=== PATIENT | male | born 1945 | race African-American/Black ===

== ENCOUNTER 2018-10-22 20:12 | Inpatient (IN) | payer MEDICAID ==
[~2018-10-22] VITALS: Ht 182.9 cm; Wt 65.8 kg
[2018-10-22 20:19] VITALS: BP 162/85
[2018-10-22] MEDS ORDERED: DEPAKOTE250 MG PO (20:22)
[2018-10-22] MEDS ORDERED: METOPROLOL SUCC25 MG ORAL (20:23)
[2018-10-22] MEDS ORDERED: METFORMIN HCL500 M1 ORAL (20:23)
[2018-10-22] MEDS ORDERED: AMIODARONE HCL400 M1 ORAL (20:24)
[2018-10-22] MEDS ORDERED: LORazepam Inj 2mg/ml 1ml IV ONE (20:30)
[2018-10-22] MEDS ORDERED: levETIRAcetam 500 MG in D5W 110 ML IV ONE (20:30)
[2018-10-22] MEDS ORDERED: Vancomycin 1 GM in D5W 275 ML IVPB ONE (22:00)
[2018-10-22] MEDS ORDERED: Cefepime HCl 1 GM in D5W 55 ML IVPB ONE (22:00)
--- NOTE | 2018-10-22 22:01 | Emergency Room Report ---
History of Present Illness General Chief Complaint: Seizure Source: Medical Record, EMS Present Illness HPI Patient presents with an alleged tonic clonic seizure at the detention facility. According to EMS the patient does not have a prior history of seizures. Accu-Chek was normal in the field. No further treatment was provided. EMS was unable to start an IV. They alleged that the patient has no prior history of seizures and is not taking any medication for seizures. No history isn't available at this time however old records will be reviewed Review of medications the patient is on Depakote. Diabetic. On amiodarone. H/O a fib Allergies: Coded Allergies: No Known Allergies (Unverified , 10/22/18) Patient History Limited by: medical condition Past Medical History: see triage record, old chart reviewed Social History Narrative detention facility Reviewed Nursing Documentation: PMH: Agreed; PSxH: Agreed Nursing Documentation-PMH Past Medical History: No History, Except For Hx Cardiac Problems: Yes - A-fib Hx Hypertension: Yes Hx Diabetes: Yes Hx Gastrointestinal Problems: Yes - gerd History Of Psychiatric Problem: Yes - depression,anxiety,mood disorder Hx Cerebrovascular Accident: Yes - right side weakness Review of Systems All Other Systems: limited Physical Exam Vital Signs Date Time Temp Pulse Resp B/P (MAP) Pulse Ox O2 Delivery O2 Flow Rate FiO2 10/22/18 20:10 72 18 173/95 98 Room Air Sp02 EP Interpretation: reviewed, normal General Appearance: mild distress - resp, Chronically Ill Head: normocephalic, atraumatic Eyes: right eye other - Opacity ENT: moist mucus membranes - poor dentition Neck: supple Respiratory: no retraction - Tachypnea, rales Cardiovascular #1: regular rate, rhythm Cardiovascular #2: 2+ radial (L) Gastrointestinal: normal inspection, non tender, no mass, non-distended, decreased bowel sounds Musculoskeletal: back normal, other - contractures Neurologic: alert, motor weakness, other - vegetative state, minimally responsive Psychiatric: other - unresponsve to voice or pain Skin: normal inspection, warm/dry Medical Decision Making Diagnostic Impression: Primary Impression: Seizure Additional Impressions: Bilateral pneumonia Qualified Codes: J18.9 - Pneumonia, unspecified organism s/p strokes Elevated brain natriuretic peptide (BNP) level ER Course Patient presents after a witnessed tonic-clonic seizure. It appears that the patient is on valproic acid for behavioral reasons. Differential includes CVA, bleed, breakthrough seizures, new-onset seizures amongst others. Patient will be evaluated EKG, chest x-ray, CT the head and labs including a valproic acid level. The patient is somewhat tachypnea And will be evaluated for possible aspiration. Treated with dose of Keppra and ativan. EKG with normal sinus rhythm possible left ventricular hypertrophy and nonspecific ST-T wave changes. Chest x-ray with bilateral infiltrates. CT with 2 areas of prior strokes, L frontal and R occipital. Also atrophy. Labs with normal WBC, anemia, negative troponin,. elevated BUN, low valproic acid. Based on the x-ray antibiotics are begun. Labs are still pending. Discussed with Dr. French who accepts the patient. He requests a neurologist. Called Dr. Marks - no response. Attempted to have patient on room air - tachypnea and O2 sat decreased to 92%. Oxygen restarted with nasal cannula with improved tachypnea and oxygen saturation. Admit telemetry. BNP is elevated. Laboratory Tests Test 10/22/18 21:34 White Blood Count 8.1 K/UL (4.8-10.8) Red Blood Count 4.10 M/UL (4.70-6.10) L Hemoglobin 11.8 G/DL (14.2-18.0) L Hematocrit 36.6 % (42.0-52.0) L Mean Corpuscular Volume 89 FL (80-99) Mean Corpuscular Hemoglobin 28.8 PG (27.0-31.0) Mean Corpuscular Hemoglobin Concent 32.3 G/DL (32.0-36.0) Red Cell Distribution Width 12.4 % (11.6-14.8) Platelet Count 363 K/UL (150-450) Mean Platelet Volume 6.1 FL (6.5-10.1) L Neutrophils (%) (Auto) 79.3 % (45.0-75.0) H Lymphocytes (%) (Auto) 13.2 % (20.0-45.0) L Monocytes (%) (Auto) 5.9 % (1.0-10.0) Eosinophils (%) (Auto) 0.5 % (0.0-3.0) Basophils (%) (Auto) 1.1 % (0.0-2.0) Sodium Level 134 MMOL/L (136-145) L Potassium Level 5.0 MMOL/L (3.5-5.1) Chloride Level 95 MMOL/L (98-107) L Carbon Dioxide Level 33 MMOL/L (21-32) H Anion Gap 6 mmol/L (5-15) Blood Urea Nitrogen 21 mg/dL (7-18) H Creatinine 0.8 MG/DL (0.55-1.30) Estimate Glomerular Filtration Rate mL/min (>60) Glucose Level 100 MG/DL (74-106) Calcium Level 9.9 MG/DL (8.5-10.1) Total Bilirubin 0.1 MG/DL (0.2-1.0) L Aspartate Amino Transferase (AST) 35 U/L (15-37) Alanine Aminotransferase (ALT) 40 U/L (12-78) Alkaline Phosphatase 158 U/L (46-116) H Total Creatine Kinase 72 U/L (26-308) Troponin I 0.018 ng/mL (0.000-0.056) Total Protein 8.1 G/DL (6.4-8.2) Albumin 2.3 G/DL (3.4-5.0) L Globulin 5.8 g/dL Albumin/Globulin Ratio 0.4 (1.0-2.7) L Valproic Acid Level 11 MCG/ML (50-100) L EKG Diagnostic Results Rate: normal Rhythm: NSR ST Segments: no acute changes - Nonspecific T-wave abnormalities Rhythm Strip Diag. Results EP Interpretation: yes Rhythm: NSR, no PVC's, no ectopy Chest X-Ray Diagnostic Results Chest X-Ray Diagnostic Results : Chest X-Ray Ordered: Yes # of Views/Limited/Complete: 1 View Indication: Other EP Interpretation: Yes Interpretation: no effusion, no pneumothorax, other - Bilateral infiltrates Impression: Other Electronically Signed by: Electronically signed by Haile Laws MD CT/MRI/US Diagnostic Results CT/MRI/US Diagnostic Results : Imaging Test Ordered: Head Impression Left frontal and right occipital infarcts which appear old Last Vital Signs Date Time Temp Pulse Resp B/P (MAP) Pulse Ox O2 Delivery O2 Flow Rate FiO2 10/22/18 20:19 74 18 Room Air 10/22/18 20:19 97.8 162/85 98 2.0 Status: improved Disposition: ADMITTED INPATIENT Condition: Serious Referrals: Kareem Valladares MD (PCP) Haile Laws MD Oct 22, 2018 22:01
[2018-10-22 22:03] LABS: BASOPHILS % (AUTO) 1.1 % (0.0-2.0); EOSINOPHILS % (AUTO) 0.5 % (0.0-3.0); HEMATOCRIT 36.6 % (42.0-52.0); HEMOGLOBIN 11.8 G/DL (14.2-18.0); LYMPHOCYTES % (AUTO) 13.2 % (20.0-45.0); MEAN CORPUSCULAR VOLUME 89 FL (80-99); MONOCYTES % (AUTO) 5.9 % (1.0-10.0); NEUTROPHILS % (AUTO) 79.3 % (45.0-75.0); PLATELET COUNT 363 K/UL (150-450); RED CELL DISTRIBUTION WIDTH 12.4 % (11.6-14.8); WHITE BLOOD COUNT 8.1 K/UL (4.8-10.8)
[2018-10-22 22:05] LABS: ANION GAP 6 mmol/L (5-15); BLOOD UREA NITROGEN 21 mg/dL (7-18); CALCIUM 9.9 MG/DL (8.5-10.1); CARBON DIOXIDE 33 MMOL/L (21-32); CHLORIDE 95 MMOL/L (98-107); CREATININE 0.8 MG/DL (0.55-1.30); SODIUM 134 MMOL/L (136-145)
[2018-10-22 22:09] LABS: ALANINE AMINOTRANSFERASE 40 U/L (12-78); ALBUMIN 2.3 G/DL (3.4-5.0); ALBUMIN/GLOBULIN RATIO 0.4 (1.0-2.7); ALKALINE PHOSPHATASE 158 U/L (46-116); ASPARTATE AMINO TRANSFERASE 35 U/L (15-37); BILIRUBIN,TOTAL 0.1 MG/DL (0.2-1.0); CREATINE KINASE 72 U/L (26-308)
[2018-10-22 22:15] VITALS: BP 134/76
[2018-10-23] VITALS (9 sets, daily range): BP systolic 92–127; BP diastolic 53–80
[2018-10-23] MEDS ORDERED: D5 1/2NS 1,000 ML IV SCH (07:30)
[2018-10-23] MEDS ORDERED: D5 1/2NS w/KCl 20mEq 1,000 ML IV SCH (07:30)
--- NOTE | 2018-10-23 14:34 | Pulmonology Progress Note ---
Assessment/Plan Assessment/Plan Pulmonary Consultation HPI Patient presents with an alleged tonic clonic seizure at the residential [facility]. According to EMS the patient does not have a prior history of seizures. Accu-Chek was normal in the field. No further treatment was provided. Noted to have evidence of Pneumonia on CXR No history isn't available at this time however old records will be reviewed The patient is on Depakote and on amiodarone PMH: Seizures, Diabetes, Hypertension, Atrial Fibrillation, Previous CVA, Depression, GERD Allergies: No Known Allergies ROS: limited Physical Exam Vital Signs Noted Date Time Temp Pulse Resp B/P (MAP) Pulse Ox O2 Delivery O2 Flow Rate FiO2 10/22/18 20:10 72 18 173/95 98 Room Air General Appearance: Mild resp distress, Chronically Ill Head: normocephalic, atraumatic Eyes: right eye other - Opacity ENT: moist mucus membranes - poor dentition Neck: supple Respiratory: no retraction - Tachypnea, rales Cardiovascular : HS1, HS2, regular rate, rhythm Gastrointestinal: normal inspection, non tender, no mass, non-distended, decreased bowel sounds Musculoskeletal: back normal, other - contractures Neurologic: alert, motor weakness, other - vegetative state, minimally responsive Psychiatric: other - unresponsve to voice or pain Skin: normal inspection, warm/dry Impression: Seizure Bilateral pneumonia Previous CVA Elevated brain natriuretic peptide (BNP) level Diabetes Hypertension Previous Depression GERD Plan: Continue IV antibiotics HHN O2 PRN Aspiration and seizure precautions Monitor labs PPX Laboratory Tests Test 10/22/18 21:34 White Blood Count 8.1 K/UL (4.8-10.8) Red Blood Count 4.10 M/UL (4.70-6.10) L Hemoglobin 11.8 G/DL (14.2-18.0) L Hematocrit 36.6 % (42.0-52.0) L Mean Corpuscular Volume 89 FL (80-99) Mean Corpuscular Hemoglobin 28.8 PG (27.0-31.0) Mean Corpuscular Hemoglobin Concent 32.3 G/DL (32.0-36.0) Red Cell Distribution Width 12.4 % (11.6-14.8) Platelet Count 363 K/UL (150-450) Mean Platelet Volume 6.1 FL (6.5-10.1) L Neutrophils (%) (Auto) 79.3 % (45.0-75.0) H Lymphocytes (%) (Auto) 13.2 % (20.0-45.0) L Monocytes (%) (Auto) 5.9 % (1.0-10.0) Eosinophils (%) (Auto) 0.5 % (0.0-3.0) Basophils (%) (Auto) 1.1 % (0.0-2.0) Sodium Level 134 MMOL/L (136-145) L Potassium Level 5.0 MMOL/L (3.5-5.1) Chloride Level 95 MMOL/L (98-107) L Carbon Dioxide Level 33 MMOL/L (21-32) H Anion Gap 6 mmol/L (5-15) Blood Urea Nitrogen 21 mg/dL (7-18) H Creatinine 0.8 MG/DL (0.55-1.30) Estimate Glomerular Filtration Rate mL/min (>60) Glucose Level 100 MG/DL (74-106) Calcium Level 9.9 MG/DL (8.5-10.1) Total Bilirubin 0.1 MG/DL (0.2-1.0) L Aspartate Amino Transferase (AST) 35 U/L (15-37) Alanine Aminotransferase (ALT) 40 U/L (12-78) Alkaline Phosphatase 158 U/L (46-116) H Total Creatine Kinase 72 U/L (26-308) Troponin I 0.018 ng/mL (0.000-0.056) Total Protein 8.1 G/DL (6.4-8.2) Albumin 2.3 G/DL (3.4-5.0) L Globulin 5.8 g/dL Albumin/Globulin Ratio 0.4 (1.0-2.7) L Valproic Acid Level 11 MCG/ML (50-100) L EKG: Rate: normal Rhythm: NSR ST Segments: no acute changes - Nonspecific T-wave abnormalities CXR: no effusion, no pneumothorax, other - Bilateral infiltrates CT Head: Left frontal and right occipital infarcts which appear old Subjective ROS Limited/Unobtainable: No Allergies: Coded Allergies: No Known Allergies (Unverified , 10/22/18) Objective Last 24 Hour Vital Signs Date Time Temp Pulse Resp B/P (MAP) Pulse Ox O2 Delivery O2 Flow Rate FiO2 10/23/18 13:33 97.6 89 19 121/80 95 Nasal Cannula 2.0 10/23/18 13:23 89 19 121/80 95 Nasal Cannula 2.0 10/23/18 11:15 93 18 108/79 100 Nasal Cannula 2.0 10/23/18 09:15 97.6 93 30 92/60 98 Nasal Cannula 2.0 10/23/18 07:15 97.2 100 16 100/74 100 Nasal Cannula 2.0 10/23/18 07:15 99 16 Nasal Cannula 2.0 10/23/18 06:30 97.8 85 18 112/75 100 Nasal Cannula 2.0 10/23/18 03:25 97.9 87 18 127/72 100 Nasal Cannula 2.0 10/22/18 22:15 97.7 81 18 134/76 99 Nasal Cannula 2.0 10/22/18 20:19 74 18 Room Air 10/22/18 20:19 97.8 74 18 162/85 98 Nasal Cannula 2.0 10/22/18 20:10 72 18 173/95 98 Room Air Intake and Output 10/22/18 10/23/18 19:00 07:00 Intake Total 1100 ml Balance 1100 ml Intake Oral 0 ml IV Total 1100 ml Laboratory Tests 10/22/18 21:34: White Blood Count 8.1, Red Blood Count 4.10L, Hemoglobin 11.8L, Hematocrit 36.6L , Mean Corpuscular Volume 89, Mean Corpuscular Hemoglobin 28.8, Mean Corpuscular Hemoglobin Concent 32.3, Red Cell Distribution Width 12.4, Platelet Count 363, Mean Platelet Volume 6.1L, Neutrophils (%) (Auto) 79.3H, Lymphocytes (%) (Auto) 13.2L, Monocytes (%) (Auto) 5.9, Eosinophils (%) (Auto) 0.5, Basophils (%) (Auto) 1.1, Sodium Level 134L, Potassium Level 5.0, Chloride Level 95L, Carbon Dioxide Level 33H, Anion Gap 6, Blood Urea Nitrogen 21H, Creatinine 0.8, Estimat Glomerular Filtration Rate , Glucose Level 100, Calcium Level 9.9, Total Bilirubin 0.1L, Aspartate Amino Transf (AST/SGOT) 35, Alanine Aminotransferase (ALT/SGPT) 40, Alkaline Phosphatase 158H, Total Creatine Kinase 72, Troponin I 0.018, Pro-B-Type Natriuretic Peptide 1179H, Total Protein 8.1, Albumin 2.3L, Globulin 5.8, Albumin/Globulin Ratio 0.4L, Valproic Acid (Depakene) Level 11L Current Medications Medications (Trade) Dose Ordered Sig/Sofia Route PRN Reason Start Time Stop Time Status Last Admin Dose Admin Dextrose/ Electrolytes 1,000 ml @ 100 mls/hr Q10H IV 10/23/18 07:30 11/22/18 07:29 Dextrose/Sodium Chloride 1,000 ml @ 100 mls/hr Q10H IV 10/23/18 07:30 11/22/18 07:29 10/23/18 07:34 Sodium Chloride 1,000 ml @ 300 mls/hr Q3H20M IV 10/22/18 20:30 11/21/18 20:29 10/23/18 10:20 Haile Malhotra MD Oct 23, 2018 14:34
--- NOTE | 2018-10-23 17:20 | Infectious Diseases Prog Note ---
Assessment/Plan Problems: (1) Bilateral pneumonia Assessment & Plan: suspect aspiration due to altered mental status , will start vancomycin and aztreonam empirically and send sputum culture . aspiration precaution, keep HOB > 30 DEGREE . keep NPO for now (2) Seizure Assessment & Plan: monitor in tele, consult neurology (3) Diabetes mellitus Assessment & Plan: recommend tight glycemic control to keep blood glucose between 10-140 Subjective Allergies: Coded Allergies: No Known Allergies (Unverified , 10/22/18) Objective Vital Signs Last 24 Hour Vital Signs Date Time Temp Pulse Resp B/P (MAP) Pulse Ox O2 Delivery O2 Flow Rate FiO2 10/23/18 16:00 Nasal Cannula 2.0 10/23/18 16:00 79 10/23/18 16:00 97.3 69 28 93/53 (66) 97 10/23/18 14:26 84 10/23/18 14:00 97.7 84 28 108/61 (77) 96 10/23/18 14:00 Nasal Cannula 2.0 10/23/18 13:33 97.6 89 19 121/80 95 Nasal Cannula 2.0 10/23/18 13:23 89 19 121/80 95 Nasal Cannula 2.0 10/23/18 11:15 93 18 108/79 100 Nasal Cannula 2.0 10/23/18 09:15 97.6 93 30 92/60 98 Nasal Cannula 2.0 10/23/18 07:15 97.2 100 16 100/74 100 Nasal Cannula 2.0 10/23/18 07:15 99 16 Nasal Cannula 2.0 10/23/18 06:30 97.8 85 18 112/75 100 Nasal Cannula 2.0 10/23/18 03:25 97.9 87 18 127/72 100 Nasal Cannula 2.0 10/22/18 22:15 97.7 81 18 134/76 99 Nasal Cannula 2.0 10/22/18 20:19 74 18 Room Air 10/22/18 20:19 97.8 74 18 162/85 98 Nasal Cannula 2.0 10/22/18 20:10 72 18 173/95 98 Room Air Height (Feet): 6 Weight (Pounds): 140 Laboratory Tests Test 10/22/18 21:34 White Blood Count 8.1 K/UL (4.8-10.8) Red Blood Count 4.10 M/UL (4.70-6.10) L Hemoglobin 11.8 G/DL (14.2-18.0) L Hematocrit 36.6 % (42.0-52.0) L Mean Corpuscular Volume 89 FL (80-99) Mean Corpuscular Hemoglobin 28.8 PG (27.0-31.0) Mean Corpuscular Hemoglobin Concent 32.3 G/DL (32.0-36.0) Red Cell Distribution Width 12.4 % (11.6-14.8) Platelet Count 363 K/UL (150-450) Mean Platelet Volume 6.1 FL (6.5-10.1) L Neutrophils (%) (Auto) 79.3 % (45.0-75.0) H Lymphocytes (%) (Auto) 13.2 % (20.0-45.0) L Monocytes (%) (Auto) 5.9 % (1.0-10.0) Eosinophils (%) (Auto) 0.5 % (0.0-3.0) Basophils (%) (Auto) 1.1 % (0.0-2.0) Sodium Level 134 MMOL/L (136-145) L Potassium Level 5.0 MMOL/L (3.5-5.1) Chloride Level 95 MMOL/L (98-107) L Carbon Dioxide Level 33 MMOL/L (21-32) H Anion Gap 6 mmol/L (5-15) Blood Urea Nitrogen 21 mg/dL (7-18) H Creatinine 0.8 MG/DL (0.55-1.30) Estimat Glomerular Filtration Rate mL/min (>60) Glucose Level 100 MG/DL (74-106) Calcium Level 9.9 MG/DL (8.5-10.1) Total Bilirubin 0.1 MG/DL (0.2-1.0) L Aspartate Amino Transf (AST/SGOT) 35 U/L (15-37) Alanine Aminotransferase (ALT/SGPT) 40 U/L (12-78) Alkaline Phosphatase 158 U/L (46-116) H Total Creatine Kinase 72 U/L (26-308) Troponin I 0.018 ng/mL (0.000-0.056) Pro-B-Type Natriuretic Peptide 1179 pg/mL (0-125) H Total Protein 8.1 G/DL (6.4-8.2) Albumin 2.3 G/DL (3.4-5.0) L Globulin 5.8 g/dL Albumin/Globulin Ratio 0.4 (1.0-2.7) L Valproic Acid (Depakene) Level 11 MCG/ML (50-100) L Current Medications Medications (Trade) Dose Ordered Sig/Sofia Route PRN Reason Start Time Stop Time Status Last Admin Dose Admin Dextrose/ Electrolytes 1,000 ml @ 100 mls/hr Q10H IV 10/23/18 07:30 11/22/18 07:29 Dextrose/Sodium Chloride 1,000 ml @ 100 mls/hr Q10H IV 10/23/18 07:30 11/22/18 07:29 10/23/18 07:34 Sodium Chloride 1,000 ml @ 300 mls/hr Q3H20M IV 10/22/18 20:30 11/21/18 20:29 10/23/18 10:20 Susanna Morrell M.D. Oct 23, 2018 17:20
[2018-10-23] MEDS: D5NS 1,000 ML IV SCH (18:04)
[2018-10-23] MEDS: Albuterol/Ipratropium 3ml neb HHN SCH ×2 (19:00→23:22)
[2018-10-23] MEDS: Heparin 5000 units/ml inj SUBQ SCH (20:46)
[2018-10-23] MEDS: levETIRAcetam 500mg/5ml Liquid NG SCH (20:46)
[2018-10-23] MEDS: Amiodarone 200mg tab ORAL SCH (20:47)
[2018-10-23] MEDS: Vancomycin 750mg/NS 275ml IVPB SCH ×2 (20:47)
[2018-10-23] MEDS ORDERED: Piperacillin/Tazobactam 3.375 GM in NS 110 ML IVPB SCH (22:00)
[2018-10-23] MEDS: Aztreonam Inj 1 GM in D5W 55 ML IVPB SCH (22:32)
[2018-10-24] VITALS: BP 103/50
[2018-10-24 04:00] VITALS: BP 135/76
[2018-10-24] MEDS: Albuterol/Ipratropium 3ml neb HHN SCH ×6 (04:48→23:44)
[2018-10-24] MEDS: Aztreonam Inj 1 GM in D5W 55 ML IVPB SCH ×3 (05:54→21:40)
[2018-10-24] MEDS: D5NS 1,000 ML IV SCH ×2 (05:54→18:44)
[2018-10-24 06:09] LABS: BASOPHILS % (AUTO) 0.6 % (0.0-2.0); EOSINOPHILS % (AUTO) 0.2 % (0.0-3.0); HEMATOCRIT 31.7 % (42.0-52.0); HEMOGLOBIN 10.3 G/DL (14.2-18.0); LYMPHOCYTES % (AUTO) 9.9 % (20.0-45.0); MEAN CORPUSCULAR VOLUME 90 FL (80-99); MONOCYTES % (AUTO) 6.3 % (1.0-10.0); NEUTROPHILS % (AUTO) 83.1 % (45.0-75.0); PLATELET COUNT 276 K/UL (150-450); RED BLOOD COUNT 3.53 M/UL (4.70-6.10); RED CELL DISTRIBUTION WIDTH 13.2 % (11.6-14.8); WHITE BLOOD COUNT 11.7 K/UL (4.8-10.8)
[2018-10-24 06:23] LABS: ALANINE AMINOTRANSFERASE 36 U/L (12-78); ALBUMIN 1.8 G/DL (3.4-5.0); ALBUMIN/GLOBULIN RATIO 0.4 (1.0-2.7); ALKALINE PHOSPHATASE 124 U/L (46-116); ANION GAP 5 mmol/L (5-15); ASPARTATE AMINO TRANSFERASE 31 U/L (15-37); BILIRUBIN,TOTAL 0.3 MG/DL (0.2-1.0); BLOOD UREA NITROGEN 14 mg/dL (7-18); CALCIUM 9.3 MG/DL (8.5-10.1); CARBON DIOXIDE 29 MMOL/L (21-32); CHLORIDE 101 MMOL/L (98-107); CREATININE 0.8 MG/DL (0.55-1.30); POTASSIUM 4.5 MMOL/L (3.5-5.1); SODIUM 135 MMOL/L (136-145)
[2018-10-24 08:00] VITALS: BP 97/57
[2018-10-24] MEDS: levETIRAcetam 500mg/5ml Liquid NG SCH (09:31)
[2018-10-24] MEDS: Vancomycin 750mg/NS 275ml IVPB SCH ×4 (09:31→19:44)
[2018-10-24] MEDS: Amiodarone 200mg tab ORAL SCH (09:31)
[2018-10-24] MEDS: Heparin 5000 units/ml inj SUBQ SCH ×2 (09:34→20:44)
[2018-10-24 12:00] VITALS: BP 97/60
--- NOTE | 2018-10-24 12:00 | Pulmonology Progress Note ---
Assessment/Plan Problems: (1) Altered mental status (2) Bilateral pneumonia (3) Seizure (4) Diabetes mellitus (5) Elevated brain natriuretic peptide (BNP) level Assessment/Plan Optimize pulmonary hygiene/mobilize as tolerated PRN O2 HHN's ABG CT chest Abx per ID Neuro eval Monitor MS NPO IVF FC Attempt to get old records Subjective Allergies: Coded Allergies: No Known Allergies (Unverified , 10/22/18) Subjective AFVSS on 2L obtunded baseline unknown Per RN no coughing or respiratory distress WCt inc to 11 Objective Last 24 Hour Vital Signs Date Time Temp Pulse Resp B/P (MAP) Pulse Ox O2 Delivery O2 Flow Rate FiO2 10/24/18 11:34 85 20 96 Nasal Cannula 28 10/24/18 11:24 82 18 92 Nasal Cannula 2.0 28 10/24/18 08:00 93 10/24/18 08:00 97.9 87 22 97/57 (70) 100 10/24/18 08:00 Nasal Cannula 2.0 10/24/18 07:38 93 20 96 Nasal Cannula 28 10/24/18 07:24 Nasal Cannula 2.0 28 10/24/18 07:24 93 2.0 28 10/24/18 07:20 91 18 93 Nasal Cannula 2.0 28 10/24/18 04:14 97 10/24/18 04:00 97.7 99 24 135/76 (95) 99 10/24/18 04:00 Nasal Cannula 2.0 10/24/18 03:40 80 20 97 Nasal Cannula 28 10/24/18 03:30 78 18 93 Nasal Cannula 2.0 28 10/24/18 00:00 97.3 50 24 103/50 (67) 90 10/24/18 00:00 Nasal Cannula 2.0 10/23/18 23:25 Nasal Cannula 2.0 28 10/23/18 23:24 93 Nasal Cannula 2.0 28 10/23/18 23:23 78 20 95 Nasal Cannula 28 10/23/18 23:12 75 18 94 Nasal Cannula 2.0 28 10/23/18 21:50 77 18 Nasal Cannula 3.0 32 10/23/18 20:00 98.2 80 20 106/80 (89) 100 10/23/18 20:00 79 10/23/18 20:00 Nasal Cannula 2.0 10/23/18 16:00 Nasal Cannula 2.0 10/23/18 16:00 79 10/23/18 16:00 97.3 69 28 93/53 (66) 97 10/23/18 14:26 84 10/23/18 14:00 97.7 84 28 108/61 (77) 96 10/23/18 14:00 Nasal Cannula 2.0 10/23/18 13:33 97.6 89 19 121/80 95 Nasal Cannula 2.0 10/23/18 13:23 89 19 121/80 95 Nasal Cannula 2.0 Intake and Output 10/23/18 10/24/18 18:59 06:59 Intake Total 2000 ml 1265.000 ml Output Total 1050 ml 400 ml Balance 950 ml 865.000 ml Intake Oral 0 ml IV Total 2000 ml 1265.000 ml Output Urine Total 1050 ml 400 ml General Appearance: cachetic - obtunded HEENT: normocephalic, atraumatic, anicteric, mucous membranes moist Respiratory/Chest: rhonchi Cardiovascular: normal peripheral pulses, normal rate, regular rhythm Abdomen: normal bowel sounds, soft, non tender, no organomegaly, non distended , no mass Extremities: no cyanosis, no clubbing, no edema Microbiology Date/Time Source Procedure Growth Status 10/22/18 21:40 Blood Blood Culture - Preliminary NO GROWTH AFTER 24 HOURS Resulted 10/22/18 21:34 Blood Blood Culture - Preliminary NO GROWTH AFTER 24 HOURS Resulted Laboratory Tests 10/23/18 18:13: Troponin I 0.083H 10/24/18 05:00: Troponin I 0.050, White Blood Count 11.7H, Red Blood Count 3.53L, Hemoglobin 10.3L, Hematocrit 31.7L, Mean Corpuscular Volume 90, Mean Corpuscular Hemoglobin 29.2, Mean Corpuscular Hemoglobin Concent 32.4, Red Cell Distribution Width 13.2, Platelet Count 276, Mean Platelet Volume 6.6, Neutrophils (%) (Auto) 83.1H, Lymphocytes (%) (Auto) 9.9L, Monocytes (%) (Auto) 6.3, Eosinophils (%) (Auto) 0.2, Basophils (%) (Auto) 0.6, Sodium Level 135L, Potassium Level 4.5, Chloride Level 101, Carbon Dioxide Level 29, Anion Gap 5, Blood Urea Nitrogen 14, Creatinine 0.8, Estimat Glomerular Filtration Rate , Glucose Level 101, Calcium Level 9.3, Total Bilirubin 0.3, Aspartate Amino Transf (AST/SGOT) 31, Alanine Aminotransferase (ALT/SGPT) 36, Alkaline Phosphatase 124H, Total Protein 6.5, Albumin 1.8L, Globulin 4.7, Albumin/ Globulin Ratio 0.4L Current Medications Medications (Trade) Dose Ordered Sig/Sofia Route PRN Reason Start Time Stop Time Status Last Admin Dose Admin Albuterol/ Ipratropium (Albuterol/ Ipratropium) 3 ml Q4HRT HHN 10/23/18 19:00 10/28/18 18:59 10/24/18 11:24 Amiodarone HCl (Cordarone) 200 mg EVERY 12 HOURS ORAL 10/23/18 21:00 11/22/18 20:59 10/24/18 09:31 Aztreonam 1 gm/ Dextrose 55 ml @ 110 mls/hr Q8HR IVPB 10/23/18 22:00 10/30/18 21:59 10/24/18 05:54 Dextrose/Sodium Chloride 1,000 ml @ 80 mls/hr [id number] IV 10/23/18 17:45 11/22/18 17:44 10/24/18 05:54 Heparin Sodium (Porcine) (Heparin 5000 units/ml) 5,000 units EVERY 12 HOURS SUBQ 10/23/18 21:00 11/22/18 20:59 10/24/18 09:34 Levetiracetam (Keppra) 500 mg Q12HR NG 10/23/18 21:00 11/22/18 20:59 10/24/18 09:31 Pantoprazole (Protonix) 40 mg DAILY ORAL 10/24/18 09:00 11/23/18 08:59 10/24/18 09:31 Vancomycin HCl (Vanco rx to dose) 1 ea DAILY PRN MISC Per rx protocol 10/23/18 17:30 11/22/18 17:29 Vancomycin HCl 750 mg/Sodium Chloride 275 ml @ 183.333 mls/hr Q12HR@0800,2000 IVPB 10/23/18 20:00 10/28/18 19:59 10/24/18 09:31 Flex Nunn MD Oct 24, 2018 12:00
--- NOTE | 2018-10-24 12:53 | Diagnostic Imaging Report ---
Indication: Shortness of breath Technique: One view of the chest Comparison: 10/22/2018 Findings: Interim marked increased opacification of left hemithorax, now with only a small volume of residual aerated lung. The lateral pleural space appears thickened, indicating accumulating pleural fluid. However, the mediastinum to the left and there appears to be termination of the left mainstem bronchus, suggest tearing a significant component of atelectasis. There is increased patchy opacity in the right midlung. Impression: Markedly increased opacification of the left hemithorax, with only minimal residual aerated lung. Shift of the mediastinum to the left suggests that this is mostly due to atelectasis, but there is probably a significant component of accumulating pleural fluid as well Suggestion of increasing right midlung infiltrate, likely pneumonia Findings discussed by phone with Dr. Duran at the time of interpretation
--- NOTE | 2018-10-24 15:42 | History & Physical ---
History and Physical History & Physicial SEEN AND EXAMINED. FULL DICTATION COMPLETE ON 10/24 ON 3:42 pm Hayde Duran MD Oct 24, 2018 15:42
--- NOTE | 2018-10-24 15:43 | Infectious Diseases Prog Note ---
Assessment/Plan Problems: (1) Bilateral pneumonia Assessment & Plan: suspect aspiration due to altered mental status , continue vancomycin and aztreonam empirically and send sputum culture if he produces any . await CT chest to rule out lung mass or effusion . aspiration precaution, keep HOB > 30 DEGREE . keep NPO for now (2) Seizure Assessment & Plan: monitor in tele,seizure precaution . consult neurology (3) Diabetes mellitus Assessment & Plan: recommend tight glycemic control to keep blood glucose between 10-140 (4) Altered mental status Assessment & Plan: due to the above, continue hydration and antibiotics, neuro check , monitor in tele, avoid sedatives Subjective ROS Limited/Unobtainable: Yes Allergies: Coded Allergies: No Known Allergies (Unverified , 10/22/18) Subjective he was more awake but still unresponsive, uncooperative with exam , no fever, no cough or SOB, no diarrhea as per nurse Objective Vital Signs Last 24 Hour Vital Signs Date Time Temp Pulse Resp B/P (MAP) Pulse Ox O2 Delivery O2 Flow Rate FiO2 10/24/18 15:04 75 20 97 Nasal Cannula 2.0 28 10/24/18 14:56 70 18 96 Nasal Cannula 2.0 28 10/24/18 12:00 97.8 87 12 97/60 (72) 100 10/24/18 12:00 Nasal Cannula 2.0 10/24/18 12:00 90 10/24/18 11:34 85 20 96 Nasal Cannula 28 10/24/18 11:24 82 18 92 Nasal Cannula 2.0 28 10/24/18 08:00 93 10/24/18 08:00 97.9 87 22 97/57 (70) 100 10/24/18 08:00 Nasal Cannula 2.0 10/24/18 07:38 93 20 96 Nasal Cannula 28 10/24/18 07:24 Nasal Cannula 2.0 28 10/24/18 07:24 93 2.0 28 10/24/18 07:20 91 18 93 Nasal Cannula 2.0 28 10/24/18 04:14 97 10/24/18 04:00 97.7 99 24 135/76 (95) 99 10/24/18 04:00 Nasal Cannula 2.0 10/24/18 03:40 80 20 97 Nasal Cannula 28 10/24/18 03:30 78 18 93 Nasal Cannula 2.0 28 10/24/18 00:00 97.3 50 24 103/50 (67) 90 10/24/18 00:00 Nasal Cannula 2.0 10/23/18 23:25 Nasal Cannula 2.0 28 10/23/18 23:24 93 Nasal Cannula 2.0 28 10/23/18 23:23 78 20 95 Nasal Cannula 28 10/23/18 23:12 75 18 94 Nasal Cannula 2.0 28 10/23/18 21:50 77 18 Nasal Cannula 3.0 32 10/23/18 20:00 98.2 80 20 106/80 (89) 100 10/23/18 20:00 79 10/23/18 20:00 Nasal Cannula 2.0 10/23/18 16:00 Nasal Cannula 2.0 10/23/18 16:00 79 10/23/18 16:00 97.3 69 28 93/53 (66) 97 Height (Feet): 6 Weight (Pounds): 140 General Appearance: WD/WN, no acute distress HEENT: normocephalic, atraumatic, anicteric, supple, no JVD Respiratory/Chest: chest wall non-tender, no respiratory distress, no accessory muscle use, decreased breath sounds, crackles/rales Cardiovascular: normal peripheral pulses, normal rate, regular rhythm, no gallop/murmur, no JVD Abdomen: normal bowel sounds, soft, non tender, no organomegaly, non distended , no mass, no scars Extremities: no cyanosis, no clubbing Skin: no rash, no lesions, ulcers Neurologic/Psychiatric: alert, unresponsiveness Lymphatic: no neck adenopathy, no groin adenopathy Musculoskeletal: normal muscle bulk, no effusion Microbiology Date/Time Source Procedure Growth Status 10/22/18 21:40 Blood Blood Culture - Preliminary NO GROWTH AFTER 24 HOURS Resulted 10/22/18 21:34 Blood Blood Culture - Preliminary NO GROWTH AFTER 24 HOURS Resulted Laboratory Tests Test 10/23/18 18:13 10/24/18 05:00 10/24/18 12:20 Troponin I 0.083 ng/mL (0.000-0.056) 0.050 ng/mL (0.000-0.056) White Blood Count 11.7 K/UL (4.8-10.8) H Red Blood Count 3.53 M/UL (4.70-6.10) L Hemoglobin 10.3 G/DL (14.2-18.0) L Hematocrit 31.7 % (42.0-52.0) L Mean Corpuscular Volume 90 FL (80-99) Mean Corpuscular Hemoglobin 29.2 PG (27.0-31.0) Mean Corpuscular Hemoglobin Concent 32.4 G/DL (32.0-36.0) Red Cell Distribution Width 13.2 % (11.6-14.8) Platelet Count 276 K/UL (150-450) Mean Platelet Volume 6.6 FL (6.5-10.1) Neutrophils (%) (Auto) 83.1 % (45.0-75.0) H Lymphocytes (%) (Auto) 9.9 % (20.0-45.0) L Monocytes (%) (Auto) 6.3 % (1.0-10.0) Eosinophils (%) (Auto) 0.2 % (0.0-3.0) Basophils (%) (Auto) 0.6 % (0.0-2.0) Sodium Level 135 MMOL/L (136-145) L Potassium Level 4.5 MMOL/L (3.5-5.1) Chloride Level 101 MMOL/L (98-107) Carbon Dioxide Level 29 MMOL/L (21-32) Anion Gap 5 mmol/L (5-15) Blood Urea Nitrogen 14 mg/dL (7-18) Creatinine 0.8 MG/DL (0.55-1.30) Estimat Glomerular Filtration Rate mL/min (>60) Glucose Level 101 MG/DL (74-106) Calcium Level 9.3 MG/DL (8.5-10.1) Total Bilirubin 0.3 MG/DL (0.2-1.0) Aspartate Amino Transf (AST/SGOT) 31 U/L (15-37) Alanine Aminotransferase (ALT/SGPT) 36 U/L (12-78) Alkaline Phosphatase 124 U/L (46-116) H Total Protein 6.5 G/DL (6.4-8.2) Albumin 1.8 G/DL (3.4-5.0) L Globulin 4.7 g/dL Albumin/Globulin Ratio 0.4 (1.0-2.7) L Arterial Blood pH 7.430 (7.350-7.450) Arterial Blood Partial Pressure CO2 44.4 mmHg (35.0-45.0) Arterial Blood Partial Pressure O2 63.2 mmHg (75.0-100.0) L Arterial Blood HCO3 28.8 mmol/L (22.0-26.0) H Arterial Blood Oxygen Saturation 91.9 % (95-100) L Arterial Blood Base Excess 4.0 (-2-2) H Parveen Test Positive Current Medications Medications (Trade) Dose Ordered Sig/Sofia Route PRN Reason Start Time Stop Time Status Last Admin Dose Admin Albuterol/ Ipratropium (Albuterol/ Ipratropium) 3 ml Q4HRT HHN 10/23/18 19:00 10/28/18 18:59 10/24/18 14:55 Amiodarone HCl (Cordarone) 200 mg EVERY 12 HOURS ORAL 10/23/18 21:00 11/22/18 20:59 10/24/18 09:31 Aztreonam 1 gm/ Dextrose 55 ml @ 110 mls/hr Q8HR IVPB 10/23/18 22:00 10/30/18 21:59 10/24/18 14:33 Dextrose/Sodium Chloride 1,000 ml @ 80 mls/hr [id number] IV 10/23/18 17:45 11/22/18 17:44 10/24/18 05:54 Heparin Sodium (Porcine) (Heparin 5000 units/ml) 5,000 units EVERY 12 HOURS SUBQ 10/23/18 21:00 11/22/18 20:59 10/24/18 09:34 Levetiracetam (Keppra) 500 mg Q12HR NG 10/23/18 21:00 11/22/18 20:59 10/24/18 09:31 Pantoprazole (Protonix) 40 mg DAILY ORAL 10/24/18 09:00 11/23/18 08:59 10/24/18 09:31 Vancomycin HCl (Vanco rx to dose) 1 ea DAILY PRN MISC Per rx protocol 10/23/18 17:30 11/22/18 17:29 Vancomycin HCl 750 mg/Sodium Chloride 275 ml @ 183.333 mls/hr Q12HR@0800,2000 IVPB 10/23/18 20:00 10/28/18 19:59 10/24/18 09:31 Susanna Morrell M.D. Oct 24, 2018 15:43
[2018-10-24 16:00] VITALS: BP 129/68
--- NOTE | 2018-10-24 16:20 | Consultation ---
History of Present Illness General Date patient seen: Oct 24, 2018 Chief Complaint: Seizure Present Illness HPI This is a 73-year-old male with multiple medical comorbidities who was in a [facility] facility what is believed that he had a generalized seizure and was transferred to [facility] emergency department for evaluation. Patient currently admitted for medical care and management. Upon admission patient was identified to have a sacral wound that would require care and management. Surgery called to evaluate and assist with care. Patient seen, patient examined, chart reviewed. Allergies: Coded Allergies: No Known Allergies (Unverified , 10/22/18) Medication History Scheduled Amiodarone Hcl* (Amiodarone Hcl*), 200 MG ORAL EVERY 12 HOURS, (Reported) Divalproex Sodium* (Depakote*), 125 MG PO DAILY, (Reported) Metformin Hcl* (Metformin Hcl*), 500 MG ORAL TID, (Reported) Metoprolol Succinate* (Metoprolol Succinate*), 25 MG ORAL BID, (Reported) Patient History Limited by: medical condition History Provided By: Medical Record, PMD Healthcare decision maker none Resuscitation status Full Code Advanced Directive on File No Past Medical/Surgical History Past Medical/Surgical History: (1) Elevated brain natriuretic peptide (BNP) level (2) Diabetes mellitus (3) Seizure (4) Bilateral pneumonia (5) Altered mental status Review of Systems All Other Systems: negative except mentioned in HPI Physical Exam General Appearance: no apparent distress Lines, tubes and drains: peripheral HEENT: mucous membranes moist Neck: normal inspection Respiratory/Chest: normal breath sounds Cardiovascular/Chest: regular rhythm Abdomen: non tender, soft, no organomegaly, no mass Extremities: normal inspection Skin Exam: warm/dry Neurologic: alert Last 24 Hour Vital Signs Date Time Temp Pulse Resp B/P (MAP) Pulse Ox O2 Delivery O2 Flow Rate FiO2 10/24/18 15:04 75 20 97 Nasal Cannula 2.0 28 10/24/18 14:56 70 18 96 Nasal Cannula 2.0 28 10/24/18 12:00 97.8 87 12 97/60 (72) 100 10/24/18 12:00 Nasal Cannula 2.0 10/24/18 12:00 90 10/24/18 11:34 85 20 96 Nasal Cannula 28 10/24/18 11:24 82 18 92 Nasal Cannula 2.0 28 10/24/18 08:00 93 10/24/18 08:00 97.9 87 22 97/57 (70) 100 10/24/18 08:00 Nasal Cannula 2.0 10/24/18 07:38 93 20 96 Nasal Cannula 28 10/24/18 07:24 Nasal Cannula 2.0 28 10/24/18 07:24 93 2.0 28 10/24/18 07:20 91 18 93 Nasal Cannula 2.0 28 10/24/18 04:14 97 10/24/18 04:00 97.7 99 24 135/76 (95) 99 10/24/18 04:00 Nasal Cannula 2.0 10/24/18 03:40 80 20 97 Nasal Cannula 28 10/24/18 03:30 78 18 93 Nasal Cannula 2.0 28 10/24/18 00:00 97.3 50 24 103/50 (67) 90 10/24/18 00:00 Nasal Cannula 2.0 10/23/18 23:25 Nasal Cannula 2.0 28 10/23/18 23:24 93 Nasal Cannula 2.0 28 10/23/18 23:23 78 20 95 Nasal Cannula 28 10/23/18 23:12 75 18 94 Nasal Cannula 2.0 28 10/23/18 21:50 77 18 Nasal Cannula 3.0 32 10/23/18 20:00 98.2 80 20 106/80 (89) 100 10/23/18 20:00 79 10/23/18 20:00 Nasal Cannula 2.0 Intake and Output 10/23/18 10/24/18 19:00 07:00 Intake Total 2080 ml 1265.000 ml Output Total 1050 ml 400 ml Balance 1030 ml 865.000 ml Intake Oral 0 ml IV Total 2080 ml 1265.000 ml Output Urine Total 1050 ml 400 ml Laboratory Tests Test 10/23/18 18:13 10/24/18 05:00 10/24/18 12:20 Troponin I 0.083 ng/mL (0.000-0.056) 0.050 ng/mL (0.000-0.056) White Blood Count 11.7 K/UL (4.8-10.8) H Red Blood Count 3.53 M/UL (4.70-6.10) L Hemoglobin 10.3 G/DL (14.2-18.0) L Hematocrit 31.7 % (42.0-52.0) L Mean Corpuscular Volume 90 FL (80-99) Mean Corpuscular Hemoglobin 29.2 PG (27.0-31.0) Mean Corpuscular Hemoglobin Concent 32.4 G/DL (32.0-36.0) Red Cell Distribution Width 13.2 % (11.6-14.8) Platelet Count 276 K/UL (150-450) Mean Platelet Volume 6.6 FL (6.5-10.1) Neutrophils (%) (Auto) 83.1 % (45.0-75.0) H Lymphocytes (%) (Auto) 9.9 % (20.0-45.0) L Monocytes (%) (Auto) 6.3 % (1.0-10.0) Eosinophils (%) (Auto) 0.2 % (0.0-3.0) Basophils (%) (Auto) 0.6 % (0.0-2.0) Sodium Level 135 MMOL/L (136-145) L Potassium Level 4.5 MMOL/L (3.5-5.1) Chloride Level 101 MMOL/L (98-107) Carbon Dioxide Level 29 MMOL/L (21-32) Anion Gap 5 mmol/L (5-15) Blood Urea Nitrogen 14 mg/dL (7-18) Creatinine 0.8 MG/DL (0.55-1.30) Estimat Glomerular Filtration Rate mL/min (>60) Glucose Level 101 MG/DL (74-106) Calcium Level 9.3 MG/DL (8.5-10.1) Total Bilirubin 0.3 MG/DL (0.2-1.0) Aspartate Amino Transf (AST/SGOT) 31 U/L (15-37) Alanine Aminotransferase (ALT/SGPT) 36 U/L (12-78) Alkaline Phosphatase 124 U/L (46-116) H Total Protein 6.5 G/DL (6.4-8.2) Albumin 1.8 G/DL (3.4-5.0) L Globulin 4.7 g/dL Albumin/Globulin Ratio 0.4 (1.0-2.7) L Arterial Blood pH 7.430 (7.350-7.450) Arterial Blood Partial Pressure CO2 44.4 mmHg (35.0-45.0) Arterial Blood Partial Pressure O2 63.2 mmHg (75.0-100.0) L Arterial Blood HCO3 28.8 mmol/L (22.0-26.0) H Arterial Blood Oxygen Saturation 91.9 % (95-100) L Arterial Blood Base Excess 4.0 (-2-2) H Parveen Test Positive Height (Feet): 6 Weight (Pounds): 140 Medications Current Medications Medications (Trade) Dose Ordered Sig/Sofia Route PRN Reason Start Time Stop Time Status Last Admin Dose Admin Albuterol/ Ipratropium (Albuterol/ Ipratropium) 3 ml Q4HRT HHN 10/23/18 19:00 10/28/18 18:59 10/24/18 14:55 Amiodarone HCl (Cordarone) 200 mg EVERY 12 HOURS ORAL 10/23/18 21:00 11/22/18 20:59 10/24/18 09:31 Aztreonam 1 gm/ Dextrose 55 ml @ 110 mls/hr Q8HR IVPB 10/23/18 22:00 10/30/18 21:59 10/24/18 14:33 Dextrose/Sodium Chloride 1,000 ml @ 80 mls/hr [id number] IV 10/23/18 17:45 11/22/18 17:44 10/24/18 05:54 Heparin Sodium (Porcine) (Heparin 5000 units/ml) 5,000 units EVERY 12 HOURS SUBQ 10/23/18 21:00 11/22/18 20:59 10/24/18 09:34 Levetiracetam (Keppra) 500 mg Q12HR NG 10/23/18 21:00 11/22/18 20:59 10/24/18 09:31 Pantoprazole (Protonix) 40 mg DAILY ORAL 10/24/18 09:00 11/23/18 08:59 10/24/18 09:31 Vancomycin HCl (Vanco rx to dose) 1 ea DAILY PRN MISC Per rx protocol 10/23/18 17:30 11/22/18 17:29 Vancomycin HCl 750 mg/Sodium Chloride 275 ml @ 183.333 mls/hr Q12HR@0800,2000 IVPB 10/23/18 20:00 10/28/18 19:59 10/24/18 09:31 Assessment/Plan Problem List: (1) Sacral decubitus ulcer Assessment & Plan: Patient presented on admission with full thickness Stage III sacral pressure injury. 100% yellow slough at base of wound, Edges flat and dry(L)1.1cm x (W)1.9cm. Periwound without erythema or induration. No odor noted. Non-viable tissue removed using curette by myself at bedside. Base of wound is more viable with trace slough. R heel /R achilles boggy with non-blanchable erythema. Pt moans when site is minimally palpated. L heel boggy with non-blanchable erythema. Pt did not exhibit any distress when L heel palpated. Dry brown discoloration without induration or fluctuance noted to brandon/dorsal R foot. Dry brown discoloration without fluctuance or induration noted to R lateral malleolus. Tx.Plan: Cleanse Sacral wound with Saline.Apply Therahoney. Apply Cavilon Skin Barrier periwound. Cover with Optifoam drsg Daily and prn. Apply Cavilon Skin Barrier to R lateral malleolus.Cover with Optifoam drsg.Change every 7 days and prn. Apply Cavilon Skin Barrier to both heels and R achilles. Cover with Optifoam drsg.Change Q7days and prn. APM/CHARU mattress. Reposition at least every 2hours or as tolerated. Off-load heels with pillow. ICD Codes: L89.159 - Pressure ulcer of sacral region, unspecified stage SNOMED: 742009704 (2) Seizure Assessment & Plan: Labs noted RX reviewed currently stable will monitor ICD Codes: R56.9 - Unspecified convulsions SNOMED: [id number] Chato Mullen Oct 24, 2018 16:20
--- NOTE | 2018-10-24 16:24 | Cardiac Electrophysiology PN ---
Subjective Subjective [id number] Objective Last 24 Hour Vital Signs Date Time Temp Pulse Resp B/P (MAP) Pulse Ox O2 Delivery O2 Flow Rate FiO2 10/24/18 15:04 75 20 97 Nasal Cannula 2.0 28 10/24/18 14:56 70 18 96 Nasal Cannula 2.0 28 10/24/18 12:00 97.8 87 12 97/60 (72) 100 10/24/18 12:00 Nasal Cannula 2.0 10/24/18 12:00 90 10/24/18 11:34 85 20 96 Nasal Cannula 28 10/24/18 11:24 82 18 92 Nasal Cannula 2.0 28 10/24/18 08:00 93 10/24/18 08:00 97.9 87 22 97/57 (70) 100 10/24/18 08:00 Nasal Cannula 2.0 10/24/18 07:38 93 20 96 Nasal Cannula 28 10/24/18 07:24 Nasal Cannula 2.0 28 10/24/18 07:24 93 2.0 28 10/24/18 07:20 91 18 93 Nasal Cannula 2.0 28 10/24/18 04:14 97 10/24/18 04:00 97.7 99 24 135/76 (95) 99 10/24/18 04:00 Nasal Cannula 2.0 10/24/18 03:40 80 20 97 Nasal Cannula 28 10/24/18 03:30 78 18 93 Nasal Cannula 2.0 28 10/24/18 00:00 97.3 50 24 103/50 (67) 90 10/24/18 00:00 Nasal Cannula 2.0 10/23/18 23:25 Nasal Cannula 2.0 28 10/23/18 23:24 93 Nasal Cannula 2.0 28 10/23/18 23:23 78 20 95 Nasal Cannula 28 10/23/18 23:12 75 18 94 Nasal Cannula 2.0 28 10/23/18 21:50 77 18 Nasal Cannula 3.0 32 10/23/18 20:00 98.2 80 20 106/80 (89) 100 10/23/18 20:00 79 10/23/18 20:00 Nasal Cannula 2.0 Intake and Output 10/23/18 10/24/18 19:00 07:00 Intake Total 2080 ml 1265.000 ml Output Total 1050 ml 400 ml Balance 1030 ml 865.000 ml Intake Oral 0 ml IV Total 2080 ml 1265.000 ml Output Urine Total 1050 ml 400 ml Laboratory Tests Test 10/23/18 18:13 10/24/18 05:00 10/24/18 12:20 Troponin I 0.083 ng/mL (0.000-0.056) 0.050 ng/mL (0.000-0.056) White Blood Count 11.7 K/UL (4.8-10.8) H Red Blood Count 3.53 M/UL (4.70-6.10) L Hemoglobin 10.3 G/DL (14.2-18.0) L Hematocrit 31.7 % (42.0-52.0) L Mean Corpuscular Volume 90 FL (80-99) Mean Corpuscular Hemoglobin 29.2 PG (27.0-31.0) Mean Corpuscular Hemoglobin Concent 32.4 G/DL (32.0-36.0) Red Cell Distribution Width 13.2 % (11.6-14.8) Platelet Count 276 K/UL (150-450) Mean Platelet Volume 6.6 FL (6.5-10.1) Neutrophils (%) (Auto) 83.1 % (45.0-75.0) H Lymphocytes (%) (Auto) 9.9 % (20.0-45.0) L Monocytes (%) (Auto) 6.3 % (1.0-10.0) Eosinophils (%) (Auto) 0.2 % (0.0-3.0) Basophils (%) (Auto) 0.6 % (0.0-2.0) Sodium Level 135 MMOL/L (136-145) L Potassium Level 4.5 MMOL/L (3.5-5.1) Chloride Level 101 MMOL/L (98-107) Carbon Dioxide Level 29 MMOL/L (21-32) Anion Gap 5 mmol/L (5-15) Blood Urea Nitrogen 14 mg/dL (7-18) Creatinine 0.8 MG/DL (0.55-1.30) Estimat Glomerular Filtration Rate mL/min (>60) Glucose Level 101 MG/DL (74-106) Calcium Level 9.3 MG/DL (8.5-10.1) Total Bilirubin 0.3 MG/DL (0.2-1.0) Aspartate Amino Transf (AST/SGOT) 31 U/L (15-37) Alanine Aminotransferase (ALT/SGPT) 36 U/L (12-78) Alkaline Phosphatase 124 U/L (46-116) H Total Protein 6.5 G/DL (6.4-8.2) Albumin 1.8 G/DL (3.4-5.0) L Globulin 4.7 g/dL Albumin/Globulin Ratio 0.4 (1.0-2.7) L Arterial Blood pH 7.430 (7.350-7.450) Arterial Blood Partial Pressure CO2 44.4 mmHg (35.0-45.0) Arterial Blood Partial Pressure O2 63.2 mmHg (75.0-100.0) L Arterial Blood HCO3 28.8 mmol/L (22.0-26.0) H Arterial Blood Oxygen Saturation 91.9 % (95-100) L Arterial Blood Base Excess 4.0 (-2-2) H Parveen Test Positive Microbiology Date/Time Source Procedure Growth Status 10/22/18 21:40 Blood Blood Culture - Preliminary NO GROWTH AFTER 24 HOURS Resulted 10/22/18 21:34 Blood Blood Culture - Preliminary NO GROWTH AFTER 24 HOURS Resulted Saurabh Arredondo MD Oct 24, 2018 16:24
--- NOTE | 2018-10-24 16:39 | Diagnostic Imaging Report ---
Clinical Indication: Shortness of breath Technique: Spiral acquisitions obtained through the chest. No IV contrast utilized, referring physician request. Multiplanar reconstructions generated. Total dose length product 572.69 mGycm. CTDIvol(s) 17.31 mGy. Dose reduction achieved using automated exposure control Comparison: Reference made to chest radiograph of earlier the same day Findings: The left upper and lower lobe bronchi appear occluded at their origins. The left lower lobe is completely atelectatic. Much of the right upper lobe is atelectatic, and the aerated portions demonstrate considerable consolidation. There is a honeycombing appearance to much of the consolidated left upper lobe, which could indicate a significant component of chronic fibrotic change. Masslike opacities are seen near the apex. There is a sizable nondependent pleural fluid collection in the lateral left hemithorax which measures 10 cm AP by 4.3 cm transverse by roughly 17 cm craniocaudad. There is also a small amount of pleural fluid in the usual location in the posterior inferior costophrenic sulcus. There is a small amount of pleural fluid present on the right. There is generalized interstitial edema throughout the right lung. Patchy parenchymal opacities are seen in the upper, lower, and middle lobes. Most of these have the appearance of patchy infiltrates, but an 11 mm lesion in the superior segment left lower lobe appears spiculated, and a lateral right middle lobe opacity has a suggestive masslike appearance. Some of the right lung opacities may demonstrate early central cavitation, although this is not for certain. There is some posterior dependent atelectatic change of the right lower lobe. The heart is not enlarged. There is minimal pericardial thickening and/or fluid. The main pulmonary artery is ectatic, measuring 3.3 cm in diameter, as is the right main pulmonary artery which measures 2.7 cm in diameter. There is mediastinal adenopathy, with enlarged subcarinal node right paratracheal nodes measuring up to 3 cm long axis dimension. There are also enlarged prevascular space and aortopulmonary window nodes. The included portions of the thyroid are unremarkable. No axillary or chest wall mass or adenopathy. There is diffuse edema of the mediastinal and chest wall subcutaneous fat. Osteolytic lesion is seen destroying the medial left ninth rib. An osteolytic lesion is seen involving the lateral left scapula. A subcutaneous cystic lesion is seen in the posterior fat at the level of the cervicothoracic junction, measures 2 cm in diameter. The included upper abdominal anatomy demonstrates a 12 mm left renal cyst. There is diffuse enlargement of the left adrenal. There may be a large mass involving the right adrenal, although poor intrinsic soft tissue differentiation in this area and lack of IV contrast makes this difficult to assess. Impression: Evidence of disseminated neoplasm, with multiple osteolytic lesions as described, mediastinal adenopathy, and possible bilateral adrenal masses Complete atelectasis and consolidation of the left lower lobe. Complete occlusion of the proximal lobar bronchi on the left. Given the above findings, the possibility of pulmonary neoplasm with resultant endobronchial occlusion should be considered Extensive atelectasis and consolidation of the left upper lobe. This may represent acute pneumonia, but honeycomb appearance of much of this suggests a significant chronic component There are areas of confluent scarring versus consolidation versus mass as well Suspected loculated pleural effusion on the left. Note that this has enlarged rapidly over the past few days based on recent chest radiographs. There is also a small amount of what is probably increased pleural fluid on the left as well. Multiple focal parenchymal abnormalities on the right. These probably represent areas of acute infiltrate, but the appearance of some of these suggests that they could be neoplastic Ectatic main and right pulmonary artery, suggestive of but not diagnostic for pulmonary arterial hypertension Mild diffuse edema of the subcutaneous and mediastinal fat Minimal pericardial thickening and/or fluid Incidental finding 12 mm left renal cyst The CT scanner at [facility] is accredited by the [employer] and the scans are performed using protocols designed to limit radiation exposure to as low as reasonably achievable to attain images of sufficient resolution adequate for diagnostic evaluation.
[2018-10-24 20:00] VITALS: BP 120/70
[2018-10-24] MEDS: levETIRAcetam 500mg/5ml Liquid GT SCH (20:43)
--- NOTE | 2018-10-24 20:46 | Consultation ---
DATE OF CONSULTATION: 10/23/2018 INFECTIOUS DISEASE CONSULTATION CONSULTING PHYSICIAN: Susanna Morrell M.D. REQUESTING PHYSICIAN: Hayde Duran M.D. REASON FOR CONSULTATION: Bilateral pneumonia and possible sepsis. Recommendation for antibiotics treatment in the patient with seizure. HISTORY OF PRESENT ILLNESS: The patient is a 73-year-old male with past medical history of atrial fibrillation, hypertension, diabetes, gastroesophageal reflux disease, depression, anxiety with mood disorder, and CVA with right-sided weakness, was sent to [facility] emergency room for tonic colonic seizure at the [facility]. As per AMS, the patient never had history of seizure. His blood sugar level was normal in the scene. The patient was brought in immediately to the emergency room for evaluation. He had a high blood pressure of 173/95, saturating 98% on room air. He looked critically ill. The patient had a chest x-ray, which showed bilateral lung infiltration, concerning for aspiration pneumonia and possible sepsis, so he was started on antibiotics and Infectious Disease consultation was requested for antibiotic treatment and further management. As of note, the patient is obtunded, altered, and cannot provide any history. History was mainly obtained from the medical record and nursing staff. PAST MEDICAL HISTORY: Significant for atrial fibrillation, hypertension, diabetes, gastroesophageal reflux disease, depression, anxiety, mood disorder, CVA, and right-sided weakness. PAST SURGICAL HISTORY: Unknown. Nothing in the record. MEDICATIONS: The patient received vancomycin and cefepime in the emergency room. For the rest of his medications, please refer to MAR. ALLERGIES: He has no known drug allergies. SOCIAL HISTORY: The patient lives at the [facility]. No recent report of any tobacco, drugs, or alcohol abuse. FAMILY HISTORY: Unable to obtain. REVIEW OF SYSTEMS: Unable to obtain. The patient is a poor historian and cannot provide any history. PHYSICAL EXAMINATION: VITAL SIGNS: Temperature 97.7, pulse 84, respirations 28, blood pressure 108/61, and saturation 96% on two liters nasal cannula. GENERAL: An elderly male, lying in bed, altered, unresponsive, and not in acute distress. HEENT: Normocephalic and atraumatic. Pupils not reactive to light. Well pale sclera. Unable to assess oral mucosa. NECK: Seems supple. No lymphadenopathy. CARDIOVASCULAR: Regular rate and rhythm. No murmur. LUNGS: He had diminished breathing sounds at the bases with crackles. Normal breathing efforts. No rales. ABDOMEN: Soft, nontender, and nondistended. Normal bowel sounds. No hepatosplenomegaly or ascites. EXTREMITY: No edema or cyanosis. GENITOURINARY: He has normal genitalia. Torres catheter in place. SKIN: Right upper buttock pressure wound. No rash. No hives. LABORATORY DATA: Laboratory showed white count of 8.1, hemoglobin of 11.8, and platelet count of 363,000. BUN of 21 and creatinine of 0.8. AST of 35, ALT of 40, and alk phosphatase of 158. IMAGING: Chest x-ray showed markedly increased opacification of the left hemithorax with only minimal residual related lung shift off the mediastinum to the left suggests this is mostly due to atelectases. There is probably a significant component of accumulating pleural fluid as well suggestion of increasing right midlung infiltrate likely pneumonia. ASSESSMENT AND RECOMMENDATION: 1. Right middle lobe infiltration suspect aspiration pneumonia with left-sided mediastinal shift, rule out left lung atelectases or collapse. We will start the patient on empiric antibiotics treatment with vancomycin and aztreonam for now and send blood culture and sputum culture. We will need CT scan of the chest to better identify the exact etiology of his mediastinal shift. The patient also may require bronchoscopy based on the CT scan results. Pulmonary will be following also the patient. 2. Possible sepsis due to the above. Continue vancomycin and aztreonam, pending blood culture. 3. Seizure with breakthrough. The patient is on valproic acid. He may need Neurology back to upgrade his antiseizure medicine. Continue to monitor in telemetry. 4. Diabetes. Recommend tight glycemic control to keep blood glucose between 100 to 140. 5. Acute encephalopathy due to the above. Continue hydration, seizure medication, and antibiotics . Monitor closely mental status. Thank you for the consult. ID will continue to follow. Please feel free to call with any question. Susanna Morrell M.D. DR: GRAYSON JOB#: [id number] CC:
--- NOTE | 2018-10-24 23:15 | Consultation ---
DATE OF CONSULTATION: 10/24/2018 CARDIOLOGY CONSULTATION CONSULTING PHYSICIAN: Saurabh Arredondo M.D. REFERRING PHYSICIAN: Hayde Duran M.D. REASON FOR CONSULTATION: Management of hypertension and atrial flutter. HISTORY OF PRESENT ILLNESS: The patient is a 73-year-old gentleman with history of hypertension and paroxysmal atrial fibrillation, who was brought in from care home for "tonic-clonic seizure." The patient has no prior history of seizures and Accu-Chek was normal in the field. The patient was brought to the emergency room with a blood pressure of 172/95 with a heart of 72. The patient was admitted and Cardiology consultation was obtained for further evaluation. REVIEW OF SYSTEMS: Cannot be obtained as the patient has advanced dementia. PAST MEDICAL HISTORY: 1. Hypertension. 2. Paroxysmal atrial fibrillation. 3. Diabetes. 4. History of CVA. 5. History of depression. 6. Status post PEG placement. PHYSICAL EXAMINATION: VITAL SIGNS: Blood pressure is 97/60, pulse is 75, respirations 18, and he is afebrile. HEAD AND NECK: Showed no JVD. LUNGS: Clear. CARDIOVASCULAR: Shows regular S1 and S2 with no gallop. ABDOMEN: Soft and status post PEG. EXTREMITIES: No pitting edema and are contracted. LABORATORY AND DIAGNOSTIC DATA: His labs show white count of 11.7, hemoglobin of 10.7, hematocrit of 31.7, and platelet count 276,000. Sodium 135, potassium 4.5, BUN of 14, and creatinine 0.8. Troponin is 0.018, , 0.050. BNP is 179. The patient's echocardiogram showed ejection fraction of 60 to 65%. ASSESSMENT AND PLAN: 1. Paroxysmal atrial fibrillation. The patient is currently in sinus rhythm. We can decrease amiodarone to 200 mg daily. 2. Seizures and altered mental status. The patient is on Keppra 500 mg b.i.d. Further evaluation by Neurology. 3. Bilateral pneumonia. Suspect aspiration , on vancomycin and aztreonam per Dr. Morrell. 4. Diabetes. 5. Dysphagia, status post PEG placement. Thank you very much for allowing me to participate in the care of this patient. Please do not hesitate to contact me for any questions regarding my evaluation. Saurabh Arredondo M.D. DR: ANETTE JOB#: [id number] CC:
[2018-10-25] VITALS: BP 127/76
--- NOTE | 2018-10-25 | History and Physical Report ---
DATE OF ADMISSION: 10/22/2018 SOURCE OF INFORMATION: Patient and EMR. HISTORY OF PRESENT ILLNESS: The patient is a 73-year-old male with history of Sz d/o, who was transferred from [place] secondary to change in mental status . At the time of evaluation, the patient is not communicating verbally. Initial vital signs showed abnormal blood pressure, otherwise stable. Poor historian. ALLERGIES: NKDA. FAMILY HISTORY: Reviewed and noncontributory. MEDICATIONS: Current hospital medications including, but not limited to, vancomycin, Keppra, aztreonam, and amiodarone. PAST MEDICAL HISTORY: Including, but not limited to, dementia, cardiac arrhythmia, seizure disorder, diabetes, and hypertension. IMAGING: Chest x-ray dated 10/24/2018 reviewed, showed increasing infiltrates, likely pneumonia. LABORATORY DATA: Labs dated 10/24/2018 shows WBC of 11.7, hemoglobin of 10.3, platelet count was 276,000. Sodium 135, potassium 4.5, BUN 14, and creatinine 0.8. Troponin 0.08. ASSESSMENT: 1. Sepsis. 2. Healthcare-associated pneumonia. 3. Abnormal troponin. 4. Anemia. 5. Dementia/encephalopathy. 6. Code Status - Full Code. 7. GI and DVT prophylaxis. PLAN OF CARE: Continue with the current empiric antibiotic treatment. Notes from Infectious Disease and Pulmonary services have been noted and reviewed. Continue with the seizure precautions. Continue seizure medications. Case discussed with Pulmonary. Hayde Duran M.D. DR: PAMELLA JOB#: [id number] CC: EDMAR
[2018-10-25] MEDS: Albuterol/Ipratropium 3ml neb HHN SCH ×6 (03:17→23:08)
[2018-10-25 04:00] VITALS: BP 140/82
[2018-10-25] MEDS: Aztreonam Inj 1 GM in D5W 55 ML IVPB SCH ×3 (05:29→21:52)
[2018-10-25] MEDS: Vancomycin 750mg/NS 275ml IVPB SCH ×2 (07:57)
[2018-10-25] MEDS: D5NS 1,000 ML IV SCH ×2 (07:57→20:01)
[2018-10-25] MEDS: levETIRAcetam 500mg/5ml Liquid GT SCH ×2 (07:59→21:04)
[2018-10-25 08:00] VITALS: BP 142/83
[2018-10-25] MEDS: Heparin 5000 units/ml inj SUBQ SCH (08:02)
[2018-10-25] MEDS: Amiodarone 200mg tab ORAL SCH (08:06)
--- NOTE | 2018-10-25 11:28 | General Progress Note ---
Assessment/Plan Assessment/Plan S: not verbal O: appearas comfortable, Not following commands. PHYSICAL EXAMINATION: GENERAL: An elderly male, lying in bed, altered, unresponsive, and not in acute distress. HEENT: Normocephalic and atraumatic. Pupils not reactive to light. Well pale sclera. Unable to assess oral mucosa. NECK: Seems supple. No lymphadenopathy. CARDIOVASCULAR: Regular rate and rhythm. No murmur. LUNGS: He had diminished breathing sounds at the bases with crackles. Normal breathing efforts. No rales. ABDOMEN: Soft, nontender, and nondistended. PEG tube in place EXTREMITY: No edema or cyanosis. GENITOURINARY: He has normal genitalia. Torres catheter in place. SKIN: Right upper buttock pressure wound. No rash. No hives. Meds: including Vanco and Aztreonam in place ASSESSMENT: 1. Sepsis. 2. Healthcare-associated pneumonia. 3. Diffuse Metastatic cancer: source : unknnown 4. Abnormal troponin.likely troponin leak 4. Anemia. 5. Dementia/encephalopathy. 6. Code Status - Full Code. 7. GI and DVT prophylaxis. 8. Hemoptysis PLAN OF CARE: Risks of any aggressive Diagnostic procedure ( including Trach) surpasses its benefits. Will continue current sepsis treatment Will hold anticoagulation ,secondary to one episode of hematemesis Will Defer oncology workup to out patient Subjective Allergies: Coded Allergies: No Known Allergies (Unverified , 10/22/18) Objective Last 24 Hour Vital Signs Date Time Temp Pulse Resp B/P (MAP) Pulse Ox O2 Delivery O2 Flow Rate FiO2 10/25/18 11:17 92 24 98 Nasal Cannula 2.0 28 10/25/18 11:07 94 26 99 Nasal Cannula 3.0 32 10/25/18 08:00 Nasal Cannula 2.0 10/25/18 08:00 2.0 10/25/18 08:00 98.0 98 25 142/83 (102) 96 10/25/18 08:00 101 10/25/18 07:13 98 Nasal Cannula 2.0 28 10/25/18 07:13 Nasal Cannula 2.0 28 10/25/18 07:13 90 26 98 Nasal Cannula 2.0 28 10/25/18 07:03 82 25 99 Bi-pap 30 10/25/18 07:02 82 25 100 Facial 30 10/25/18 05:00 84 27 98 Facial 30 10/25/18 04:00 30 10/25/18 04:00 97.5 9 24 140/82 (101) 100 10/25/18 04:00 82 10/25/18 04:00 Bi-pap 2.0 10/25/18 03:22 65 28 100 Bi-pap 30 10/25/18 03:15 58 26 100 Bi-pap 30 10/25/18 03:15 58 26 100 Facial 30 10/25/18 01:19 83 28 98 Facial 30 10/25/18 00:00 30 10/25/18 00:00 97.3 80 24 127/76 (93) 98 10/25/18 00:00 74 10/25/18 00:00 Bi-pap 2.0 10/24/18 23:52 80 24 96 Bi-pap 30 10/24/18 23:44 82 27 98 Bi-pap 30 10/24/18 23:18 30 10/24/18 23:10 81 26 95 Facial 30 10/24/18 20:00 Nasal Cannula 2.0 10/24/18 20:00 98.1 92 24 120/70 (87) 97 10/24/18 20:00 88 10/24/18 19:23 81 20 98 Nasal Cannula 2.0 28 10/24/18 19:15 Nasal Cannula 2.0 28 10/24/18 19:15 85 22 94 Nasal Cannula 3.0 32 10/24/18 19:15 93 Nasal Cannula 3.0 32 10/24/18 18:00 90 10/24/18 16:00 98.1 71 29 129/68 (88) 97 10/24/18 16:00 Nasal Cannula 2.0 10/24/18 15:04 75 20 97 Nasal Cannula 2.0 28 10/24/18 14:56 70 18 96 Nasal Cannula 2.0 28 10/24/18 12:00 97.8 87 12 97/60 (72) 100 10/24/18 12:00 Nasal Cannula 2.0 10/24/18 12:00 90 10/24/18 11:34 85 20 96 Nasal Cannula 28 10/24/18 11:24 82 18 92 Nasal Cannula 2.0 28 Intake and Output 10/24/18 10/25/18 18:59 06:59 Intake Total 1150 ml 1231.000 ml Output Total 300 ml 400 ml Balance 850 ml 831.000 ml IV Total 1150 ml 1231.000 ml Output Urine Total 300 ml 400 ml Laboratory Tests 10/24/18 12:20: Arterial Blood pH 7.430, Arterial Blood Partial Pressure CO2 44.4, Arterial Blood Partial Pressure O2 63.2L, Arterial Blood HCO3 28.8H, Arterial Blood Oxygen Saturation 91.9L, Arterial Blood Base Excess 4.0H, Parveen Test Positive 10/25/18 07:30: Vancomycin Level Trough 10.3, Levetiracetam (Keppra) Level [Pending] Height (Feet): 6 Weight (Pounds): 140 Hayde Duran MD Oct 25, 2018 11:28
--- NOTE | 2018-10-25 11:32 | Pulmonology Progress Note ---
Assessment/Plan Problems: (1) Altered mental status (2) Bilateral pneumonia (3) Seizure (4) Diabetes mellitus (5) Elevated brain natriuretic peptide (BNP) level (6) Lung mass (7) Sacral decubitus ulcer Assessment/Plan CT chest reviewed - extensive R consolidations, mass like opacities, possible endobronchial lesions and osteolytic lesions concerning for met dz + loculated effusion ---> Needs to determine overall GOC further before working up lung mass. Patient will likely needs VATS/bronch Optimize pulmonary hygiene/mobilize as tolerated PRN O2 HHN's Abx per ID Neuro eval Monitor MS NPO, TF's IVF FC Attempt to get old records Subjective Allergies: Coded Allergies: No Known Allergies (Unverified , 10/22/18) Subjective AFVSS O2 needs stable obtunded CT chest reviewed - extensive R consolidations, mass like opacities, possible endobronchial lesions and osteolytic lesions concerning for met dz + loculated effusion + cough BiPAP ON no F/C no CP TF's Objective Last 24 Hour Vital Signs Date Time Temp Pulse Resp B/P (MAP) Pulse Ox O2 Delivery O2 Flow Rate FiO2 10/25/18 11:17 92 24 98 Nasal Cannula 2.0 28 10/25/18 11:07 94 26 99 Nasal Cannula 3.0 32 10/25/18 08:00 Nasal Cannula 2.0 10/25/18 08:00 2.0 10/25/18 08:00 98.0 98 25 142/83 (102) 96 10/25/18 08:00 101 10/25/18 07:13 98 Nasal Cannula 2.0 28 10/25/18 07:13 Nasal Cannula 2.0 28 10/25/18 07:13 90 26 98 Nasal Cannula 2.0 28 10/25/18 07:03 82 25 99 Bi-pap 30 10/25/18 07:02 82 25 100 Facial 30 10/25/18 05:00 84 27 98 Facial 30 10/25/18 04:00 30 10/25/18 04:00 97.5 9 24 140/82 (101) 100 10/25/18 04:00 82 10/25/18 04:00 Bi-pap 2.0 10/25/18 03:22 65 28 100 Bi-pap 30 10/25/18 03:15 58 26 100 Bi-pap 30 10/25/18 03:15 58 26 100 Facial 30 10/25/18 01:19 83 28 98 Facial 30 10/25/18 00:00 30 10/25/18 00:00 97.3 80 24 127/76 (93) 98 10/25/18 00:00 74 10/25/18 00:00 Bi-pap 2.0 10/24/18 23:52 80 24 96 Bi-pap 30 10/24/18 23:44 82 27 98 Bi-pap 30 10/24/18 23:18 30 10/24/18 23:10 81 26 95 Facial 30 10/24/18 20:00 Nasal Cannula 2.0 10/24/18 20:00 98.1 92 24 120/70 (87) 97 10/24/18 20:00 88 10/24/18 19:23 81 20 98 Nasal Cannula 2.0 28 10/24/18 19:15 Nasal Cannula 2.0 28 10/24/18 19:15 85 22 94 Nasal Cannula 3.0 32 10/24/18 19:15 93 Nasal Cannula 3.0 32 10/24/18 18:00 90 10/24/18 16:00 98.1 71 29 129/68 (88) 97 10/24/18 16:00 Nasal Cannula 2.0 10/24/18 15:04 75 20 97 Nasal Cannula 2.0 28 10/24/18 14:56 70 18 96 Nasal Cannula 2.0 28 10/24/18 12:00 97.8 87 12 97/60 (72) 100 10/24/18 12:00 Nasal Cannula 2.0 10/24/18 12:00 90 10/24/18 11:34 85 20 96 Nasal Cannula 28 Intake and Output 10/24/18 10/25/18 18:59 06:59 Intake Total 1150 ml 1231.000 ml Output Total 300 ml 400 ml Balance 850 ml 831.000 ml IV Total 1150 ml 1231.000 ml Output Urine Total 300 ml 400 ml General Appearance: no acute distress, cachetic HEENT: normocephalic, atraumatic, anicteric, mucous membranes moist Respiratory/Chest: rhonchi Cardiovascular: normal peripheral pulses, normal rate, regular rhythm Abdomen: normal bowel sounds, soft, non tender, no organomegaly, non distended , no mass Extremities: no cyanosis, no clubbing, no edema, other - multiple wounds Microbiology Date/Time Source Procedure Growth Status 10/22/18 21:40 Blood Blood Culture - Preliminary NO GROWTH AFTER 48 HOURS Resulted 10/22/18 21:34 Blood Blood Culture - Preliminary NO GROWTH AFTER 48 HOURS Resulted 10/23/18 03:49 Nasal Nares MRSA Culture - Final NO METHICILLIN RESISTANT STAPH AUREUS... Complete 10/23/18 03:49 Rectum VRE Culture - Final NO VANCOMYCIN RESISTANT ENTEROCOCCUS ... Complete Laboratory Tests 10/24/18 12:20: Arterial Blood pH 7.430, Arterial Blood Partial Pressure CO2 44.4, Arterial Blood Partial Pressure O2 63.2L, Arterial Blood HCO3 28.8H, Arterial Blood Oxygen Saturation 91.9L, Arterial Blood Base Excess 4.0H, Parveen Test Positive 10/25/18 07:30: Vancomycin Level Trough 10.3, Levetiracetam (Keppra) Level [Pending] Current Medications Medications (Trade) Dose Ordered Sig/Sofia Route PRN Reason Start Time Stop Time Status Last Admin Dose Admin Albuterol/ Ipratropium (Albuterol/ Ipratropium) 3 ml Q4HRT HHN 10/23/18 19:00 10/28/18 18:59 10/25/18 11:07 Amiodarone HCl (Cordarone) 200 mg DAILY ORAL 10/25/18 09:00 11/22/18 20:59 10/25/18 08:06 Aztreonam 1 gm/ Dextrose 55 ml @ 110 mls/hr Q8HR IVPB 10/23/18 22:00 10/30/18 21:59 10/25/18 05:29 Dextrose/Sodium Chloride 1,000 ml @ 80 mls/hr [id number] IV 10/23/18 17:45 11/22/18 17:44 10/25/18 07:57 Levetiracetam (Keppra) 500 mg Q12HR GT 10/24/18 21:00 11/22/18 20:59 10/25/18 07:59 Pantoprazole (Protonix) 40 mg DAILY ORAL 10/24/18 09:00 11/23/18 08:59 10/25/18 07:59 Vancomycin HCl (Vanco rx to dose) 1 ea DAILY PRN MISC Per rx protocol 3/10/19 17:30 11/22/18 17:29 Vancomycin HCl/ Dextrose 275 ml @ 183.333 mls/hr Q12HR@0800,1999 IVPB 10/25/18 20:00 10/30/18 19:59 Flex Nunn MD Oct 25, 2018 11:32
[2018-10-25 12:00] VITALS: BP 138/76
--- NOTE | 2018-10-25 12:48 | Surgery Progress Note ---
Surgery Progress Note Subjective Additional Comments CT chest reviewed. Pulmonology note appreciated. Leukocytosis today. On IV antibiotics. trop trending down Objective Last 24 Hour Vital Signs Date Time Temp Pulse Resp B/P (MAP) Pulse Ox O2 Delivery O2 Flow Rate FiO2 10/25/18 11:17 92 24 98 Nasal Cannula 2.0 28 10/25/18 11:07 94 26 99 Nasal Cannula 3.0 32 10/25/18 08:00 Nasal Cannula 2.0 10/25/18 08:00 2.0 10/25/18 08:00 98.0 98 25 142/83 (102) 96 10/25/18 08:00 101 10/25/18 07:13 98 Nasal Cannula 2.0 28 10/25/18 07:13 Nasal Cannula 2.0 28 10/25/18 07:13 90 26 98 Nasal Cannula 2.0 28 10/25/18 07:03 82 25 99 Bi-pap 30 10/25/18 07:02 82 25 100 Facial 30 10/25/18 05:00 84 27 98 Facial 30 10/25/18 04:00 30 10/25/18 04:00 97.5 9 24 140/82 (101) 100 10/25/18 04:00 82 10/25/18 04:00 Bi-pap 2.0 10/25/18 03:22 65 28 100 Bi-pap 30 10/25/18 03:15 58 26 100 Bi-pap 30 10/25/18 03:15 58 26 100 Facial 30 10/25/18 01:19 83 28 98 Facial 30 10/25/18 00:00 30 10/25/18 00:00 97.3 80 24 127/76 (93) 98 10/25/18 00:00 74 10/25/18 00:00 Bi-pap 2.0 10/24/18 23:52 80 24 96 Bi-pap 30 10/24/18 23:44 82 27 98 Bi-pap 30 10/24/18 23:18 30 10/24/18 23:10 81 26 95 Facial 30 10/24/18 20:00 Nasal Cannula 2.0 10/24/18 20:00 98.1 92 24 120/70 (87) 97 10/24/18 20:00 88 10/24/18 19:23 81 20 98 Nasal Cannula 2.0 28 10/24/18 19:15 Nasal Cannula 2.0 28 10/24/18 19:15 85 22 94 Nasal Cannula 3.0 32 10/24/18 19:15 93 Nasal Cannula 3.0 32 10/24/18 18:00 90 10/24/18 16:00 98.1 71 29 129/68 (88) 97 10/24/18 16:00 Nasal Cannula 2.0 10/24/18 15:04 75 20 97 Nasal Cannula 2.0 28 10/24/18 14:56 70 18 96 Nasal Cannula 2.0 28 I&O Intake and Output 10/24/18 10/25/18 18:59 06:59 Intake Total 1150 ml 1231.000 ml Output Total 300 ml 400 ml Balance 850 ml 831.000 ml IV Total 1150 ml 1231.000 ml Output Urine Total 300 ml 400 ml Dressing: saturated Wound: clean Drains: other Cardiovascular: RSR Respiratory: clear, decreased breath sounds Abdomen: soft, non-tender, present bowel sounds, non-distended Extremities: no tenderness, no cyanosis, other Laboratory Tests Test 10/25/18 07:30 Vancomycin Level Trough 10.3 ug/mL (5.0-12.0) Levetiracetam (Keppra) Level Pending Plan Problems: (1) Sacral decubitus ulcer Assessment & Plan: Patient presented on admission with full thickness Stage III sacral pressure injury. 100% yellow slough at base of wound, Edges flat and dry(L)1.1cm x (W)1.9cm. Periwound without erythema or induration. No odor noted. Non-viable tissue removed using curette by myself at bedside. Base of wound is more viable with trace slough. R heel /R achilles boggy with non-blanchable erythema. Pt moans when site is minimally palpated. L heel boggy with non-blanchable erythema. Pt did not exhibit any distress when L heel palpated. Dry brown discoloration without induration or fluctuance noted to brandon/dorsal R foot. Dry brown discoloration without fluctuance or induration noted to R lateral malleolus. Tx.Plan: Cleanse Sacral wound with Saline.Apply Therahoney. Apply Cavilon Skin Barrier periwound. Cover with Optifoam drsg Daily and prn. Apply Cavilon Skin Barrier to R lateral malleolus.Cover with Optifoam drsg.Change every 7 days and prn. Apply Cavilon Skin Barrier to both heels and R achilles. Cover with Optifoam drsg.Change Q7days and prn. APM/CHARU mattress. Reposition at least every 2hours or as tolerated. Off-load heels with pillow. (2) Seizure Assessment & Plan: CT chest w/ Evidence of disseminated neoplasm, with multiple osteolytic lesions as described, mediastinal adenopathy, and possible bilateral adrenal masses Complete atelectasis and consolidation of the left lower lobe. Complete occlusion of the proximal lobar bronchi on the left. Given the above findings, the possibility of pulmonary neoplasm with resultant endobronchial occlusion should be considered Extensive atelectasis and consolidation of the left upper lobe. This may represent acute pneumonia, but honeycomb appearance of much of this suggests a significant chronic component There are areas of confluent scarring versus consolidation versus mass as well Suspected loculated pleural effusion on the left. Note that this has enlarged rapidly over the past few days based on recent chest radiographs. There is also a small amount of what is probably increased pleural fluid on the left as well. Multiple focal parenchymal abnormalities on the right. These probably represent areas of acute infiltrate, but the appearance of some of these suggests that they could be neoplastic Ectatic main and right pulmonary artery, suggestive of but not diagnostic for pulmonary arterial hypertension Mild diffuse edema of the subcutaneous and mediastinal fat Minimal pericardial thickening and/or fluid Incidental finding 12 mm left renal cyst extensive disease process noted on CT chest. primary unknown at this time. need to see if any prior records leukocytosis on IV Abx Abd US ordered Labs noted RX reviewed currently stable will monitor Chato Mullen Oct 25, 2018 12:48
--- NOTE | 2018-10-25 15:44 | Cardiac Electrophysiology PN ---
Assessment/Plan Assessment/Plan 1. Paroxysmal atrial fibrillation. Currently in sinus rhythm on amiodarone 200 mg daily. 2. Seizures and altered mental status. The patient is on Keppra 500 mg b.i.d. Further evaluation by Neurology. 3. Bilateral pneumonia. On vancomycin and aztreonam per Dr. Morrell. 4. Diabetes. 5. Dysphagia, status post PEG placement. ESTEFANI RN Subjective Subjective No events in SR on tele Objective Last 24 Hour Vital Signs Date Time Temp Pulse Resp B/P (MAP) Pulse Ox O2 Delivery O2 Flow Rate FiO2 10/25/18 15:00 94 20 98 Nasal Cannula 2.0 28 10/25/18 14:49 92 22 97 Nasal Cannula 2.0 28 10/25/18 12:00 2.0 10/25/18 12:00 92 10/25/18 12:00 98.0 98 24 138/76 (96) 97 10/25/18 12:00 Nasal Cannula 2.0 10/25/18 11:17 92 24 98 Nasal Cannula 2.0 28 10/25/18 11:07 94 26 99 Nasal Cannula 3.0 32 10/25/18 08:00 Nasal Cannula 2.0 10/25/18 08:00 2.0 10/25/18 08:00 98.0 98 25 142/83 (102) 96 10/25/18 08:00 101 10/25/18 07:13 98 Nasal Cannula 2.0 28 10/25/18 07:13 Nasal Cannula 2.0 28 10/25/18 07:13 90 26 98 Nasal Cannula 2.0 28 10/25/18 07:03 82 25 99 Bi-pap 30 10/25/18 07:02 82 25 100 Facial 30 10/25/18 05:00 84 27 98 Facial 30 10/25/18 04:00 30 10/25/18 04:00 97.5 9 24 140/82 (101) 100 10/25/18 04:00 82 10/25/18 04:00 Bi-pap 2.0 10/25/18 03:22 65 28 100 Bi-pap 30 10/25/18 03:15 58 26 100 Bi-pap 30 10/25/18 03:15 58 26 100 Facial 30 10/25/18 01:19 83 28 98 Facial 30 10/25/18 00:00 30 10/25/18 00:00 97.3 80 24 127/76 (93) 98 10/25/18 00:00 74 10/25/18 00:00 Bi-pap 2.0 10/24/18 23:52 80 24 96 Bi-pap 30 10/24/18 23:44 82 27 98 Bi-pap 30 10/24/18 23:18 30 10/24/18 23:10 81 26 95 Facial 30 10/24/18 20:00 Nasal Cannula 2.0 10/24/18 20:00 98.1 92 24 120/70 (87) 97 10/24/18 20:00 88 10/24/18 19:23 81 20 98 Nasal Cannula 2.0 28 10/24/18 19:15 Nasal Cannula 2.0 28 10/24/18 19:15 85 22 94 Nasal Cannula 3.0 32 10/24/18 19:15 93 Nasal Cannula 3.0 32 10/24/18 18:00 90 10/24/18 16:00 98.1 71 29 129/68 (88) 97 10/24/18 16:00 Nasal Cannula 2.0 Intake and Output 10/24/18 10/25/18 19:00 07:00 Intake Total 1091 ml 1290.000 ml Output Total 300 ml 400 ml Balance 791 ml 890.000 ml IV Total 1091 ml 1290.000 ml Output Urine Total 300 ml 400 ml Laboratory Tests Test 10/25/18 07:30 Vancomycin Level Trough 10.3 ug/mL (5.0-12.0) Levetiracetam (Keppra) Level Pending Microbiology Date/Time Source Procedure Growth Status 10/22/18 21:40 Blood Blood Culture - Preliminary NO GROWTH AFTER 48 HOURS Resulted 10/22/18 21:34 Blood Blood Culture - Preliminary NO GROWTH AFTER 48 HOURS Resulted 10/24/18 15:20 Sputum Expectorated Gram Stain - Final Resulted 10/24/18 15:20 Sputum Expectorated Sputum Culture Pending Resulted 10/23/18 03:49 Nasal Nares MRSA Culture - Final NO METHICILLIN RESISTANT STAPH AUREUS... Complete 10/23/18 03:49 Rectum VRE Culture - Final NO VANCOMYCIN RESISTANT ENTEROCOCCUS ... Complete Objective HEAD AND NECK: No JVD. LUNGS: Clear. CARDIOVASCULAR: Regular S1 and S2 with no gallop. ABDOMEN: Soft and status post PEG. EXTREMITIES: No pitting edema and are contracted. Saurabh Arredondo MD Oct 25, 2018 15:44
[2018-10-25] MEDS ORDERED: D5NS 1000ml IV ONE (15:59)
[2018-10-25] MEDS ORDERED: Tubing IV Secondary IV ONE (15:59)
[2018-10-25] MEDS ORDERED: NS 275ml ONE (15:59)
[2018-10-25 16:00] VITALS: BP 130/79
--- NOTE | 2018-10-25 17:27 | Infectious Diseases Prog Note ---
Assessment/Plan Problems: (1) Bilateral pneumonia Assessment & Plan: suspect aspiration due to altered mental status , continue vancomycin and aztreonam empirically and send sputum culture if he produces any . await CT chest to rule out lung mass or effusion . aspiration precaution, keep HOB > 30 DEGREE . keep NPO for now (2) Seizure Assessment & Plan: monitor in tele,seizure precaution . consult neurology (3) Diabetes mellitus Assessment & Plan: recommend tight glycemic control to keep blood glucose between 10-140 (4) Altered mental status Assessment & Plan: due to the above, continue hydration and antibiotics, neuro check , monitor in tele, avoid sedatives (5) Lung mass Assessment & Plan: with total collapse of the left lung and mediastinal shift , and bone lytic lesions, suspect lung cancer with mets , poor prognosis, needs bronch for tissue diagnosis and oncology eval Subjective ROS Limited/Unobtainable: Yes Allergies: Coded Allergies: No Known Allergies (Unverified , 10/22/18) Subjective he was awake but still unresponsive, uncooperative with exam , no fever, has hemoptysis , no SOB, no diarrhea as per nurse Objective Vital Signs Last 24 Hour Vital Signs Date Time Temp Pulse Resp B/P (MAP) Pulse Ox O2 Delivery O2 Flow Rate FiO2 10/25/18 16:00 91 10/25/18 16:00 2.0 10/25/18 16:00 Nasal Cannula 2.0 10/25/18 15:00 94 20 98 Nasal Cannula 2.0 28 10/25/18 14:49 92 22 97 Nasal Cannula 2.0 28 10/25/18 12:00 2.0 10/25/18 12:00 92 10/25/18 12:00 98.0 98 24 138/76 (96) 97 10/25/18 12:00 Nasal Cannula 2.0 10/25/18 11:17 92 24 98 Nasal Cannula 2.0 28 10/25/18 11:07 94 26 99 Nasal Cannula 3.0 32 10/25/18 08:00 Nasal Cannula 2.0 10/25/18 08:00 2.0 10/25/18 08:00 98.0 98 25 142/83 (102) 96 10/25/18 08:00 101 10/25/18 07:13 98 Nasal Cannula 2.0 28 10/25/18 07:13 Nasal Cannula 2.0 28 10/25/18 07:13 90 26 98 Nasal Cannula 2.0 28 10/25/18 07:03 82 25 99 Bi-pap 30 10/25/18 07:02 82 25 100 Facial 30 10/25/18 05:00 84 27 98 Facial 30 10/25/18 04:00 30 10/25/18 04:00 97.5 9 24 140/82 (101) 100 10/25/18 04:00 82 10/25/18 04:00 Bi-pap 2.0 10/25/18 03:22 65 28 100 Bi-pap 30 10/25/18 03:15 58 26 100 Bi-pap 30 10/25/18 03:15 58 26 100 Facial 30 10/25/18 01:19 83 28 98 Facial 30 10/25/18 00:00 30 10/25/18 00:00 97.3 80 24 127/76 (93) 98 10/25/18 00:00 74 10/25/18 00:00 Bi-pap 2.0 10/24/18 23:52 80 24 96 Bi-pap 30 10/24/18 23:44 82 27 98 Bi-pap 30 10/24/18 23:18 30 10/24/18 23:10 81 26 95 Facial 30 10/24/18 20:00 Nasal Cannula 2.0 10/24/18 20:00 98.1 92 24 120/70 (87) 97 10/24/18 20:00 88 10/24/18 19:23 81 20 98 Nasal Cannula 2.0 28 10/24/18 19:15 Nasal Cannula 2.0 28 10/24/18 19:15 85 22 94 Nasal Cannula 3.0 32 10/24/18 19:15 93 Nasal Cannula 3.0 32 10/24/18 18:00 90 Height (Feet): 6 Weight (Pounds): 140 General Appearance: no acute distress, cachetic HEENT: normocephalic, atraumatic, anicteric, mucous membranes moist, PERRL Respiratory/Chest: chest wall non-tender, no respiratory distress, no accessory muscle use, decreased breath sounds, crackles/rales Cardiovascular: normal peripheral pulses, normal rate, regular rhythm, no gallop/murmur, no JVD Abdomen: normal bowel sounds, soft, non tender, no organomegaly, non distended , no mass, no scars Genitourinary: normal external genitalia Extremities: no cyanosis, no clubbing Skin: no rash, no lesions, no ulcers Neurologic/Psychiatric: alert, unresponsiveness Lymphatic: no neck adenopathy, no groin adenopathy Musculoskeletal: normal muscle bulk Microbiology Date/Time Source Procedure Growth Status 10/22/18 21:40 Blood Blood Culture - Preliminary NO GROWTH AFTER 48 HOURS Resulted 10/22/18 21:34 Blood Blood Culture - Preliminary NO GROWTH AFTER 48 HOURS Resulted 10/24/18 15:20 Sputum Expectorated Gram Stain - Final Resulted 10/24/18 15:20 Sputum Expectorated Sputum Culture Pending Resulted 10/23/18 03:49 Nasal Nares MRSA Culture - Final NO METHICILLIN RESISTANT STAPH AUREUS... Complete 10/23/18 03:49 Rectum VRE Culture - Final NO VANCOMYCIN RESISTANT ENTEROCOCCUS ... Complete Laboratory Tests Test 10/25/18 07:30 Vancomycin Level Trough 10.3 ug/mL (5.0-12.0) Levetiracetam (Keppra) Level Pending Current Medications Medications (Trade) Dose Ordered Sig/Sofia Route PRN Reason Start Time Stop Time Status Last Admin Dose Admin Albuterol/ Ipratropium (Albuterol/ Ipratropium) 3 ml Q4HRT HHN 10/23/18 19:00 10/28/18 18:59 10/25/18 14:49 Amiodarone HCl (Cordarone) 200 mg DAILY ORAL 10/25/18 09:00 11/22/18 20:59 10/25/18 08:06 Aztreonam 1 gm/ Dextrose 55 ml @ 110 mls/hr Q8HR IVPB 10/23/18 22:00 10/30/18 21:59 10/25/18 13:58 Dextrose/Sodium Chloride 1,000 ml @ 80 mls/hr [id number] IV 10/23/18 17:45 11/22/18 17:44 10/25/18 07:57 Levetiracetam (Keppra) 500 mg Q12HR GT 10/24/18 21:00 11/22/18 20:59 10/25/18 07:59 Pantoprazole (Protonix) 40 mg DAILY ORAL 10/24/18 09:00 11/23/18 08:59 10/25/18 07:59 Vancomycin HCl (Vanco rx to dose) 1 ea DAILY PRN MISC Per rx protocol 10/23/18 17:30 11/22/18 17:29 Vancomycin HCl/ Dextrose 275 ml @ 183.333 mls/hr Q12HR@0800,1999 IVPB 10/25/18 20:00 10/30/18 19:59 Susanna Morrell M.D. Oct 25, 2018 17:27
[2018-10-25 20:00] VITALS: BP 143/83
[2018-10-25] MEDS: Vancomycin 1.25gm Premix 275 ML IVPB SCH (20:01)
[2018-10-25] MEDS ORDERED: Heparin 5000 units/ml inj SUBQ SCH (21:00)
[2018-10-26] VITALS (27 sets, daily range): BP systolic 118–160; BP diastolic 68–96
[2018-10-26] MEDS: Albuterol/Ipratropium 3ml neb HHN SCH ×6 (03:24→22:39)
[2018-10-26 04:32] LABS: BASOPHILS % (AUTO) 1.3 % (0.0-2.0); EOSINOPHILS % (AUTO) 0.5 % (0.0-3.0); HEMATOCRIT 27.1 % (42.0-52.0); HEMOGLOBIN 8.7 G/DL (14.2-18.0); LYMPHOCYTES % (AUTO) 10.3 % (20.0-45.0); MEAN CORPUSCULAR VOLUME 90 FL (80-99); NEUTROPHILS % (AUTO) 80.9 % (45.0-75.0); PLATELET COUNT 330 K/UL (150-450); RED BLOOD COUNT 3.01 M/UL (4.70-6.10); RED CELL DISTRIBUTION WIDTH 13.5 % (11.6-14.8); WHITE BLOOD COUNT 8.8 K/UL (4.8-10.8)
[2018-10-26 04:54] LABS: ALANINE AMINOTRANSFERASE 31 U/L (12-78); ALBUMIN 1.7 G/DL (3.4-5.0); ALBUMIN/GLOBULIN RATIO 0.4 (1.0-2.7); ALKALINE PHOSPHATASE 121 U/L (46-116); ANION GAP 7 mmol/L (5-15); ASPARTATE AMINO TRANSFERASE 23 U/L (15-37); BILIRUBIN,TOTAL 0.2 MG/DL (0.2-1.0); BLOOD UREA NITROGEN 8 mg/dL (7-18); CALCIUM 8.9 MG/DL (8.5-10.1); CARBON DIOXIDE 29 MMOL/L (21-32); CHLORIDE 104 MMOL/L (98-107); CREATININE 0.7 MG/DL (0.55-1.30); POTASSIUM 3.5 MMOL/L (3.5-5.1); SODIUM 140 MMOL/L (136-145)
[2018-10-26] MEDS: Aztreonam Inj 1 GM in D5W 55 ML IVPB SCH (05:52)
[2018-10-26] MEDS: Vancomycin 1.25gm Premix 275 ML IVPB SCH ×2 (08:14→20:34)
[2018-10-26] MEDS: D5NS 1,000 ML IV SCH ×2 (08:24→13:53)
[2018-10-26] MEDS: Amiodarone 200mg tab ORAL SCH (08:50)
[2018-10-26] MEDS: levETIRAcetam 500mg/5ml Liquid GT SCH ×2 (08:51→20:34)
--- NOTE | 2018-10-26 10:16 | General Progress Note ---
Assessment/Plan Assessment/Plan S: not verbal O: appears comfortable, Not following commands. PHYSICAL EXAMINATION: GENERAL: An elderly male, lying in bed, altered, unresponsive, and not in acute distress. HEENT: Normocephalic and atraumatic. Pupils not reactive to light. Well pale sclera. Unable to assess oral mucosa. NECK: Seems supple. No lymphadenopathy. CARDIOVASCULAR: Regular rate and rhythm. No murmur. LUNGS: He had diminished breathing sounds at the bases with crackles. ABDOMEN: Soft, nontender, and nondistended. PEG tube in place EXTREMITY: No edema or cyanosis. GENITOURINARY: He has normal genitalia. Torres catheter in place. SKIN: Right upper buttock pressure wound. No rash. No hives. Meds: including Vanco and Aztreonam in place ASSESSMENT: 1. Sepsis. 2. Healthcare-associated pneumonia. 3. Diffuse Metastatic cancer: source : unknnown 4. Abnormal troponin.likely troponin leak 4. Anemia. 5. Dementia/encephalopathy. 6. Code Status - Full Code. 7. GI and DVT prophylaxis. 8. Hemoptysis PLAN OF CARE: Risks of any aggressive Diagnostic procedure ( including Trach) surpasses its benefits. Will continue current sepsis treatment Will hold anticoagulation ,secondary to one episode of hematemesis Will Defer oncology workup to out patient Subjective Allergies: Coded Allergies: No Known Allergies (Unverified , 10/22/18) Objective Last 24 Hour Vital Signs Date Time Temp Pulse Resp B/P (MAP) Pulse Ox O2 Delivery O2 Flow Rate FiO2 10/26/18 08:00 97.7 104 24 160/95 (116) 96 10/26/18 07:28 102 10/26/18 07:08 Nasal Cannula 2.0 28 10/26/18 07:08 Nasal Cannula 2.0 28 10/26/18 07:08 Nasal Cannula 2.0 28 10/26/18 07:08 95 Nasal Cannula 2.0 28 10/26/18 04:00 Nasal Cannula 2.0 10/26/18 04:00 98.7 103 28 147/84 (105) 98 10/26/18 04:00 101 10/26/18 03:24 86 18 97 Nasal Cannula 2.0 28 10/26/18 03:24 84 18 99 Nasal Cannula 2.0 28 10/26/18 00:00 98.1 92 28 120/75 (90) 100 10/26/18 00:00 92 10/26/18 00:00 Nasal Cannula 2.0 10/25/18 23:18 95 18 99 Nasal Cannula 2.0 28 10/25/18 23:09 97 20 96 Nasal Cannula 2.0 28 10/25/18 20:00 Nasal Cannula 2.0 10/25/18 20:00 93 10/25/18 20:00 2.0 10/25/18 20:00 98.0 96 28 143/83 (103) 99 10/25/18 19:39 94 20 98 Nasal Cannula 2.0 28 10/25/18 19:29 94 Nasal Cannula 2.0 28 10/25/18 19:29 Nasal Cannula 2.0 28 10/25/18 19:29 94 20 94 Nasal Cannula 2.0 28 10/25/18 16:00 98.5 96 28 130/79 (96) 99 10/25/18 16:00 91 10/25/18 16:00 2.0 10/25/18 16:00 Nasal Cannula 2.0 10/25/18 15:00 94 20 98 Nasal Cannula 2.0 28 10/25/18 14:49 92 22 97 Nasal Cannula 2.0 28 10/25/18 12:00 2.0 10/25/18 12:00 92 10/25/18 12:00 98.0 98 24 138/76 (96) 97 10/25/18 12:00 Nasal Cannula 2.0 10/25/18 11:17 92 24 98 Nasal Cannula 2.0 28 10/25/18 11:07 94 26 99 Nasal Cannula 3.0 32 Intake and Output 10/25/18 10/26/18 19:00 07:00 Intake Total 1486.666 ml 1645.000 ml Output Total 400 ml 400 ml Balance 1086.666 ml 1245.000 ml Free Water 30 ml IV Total 1416.666 ml 1345.000 ml Tube Feeding 40 ml 300 ml Output Urine Total 400 ml 400 ml Laboratory Tests 10/26/18 03:30: White Blood Count 8.8, Red Blood Count 3.01L, Hemoglobin 8.7L, Hematocrit 27.1L , Mean Corpuscular Volume 90, Mean Corpuscular Hemoglobin 28.9, Mean Corpuscular Hemoglobin Concent 32.1, Red Cell Distribution Width 13.5, Platelet Count 330, Mean Platelet Volume 6.1L, Neutrophils (%) (Auto) 80.9H, Lymphocytes (%) (Auto) 10.3L, Monocytes (%) (Auto) 7.0, Eosinophils (%) (Auto) 0.5, Basophils (%) (Auto) 1.3, Sodium Level 140, Potassium Level 3.5, Chloride Level 104, Carbon Dioxide Level 29, Anion Gap 7, Blood Urea Nitrogen 8, Creatinine 0.7 , Estimat Glomerular Filtration Rate , Glucose Level 85, Calcium Level 8.9, Total Bilirubin 0.2, Aspartate Amino Transf (AST/SGOT) 23, Alanine Aminotransferase (ALT/SGPT) 31, Alkaline Phosphatase 121H, Total Protein 6.4, Albumin 1.7L, Globulin 4.7, Albumin/Globulin Ratio 0.4L Height (Feet): 6 Weight (Pounds): 139 Hayde Duran MD Oct 26, 2018 10:16
--- NOTE | 2018-10-26 10:34 | Pulmonology Progress Note ---
Assessment/Plan Problems: (1) Altered mental status (2) Bilateral pneumonia (3) Seizure (4) Diabetes mellitus (5) Elevated brain natriuretic peptide (BNP) level (6) Lung mass (7) Sacral decubitus ulcer (8) Lytic bone lesions on xray Assessment/Plan CT chest reviewed - extensive R consolidations, mass like opacities, possible endobronchial lesions and osteolytic lesions concerning for met dz + loculated effusion ---> Needs to determine overall GOC further before working up lung mass. Patient will likely needs VATS/bronch. Consent is an issue at this time. Will obtain ETHICS eval. BONE SCAN, CT A/P (non-con as unable to consent for contrast) and MRI brain ORDERED IR to attempt THORACENTESIS of one of the loculated effusions and sent off for studies including Cx and CYTOLOGY Optimize pulmonary hygiene/mobilize as tolerated PRN O2 HHN's Abx per ID Consider neuro eval Monitor MS NPO, TF's IVF FC Attempt to get old records Subjective Allergies: Coded Allergies: No Known Allergies (Unverified , 10/22/18) Subjective AFVSS O2 needs stable obtunded + hemoptysis + cough no F/C no veena TF's [facility] resident since 2011 unrepresented, unable to sign POLST in the past Objective Last 24 Hour Vital Signs Date Time Temp Pulse Resp B/P (MAP) Pulse Ox O2 Delivery O2 Flow Rate FiO2 10/26/18 08:00 97.7 104 24 160/95 (116) 96 10/26/18 07:28 102 10/26/18 07:08 Nasal Cannula 2.0 28 10/26/18 07:08 Nasal Cannula 2.0 28 10/26/18 07:08 Nasal Cannula 2.0 28 10/26/18 07:08 95 Nasal Cannula 2.0 28 10/26/18 04:00 Nasal Cannula 2.0 10/26/18 04:00 98.7 103 28 147/84 (105) 98 10/26/18 04:00 101 10/26/18 03:24 86 18 97 Nasal Cannula 2.0 28 10/26/18 03:24 84 18 99 Nasal Cannula 2.0 28 10/26/18 00:00 98.1 92 28 120/75 (90) 100 10/26/18 00:00 92 10/26/18 00:00 Nasal Cannula 2.0 10/25/18 23:18 95 18 99 Nasal Cannula 2.0 28 10/25/18 23:09 97 20 96 Nasal Cannula 2.0 28 10/25/18 20:00 Nasal Cannula 2.0 10/25/18 20:00 93 10/25/18 20:00 2.0 10/25/18 20:00 98.0 96 28 143/83 (103) 99 10/25/18 19:39 94 20 98 Nasal Cannula 2.0 28 10/25/18 19:29 94 Nasal Cannula 2.0 28 10/25/18 19:29 Nasal Cannula 2.0 28 10/25/18 19:29 94 20 94 Nasal Cannula 2.0 28 10/25/18 16:00 98.5 96 28 130/79 (96) 99 10/25/18 16:00 91 10/25/18 16:00 2.0 10/25/18 16:00 Nasal Cannula 2.0 10/25/18 15:00 94 20 98 Nasal Cannula 2.0 28 10/25/18 14:49 92 22 97 Nasal Cannula 2.0 28 10/25/18 12:00 2.0 10/25/18 12:00 92 10/25/18 12:00 98.0 98 24 138/76 (96) 97 10/25/18 12:00 Nasal Cannula 2.0 10/25/18 11:17 92 24 98 Nasal Cannula 2.0 28 10/25/18 11:07 94 26 99 Nasal Cannula 3.0 32 Intake and Output 10/25/18 10/26/18 19:00 07:00 Intake Total 1486.666 ml 1645.000 ml Output Total 400 ml 400 ml Balance 1086.666 ml 1245.000 ml Free Water 30 ml IV Total 1416.666 ml 1345.000 ml Tube Feeding 40 ml 300 ml Output Urine Total 400 ml 400 ml General Appearance: cachetic HEENT: normocephalic, atraumatic, other - NGT Respiratory/Chest: rhonchi Cardiovascular: normal peripheral pulses, normal rate, regular rhythm Abdomen: normal bowel sounds, soft, non tender, no organomegaly, non distended , no mass Extremities: no cyanosis, no clubbing, no edema Microbiology Date/Time Source Procedure Growth Status 10/24/18 15:20 Sputum Expectorated Gram Stain - Final Complete 10/24/18 15:20 Sputum Expectorated Sputum Culture - Final NORMAL UPPER RESPIRATORY LUISA PRESENT Complete Laboratory Tests 10/26/18 03:30: White Blood Count 8.8, Red Blood Count 3.01L, Hemoglobin 8.7L, Hematocrit 27.1L , Mean Corpuscular Volume 90, Mean Corpuscular Hemoglobin 28.9, Mean Corpuscular Hemoglobin Concent 32.1, Red Cell Distribution Width 13.5, Platelet Count 330, Mean Platelet Volume 6.1L, Neutrophils (%) (Auto) 80.9H, Lymphocytes (%) (Auto) 10.3L, Monocytes (%) (Auto) 7.0, Eosinophils (%) (Auto) 0.5, Basophils (%) (Auto) 1.3, Sodium Level 140, Potassium Level 3.5, Chloride Level 104, Carbon Dioxide Level 29, Anion Gap 7, Blood Urea Nitrogen 8, Creatinine 0.7 , Estimat Glomerular Filtration Rate , Glucose Level 85, Calcium Level 8.9, Total Bilirubin 0.2, Aspartate Amino Transf (AST/SGOT) 23, Alanine Aminotransferase (ALT/SGPT) 31, Alkaline Phosphatase 121H, Total Protein 6.4, Albumin 1.7L, Globulin 4.7, Albumin/Globulin Ratio 0.4L Current Medications Medications (Trade) Dose Ordered Sig/Sofia Route PRN Reason Start Time Stop Time Status Last Admin Dose Admin Albuterol/ Ipratropium (Albuterol/ Ipratropium) 3 ml Q4HRT HHN 10/23/18 19:00 10/28/18 18:59 10/26/18 03:24 Amiodarone HCl (Cordarone) 200 mg DAILY ORAL 10/25/18 09:00 11/22/18 20:59 10/26/18 08:50 Aztreonam 1 gm/ Dextrose 55 ml @ 110 mls/hr Q8HR IVPB 10/23/18 22:00 10/30/18 21:59 10/26/18 05:52 Dextrose/Sodium Chloride 1,000 ml @ 80 mls/hr [id number] IV 10/23/18 17:45 11/22/18 17:44 10/26/18 08:24 Levetiracetam (Keppra) 500 mg Q12HR GT 10/24/18 21:00 11/22/18 20:59 10/26/18 08:51 Pantoprazole (Protonix) 40 mg DAILY ORAL 10/24/18 09:00 11/23/18 08:59 10/26/18 08:50 Vancomycin HCl (Vanco rx to dose) 1 ea DAILY PRN MISC Per rx protocol 10/23/18 17:30 11/22/18 17:29 Vancomycin HCl/ Dextrose 275 ml @ 183.333 mls/hr Q12HR@0800,2000 IVPB 10/25/18 20:00 10/30/18 19:59 10/26/18 08:14 Flex uNnn MD Oct 26, 2018 10:34
[2018-10-26] MEDS ORDERED: dilTIAZem HCl 25mg/5ml Inj IVP SCH (12:15)
[2018-10-26] MEDS ORDERED: dilTIAZem HCl 25mg/5ml Inj IVP ONE (13:00)
[2018-10-26] MEDS ORDERED: Aztreonam Inj 1 GM in D5W 55 ML IVPB SCH (14:00)
--- NOTE | 2018-10-26 14:24 | Surgery Progress Note ---
Surgery Progress Note Subjective Additional Comments Patient had cardiac arrhythmia and transferred to intensive care unit for management. Labs noted. Pending CT abdomen pelvis and bone scan. Pulmonology note appreciated. Objective Last 24 Hour Vital Signs Date Time Temp Pulse Resp B/P (MAP) Pulse Ox O2 Delivery O2 Flow Rate FiO2 10/26/18 13:53 105 118/73 10/26/18 13:00 99.1 105 28 118/73 (88) 98 10/26/18 12:53 115 10/26/18 12:16 142 144/75 10/26/18 12:00 Nasal Cannula 2.0 10/26/18 12:00 98.4 138 30 144/75 (98) 10/26/18 11:33 115 10/26/18 11:02 Room Air 21 10/26/18 11:00 88 16 94 Room Air 21 10/26/18 08:00 Nasal Cannula 2.0 10/26/18 08:00 97.7 104 24 160/95 (116) 96 10/26/18 07:28 102 10/26/18 07:08 Nasal Cannula 2.0 28 10/26/18 07:08 Nasal Cannula 2.0 28 10/26/18 07:08 Nasal Cannula 2.0 28 10/26/18 07:08 95 Nasal Cannula 2.0 28 10/26/18 04:00 Nasal Cannula 2.0 10/26/18 04:00 98.7 103 28 147/84 (105) 98 10/26/18 04:00 101 10/26/18 03:24 86 18 97 Nasal Cannula 2.0 28 10/26/18 03:24 84 18 99 Nasal Cannula 2.0 28 10/26/18 00:00 98.1 92 28 120/75 (90) 100 10/26/18 00:00 92 10/26/18 00:00 Nasal Cannula 2.0 10/25/18 23:18 95 18 99 Nasal Cannula 2.0 28 10/25/18 23:09 97 20 96 Nasal Cannula 2.0 28 10/25/18 20:00 Nasal Cannula 2.0 10/25/18 20:00 93 10/25/18 20:00 2.0 10/25/18 20:00 98.0 96 28 143/83 (103) 99 10/25/18 19:39 94 20 98 Nasal Cannula 2.0 28 10/25/18 19:29 94 Nasal Cannula 2.0 28 10/25/18 19:29 Nasal Cannula 2.0 28 10/25/18 19:29 94 20 94 Nasal Cannula 2.0 28 10/25/18 16:00 98.5 96 28 130/79 (96) 99 10/25/18 16:00 91 10/25/18 16:00 2.0 10/25/18 16:00 Nasal Cannula 2.0 10/25/18 15:00 94 20 98 Nasal Cannula 2.0 28 10/25/18 14:49 92 22 97 Nasal Cannula 2.0 28 I&O Intake and Output 10/25/18 10/26/18 18:59 06:59 Intake Total 1486.666 ml 1615.000 ml Output Total 400 ml 400 ml Balance 1086.666 ml 1215.000 ml Free Water 30 ml IV Total 1416.666 ml 1345.000 ml Tube Feeding 40 ml 270 ml Output Urine Total 400 ml 400 ml Dressing: saturated Wound: other Cardiovascular: RSR Respiratory: decreased breath sounds Abdomen: soft, present bowel sounds, non-distended Extremities: other Laboratory Tests Test 10/26/18 03:30 White Blood Count 8.8 K/UL (4.8-10.8) Red Blood Count 3.01 M/UL (4.70-6.10) L Hemoglobin 8.7 G/DL (14.2-18.0) L Hematocrit 27.1 % (42.0-52.0) L Mean Corpuscular Volume 90 FL (80-99) Mean Corpuscular Hemoglobin 28.9 PG (27.0-31.0) Mean Corpuscular Hemoglobin Concent 32.1 G/DL (32.0-36.0) Red Cell Distribution Width 13.5 % (11.6-14.8) Platelet Count 330 K/UL (150-450) Mean Platelet Volume 6.1 FL (6.5-10.1) L Neutrophils (%) (Auto) 80.9 % (45.0-75.0) H Lymphocytes (%) (Auto) 10.3 % (20.0-45.0) L Monocytes (%) (Auto) 7.0 % (1.0-10.0) Eosinophils (%) (Auto) 0.5 % (0.0-3.0) Basophils (%) (Auto) 1.3 % (0.0-2.0) Sodium Level 140 MMOL/L (136-145) Potassium Level 3.5 MMOL/L (3.5-5.1) Chloride Level 104 MMOL/L (98-107) Carbon Dioxide Level 29 MMOL/L (21-32) Anion Gap 7 mmol/L (5-15) Blood Urea Nitrogen 8 mg/dL (7-18) Creatinine 0.7 MG/DL (0.55-1.30) Estimat Glomerular Filtration Rate mL/min (>60) Glucose Level 85 MG/DL (74-106) Calcium Level 8.9 MG/DL (8.5-10.1) Total Bilirubin 0.2 MG/DL (0.2-1.0) Aspartate Amino Transf (AST/SGOT) 23 U/L (15-37) Alanine Aminotransferase (ALT/SGPT) 31 U/L (12-78) Alkaline Phosphatase 121 U/L (46-116) H Total Protein 6.4 G/DL (6.4-8.2) Albumin 1.7 G/DL (3.4-5.0) L Globulin 4.7 g/dL Albumin/Globulin Ratio 0.4 (1.0-2.7) L Plan Problems: (1) Sacral decubitus ulcer Assessment & Plan: Patient presented on admission with full thickness Stage III sacral pressure injury. 100% yellow slough at base of wound, Edges flat and dry(L)1.1cm x (W)1.9cm. Periwound without erythema or induration. No odor noted. Non-viable tissue removed using curette by myself at bedside. Base of wound is more viable with trace slough. R heel /R achilles boggy with non-blanchable erythema. Pt moans when site is minimally palpated. L heel boggy with non-blanchable erythema. Pt did not exhibit any distress when L heel palpated. Dry brown discoloration without induration or fluctuance noted to brandon/dorsal R foot. Dry brown discoloration without fluctuance or induration noted to R lateral malleolus. Tx.Plan: Cleanse Sacral wound with Saline.Apply Therahoney. Apply Cavilon Skin Barrier periwound. Cover with Optifoam drsg Daily and prn. Apply Cavilon Skin Barrier to R lateral malleolus.Cover with Optifoam drsg.Change every 7 days and prn. Apply Cavilon Skin Barrier to both heels and R achilles. Cover with Optifoam drsg.Change Q7days and prn. APM/CHARU mattress. Reposition at least every 2hours or as tolerated. Off-load heels with pillow. (2) Seizure (3) Lung mass Assessment & Plan: CT chest w/ Evidence of disseminated neoplasm, with multiple osteolytic lesions as described, mediastinal adenopathy, and possible bilateral adrenal masses Complete atelectasis and consolidation of the left lower lobe. Complete occlusion of the proximal lobar bronchi on the left. Given the above findings, the possibility of pulmonary neoplasm with resultant endobronchial occlusion should be considered Extensive atelectasis and consolidation of the left upper lobe. This may represent acute pneumonia, but honeycomb appearance of much of this suggests a significant chronic component There are areas of confluent scarring versus consolidation versus mass as well Suspected loculated pleural effusion on the left. Note that this has enlarged rapidly over the past few days based on recent chest radiographs. There is also a small amount of what is probably increased pleural fluid on the left as well. Multiple focal parenchymal abnormalities on the right. These probably represent areas of acute infiltrate, but the appearance of some of these suggests that they could be neoplastic Ectatic main and right pulmonary artery, suggestive of but not diagnostic for pulmonary arterial hypertension Mild diffuse edema of the subcutaneous and mediastinal fat Minimal pericardial thickening and/or fluid Incidental finding 12 mm left renal cyst extensive disease process noted on CT chest. primary unknown at this time. need to see if any prior records leukocytosis on IV Abx Abd US ordered Pending CT A/P Pending MRI will need biopsy for cytology via radiology Labs noted RX reviewed currently stable will monitor Chato Mullen Oct 26, 2018 14:24
--- NOTE | 2018-10-26 17:01 | Cardiology Progress Note ---
Assessment/Plan Status: stable Assessment/Plan Assessment/Plan Assessment/Plan 1. Paroxysmal atrial fibrillation. Currently in sinus rhythm on amiodarone 200 mg daily. 2. Seizures and altered mental status. The patient is on Keppra 500 mg b.i.d. Further evaluation by Neurology. 3. Bilateral pneumonia. On vancomycin and aztreonam per Dr. Morrell. 4. Diabetes. 5. Dysphagia, status post PEG placement Critical care time 38 minutes Subjective Cardiovascular: Reports: no symptoms Respiratory: Reports: no symptoms Gastrointestinal/Abdominal: Reports: no symptoms Genitourinary: Reports: no symptoms Subjective Coverage for [place] Objective Last 24 Hour Vital Signs Date Time Temp Pulse Resp B/P (MAP) Pulse Ox O2 Delivery O2 Flow Rate FiO2 10/26/18 16:30 83 28 140/82 (101) 96 10/26/18 16:00 98.5 89 28 136/91 (106) 96 10/26/18 16:00 Nasal Cannula 2.0 10/26/18 15:48 Room Air 21 10/26/18 15:48 Nasal Cannula 2.0 28 10/26/18 15:30 92 28 154/90 (111) 94 10/26/18 15:27 94 10/26/18 15:00 94 31 149/88 (108) 96 10/26/18 14:45 98 30 160/96 (117) 98 10/26/18 14:30 98 31 127/77 (94) 99 10/26/18 14:15 100 31 127/77 (94) 99 10/26/18 14:00 102 32 142/81 (101) 98 10/26/18 13:53 105 118/73 10/26/18 13:00 99.1 105 28 118/73 (88) 98 10/26/18 13:00 Nasal Cannula 2.0 10/26/18 12:53 115 10/26/18 12:16 142 144/75 10/26/18 12:00 Nasal Cannula 2.0 10/26/18 12:00 98.4 138 30 144/75 (98) 10/26/18 11:33 115 10/26/18 11:02 Room Air 21 10/26/18 11:00 88 16 94 Room Air 21 10/26/18 08:00 Nasal Cannula 2.0 10/26/18 08:00 97.7 104 24 160/95 (116) 96 10/26/18 07:28 102 10/26/18 07:08 Nasal Cannula 2.0 28 10/26/18 07:08 Nasal Cannula 2.0 28 10/26/18 07:08 Nasal Cannula 2.0 28 10/26/18 07:08 95 Nasal Cannula 2.0 28 10/26/18 04:00 Nasal Cannula 2.0 10/26/18 04:00 98.7 103 28 147/84 (105) 98 10/26/18 04:00 101 10/26/18 03:24 86 18 97 Nasal Cannula 2.0 28 10/26/18 03:24 84 18 99 Nasal Cannula 2.0 28 10/26/18 00:00 98.1 92 28 120/75 (90) 100 10/26/18 00:00 92 10/26/18 00:00 Nasal Cannula 2.0 10/25/18 23:18 95 18 99 Nasal Cannula 2.0 28 10/25/18 23:09 97 20 96 Nasal Cannula 2.0 28 10/25/18 20:00 Nasal Cannula 2.0 10/25/18 20:00 93 10/25/18 20:00 2.0 10/25/18 20:00 98.0 96 28 143/83 (103) 99 10/25/18 19:39 94 20 98 Nasal Cannula 2.0 28 10/25/18 19:29 94 Nasal Cannula 2.0 28 10/25/18 19:29 Nasal Cannula 2.0 28 10/25/18 19:29 94 20 94 Nasal Cannula 2.0 28 General Appearance: no apparent distress, alert EENT: PERRL/EOMI, normal ENT inspection, TMs normal Neck: non-tender, normal alignment, supple Rhythm: SB Cardiovascular: normal peripheral pulses, normal rate, regular rhythm Respiratory/Chest: chest wall non-tender, lungs clear Abdomen: non tender, soft, no organomegaly Extremities: normal range of motion, non-tender, normal inspection, no swelling Neurologic: supervisor frame sample and pattern II-XII grossly normal, no motor/sensory deficits Intake and Output 10/25/18 10/26/18 18:59 06:59 Intake Total 1486.666 ml 1615.000 ml Output Total 400 ml 400 ml Balance 1086.666 ml 1215.000 ml Free Water 30 ml IV Total 1416.666 ml 1345.000 ml Tube Feeding 40 ml 270 ml Output Urine Total 400 ml 400 ml Laboratory Tests Test 10/26/18 03:30 White Blood Count 8.8 K/UL (4.8-10.8) Red Blood Count 3.01 M/UL (4.70-6.10) L Hemoglobin 8.7 G/DL (14.2-18.0) L Hematocrit 27.1 % (42.0-52.0) L Mean Corpuscular Volume 90 FL (80-99) Mean Corpuscular Hemoglobin 28.9 PG (27.0-31.0) Mean Corpuscular Hemoglobin Concent 32.1 G/DL (32.0-36.0) Red Cell Distribution Width 13.5 % (11.6-14.8) Platelet Count 330 K/UL (150-450) Mean Platelet Volume 6.1 FL (6.5-10.1) L Neutrophils (%) (Auto) 80.9 % (45.0-75.0) H Lymphocytes (%) (Auto) 10.3 % (20.0-45.0) L Monocytes (%) (Auto) 7.0 % (1.0-10.0) Eosinophils (%) (Auto) 0.5 % (0.0-3.0) Basophils (%) (Auto) 1.3 % (0.0-2.0) Sodium Level 140 MMOL/L (136-145) Potassium Level 3.5 MMOL/L (3.5-5.1) Chloride Level 104 MMOL/L (98-107) Carbon Dioxide Level 29 MMOL/L (21-32) Anion Gap 7 mmol/L (5-15) Blood Urea Nitrogen 8 mg/dL (7-18) Creatinine 0.7 MG/DL (0.55-1.30) Estimat Glomerular Filtration Rate mL/min (>60) Glucose Level 85 MG/DL (74-106) Calcium Level 8.9 MG/DL (8.5-10.1) Total Bilirubin 0.2 MG/DL (0.2-1.0) Aspartate Amino Transf (AST/SGOT) 23 U/L (15-37) Alanine Aminotransferase (ALT/SGPT) 31 U/L (12-78) Alkaline Phosphatase 121 U/L (46-116) H Total Protein 6.4 G/DL (6.4-8.2) Albumin 1.7 G/DL (3.4-5.0) L Globulin 4.7 g/dL Albumin/Globulin Ratio 0.4 (1.0-2.7) L Microbiology Date/Time Source Procedure Growth Status 10/24/18 15:20 Sputum Expectorated Gram Stain - Final Complete 10/24/18 15:20 Sputum Expectorated Sputum Culture - Final NORMAL UPPER RESPIRATORY LUISA PRESENT Complete Haile Haji MD Oct 26, 2018 17:01
--- NOTE | 2018-10-26 17:18 | Infectious Diseases Prog Note ---
Assessment/Plan Problems: (1) Bilateral pneumonia Assessment & Plan: suspect aspiration due to altered mental status , continue vancomycin and switch aztreonam to zosyn empirically , since no evidence of more seizure. send sputum culture if he produces any . CT chest confirmed lung mass with mets to the bones, and effusion . aspiration precaution, keep HOB > 30 DEGREE . keep NPO for now (2) Seizure Assessment & Plan: monitor in tele,seizure precaution . consult neurology (3) Diabetes mellitus Assessment & Plan: recommend tight glycemic control to keep blood glucose between 10-140 (4) Altered mental status Assessment & Plan: due to the above, continue hydration and antibiotics, neuro check , monitor in tele, avoid sedatives (5) Lung mass Assessment & Plan: with total collapse of the left lung and mediastinal shift , and bone lytic lesions, suspect lung cancer with mets , poor prognosis, needs bronch for tissue diagnosis and oncology eval Subjective ROS Limited/Unobtainable: Yes Allergies: Coded Allergies: No Known Allergies (Unverified , 10/22/18) Subjective he was transfered to ICU for new A.fib with RVR , awake but still unresponsive, uncooperative with exam , no fever, has hemoptysis , no SOB, no diarrhea as per nurse Objective Vital Signs Last 24 Hour Vital Signs Date Time Temp Pulse Resp B/P (MAP) Pulse Ox O2 Delivery O2 Flow Rate FiO2 10/26/18 16:30 83 28 140/82 (101) 96 10/26/18 16:00 98.5 89 28 136/91 (106) 96 10/26/18 16:00 Nasal Cannula 2.0 10/26/18 15:48 Room Air 21 10/26/18 15:48 Nasal Cannula 2.0 28 10/26/18 15:30 92 28 154/90 (111) 94 10/26/18 15:27 94 10/26/18 15:00 94 31 149/88 (108) 96 10/26/18 14:45 98 30 160/96 (117) 98 10/26/18 14:30 98 31 127/77 (94) 99 10/26/18 14:15 100 31 127/77 (94) 99 10/26/18 14:00 102 32 142/81 (101) 98 10/26/18 13:53 105 118/73 10/26/18 13:00 99.1 105 28 118/73 (88) 98 10/26/18 13:00 Nasal Cannula 2.0 10/26/18 12:53 115 10/26/18 12:16 142 144/75 10/26/18 12:00 Nasal Cannula 2.0 10/26/18 12:00 98.4 138 30 144/75 (98) 10/26/18 11:33 115 10/26/18 11:02 Room Air 21 10/26/18 11:00 88 16 94 Room Air 21 10/26/18 08:00 Nasal Cannula 2.0 10/26/18 08:00 97.7 104 24 160/95 (116) 96 10/26/18 07:28 102 10/26/18 07:08 Nasal Cannula 2.0 28 10/26/18 07:08 Nasal Cannula 2.0 28 10/26/18 07:08 Nasal Cannula 2.0 28 10/26/18 07:08 95 Nasal Cannula 2.0 28 10/26/18 04:00 Nasal Cannula 2.0 10/26/18 04:00 98.7 103 28 147/84 (105) 98 10/26/18 04:00 101 10/26/18 03:24 86 18 97 Nasal Cannula 2.0 28 10/26/18 03:24 84 18 99 Nasal Cannula 2.0 28 10/26/18 00:00 98.1 92 28 120/75 (90) 100 10/26/18 00:00 92 10/26/18 00:00 Nasal Cannula 2.0 10/25/18 23:18 95 18 99 Nasal Cannula 2.0 28 10/25/18 23:09 97 20 96 Nasal Cannula 2.0 28 10/25/18 20:00 Nasal Cannula 2.0 10/25/18 20:00 93 10/25/18 20:00 2.0 10/25/18 20:00 98.0 96 28 143/83 (103) 99 10/25/18 19:39 94 20 98 Nasal Cannula 2.0 28 10/25/18 19:29 94 Nasal Cannula 2.0 28 10/25/18 19:29 Nasal Cannula 2.0 28 10/25/18 19:29 94 20 94 Nasal Cannula 2.0 28 Height (Feet): 6 Weight (Pounds): 139 General Appearance: no acute distress, cachetic HEENT: normocephalic, atraumatic, anicteric, mucous membranes moist, PERRL Respiratory/Chest: chest wall non-tender, no respiratory distress, no accessory muscle use, decreased breath sounds, crackles/rales, expiratory wheezing Cardiovascular: normal peripheral pulses, normal rate, regular rhythm, no gallop/murmur, no JVD Abdomen: normal bowel sounds, soft, non tender, no organomegaly, non distended , no mass, no scars Extremities: no cyanosis, no clubbing Skin: no rash, no lesions, no ulcers Neurologic/Psychiatric: alert, unresponsiveness Lymphatic: no neck adenopathy, no groin adenopathy Musculoskeletal: normal muscle bulk, no effusion Microbiology Date/Time Source Procedure Growth Status 10/24/18 15:20 Sputum Expectorated Gram Stain - Final Complete 10/24/18 15:20 Sputum Expectorated Sputum Culture - Final NORMAL UPPER RESPIRATORY LUISA PRESENT Complete Laboratory Tests Test 10/26/18 03:30 White Blood Count 8.8 K/UL (4.8-10.8) Red Blood Count 3.01 M/UL (4.70-6.10) L Hemoglobin 8.7 G/DL (14.2-18.0) L Hematocrit 27.1 % (42.0-52.0) L Mean Corpuscular Volume 90 FL (80-99) Mean Corpuscular Hemoglobin 28.9 PG (27.0-31.0) Mean Corpuscular Hemoglobin Concent 32.1 G/DL (32.0-36.0) Red Cell Distribution Width 13.5 % (11.6-14.8) Platelet Count 330 K/UL (150-450) Mean Platelet Volume 6.1 FL (6.5-10.1) L Neutrophils (%) (Auto) 80.9 % (45.0-75.0) H Lymphocytes (%) (Auto) 10.3 % (20.0-45.0) L Monocytes (%) (Auto) 7.0 % (1.0-10.0) Eosinophils (%) (Auto) 0.5 % (0.0-3.0) Basophils (%) (Auto) 1.3 % (0.0-2.0) Sodium Level 140 MMOL/L (136-145) Potassium Level 3.5 MMOL/L (3.5-5.1) Chloride Level 104 MMOL/L (98-107) Carbon Dioxide Level 29 MMOL/L (21-32) Anion Gap 7 mmol/L (5-15) Blood Urea Nitrogen 8 mg/dL (7-18) Creatinine 0.7 MG/DL (0.55-1.30) Estimat Glomerular Filtration Rate mL/min (>60) Glucose Level 85 MG/DL (74-106) Calcium Level 8.9 MG/DL (8.5-10.1) Total Bilirubin 0.2 MG/DL (0.2-1.0) Aspartate Amino Transf (AST/SGOT) 23 U/L (15-37) Alanine Aminotransferase (ALT/SGPT) 31 U/L (12-78) Alkaline Phosphatase 121 U/L (46-116) H Total Protein 6.4 G/DL (6.4-8.2) Albumin 1.7 G/DL (3.4-5.0) L Globulin 4.7 g/dL Albumin/Globulin Ratio 0.4 (1.0-2.7) L Current Medications Medications (Trade) Dose Ordered Sig/Sofia Route PRN Reason Start Time Stop Time Status Last Admin Dose Admin Albuterol/ Ipratropium (Albuterol/ Ipratropium) 3 ml Q4HRT HHN 10/26/18 15:00 10/28/18 18:59 Amiodarone HCl (Cordarone) 200 mg DAILY ORAL 10/27/18 09:00 11/22/18 20:59 Aztreonam 1 gm/ Dextrose 55 ml @ 110 mls/hr Q8HR IVPB 10/26/18 14:00 10/30/18 21:59 10/26/18 14:17 Dextrose/Sodium Chloride 1,000 ml @ 80 mls/hr [id number] IV 10/26/18 13:30 11/22/18 13:29 10/26/18 13:53 Diltiazem HCl 125 mg/Dextrose 125 ml @ 10 mls/hr Q24H IV 10/27/18 13:30 10/28/18 13:29 10/26/18 13:53 Levetiracetam (Keppra) 500 mg Q12HR GT 10/26/18 21:00 11/22/18 20:59 Pantoprazole (Protonix) 40 mg DAILY ORAL 10/27/18 09:00 11/23/18 08:59 Vancomycin HCl (Vanco rx to dose) 1 ea DAILY PRN MISC Per rx protocol 10/27/18 09:00 11/22/18 17:29 Vancomycin HCl/ Dextrose 275 ml @ 183.333 mls/hr Q12HR@0800,1999 IVPB 10/26/18 20:00 10/30/18 19:59 Susanna Morrell M.D. Oct 26, 2018 17:18
[2018-10-26] MEDS ORDERED: NS 275ml ONE (17:40)
[2018-10-26] MEDS ORDERED: D5NS 1000ml IV ONE (17:40)
[2018-10-26] MEDS: Piperacillin/Tazobactam 3.375 GM in D5W 110 ML IVPB SCH (22:00)
[2018-10-27] VITALS (42 sets, daily range): BP systolic 108–166; BP diastolic 56–102
[2018-10-27] MEDS: D5NS 1,000 ML IV SCH ×2 (01:23→16:56)
[2018-10-27] MEDS: Albuterol/Ipratropium 3ml neb HHN SCH ×3 (03:00→11:28)
[2018-10-27] MEDS: Piperacillin/Tazobactam 3.375 GM in D5W 110 ML IVPB SCH ×3 (05:34→22:40)
[2018-10-27 07:41] LABS: ALANINE AMINOTRANSFERASE 33 U/L (12-78); ALBUMIN 1.8 G/DL (3.4-5.0); ALBUMIN/GLOBULIN RATIO 0.4 (1.0-2.7); ALKALINE PHOSPHATASE 152 U/L (46-116); ANION GAP 3 mmol/L (5-15); ASPARTATE AMINO TRANSFERASE 32 U/L (15-37); BILIRUBIN,TOTAL 0.3 MG/DL (0.2-1.0); BLOOD UREA NITROGEN 7 mg/dL (7-18); CALCIUM 9.1 MG/DL (8.5-10.1); CARBON DIOXIDE 32 MMOL/L (21-32); CHLORIDE 100 MMOL/L (98-107); CREATININE 0.6 MG/DL (0.55-1.30); POTASSIUM 3.5 MMOL/L (3.5-5.1); SODIUM 135 MMOL/L (136-145)
[2018-10-27 07:44] LABS: BASOPHILS % (AUTO) 1.9 % (0.0-2.0); EOSINOPHILS % (AUTO) 0.6 % (0.0-3.0); HEMATOCRIT 29.3 % (42.0-52.0); HEMOGLOBIN 9.7 G/DL (14.2-18.0); LYMPHOCYTES % (AUTO) 7.5 % (20.0-45.0); MEAN CORPUSCULAR VOLUME 89 FL (80-99); MONOCYTES % (AUTO) 7.4 % (1.0-10.0); NEUTROPHILS % (AUTO) 82.7 % (45.0-75.0); PLATELET COUNT 365 K/UL (150-450); RED CELL DISTRIBUTION WIDTH 13.3 % (11.6-14.8); WHITE BLOOD COUNT 9.9 K/UL (4.8-10.8)
[2018-10-27] MEDS ORDERED: Amiodarone 200mg tab ORAL SCH (09:00)
--- NOTE | 2018-10-27 09:31 | Diagnostic Imaging Report ---
Indication: Abnormal liver function tests. Evidence of metastatic neoplasm on recent chest CT Technique: Rich-scale and duplex images of the upper abdomen were obtained Comparison: none Findings: Gallbladder demonstrates gallstones. No gallbladder wall thickening nor pericholecystic fluid Sonographic Gastelum's sign is negative. Common bile duct measures 2 mm in diameter. No intrahepatic biliary ductal dilatation. Liver demonstrates normal echogenicity, no focal abnormality. Portal vein and hepatic veins are patent. Pancreas is obscured by bowel gas as well as by overlying gastrostomy tube Spleen is unremarkable. Left kidney measures 12.6 cm in length. Right kidney measures 11 cm length. Left kidney demonstrates increased echogenicity There is no hydronephrosis. A 16 mm cyst is seen in the left kidney . There is questionably a small amount of left perinephric fluid. Non-aneurysmal abdominal aorta . A small amount of ascites fluid is seen adjacent to the liver. There is a right pleural effusion also noted Impression: Right pleural effusion, also described on recent chest CT report. Trace ascites Cholelithiasis. Negative for dilated bile ducts No sonographic findings to suggest hepatic metastases Increased echogenicity of the left kidney, may indicate chronic medical renal disease. Negative for hydronephrosis. Equivocal left perinephric fluid, of uncertain significance of real Incidental finding of small left renal cyst Note nonvisualization of the pancreas
--- NOTE | 2018-10-27 09:33 | Cardiology Report ---
APPROVED REPORT EKG Measurement Heart [id number] Normal sinus rhythm Nonspecific T wave abnormality Abnormal ECG
--- NOTE | 2018-10-27 09:34 | Diagnostic Imaging Report ---
APPROVED REPORT CPT Code: 91503 Present Symptoms Comments: BILATERAL LEGS PAIN. BILATERAL: Imaging reveals a patent deep venous system bilaterally. There is no evidence of thrombus within the femoral, popliteal or tibial segments. The greater saphenous veins are also within normal limits. Doppler indicates normal spontaneous flow within these segments.
[2018-10-27] MEDS: levETIRAcetam 500mg/5ml Liquid GT SCH ×2 (09:52→20:50)
[2018-10-27] MEDS: Vancomycin 1.25gm Premix 275 ML IVPB SCH ×2 (09:53→20:50)
[2018-10-27 13:07] LABS: INR 1.1 (0.9-1.1)
--- NOTE | 2018-10-27 13:55 | Pulmonolgy Critical Care Note ---
Critical Care - Asmt/Plan Problems: (1) Atrial fibrillation with rapid ventricular response (2) Diabetes mellitus (3) Seizure (4) Bilateral pneumonia (5) Altered mental status (6) Sacral decubitus ulcer (7) Lytic bone lesions on xray (8) Lung mass Assessment/Plan: CT chest reviewed - extensive R consolidations, mass like opacities, possible endobronchial lesions and osteolytic lesions concerning for met dz + loculated effusion ---> Needs to determine overall GOC further before working up lung mass. Patient will likely needs VATS/bronch. Consent is an issue at this time. Will obtain ETHICS eval. BONE SCAN, CT A/P (non-con as unable to consent for contrast) and MRI brain ORDERED IR to attempt THORACENTESIS of one of the loculated effusions and sent off for studies including Cx and CYTOLOGY Optimize pulmonary hygiene/mobilize as tolerated PRN O2 Atrovent only HHN's Abx per ID Consider neuro eval Monitor MS Dilt gtt per cards NPO, TF's IVF FC Ethics eval No family to consent, patient needs THORA for diagnostics and prognostication + bone scant + MRI + CT Critical Care - Objective Last 24 Hour Vital Signs Date Time Temp Pulse Resp B/P (MAP) Pulse Ox O2 Delivery O2 Flow Rate FiO2 10/27/18 13:30 74 32 141/76 (97) 93 10/27/18 13:00 72 32 142/73 (96) 94 10/27/18 12:30 98.3 76 33 132/87 (102) 94 10/27/18 12:00 76 10/27/18 12:00 Nasal Cannula 2.0 Nasal Cannula 2.0 10/27/18 12:00 74 27 160/81 (107) 92 10/27/18 11:30 75 34 120/74 (89) 97 10/27/18 11:29 Nasal Cannula 10/27/18 11:28 Nasal Cannula 10/27/18 11:00 74 32 132/74 (93) 97 10/27/18 10:30 71 33 136/72 (93) 97 10/27/18 10:00 72 32 115/61 (79) 93 10/27/18 09:30 71 35 108/56 (73) 92 10/27/18 09:00 72 33 119/58 (78) 94 10/27/18 08:30 73 34 117/67 (84) 93 10/27/18 08:08 75 22 99 Nasal Cannula 2.0 28 10/27/18 08:00 Nasal Cannula 2.0 Nasal Cannula 2.0 10/27/18 08:00 97.3 73 28 143/74 (97) 97 10/27/18 08:00 75 10/27/18 07:58 75 25 97 Nasal Cannula 2.0 28 10/27/18 07:56 Nasal Cannula 2.0 28 10/27/18 07:55 97 Nasal Cannula 2.0 28 10/27/18 07:30 74 29 124/72 (89) 96 10/27/18 07:00 74 29 136/70 (92) 96 10/27/18 06:30 74 26 134/76 (95) 94 10/27/18 06:00 75 27 137/67 (90) 97 10/27/18 05:30 98.1 73 27 137/77 (97) 94 10/27/18 05:00 74 26 143/82 (102) 95 10/27/18 04:30 73 27 166/93 (117) 94 10/27/18 04:00 Nasal Cannula 2.0 10/27/18 04:00 79 10/27/18 04:00 74 27 161/76 (104) 95 10/27/18 03:30 74 27 135/87 (103) 95 10/27/18 03:19 Nasal Cannula 2.0 28 10/27/18 03:19 Nasal Cannula 2.0 28 10/27/18 03:00 74 28 141/71 (94) 96 10/27/18 02:43 71 152/69 10/27/18 02:30 72 27 152/69 (96) 95 10/27/18 02:00 71 27 144/74 (97) 96 10/27/18 01:30 72 26 149/102 (118) 96 10/27/18 01:00 97.7 72 26 140/79 (99) 98 10/27/18 00:30 70 27 124/62 (82) 98 10/27/18 00:00 Nasal Cannula 2.0 10/27/18 00:00 68 26 141/73 (95) 97 10/26/18 23:30 73 25 144/83 (103) 96 10/26/18 23:00 74 25 135/79 (97) 96 10/26/18 22:39 Nasal Cannula 2.0 28 10/26/18 22:39 Nasal Cannula 2.0 28 10/26/18 22:30 71 26 148/73 (98) 96 10/26/18 22:00 70 26 133/80 (97) 97 10/26/18 21:30 71 26 143/75 (97) 97 10/26/18 21:00 71 26 145/70 (95) 98 10/26/18 20:30 71 27 136/76 (96) 97 10/26/18 20:00 Nasal Cannula 2.0 28 10/26/18 20:00 Nasal Cannula 2.0 10/26/18 20:00 97 Nasal Cannula 2.0 28 10/26/18 20:00 70 27 125/71 (89) 96 10/26/18 20:00 Nasal Cannula 2.0 28 10/26/18 20:00 Nasal Cannula 2.0 28 10/26/18 20:00 75 10/26/18 19:30 99.0 72 27 140/72 (94) 95 10/26/18 19:00 74 26 135/68 (90) 97 10/26/18 18:30 77 27 135/81 (99) 96 10/26/18 18:00 78 27 144/70 (94) 96 10/26/18 17:30 79 27 160/76 (104) 96 10/26/18 17:00 80 24 135/75 (95) 97 10/26/18 16:30 83 28 140/82 (101) 96 10/26/18 16:00 98.5 89 28 136/91 (106) 96 10/26/18 16:00 Nasal Cannula 2.0 10/26/18 15:48 Room Air 21 10/26/18 15:48 Nasal Cannula 2.0 28 10/26/18 15:30 92 28 154/90 (111) 94 10/26/18 15:27 94 10/26/18 15:00 94 31 149/88 (108) 96 10/26/18 14:45 98 30 160/96 (117) 98 10/26/18 14:30 98 31 127/77 (94) 99 10/26/18 14:15 100 31 127/77 (94) 99 10/26/18 14:00 102 32 142/81 (101) 98 3/13/19 13:53 105 118/73 Status: obtunded Condition: critical, other HEENT: atraumatic, normocephalic Lungs: rhonchi Heart: HR/BP stable Abdomen: soft, non-tender, active bowel sounds, feeding tube Extremities: no C/C/E Micro: Microbiology Date/Time Source Procedure Growth Status 10/24/18 15:20 Sputum Expectorated Gram Stain - Final Complete 10/24/18 15:20 Sputum Expectorated Sputum Culture - Final NORMAL UPPER RESPIRATORY LUISA PRESENT Complete Accucheck: 173 Blood Sugars: BS controlled Critical Care - Subjective ROS Limited/Unobtainable: Yes ICU Day: 2 Interval Events: Transferred to ICU with AFcRVR, converted to NSR, on Dilt No change o/w Condition: grave IV Access: peripheral EKG Rhythm: Sinus Rhythm FI02: 28 Sputum Amount: None Fluids: D5NS@80 Drips: Dilt gtt Tube Feeding Amount: 55 Residuals: 0 I&O: Intake and Output 10/26/18 10/27/18 19:00 07:00 Intake Total 1909.667 ml 1735.000 ml Output Total 1950 ml 1930 ml Balance -40.333 ml -195.000 ml Free Water 340 ml IV Total 1259.667 ml 1375.000 ml Tube Feeding 310 ml 360 ml Output Urine Total 1950 ml 1930 ml Subjective: MEGHANA Labs: Laboratory Tests Test 10/27/18 07:01 10/27/18 12:15 White Blood Count 9.9 K/UL (4.8-10.8) Red Blood Count 3.30 M/UL (4.70-6.10) L Hemoglobin 9.7 G/DL (14.2-18.0) L Hematocrit 29.3 % (42.0-52.0) L Mean Corpuscular Volume 89 FL (80-99) Mean Corpuscular Hemoglobin 29.2 PG (27.0-31.0) Mean Corpuscular Hemoglobin Concent 32.9 G/DL (32.0-36.0) Red Cell Distribution Width 13.3 % (11.6-14.8) Platelet Count 365 K/UL (150-450) Mean Platelet Volume 6.4 FL (6.5-10.1) L Neutrophils (%) (Auto) 82.7 % (45.0-75.0) H Lymphocytes (%) (Auto) 7.5 % (20.0-45.0) L Monocytes (%) (Auto) 7.4 % (1.0-10.0) Eosinophils (%) (Auto) 0.6 % (0.0-3.0) Basophils (%) (Auto) 1.9 % (0.0-2.0) Sodium Level 135 MMOL/L (136-145) L Potassium Level 3.5 MMOL/L (3.5-5.1) Chloride Level 100 MMOL/L (98-107) Carbon Dioxide Level 32 MMOL/L (21-32) Anion Gap 3 mmol/L (5-15) L Blood Urea Nitrogen 7 mg/dL (7-18) Creatinine 0.6 MG/DL (0.55-1.30) Estimat Glomerular Filtration Rate mL/min (>60) Glucose Level 136 MG/DL (74-106) H Calcium Level 9.1 MG/DL (8.5-10.1) Total Bilirubin 0.3 MG/DL (0.2-1.0) Aspartate Amino Transf (AST/SGOT) 32 U/L (15-37) Alanine Aminotransferase (ALT/SGPT) 33 U/L (12-78) Alkaline Phosphatase 152 U/L (46-116) H Total Protein 6.7 G/DL (6.4-8.2) Albumin 1.8 G/DL (3.4-5.0) L Globulin 4.9 g/dL Albumin/Globulin Ratio 0.4 (1.0-2.7) L Vancomycin Level Trough 18.1 ug/mL (5.0-12.0) H Prothrombin Time 11.1 SEC (9.30-11.50) Prothromb Time International Ratio 1.1 (0.9-1.1) Activated Partial Thromboplast Time 28 SEC (23-33) Flex Nunn MD Oct 27, 2018 13:55
[2018-10-27] MEDS ORDERED: Ipratropium 0.02% Inh Soln 2.5ml UD HHN PRN (14:00)
--- NOTE | 2018-10-27 14:24 | Surgery Progress Note ---
Surgery Progress Note Subjective Additional Comments no acute events. stable. comfortable. labs improved. micro noted. US as below Objective Last 24 Hour Vital Signs Date Time Temp Pulse Resp B/P (MAP) Pulse Ox O2 Delivery O2 Flow Rate FiO2 10/27/18 13:30 74 32 141/76 (97) 93 10/27/18 13:00 72 32 142/73 (96) 94 10/27/18 12:30 98.3 76 33 132/87 (102) 94 10/27/18 12:00 76 10/27/18 12:00 Nasal Cannula 2.0 Nasal Cannula 2.0 10/27/18 12:00 74 27 160/81 (107) 92 10/27/18 11:30 75 34 120/74 (89) 97 10/27/18 11:29 Nasal Cannula 10/27/18 11:28 Nasal Cannula 10/27/18 11:00 74 32 132/74 (93) 97 10/27/18 10:30 71 33 136/72 (93) 97 10/27/18 10:00 72 32 115/61 (79) 93 10/27/18 09:30 71 35 108/56 (73) 92 10/27/18 09:00 72 33 119/58 (78) 94 10/27/18 08:30 73 34 117/67 (84) 93 10/27/18 08:08 75 22 99 Nasal Cannula 2.0 28 10/27/18 08:00 Nasal Cannula 2.0 Nasal Cannula 2.0 10/27/18 08:00 97.3 73 28 143/74 (97) 97 10/27/18 08:00 75 10/27/18 07:58 75 25 97 Nasal Cannula 2.0 28 10/27/18 07:56 Nasal Cannula 2.0 28 10/27/18 07:55 97 Nasal Cannula 2.0 28 10/27/18 07:30 74 29 124/72 (89) 96 10/27/18 07:00 74 29 136/70 (92) 96 10/27/18 06:30 74 26 134/76 (95) 94 10/27/18 06:00 75 27 137/67 (90) 97 10/27/18 05:30 98.1 73 27 137/77 (97) 94 10/27/18 05:00 74 26 143/82 (102) 95 10/27/18 04:30 73 27 166/93 (117) 94 10/27/18 04:00 Nasal Cannula 2.0 10/27/18 04:00 79 10/27/18 04:00 74 27 161/76 (104) 95 10/27/18 03:30 74 27 135/87 (103) 95 10/27/18 03:19 Nasal Cannula 2.0 28 10/27/18 03:19 Nasal Cannula 2.0 28 10/27/18 03:00 74 28 141/71 (94) 96 10/27/18 02:43 71 152/69 10/27/18 02:30 72 27 152/69 (96) 95 10/27/18 02:00 71 27 144/74 (97) 96 10/27/18 01:30 72 26 149/102 (118) 96 10/27/18 01:00 97.7 72 26 140/79 (99) 98 10/27/18 00:30 70 27 124/62 (82) 98 10/27/18 00:00 Nasal Cannula 2.0 10/27/18 00:00 68 26 141/73 (95) 97 10/26/18 23:30 73 25 144/83 (103) 96 10/26/18 23:00 74 25 135/79 (97) 96 10/26/18 22:39 Nasal Cannula 2.0 28 10/26/18 22:39 Nasal Cannula 2.0 28 10/26/18 22:30 71 26 148/73 (98) 96 10/26/18 22:00 70 26 133/80 (97) 97 10/26/18 21:30 71 26 143/75 (97) 97 10/26/18 21:00 71 26 145/70 (95) 98 10/26/18 20:30 71 27 136/76 (96) 97 10/26/18 20:00 Nasal Cannula 2.0 28 10/26/18 20:00 Nasal Cannula 2.0 10/26/18 20:00 97 Nasal Cannula 2.0 28 10/26/18 20:00 70 27 125/71 (89) 96 10/26/18 20:00 Nasal Cannula 2.0 28 10/26/18 20:00 Nasal Cannula 2.0 28 10/26/18 20:00 75 10/26/18 19:30 99.0 72 27 140/72 (94) 95 10/26/18 19:00 74 26 135/68 (90) 97 10/26/18 18:30 77 27 135/81 (99) 96 10/26/18 18:00 78 27 144/70 (94) 96 10/26/18 17:30 79 27 160/76 (104) 96 10/26/18 17:00 80 24 135/75 (95) 97 10/26/18 16:30 83 28 140/82 (101) 96 10/26/18 16:00 98.5 89 28 136/91 (106) 96 10/26/18 16:00 Nasal Cannula 2.0 10/26/18 15:48 Room Air 21 10/26/18 15:48 Nasal Cannula 2.0 28 10/26/18 15:30 92 28 154/90 (111) 94 10/26/18 15:27 94 10/26/18 15:00 94 31 149/88 (108) 96 10/26/18 14:45 98 30 160/96 (117) 98 10/26/18 14:30 98 31 127/77 (94) 99 I&O Intake and Output 10/26/18 10/27/18 19:00 07:00 Intake Total 1909.667 ml 1735.000 ml Output Total 1950 ml 1930 ml Balance -40.333 ml -195.000 ml Free Water 340 ml IV Total 1259.667 ml 1375.000 ml Tube Feeding 310 ml 360 ml Output Urine Total 1950 ml 1930 ml Dressing: saturated Wound: clean Cardiovascular: RSR Respiratory: clear Abdomen: soft, non-tender, present bowel sounds, non-distended Extremities: other Laboratory Tests Test 10/27/18 07:01 10/27/18 12:15 White Blood Count 9.9 K/UL (4.8-10.8) Red Blood Count 3.30 M/UL (4.70-6.10) L Hemoglobin 9.7 G/DL (14.2-18.0) L Hematocrit 29.3 % (42.0-52.0) L Mean Corpuscular Volume 89 FL (80-99) Mean Corpuscular Hemoglobin 29.2 PG (27.0-31.0) Mean Corpuscular Hemoglobin Concent 32.9 G/DL (32.0-36.0) Red Cell Distribution Width 13.3 % (11.6-14.8) Platelet Count 365 K/UL (150-450) Mean Platelet Volume 6.4 FL (6.5-10.1) L Neutrophils (%) (Auto) 82.7 % (45.0-75.0) H Lymphocytes (%) (Auto) 7.5 % (20.0-45.0) L Monocytes (%) (Auto) 7.4 % (1.0-10.0) Eosinophils (%) (Auto) 0.6 % (0.0-3.0) Basophils (%) (Auto) 1.9 % (0.0-2.0) Sodium Level 135 MMOL/L (136-145) L Potassium Level 3.5 MMOL/L (3.5-5.1) Chloride Level 100 MMOL/L (98-107) Carbon Dioxide Level 32 MMOL/L (21-32) Anion Gap 3 mmol/L (5-15) L Blood Urea Nitrogen 7 mg/dL (7-18) Creatinine 0.6 MG/DL (0.55-1.30) Estimat Glomerular Filtration Rate mL/min (>60) Glucose Level 136 MG/DL (74-106) H Calcium Level 9.1 MG/DL (8.5-10.1) Total Bilirubin 0.3 MG/DL (0.2-1.0) Aspartate Amino Transf (AST/SGOT) 32 U/L (15-37) Alanine Aminotransferase (ALT/SGPT) 33 U/L (12-78) Alkaline Phosphatase 152 U/L (46-116) H Total Protein 6.7 G/DL (6.4-8.2) Albumin 1.8 G/DL (3.4-5.0) L Globulin 4.9 g/dL Albumin/Globulin Ratio 0.4 (1.0-2.7) L Vancomycin Level Trough 18.1 ug/mL (5.0-12.0) H Prothrombin Time 11.1 SEC (9.30-11.50) Prothromb Time International Ratio 1.1 (0.9-1.1) Activated Partial Thromboplast Time 28 SEC (23-33) Plan Problems: (1) Sacral decubitus ulcer Assessment & Plan: Patient presented on admission with full thickness Stage III sacral pressure injury. 100% yellow slough at base of wound, Edges flat and dry(L)1.1cm x (W)1.9cm. Periwound without erythema or induration. No odor noted. Non-viable tissue removed using curette by myself at bedside. Base of wound is more viable with trace slough. R heel /R achilles boggy with non-blanchable erythema. Pt moans when site is minimally palpated. L heel boggy with non-blanchable erythema. Pt did not exhibit any distress when L heel palpated. Dry brown discoloration without induration or fluctuance noted to brandon/dorsal R foot. Dry brown discoloration without fluctuance or induration noted to R lateral malleolus. Tx.Plan: Cleanse Sacral wound with Saline.Apply Therahoney. Apply Cavilon Skin Barrier periwound. Cover with Optifoam drsg Daily and prn. Apply Cavilon Skin Barrier to R lateral malleolus.Cover with Optifoam drsg.Change every 7 days and prn. Apply Cavilon Skin Barrier to both heels and R achilles. Cover with Optifoam drsg.Change Q7days and prn. APM/CHARU mattress. Reposition at least every 2hours or as tolerated. Off-load heels with pillow. (2) Seizure (3) Lung mass Assessment & Plan: CT chest w/ Evidence of disseminated neoplasm, with multiple osteolytic lesions as described, mediastinal adenopathy, and possible bilateral adrenal masses Complete atelectasis and consolidation of the left lower lobe. Complete occlusion of the proximal lobar bronchi on the left. Given the above findings, the possibility of pulmonary neoplasm with resultant endobronchial occlusion should be considered Extensive atelectasis and consolidation of the left upper lobe. This may represent acute pneumonia, but honeycomb appearance of much of this suggests a significant chronic component There are areas of confluent scarring versus consolidation versus mass as well Suspected loculated pleural effusion on the left. Note that this has enlarged rapidly over the past few days based on recent chest radiographs. There is also a small amount of what is probably increased pleural fluid on the left as well. Multiple focal parenchymal abnormalities on the right. These probably represent areas of acute infiltrate, but the appearance of some of these suggests that they could be neoplastic Ectatic main and right pulmonary artery, suggestive of but not diagnostic for pulmonary arterial hypertension Mild diffuse edema of the subcutaneous and mediastinal fat Minimal pericardial thickening and/or fluid Incidental finding 12 mm left renal cyst Right pleural effusion, also described on recent chest CT report. Trace ascites Cholelithiasis. Negative for dilated bile ducts No sonographic findings to suggest hepatic metastases Increased echogenicity of the left kidney, may indicate chronic medical renadisease. Negative for hydronephrosis. Equivocal left perinephric fluid, of uncertaisignificance of real Incidental finding of small left renal cyst Note nonvisualization of the pancreas extensive disease process noted on CT chest. primary unknown at this time. need to see if any prior records leukocytosis on IV Abx Pending CT A/P Pending MRI will need biopsy for cytology via radiology Labs noted RX reviewed currently stable will monitor Chato Mullen Oct 27, 2018 14:24
--- NOTE | 2018-10-27 14:38 | General Progress Note ---
Assessment/Plan Assessment/Plan S: not verbal O: appears comfortable, Not following commands. lethargic PHYSICAL EXAMINATION: GENERAL: An elderly male, lying in bed, altered, unresponsive, and not in acute distress. HEENT: Normocephalic and atraumatic. Pupils not reactive to light. Well pale sclera. Unable to assess oral mucosa. NECK: Seems supple. No lymphadenopathy. CARDIOVASCULAR: Regular rate and rhythm. No murmur. LUNGS: He had diminished breathing sounds at the bases with crackles. ABDOMEN: Soft, nontender, and nondistended. PEG tube in place EXTREMITY: No edema or cyanosis. GENITOURINARY: He has normal genitalia. Torres catheter in place. SKIN: Right upper buttock pressure wound. No rash. No hives. Meds: reviewed and reconciled including Aztreonam ASSESSMENT: 1. Sepsis. 2. Healthcare-associated pneumonia. 3. Diffuse Metastatic cancer: source : unknnown 4. Abnormal troponin.likely troponin leak 4. Anemia. 5. Dementia/encephalopathy. 6. Code Status - Full Code. 7. GI and DVT prophylaxis. 8. Hemoptysis PLAN OF CARE: Risks of any aggressive Diagnostic procedure ( including Trach) surpasses its benefits. Will continue current sepsis treatment Will Defer oncology workup to out patient start PO ccb, will wean off Cardizem gtt Subjective Allergies: Coded Allergies: No Known Allergies (Unverified , 10/22/18) Objective Last 24 Hour Vital Signs Date Time Temp Pulse Resp B/P (MAP) Pulse Ox O2 Delivery O2 Flow Rate FiO2 10/27/18 13:30 74 32 141/76 (97) 93 10/27/18 13:00 72 32 142/73 (96) 94 10/27/18 12:30 98.3 76 33 132/87 (102) 94 10/27/18 12:00 76 10/27/18 12:00 Nasal Cannula 2.0 Nasal Cannula 2.0 10/27/18 12:00 74 27 160/81 (107) 92 10/27/18 11:30 75 34 120/74 (89) 97 10/27/18 11:29 Nasal Cannula 10/27/18 11:28 Nasal Cannula 10/27/18 11:00 74 32 132/74 (93) 97 10/27/18 10:30 71 33 136/72 (93) 97 10/27/18 10:00 72 32 115/61 (79) 93 10/27/18 09:30 71 35 108/56 (73) 92 10/27/18 09:00 72 33 119/58 (78) 94 10/27/18 08:30 73 34 117/67 (84) 93 10/27/18 08:08 75 22 99 Nasal Cannula 2.0 28 10/27/18 08:00 Nasal Cannula 2.0 Nasal Cannula 2.0 10/27/18 08:00 97.3 73 28 143/74 (97) 97 10/27/18 08:00 75 10/27/18 07:58 75 25 97 Nasal Cannula 2.0 28 10/27/18 07:56 Nasal Cannula 2.0 28 10/27/18 07:55 97 Nasal Cannula 2.0 28 10/27/18 07:30 74 29 124/72 (89) 96 10/27/18 07:00 74 29 136/70 (92) 96 10/27/18 06:30 74 26 134/76 (95) 94 10/27/18 06:00 75 27 137/67 (90) 97 10/27/18 05:30 98.1 73 27 137/77 (97) 94 10/27/18 05:00 74 26 143/82 (102) 95 10/27/18 04:30 73 27 166/93 (117) 94 10/27/18 04:00 Nasal Cannula 2.0 10/27/18 04:00 79 10/27/18 04:00 74 27 161/76 (104) 95 10/27/18 03:30 74 27 135/87 (103) 95 10/27/18 03:19 Nasal Cannula 2.0 28 10/27/18 03:19 Nasal Cannula 2.0 28 10/27/18 03:00 74 28 141/71 (94) 96 10/27/18 02:43 71 152/69 10/27/18 02:30 72 27 152/69 (96) 95 10/27/18 02:00 71 27 144/74 (97) 96 10/27/18 01:30 72 26 149/102 (118) 96 10/27/18 01:00 97.7 72 26 140/79 (99) 98 10/27/18 00:30 70 27 124/62 (82) 98 10/27/18 00:00 Nasal Cannula 2.0 10/27/18 00:00 68 26 141/73 (95) 97 10/26/18 23:30 73 25 144/83 (103) 96 10/26/18 23:00 74 25 135/79 (97) 96 10/26/18 22:39 Nasal Cannula 2.0 28 10/26/18 22:39 Nasal Cannula 2.0 28 10/26/18 22:30 71 26 148/73 (98) 96 10/26/18 22:00 70 26 133/80 (97) 97 10/26/18 21:30 71 26 143/75 (97) 97 10/26/18 21:00 71 26 145/70 (95) 98 10/26/18 20:30 71 27 136/76 (96) 97 10/26/18 20:00 Nasal Cannula 2.0 28 10/26/18 20:00 Nasal Cannula 2.0 10/26/18 20:00 97 Nasal Cannula 2.0 28 10/26/18 20:00 70 27 125/71 (89) 96 10/26/18 20:00 Nasal Cannula 2.0 28 10/26/18 20:00 Nasal Cannula 2.0 28 10/26/18 20:00 75 10/26/18 19:30 99.0 72 27 140/72 (94) 95 10/26/18 19:00 74 26 135/68 (90) 97 10/26/18 18:30 77 27 135/81 (99) 96 10/26/18 18:00 78 27 144/70 (94) 96 10/26/18 17:30 79 27 160/76 (104) 96 10/26/18 17:00 80 24 135/75 (95) 97 10/26/18 16:30 83 28 140/82 (101) 96 10/26/18 16:00 98.5 89 28 136/91 (106) 96 10/26/18 16:00 Nasal Cannula 2.0 10/26/18 15:48 Room Air 21 10/26/18 15:48 Nasal Cannula 2.0 28 10/26/18 15:30 92 28 154/90 (111) 94 10/26/18 15:27 94 10/26/18 15:00 94 31 149/88 (108) 96 10/26/18 14:45 98 30 160/96 (117) 98 Intake and Output 10/26/18 10/27/18 19:00 07:00 Intake Total 1909.667 ml 1735.000 ml Output Total 1950 ml 1930 ml Balance -40.333 ml -195.000 ml Free Water 340 ml IV Total 1259.667 ml 1375.000 ml Tube Feeding 310 ml 360 ml Output Urine Total 1950 ml 1930 ml Laboratory Tests 10/27/18 07:01: White Blood Count 9.9, Red Blood Count 3.30L, Hemoglobin 9.7L, Hematocrit 29.3L , Mean Corpuscular Volume 89, Mean Corpuscular Hemoglobin 29.2, Mean Corpuscular Hemoglobin Concent 32.9, Red Cell Distribution Width 13.3, Platelet Count 365, Mean Platelet Volume 6.4L, Neutrophils (%) (Auto) 82.7H, Lymphocytes (%) (Auto) 7.5L, Monocytes (%) (Auto) 7.4, Eosinophils (%) (Auto) 0.6, Basophils (%) (Auto) 1.9, Sodium Level 135L, Potassium Level 3.5, Chloride Level 100, Carbon Dioxide Level 32, Anion Gap 3L, Blood Urea Nitrogen 7, Creatinine 0.6, Estimat Glomerular Filtration Rate , Glucose Level 136H, Calcium Level 9.1, Total Bilirubin 0.3, Aspartate Amino Transf (AST/SGOT) 32, Alanine Aminotransferase (ALT/SGPT) 33, Alkaline Phosphatase 152H, Total Protein 6.7, Albumin 1.8L, Globulin 4.9, Albumin/Globulin Ratio 0.4L, Vancomycin Level Trough 18.1H 10/27/18 12:15: Prothrombin Time 11.1, Prothromb Time International Ratio 1.1, Activated Partial Thromboplast Time 28 Height (Feet): 6 Weight (Pounds): 139 Hayde Duran MD Oct 27, 2018 14:38
--- NOTE | 2018-10-27 16:08 | Diagnostic Imaging Report ---
Indication: Osteolytic lesions on recent chest CT, suspected metastatic disease of unknown origin Technique: IV administration 24 mCi 99 M technetium MDP. Whole body and spot images were obtained. Comparison: Reference made to chest CT dated 10/24/2018 Findings: increased activity is seen in the left scapula, corresponding to findings reported on recent CT scan. Only very questionable activity is seen to correspond to the destructive medial left ninth rib lesion described on prior CT. There is slightly prominent sinonasal activity to the right of midline, likely reflecting mucoperiosteal thickening that is visible on prior head CT No other definite foci of increased or decreased uptake are demonstrated. There is normal renal and bladder activity. Impression: Increased uptake in the left scapula, corresponding to osteolytic lesion reported on recent chest CT, is noted. Very questionable focal increased activity is seen corresponding to the previously reported left ninth rib costovertebral junction lesion No other evidence of osseous metastatic disease is demonstrated.
--- NOTE | 2018-10-27 16:43 | Infectious Diseases Prog Note ---
Assessment/Plan Problems: (1) Bilateral pneumonia Assessment & Plan: suspect aspiration and post obstruction pneumonia , due to altered mental status , continue vancomycin and to zosyn empirically , since no evidence of more seizure . CT chest confirmed lung mass with mets to the bones , and effusion . aspiration precaution, keep HOB > 30 DEGREE . keep NPO for now (2) Seizure Assessment & Plan: monitor in tele,seizure precaution . consult neurology (3) Diabetes mellitus Assessment & Plan: recommend tight glycemic control to keep blood glucose between 10-140 (4) Altered mental status Assessment & Plan: due to the above, continue hydration and antibiotics, neuro check , monitor in tele, avoid sedatives (5) Lung mass Assessment & Plan: with total collapse of the left lung and mediastinal shift , and bone lytic lesions, suspect lung cancer with mets , poor prognosis, needs bronch for tissue diagnosis and oncology eval. S/P thoracentesis by IR Subjective ROS Limited/Unobtainable: Yes Allergies: Coded Allergies: No Known Allergies (Unverified , 10/22/18) Subjective he was still in ICU for new A.fib with RVR , awake but still unresponsive, uncooperative with exam , no fever, no hemoptysis , no SOB, no diarrhea as per nurse Objective Vital Signs Last 24 Hour Vital Signs Date Time Temp Pulse Resp B/P (MAP) Pulse Ox O2 Delivery O2 Flow Rate FiO2 10/27/18 16:00 76 10/27/18 16:00 97.5 72 30 121/73 (89) 97 10/27/18 14:30 74 32 142/73 (96) 93 10/27/18 14:00 73 31 141/66 (91) 97 10/27/18 13:30 74 32 141/76 (97) 93 10/27/18 13:00 72 32 142/73 (96) 94 10/27/18 12:30 98.3 76 33 132/87 (102) 94 10/27/18 12:00 76 10/27/18 12:00 Nasal Cannula 2.0 Nasal Cannula 2.0 10/27/18 12:00 74 27 160/81 (107) 92 10/27/18 11:30 75 34 120/74 (89) 97 10/27/18 11:29 Nasal Cannula 10/27/18 11:28 Nasal Cannula 10/27/18 11:00 74 32 132/74 (93) 97 10/27/18 10:30 71 33 136/72 (93) 97 10/27/18 10:00 72 32 115/61 (79) 93 10/27/18 09:30 71 35 108/56 (73) 92 10/27/18 09:00 72 33 119/58 (78) 94 10/27/18 08:30 73 34 117/67 (84) 93 10/27/18 08:08 75 22 99 Nasal Cannula 2.0 28 10/27/18 08:00 Nasal Cannula 2.0 Nasal Cannula 2.0 10/27/18 08:00 97.3 73 28 143/74 (97) 97 10/27/18 08:00 75 10/27/18 07:58 75 25 97 Nasal Cannula 2.0 28 10/27/18 07:56 Nasal Cannula 2.0 28 10/27/18 07:55 97 Nasal Cannula 2.0 28 10/27/18 07:30 74 29 124/72 (89) 96 10/27/18 07:00 74 29 136/70 (92) 96 10/27/18 06:30 74 26 134/76 (95) 94 10/27/18 06:00 75 27 137/67 (90) 97 10/27/18 05:30 98.1 73 27 137/77 (97) 94 10/27/18 05:00 74 26 143/82 (102) 95 10/27/18 04:30 73 27 166/93 (117) 94 10/27/18 04:00 Nasal Cannula 2.0 10/27/18 04:00 79 10/27/18 04:00 74 27 161/76 (104) 95 10/27/18 03:30 74 27 135/87 (103) 95 10/27/18 03:19 Nasal Cannula 2.0 28 10/27/18 03:19 Nasal Cannula 2.0 28 10/27/18 03:00 74 28 141/71 (94) 96 10/27/18 02:43 71 152/69 10/27/18 02:30 72 27 152/69 (96) 95 10/27/18 02:00 71 27 144/74 (97) 96 10/27/18 01:30 72 26 149/102 (118) 96 10/27/18 01:00 97.7 72 26 140/79 (99) 98 10/27/18 00:30 70 27 124/62 (82) 98 10/27/18 00:00 Nasal Cannula 2.0 10/27/18 00:00 68 26 141/73 (95) 97 10/26/18 23:30 73 25 144/83 (103) 96 10/26/18 23:00 74 25 135/79 (97) 96 10/26/18 22:39 Nasal Cannula 2.0 28 10/26/18 22:39 Nasal Cannula 2.0 28 10/26/18 22:30 71 26 148/73 (98) 96 10/26/18 22:00 70 26 133/80 (97) 97 10/26/18 21:30 71 26 143/75 (97) 97 10/26/18 21:00 71 26 145/70 (95) 98 10/26/18 20:30 71 27 136/76 (96) 97 10/26/18 20:00 Nasal Cannula 2.0 28 10/26/18 20:00 Nasal Cannula 2.0 10/26/18 20:00 97 Nasal Cannula 2.0 28 10/26/18 20:00 70 27 125/71 (89) 96 10/26/18 20:00 Nasal Cannula 2.0 28 10/26/18 20:00 Nasal Cannula 2.0 28 10/26/18 20:00 75 10/26/18 19:30 99.0 72 27 140/72 (94) 95 10/26/18 19:00 74 26 135/68 (90) 97 10/26/18 18:30 77 27 135/81 (99) 96 10/26/18 18:00 78 27 144/70 (94) 96 10/26/18 17:30 79 27 160/76 (104) 96 10/26/18 17:00 80 24 135/75 (95) 97 Height (Feet): 6 Weight (Pounds): 139 General Appearance: no acute distress, cachetic HEENT: normocephalic, atraumatic, anicteric, mucous membranes moist, PERRL Respiratory/Chest: chest wall non-tender, no respiratory distress, no accessory muscle use, decreased breath sounds, crackles/rales Cardiovascular: normal peripheral pulses, normal rate, regular rhythm, no gallop/murmur, no JVD Abdomen: normal bowel sounds, soft, non tender, no organomegaly, non distended , no mass, no scars Genitourinary: normal external genitalia Extremities: no cyanosis, no clubbing Skin: no rash, no lesions, ulcers - sacral presure wound Neurologic/Psychiatric: alert, unresponsiveness Lymphatic: no neck adenopathy, no groin adenopathy Musculoskeletal: normal muscle bulk, no effusion Laboratory Tests Test 10/27/18 07:01 10/27/18 12:15 White Blood Count 9.9 K/UL (4.8-10.8) Red Blood Count 3.30 M/UL (4.70-6.10) L Hemoglobin 9.7 G/DL (14.2-18.0) L Hematocrit 29.3 % (42.0-52.0) L Mean Corpuscular Volume 89 FL (80-99) Mean Corpuscular Hemoglobin 29.2 PG (27.0-31.0) Mean Corpuscular Hemoglobin Concent 32.9 G/DL (32.0-36.0) Red Cell Distribution Width 13.3 % (11.6-14.8) Platelet Count 365 K/UL (150-450) Mean Platelet Volume 6.4 FL (6.5-10.1) L Neutrophils (%) (Auto) 82.7 % (45.0-75.0) H Lymphocytes (%) (Auto) 7.5 % (20.0-45.0) L Monocytes (%) (Auto) 7.4 % (1.0-10.0) Eosinophils (%) (Auto) 0.6 % (0.0-3.0) Basophils (%) (Auto) 1.9 % (0.0-2.0) Sodium Level 135 MMOL/L (136-145) L Potassium Level 3.5 MMOL/L (3.5-5.1) Chloride Level 100 MMOL/L (98-107) Carbon Dioxide Level 32 MMOL/L (21-32) Anion Gap 3 mmol/L (5-15) L Blood Urea Nitrogen 7 mg/dL (7-18) Creatinine 0.6 MG/DL (0.55-1.30) Estimat Glomerular Filtration Rate mL/min (>60) Glucose Level 136 MG/DL (74-106) H Calcium Level 9.1 MG/DL (8.5-10.1) Total Bilirubin 0.3 MG/DL (0.2-1.0) Aspartate Amino Transf (AST/SGOT) 32 U/L (15-37) Alanine Aminotransferase (ALT/SGPT) 33 U/L (12-78) Alkaline Phosphatase 152 U/L (46-116) H Total Protein 6.7 G/DL (6.4-8.2) Albumin 1.8 G/DL (3.4-5.0) L Globulin 4.9 g/dL Albumin/Globulin Ratio 0.4 (1.0-2.7) L Vancomycin Level Trough 18.1 ug/mL (5.0-12.0) H Prothrombin Time 11.1 SEC (9.30-11.50) Prothromb Time International Ratio 1.1 (0.9-1.1) Activated Partial Thromboplast Time 28 SEC (23-33) Current Medications Medications (Trade) Dose Ordered Sig/Sofia Route PRN Reason Start Time Stop Time Status Last Admin Dose Admin Amiodarone HCl (Cordarone) 200 mg DAILY ORAL 10/27/18 09:00 11/22/18 20:59 10/27/18 12:19 Dextrose/Sodium Chloride 1,000 ml @ 80 mls/hr [id number] IV 10/26/18 13:30 11/22/18 13:29 10/27/18 01:23 Diltiazem HCl (Cardizem) 30 mg EVERY 6 HOURS ORAL 10/27/18 18:00 11/26/18 17:59 UNV Diltiazem HCl 125 mg/Dextrose 125 ml @ 10 mls/hr Q24H IV 10/27/18 13:30 10/28/18 13:29 10/27/18 02:43 Ipratropium [place] (Atrovent) 500 mcg Q4H PRN HHN Shortness of Breath 10/27/18 14:00 11/01/18 13:59 Ipratropium [place] (Atrovent) 500 mcg TIDRT HHN 10/27/18 19:00 11/01/18 18:59 Levetiracetam (Keppra) 500 mg Q12HR GT 10/26/18 21:00 11/22/18 20:59 10/27/18 09:52 Pantoprazole (Protonix) 40 mg DAILY ORAL 10/27/18 09:00 11/23/18 08:59 10/27/18 09:52 Piperacillin Sod/ Tazobactam Sod 3.375 gm/Dextrose 110 ml @ 27.5 mls/hr EVERY 8 HOURS IVPB 10/26/18 22:00 10/31/18 21:59 10/27/18 05:34 Vancomycin HCl (Vanco rx to dose) 1 ea DAILY PRN MISC Per rx protocol 10/27/18 09:00 11/22/18 17:29 Vancomycin HCl/ Dextrose 275 ml @ 183.333 mls/hr Q12HR@0800,1999 IVPB 10/26/18 20:00 10/30/18 19:59 10/27/18 09:53 Susanna Morrell M.D. Oct 27, 2018 16:43
--- NOTE | 2018-10-27 16:50 | Cardiac Electrophysiology PN ---
Assessment/Plan Assessment/Plan 1. Paroxysmal atrial fibrillation with RVR. Currently in sinus rhythm. Change iv Cardizem to 60 PEG q 8 hr and increase amiodarone to 200 mg bid Off anticoagulation for metastatic CA 2. Troponin leak due to atrial fib with RVR 3. Bilateral pneumonia. On vancomycin and aztreonam per Dr. Morrell. 4. Diabetes. 5. Dysphagia, status post PEG placement. 6. Left Lung CA. Thoracentesis and chest, abd,pelvis CT pendinf. Had Bone scan results pending 7. Seizures and altered mental status. The patient is on Keppra 500 mg b.i.d. MRI brain pending by Neurology. ESTEFANI RN Subjective Subjective Back in ICU for atrial fib with RVR. On Cardizem drip 5 mg/hr. Converted to SR yesterday Objective Last 24 Hour Vital Signs Date Time Temp Pulse Resp B/P (MAP) Pulse Ox O2 Delivery O2 Flow Rate FiO2 10/27/18 16:00 76 10/27/18 16:00 97.5 72 30 121/73 (89) 97 10/27/18 14:30 74 32 142/73 (96) 93 10/27/18 14:00 73 31 141/66 (91) 97 10/27/18 13:30 74 32 141/76 (97) 93 10/27/18 13:00 72 32 142/73 (96) 94 10/27/18 12:30 98.3 76 33 132/87 (102) 94 10/27/18 12:00 76 10/27/18 12:00 Nasal Cannula 2.0 Nasal Cannula 2.0 10/27/18 12:00 74 27 160/81 (107) 92 10/27/18 11:30 75 34 120/74 (89) 97 10/27/18 11:29 Nasal Cannula 10/27/18 11:28 Nasal Cannula 10/27/18 11:00 74 32 132/74 (93) 97 10/27/18 10:30 71 33 136/72 (93) 97 10/27/18 10:00 72 32 115/61 (79) 93 10/27/18 09:30 71 35 108/56 (73) 92 10/27/18 09:00 72 33 119/58 (78) 94 10/27/18 08:30 73 34 117/67 (84) 93 10/27/18 08:08 75 22 99 Nasal Cannula 2.0 28 10/27/18 08:00 Nasal Cannula 2.0 Nasal Cannula 2.0 10/27/18 08:00 97.3 73 28 143/74 (97) 97 10/27/18 08:00 75 10/27/18 07:58 75 25 97 Nasal Cannula 2.0 28 10/27/18 07:56 Nasal Cannula 2.0 28 10/27/18 07:55 97 Nasal Cannula 2.0 28 10/27/18 07:30 74 29 124/72 (89) 96 10/27/18 07:00 74 29 136/70 (92) 96 10/27/18 06:30 74 26 134/76 (95) 94 10/27/18 06:00 75 27 137/67 (90) 97 10/27/18 05:30 98.1 73 27 137/77 (97) 94 10/27/18 05:00 74 26 143/82 (102) 95 10/27/18 04:30 73 27 166/93 (117) 94 10/27/18 04:00 Nasal Cannula 2.0 10/27/18 04:00 79 10/27/18 04:00 74 27 161/76 (104) 95 10/27/18 03:30 74 27 135/87 (103) 95 10/27/18 03:19 Nasal Cannula 2.0 28 10/27/18 03:19 Nasal Cannula 2.0 28 10/27/18 03:00 74 28 141/71 (94) 96 10/27/18 02:43 71 152/69 10/27/18 02:30 72 27 152/69 (96) 95 10/27/18 02:00 71 27 144/74 (97) 96 10/27/18 01:30 72 26 149/102 (118) 96 10/27/18 01:00 97.7 72 26 140/79 (99) 98 10/27/18 00:30 70 27 124/62 (82) 98 10/27/18 00:00 Nasal Cannula 2.0 10/27/18 00:00 68 26 141/73 (95) 97 10/26/18 23:30 73 25 144/83 (103) 96 10/26/18 23:00 74 25 135/79 (97) 96 10/26/18 22:39 Nasal Cannula 2.0 28 10/26/18 22:39 Nasal Cannula 2.0 28 10/26/18 22:30 71 26 148/73 (98) 96 10/26/18 22:00 70 26 133/80 (97) 97 10/26/18 21:30 71 26 143/75 (97) 97 10/26/18 21:00 71 26 145/70 (95) 98 10/26/18 20:30 71 27 136/76 (96) 97 10/26/18 20:00 Nasal Cannula 2.0 28 10/26/18 20:00 Nasal Cannula 2.0 10/26/18 20:00 97 Nasal Cannula 2.0 28 10/26/18 20:00 70 27 125/71 (89) 96 10/26/18 20:00 Nasal Cannula 2.0 28 10/26/18 20:00 Nasal Cannula 2.0 28 10/26/18 20:00 75 10/26/18 19:30 99.0 72 27 140/72 (94) 95 10/26/18 19:00 74 26 135/68 (90) 97 10/26/18 18:30 77 27 135/81 (99) 96 10/26/18 18:00 78 27 144/70 (94) 96 10/26/18 17:30 79 27 160/76 (104) 96 10/26/18 17:00 80 24 135/75 (95) 97 Intake and Output 10/26/18 10/27/18 18:59 06:59 Intake Total 1909.667 ml 1805.000 ml Output Total 1650 ml 2185 ml Balance 259.667 ml -380.000 ml Free Water 340 ml IV Total 1249.667 ml 1465.000 ml Tube Feeding 320 ml 340 ml Output Urine Total 1650 ml 2185 ml Laboratory Tests Test 10/27/18 07:01 10/27/18 12:15 White Blood Count 9.9 K/UL (4.8-10.8) Red Blood Count 3.30 M/UL (4.70-6.10) L Hemoglobin 9.7 G/DL (14.2-18.0) L Hematocrit 29.3 % (42.0-52.0) L Mean Corpuscular Volume 89 FL (80-99) Mean Corpuscular Hemoglobin 29.2 PG (27.0-31.0) Mean Corpuscular Hemoglobin Concent 32.9 G/DL (32.0-36.0) Red Cell Distribution Width 13.3 % (11.6-14.8) Platelet Count 365 K/UL (150-450) Mean Platelet Volume 6.4 FL (6.5-10.1) L Neutrophils (%) (Auto) 82.7 % (45.0-75.0) H Lymphocytes (%) (Auto) 7.5 % (20.0-45.0) L Monocytes (%) (Auto) 7.4 % (1.0-10.0) Eosinophils (%) (Auto) 0.6 % (0.0-3.0) Basophils (%) (Auto) 1.9 % (0.0-2.0) Sodium Level 135 MMOL/L (136-145) L Potassium Level 3.5 MMOL/L (3.5-5.1) Chloride Level 100 MMOL/L (98-107) Carbon Dioxide Level 32 MMOL/L (21-32) Anion Gap 3 mmol/L (5-15) L Blood Urea Nitrogen 7 mg/dL (7-18) Creatinine 0.6 MG/DL (0.55-1.30) Estimat Glomerular Filtration Rate mL/min (>60) Glucose Level 136 MG/DL (74-106) H Calcium Level 9.1 MG/DL (8.5-10.1) Total Bilirubin 0.3 MG/DL (0.2-1.0) Aspartate Amino Transf (AST/SGOT) 32 U/L (15-37) Alanine Aminotransferase (ALT/SGPT) 33 U/L (12-78) Alkaline Phosphatase 152 U/L (46-116) H Total Protein 6.7 G/DL (6.4-8.2) Albumin 1.8 G/DL (3.4-5.0) L Globulin 4.9 g/dL Albumin/Globulin Ratio 0.4 (1.0-2.7) L Vancomycin Level Trough 18.1 ug/mL (5.0-12.0) H Prothrombin Time 11.1 SEC (9.30-11.50) Prothromb Time International Ratio 1.1 (0.9-1.1) Activated Partial Thromboplast Time 28 SEC (23-33) Objective HEAD AND NECK: No JVD. LUNGS: Clear.Decreased breath sounds on left CARDIOVASCULAR: Regular S1 and S2 with no gallop. ABDOMEN: Soft and status post PEG. EXTREMITIES: No pitting edema and are contracted. Saurabh Arredondo MD Oct 27, 2018 16:50
[2018-10-27] MEDS ORDERED: dilTIAZem HCl 30mg tab ORAL SCH (18:00)
[2018-10-27] MEDS: Amiodarone 200mg tab ORAL SCH (18:25)
[2018-10-27] MEDS: Ipratropium 0.02% Inh Soln 2.5ml UD HHN SCH (20:02)
--- NOTE | 2018-10-27 20:47 | Cardiology Report ---
APPROVED REPORT EXAM: Two-dimensional and M-mode echocardiogram with Doppler and color Doppler. INDICATION Congestive Heart Failure M-Mode DIMENSIONS IVSd1.3 (0.7-1.1cm)Left Atrium (MM)3.0 (1.6-4.0cm) LVDd3.7 (3.5-5.6cm)Aortic Root2.7 (2.0-3.7cm) PWd1.2 (0.7-1.1cm)Aortic Cusp Exc.1.8 (1.5-2.0cm) LVDs2.5 (2.5-4.0cm) PWs1.1 cm Normal left ventricular chamber size, systolic function and wall motion. Left ventricular ejection fraction estimated to be 60-65 %. Mild left ventricular hypertrophy. No evidence of pericardial effusion. Mild right atrial and ventricular enlargement Focal aortic valve sclerosis with adequate cusp excursion. Mildly thickened mitral valve leaflets with normal excursion. Mild mitral annulus and aortic root calcification. Pulmonic valve not well visualized. Normal tricuspid valve structure. IVC is normal in size with physiological collapse. A color flow and spectral Doppler study was performed and revealed: Trace aortic insufficiency. Trace mitral regurgitation. Mitral diastolic velocities suggest mild left ventricular diastolic dysfunction (Grade I). Moderate tricuspid regurgitation. Tricuspid systolic velocities suggests peak right ventricular systolic pressure of 59 mmHg, consistent with moderate pulmonary hypertension. Trace pulmonic regurgitation present.
[2018-10-27] MEDS: dilTIAZem HCl 60mg tab ORAL SCH (22:41)
[2018-10-28] VITALS (28 sets, daily range): BP systolic 98–149; BP diastolic 52–83
[2018-10-28] MEDS: D5NS 1,000 ML IV SCH ×2 (03:27→15:42)
[2018-10-28 05:44] LABS: BASOPHILS % (AUTO) 0.6 % (0.0-2.0); EOSINOPHILS % (AUTO) 1.1 % (0.0-3.0); HEMATOCRIT 27.9 % (42.0-52.0); HEMOGLOBIN 9.3 G/DL (14.2-18.0); LYMPHOCYTES % (AUTO) 7.7 % (20.0-45.0); MEAN CORPUSCULAR VOLUME 88 FL (80-99); MONOCYTES % (AUTO) 10.9 % (1.0-10.0); NEUTROPHILS % (AUTO) 79.6 % (45.0-75.0); PLATELET COUNT 274 K/UL (150-450); RED BLOOD COUNT 3.17 M/UL (4.70-6.10); WHITE BLOOD COUNT 9.4 K/UL (4.8-10.8)
[2018-10-28 06:05] LABS: ALANINE AMINOTRANSFERASE 31 U/L (12-78); ALBUMIN 1.7 G/DL (3.4-5.0); ALBUMIN/GLOBULIN RATIO 0.4 (1.0-2.7); ALKALINE PHOSPHATASE 130 U/L (46-116); ANION GAP 2 mmol/L (5-15); ASPARTATE AMINO TRANSFERASE 34 U/L (15-37); BILIRUBIN,TOTAL 0.3 MG/DL (0.2-1.0); BLOOD UREA NITROGEN 10 mg/dL (7-18); CALCIUM 9.2 MG/DL (8.5-10.1); CARBON DIOXIDE 32 MMOL/L (21-32); CHLORIDE 102 MMOL/L (98-107); CREATININE 0.8 MG/DL (0.55-1.30); POTASSIUM 3.8 MMOL/L (3.5-5.1); SODIUM 136 MMOL/L (136-145)
[2018-10-28] MEDS: Piperacillin/Tazobactam 3.375 GM in D5W 110 ML IVPB SCH ×3 (06:06→22:07)
[2018-10-28] MEDS: dilTIAZem HCl 60mg tab ORAL SCH (06:07)
[2018-10-28] MEDS: Ipratropium 0.02% Inh Soln 2.5ml UD HHN SCH ×3 (07:17→20:15)
[2018-10-28] MEDS: levETIRAcetam 500mg/5ml Liquid GT SCH ×2 (08:37→20:53)
[2018-10-28] MEDS: Vancomycin 1.25gm Premix 275 ML IVPB SCH ×2 (08:37→20:53)
[2018-10-28] MEDS: Amiodarone 200mg tab ORAL SCH (08:39)
--- NOTE | 2018-10-28 09:16 | Diagnostic Imaging Report ---
Indication: Abdominal pain, sepsis, anemia Technique: Spiral acquisitions obtained through the abdomen and pelvis. No oral contrast utilized, reason not stated. No IV contrast utilized, reason not stated.. Multiplanar reconstructions were generated. Total dose length product 800.17 mGycm. CTDIvol(s) 14.56 mGy. Dose reduction achieved using automated exposure control Comparison: No comparison abdomen pelvis CTs. Reference made to bone scan dated 10/27/2018, ultrasound abdomen 10/25/2018, CT chest 10/24/2018 Findings: Exam is limited by lack of enteric and IV contrast. In addition, soft tissue edema and asthenic body habitus results in lack of inherent soft tissue contrast. Bone window images demonstrate an osteolytic lesion of the anterior medial right iliac bone, immediately adjacent to the right sacroiliac joint. 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 There is unusual heterotopic ossification adjacent to the left ischium. Areas of heterotopic ossification are seen also anterior to the right femoral intertrochanteric region and coming off of the posterior right iliac wing. There are degenerative proliferative changes of the lumbar spine. The medial left ninth rib lesion seen on prior CT is also evident on this exam. Included lung bases demonstrate interim increase in the amount of pleural fluid on the right. Presumably loculated left pleural effusion is again demonstrated laterally. There is slightly improved aeration of the left lung base. The previously demonstrated left lower lobe opacity appears somewhat more masslike currently. Opacities in the left lung appears similar to the previous exam as do those in the in the included portions of the right middle and upper lobes. There is a very mild amount of rectal distention by stool. The appendix is not definitely visualized, but there are no findings to suggest acute appendicitis. No definite evidence of diverticulosis or diverticulitis. No small bowel distention. There is equivocal mild small bowel wall thickening There is generalized edema of the mesenteric fat. No definite free intraperitoneal fluid is evident. Edema in the retroperitoneal fat presumably correlates with the perinephric fluid described on recent sonogram. Is a gastrostomy in good position There is a small left inguinal hernia which contains a knuckle of what is probably the distal descending colon. This does not appear to be obstructive or strangulated. This appears to be an indirect hernia. There is an unusual right inguinal hernia, into which herniates the anterior right corner of the bladder. The bladder contains a Torres catheter, is filled with fluid despite the presence of the Torres catheter. The lack of IV contrast limits assessment of the solid organs. The liver, gallbladder, bile ducts, pancreas, spleen are grossly unremarkable. The left adrenal is diffusely enlarged. The right adrenal and inferior vena cava are immediately adjacent, precluding accurate evaluation of right adrenal morphology. Suspect, however, that it is enlarged as well. The left kidney demonstrates an interpolar region cyst. The right kidney is grossly unremarkable. There is a fluid attenuation mass inferior to the lower pole of the right kidney which appears to be separate from it. Prominent lymph nodes versus venous varicosities are seen in the left upper quadrant omental fat. A 1 cm nodular opacity is seen in the retroperitoneal fat posterior and inferior to the left kidney. The prostate is somewhat prominent. The left psoas muscle demonstrates an area of lucency interspersed with some soft tissue attenuation which measures 2.5 cm AP by 2.5 cm transverse by 7.4 cm craniocaudad. As mentioned above, there is diffuse edema of the subcutaneous fat, in addition to the diffuse edema of the mesenteric and retroperitoneal fat. Impression: Limited exam, as described 2.5 x 2.5 x 7.4 cm lucency within the left psoas muscle. This is nonspecific in appearance, but the possibility of psoas abscess should be considered. This would be better evaluated with a contrast study if and when such could be performed. MRI may also be useful for better characterization. There are no obvious findings of adjacent spondylitis. Anasarca, with diffuse edema of the subcutaneous, mesenteric, and retroperitoneal fat In addition to the above, there is a right pleural effusion which has enlarged significantly since a prior chest CT of 10/24/2018 Mass or consolidation of the left lower lobe, also previously described. The left lung base overall demonstrates slightly improved aeration as compared to prior chest CT, although there is still considerable consolidation present. Presumed loculated left pleural effusion is unchanged since prior chest CT Equivocal mild small bowel wall thickening, could indicate enteritis, edema from the anasarca, or be artifact of under distention Evidence of mild rectal fecal impaction. Indirect small left inguinal hernia containing a knuckle of bowel, probably the distal descending colon. This does not appear to be obstructive or strangulated Unusual right inguinal hernia containing the anterior right corner of the bladder. Torres catheter within the bladder. Retained fluid within the bladder, despite this Nodular soft tissue density in the left retroperitoneal fat, measuring approximately 1 cm diameter. 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 Note that this finding was not mentioned on the [facility] preliminary report Previously reported left ninth rib lesion is again demonstrated Gastrostomy The CT scanner at [facility] is accredited by the [employer] and the scans are performed using protocols designed to limit radiation exposure to as low as reasonably achievable to attain images of sufficient resolution adequate for diagnostic evaluation.
--- NOTE | 2018-10-28 12:56 | General Progress Note ---
Assessment/Plan Assessment/Plan S: not verbal O: appears comfortable, Not following commands. lethargic PHYSICAL EXAMINATION: GENERAL: An elderly male, lying in bed, altered, unresponsive, and not in acute distress. HEENT: Normocephalic and atraumatic. Pupils not reactive to light. Well pale sclera. Unable to assess oral mucosa. NECK: Seems supple. No lymphadenopathy. CARDIOVASCULAR: Regular rate and rhythm. No murmur. LUNGS: He had diminished breathing sounds at the bases with crackles. ABDOMEN: Soft, nontender, and nondistended. PEG tube in place EXTREMITY: No edema or cyanosis. GENITOURINARY: He has normal genitalia. Torres catheter in place. SKIN: Right upper buttock pressure wound. No rash. No hives. Meds: reviewed and reconciled including Aztreonam ASSESSMENT: 1. Sepsis. 2. Healthcare-associated pneumonia. 3. Diffuse Metastatic cancer: source : unknown 4. Abnormal troponin.likely troponin leak 4. Anemia. 5. Dementia/encephalopathy. 6. Code Status - Full Code. 7. GI and DVT prophylaxis. 8. Hemoptysis PLAN OF CARE: Risks of any aggressive Diagnostic procedure ( including Trach) surpasses its benefits. Will continue current sepsis treatment Will Defer oncology workup to out patient start PO ccb, will wean off Cardizem gtt Needs diagnostic Thoracentesis. no capacity to provide consent. I attest this test is medically necessary in guiding his care and justify to proceed for this test. Subjective Allergies: Coded Allergies: No Known Allergies (Unverified , 10/22/18) Objective Last 24 Hour Vital Signs Date Time Temp Pulse Resp B/P (MAP) Pulse Ox O2 Delivery O2 Flow Rate FiO2 10/28/18 12:00 Nasal Cannula 4.0 Nasal Cannula 4.0 10/28/18 12:00 97.8 82 25 149/77 (101) 93 10/28/18 12:00 70 10/28/18 11:00 75 28 103/56 (72) 97 10/28/18 10:00 82 32 143/72 (95) 91 10/28/18 09:00 74 25 111/61 (78) 100 10/28/18 08:57 69 10/28/18 08:00 Nasal Cannula 4.0 Nasal Cannula 4.0 10/28/18 08:00 97.2 69 23 99/66 (77) 99 10/28/18 07:25 82 20 95 Nasal Cannula 4.0 36 10/28/18 07:15 Nasal Cannula 2.0 28 10/28/18 07:15 100 Nasal Cannula 2.0 28 10/28/18 07:15 76 31 98 10/28/18 07:15 65 20 100 Nasal Cannula 2.0 28 10/28/18 07:00 69 26 103/60 (74) 100 10/28/18 06:07 74 127/71 10/28/18 06:00 76 27 121/71 (88) 100 10/28/18 05:30 97.5 82 28 148/83 (104) 98 10/28/18 05:00 72 25 115/68 (84) 100 10/28/18 04:00 Nasal Cannula 3.0 Nasal Cannula 3.0 10/28/18 04:00 78 10/28/18 04:00 98.0 80 31 139/70 (93) 94 10/28/18 03:30 68 23 126/65 (85) 99 10/28/18 03:00 64 23 115/66 (82) 100 10/28/18 02:30 76 30 136/72 (93) 97 10/28/18 02:00 63 23 113/62 (79) 100 10/28/18 01:00 80 26 135/71 (92) 100 10/28/18 00:30 69 26 112/57 (75) 100 10/28/18 00:00 Nasal Cannula 3.0 Nasal Cannula 3.0 10/28/18 00:00 97.8 74 33 129/66 (87) 99 10/28/18 00:00 76 10/27/18 23:57 75 32 137/76 (96) 100 10/27/18 23:00 82 27 138/73 (94) 99 10/27/18 22:41 80 142/94 10/27/18 22:00 79 27 142/94 (110) 99 10/27/18 21:00 78 28 129/66 (87) 100 10/27/18 20:00 98.0 78 28 136/68 (90) 100 10/27/18 20:00 100 Nasal Cannula 2.0 28 10/27/18 20:00 77 10/27/18 20:00 Nasal Cannula 2.0 28 10/27/18 20:00 Nasal Cannula 3.0 Nasal Cannula 3.0 10/27/18 20:00 82 20 100 Nasal Cannula 2.0 28 10/27/18 19:50 80 18 98 Nasal Cannula 2.0 28 10/27/18 19:00 84 28 161/84 (109) 100 10/27/18 18:30 78 28 138/74 (95) 100 10/27/18 18:00 67 25 119/62 (81) 100 10/27/18 17:30 69 26 117/73 (88) 100 10/27/18 17:00 68 27 110/60 (77) 100 10/27/18 16:30 75 29 139/76 (97) 100 10/27/18 16:00 Nasal Cannula 10/27/18 16:00 76 10/27/18 16:00 Nasal Cannula 2.0 Nasal Cannula 2.0 10/27/18 16:00 Nasal Cannula 10/27/18 16:00 97.5 72 30 121/73 (89) 97 10/27/18 14:30 74 32 142/73 (96) 93 10/27/18 14:00 73 31 141/66 (91) 97 10/27/18 13:30 74 32 141/76 (97) 93 10/27/18 13:00 72 32 142/73 (96) 94 Intake and Output 10/27/18 10/28/18 19:00 07:00 Intake Total 2210.0 ml 1910.00 ml Output Total 745 ml 540 ml Balance 1465.0 ml 1370.00 ml Intake Oral 0 ml Free Water 150 ml 150 ml IV Total 1415.0 ml 1080.00 ml Tube Feeding 625 ml 660 ml Other 20 ml 20 ml Output Urine Total 745 ml 540 ml Laboratory Tests 10/28/18 04:25: White Blood Count 9.4, Red Blood Count 3.17L, Hemoglobin 9.3L, Hematocrit 27.9L , Mean Corpuscular Volume 88, Mean Corpuscular Hemoglobin 29.3, Mean Corpuscular Hemoglobin Concent 33.3, Red Cell Distribution Width 13.0, Platelet Count 274, Mean Platelet Volume 6.5, Neutrophils (%) (Auto) 79.6H, Lymphocytes ( %) (Auto) 7.7L, Monocytes (%) (Auto) 10.9H, Eosinophils (%) (Auto) 1.1, Basophils (%) (Auto) 0.6, Prothrombin Time 11.0, Prothromb Time International Ratio 1.0, Sodium Level 136, Potassium Level 3.8, Chloride Level 102, Carbon Dioxide Level 32, Anion Gap 2L, Blood Urea Nitrogen 10, Creatinine 0.8, Estimat Glomerular Filtration Rate , Glucose Level 105, Calcium Level 9.2, Total Bilirubin 0.3, Aspartate Amino Transf (AST/SGOT) 34, Alanine Aminotransferase ( ALT/SGPT) 31, Alkaline Phosphatase 130H, Total Protein 6.3L, Albumin 1.7L, Globulin 4.6, Albumin/Globulin Ratio 0.4L Height (Feet): 6 Weight (Pounds): 139 Hayde Duran MD Oct 28, 2018 12:56
--- NOTE | 2018-10-28 13:47 | Cardiac Electrophysiology PN ---
Assessment/Plan Assessment/Plan 1. Paroxysmal atrial fibrillation with RVR. Currently in sinus rhythm. On Cardizem 60 PEG q 8 hr and amiodarone 200 mg bid Off anticoagulation for metastatic CA 2. Troponin leak due to atrial fib with RVR 3. Bilateral pneumonia. On vancomycin and aztreonam per Dr. Morrell. 4. Diabetes. 5. Dysphagia, status post PEG placement. 6. Left Lung CA. Thoracentesis and chest, abd,pelvis CT pending. Had Bone scan 7. Seizures and altered mental status. The patient is on Keppra 500 mg b.i.d. MRI brain pending by Neurology. ESTEFANI RN Subjective Subjective In ICU for atrial fib with RVR. Converted and remained in SR. Just had MRI of his Brain Objective Last 24 Hour Vital Signs Date Time Temp Pulse Resp B/P (MAP) Pulse Ox O2 Delivery O2 Flow Rate FiO2 10/28/18 13:40 88 27 137/82 (100) 96 10/28/18 13:19 Nasal Cannula 10/28/18 13:18 Nasal Cannula 10/28/18 12:00 Nasal Cannula 4.0 Nasal Cannula 4.0 10/28/18 12:00 97.8 82 25 149/77 (101) 93 10/28/18 12:00 70 10/28/18 11:00 75 28 103/56 (72) 97 10/28/18 10:00 82 32 143/72 (95) 91 10/28/18 09:00 74 25 111/61 (78) 100 10/28/18 08:57 69 10/28/18 08:00 Nasal Cannula 4.0 Nasal Cannula 4.0 10/28/18 08:00 97.2 69 23 99/66 (77) 99 10/28/18 07:25 82 20 95 Nasal Cannula 4.0 36 10/28/18 07:15 Nasal Cannula 2.0 28 10/28/18 07:15 100 Nasal Cannula 2.0 28 10/28/18 07:15 76 31 98 10/28/18 07:15 65 20 100 Nasal Cannula 2.0 28 10/28/18 07:00 69 26 103/60 (74) 100 10/28/18 06:07 74 127/71 10/28/18 06:00 76 27 121/71 (88) 100 10/28/18 05:30 97.5 82 28 148/83 (104) 98 10/28/18 05:00 72 25 115/68 (84) 100 10/28/18 04:00 Nasal Cannula 3.0 Nasal Cannula 3.0 10/28/18 04:00 78 10/28/18 04:00 98.0 80 31 139/70 (93) 94 10/28/18 03:30 68 23 126/65 (85) 99 10/28/18 03:00 64 23 115/66 (82) 100 10/28/18 02:30 76 30 136/72 (93) 97 10/28/18 02:00 63 23 113/62 (79) 100 10/28/18 01:00 80 26 135/71 (92) 100 10/28/18 00:30 69 26 112/57 (75) 100 10/28/18 00:00 Nasal Cannula 3.0 Nasal Cannula 3.0 10/28/18 00:00 97.8 74 33 129/66 (87) 99 10/28/18 00:00 76 10/27/18 23:57 75 32 137/76 (96) 100 10/27/18 23:00 82 27 138/73 (94) 99 10/27/18 22:41 80 142/94 10/27/18 22:00 79 27 142/94 (110) 99 10/27/18 21:00 78 28 129/66 (87) 100 10/27/18 20:00 98.0 78 28 136/68 (90) 100 10/27/18 20:00 100 Nasal Cannula 2.0 28 10/27/18 20:00 77 10/27/18 20:00 Nasal Cannula 2.0 28 10/27/18 20:00 Nasal Cannula 3.0 Nasal Cannula 3.0 10/27/18 20:00 82 20 100 Nasal Cannula 2.0 28 10/27/18 19:50 80 18 98 Nasal Cannula 2.0 28 10/27/18 19:00 84 28 161/84 (109) 100 10/27/18 18:30 78 28 138/74 (95) 100 10/27/18 18:00 67 25 119/62 (81) 100 10/27/18 17:30 69 26 117/73 (88) 100 10/27/18 17:00 68 27 110/60 (77) 100 10/27/18 16:30 75 29 139/76 (97) 100 10/27/18 16:00 Nasal Cannula 10/27/18 16:00 76 10/27/18 16:00 Nasal Cannula 2.0 Nasal Cannula 2.0 10/27/18 16:00 Nasal Cannula 10/27/18 16:00 97.5 72 30 121/73 (89) 97 10/27/18 14:30 74 32 142/73 (96) 93 10/27/18 14:00 73 31 141/66 (91) 97 Intake and Output 10/27/18 10/28/18 19:00 07:00 Intake Total 2210.0 ml 1910.00 ml Output Total 745 ml 540 ml Balance 1465.0 ml 1370.00 ml Intake Oral 0 ml Free Water 150 ml 150 ml IV Total 1415.0 ml 1080.00 ml Tube Feeding 625 ml 660 ml Other 20 ml 20 ml Output Urine Total 745 ml 540 ml Laboratory Tests Test 10/28/18 04:25 White Blood Count 9.4 K/UL (4.8-10.8) Red Blood Count 3.17 M/UL (4.70-6.10) L Hemoglobin 9.3 G/DL (14.2-18.0) L Hematocrit 27.9 % (42.0-52.0) L Mean Corpuscular Volume 88 FL (80-99) Mean Corpuscular Hemoglobin 29.3 PG (27.0-31.0) Mean Corpuscular Hemoglobin Concent 33.3 G/DL (32.0-36.0) Red Cell Distribution Width 13.0 % (11.6-14.8) Platelet Count 274 K/UL (150-450) Mean Platelet Volume 6.5 FL (6.5-10.1) Neutrophils (%) (Auto) 79.6 % (45.0-75.0) H Lymphocytes (%) (Auto) 7.7 % (20.0-45.0) L Monocytes (%) (Auto) 10.9 % (1.0-10.0) H Eosinophils (%) (Auto) 1.1 % (0.0-3.0) Basophils (%) (Auto) 0.6 % (0.0-2.0) Prothrombin Time 11.0 SEC (9.30-11.50) Prothromb Time International Ratio 1.0 (0.9-1.1) Sodium Level 136 MMOL/L (136-145) Potassium Level 3.8 MMOL/L (3.5-5.1) Chloride Level 102 MMOL/L (98-107) Carbon Dioxide Level 32 MMOL/L (21-32) Anion Gap 2 mmol/L (5-15) L Blood Urea Nitrogen 10 mg/dL (7-18) Creatinine 0.8 MG/DL (0.55-1.30) Estimat Glomerular Filtration Rate mL/min (>60) Glucose Level 105 MG/DL (74-106) Calcium Level 9.2 MG/DL (8.5-10.1) Total Bilirubin 0.3 MG/DL (0.2-1.0) Aspartate Amino Transf (AST/SGOT) 34 U/L (15-37) Alanine Aminotransferase (ALT/SGPT) 31 U/L (12-78) Alkaline Phosphatase 130 U/L (46-116) H Total Protein 6.3 G/DL (6.4-8.2) L Albumin 1.7 G/DL (3.4-5.0) L Globulin 4.6 g/dL Albumin/Globulin Ratio 0.4 (1.0-2.7) L Objective HEAD AND NECK: No JVD. LUNGS: Clear.Decreased breath sounds on left CARDIOVASCULAR: Regular S1 and S2 with no gallop. ABDOMEN: Soft and status post PEG. EXTREMITIES: No pitting edema and are contracted. Saurabh Arredondo MD Oct 28, 2018 13:47
--- NOTE | 2018-10-28 14:01 | Surgery Progress Note ---
Surgery Progress Note Subjective Additional Comments patient remains ill appearing in ICU. no acute events. CT and bone scan as below. labs okay Objective Last 24 Hour Vital Signs Date Time Temp Pulse Resp B/P (MAP) Pulse Ox O2 Delivery O2 Flow Rate FiO2 10/28/18 13:40 88 27 137/82 (100) 96 10/28/18 13:19 Nasal Cannula 10/28/18 13:18 Nasal Cannula 10/28/18 12:00 Nasal Cannula 4.0 Nasal Cannula 4.0 10/28/18 12:00 97.8 82 25 149/77 (101) 93 10/28/18 12:00 70 10/28/18 11:00 75 28 103/56 (72) 97 10/28/18 10:00 82 32 143/72 (95) 91 10/28/18 09:00 74 25 111/61 (78) 100 10/28/18 08:57 69 10/28/18 08:00 Nasal Cannula 4.0 Nasal Cannula 4.0 10/28/18 08:00 97.2 69 23 99/66 (77) 99 10/28/18 07:25 82 20 95 Nasal Cannula 4.0 36 10/28/18 07:15 Nasal Cannula 2.0 28 10/28/18 07:15 100 Nasal Cannula 2.0 28 10/28/18 07:15 76 31 98 10/28/18 07:15 65 20 100 Nasal Cannula 2.0 28 10/28/18 07:00 69 26 103/60 (74) 100 10/28/18 06:07 74 127/71 10/28/18 06:00 76 27 121/71 (88) 100 10/28/18 05:30 97.5 82 28 148/83 (104) 98 10/28/18 05:00 72 25 115/68 (84) 100 10/28/18 04:00 Nasal Cannula 3.0 Nasal Cannula 3.0 10/28/18 04:00 78 10/28/18 04:00 98.0 80 31 139/70 (93) 94 10/28/18 03:30 68 23 126/65 (85) 99 10/28/18 03:00 64 23 115/66 (82) 100 10/28/18 02:30 76 30 136/72 (93) 97 10/28/18 02:00 63 23 113/62 (79) 100 10/28/18 01:00 80 26 135/71 (92) 100 10/28/18 00:30 69 26 112/57 (75) 100 10/28/18 00:00 Nasal Cannula 3.0 Nasal Cannula 3.0 10/28/18 00:00 97.8 74 33 129/66 (87) 99 10/28/18 00:00 76 10/27/18 23:57 75 32 137/76 (96) 100 10/27/18 23:00 82 27 138/73 (94) 99 10/27/18 22:41 80 142/94 10/27/18 22:00 79 27 142/94 (110) 99 10/27/18 21:00 78 28 129/66 (87) 100 10/27/18 20:00 98.0 78 28 136/68 (90) 100 10/27/18 20:00 100 Nasal Cannula 2.0 28 10/27/18 20:00 77 10/27/18 20:00 Nasal Cannula 2.0 28 10/27/18 20:00 Nasal Cannula 3.0 Nasal Cannula 3.0 10/27/18 20:00 82 20 100 Nasal Cannula 2.0 28 10/27/18 19:50 80 18 98 Nasal Cannula 2.0 28 10/27/18 19:00 84 28 161/84 (109) 100 10/27/18 18:30 78 28 138/74 (95) 100 10/27/18 18:00 67 25 119/62 (81) 100 10/27/18 17:30 69 26 117/73 (88) 100 10/27/18 17:00 68 27 110/60 (77) 100 10/27/18 16:30 75 29 139/76 (97) 100 10/27/18 16:00 Nasal Cannula 10/27/18 16:00 76 10/27/18 16:00 Nasal Cannula 2.0 Nasal Cannula 2.0 10/27/18 16:00 Nasal Cannula 10/27/18 16:00 97.5 72 30 121/73 (89) 97 10/27/18 14:30 74 32 142/73 (96) 93 10/27/18 14:00 73 31 141/66 (91) 97 I&O Intake and Output 10/27/18 10/28/18 19:00 07:00 Intake Total 2210.0 ml 1910.00 ml Output Total 745 ml 540 ml Balance 1465.0 ml 1370.00 ml Intake Oral 0 ml Free Water 150 ml 150 ml IV Total 1415.0 ml 1080.00 ml Tube Feeding 625 ml 660 ml Other 20 ml 20 ml Output Urine Total 745 ml 540 ml Dressing: saturated Wound: other Drains: other Cardiovascular: RSR Respiratory: decreased breath sounds Abdomen: soft, non-distended, decreased bowel sounds Extremities: no cyanosis Laboratory Tests Test 10/28/18 04:25 White Blood Count 9.4 K/UL (4.8-10.8) Red Blood Count 3.17 M/UL (4.70-6.10) L Hemoglobin 9.3 G/DL (14.2-18.0) L Hematocrit 27.9 % (42.0-52.0) L Mean Corpuscular Volume 88 FL (80-99) Mean Corpuscular Hemoglobin 29.3 PG (27.0-31.0) Mean Corpuscular Hemoglobin Concent 33.3 G/DL (32.0-36.0) Red Cell Distribution Width 13.0 % (11.6-14.8) Platelet Count 274 K/UL (150-450) Mean Platelet Volume 6.5 FL (6.5-10.1) Neutrophils (%) (Auto) 79.6 % (45.0-75.0) H Lymphocytes (%) (Auto) 7.7 % (20.0-45.0) L Monocytes (%) (Auto) 10.9 % (1.0-10.0) H Eosinophils (%) (Auto) 1.1 % (0.0-3.0) Basophils (%) (Auto) 0.6 % (0.0-2.0) Prothrombin Time 11.0 SEC (9.30-11.50) Prothromb Time International Ratio 1.0 (0.9-1.1) Sodium Level 136 MMOL/L (136-145) Potassium Level 3.8 MMOL/L (3.5-5.1) Chloride Level 102 MMOL/L (98-107) Carbon Dioxide Level 32 MMOL/L (21-32) Anion Gap 2 mmol/L (5-15) L Blood Urea Nitrogen 10 mg/dL (7-18) Creatinine 0.8 MG/DL (0.55-1.30) Estimat Glomerular Filtration Rate mL/min (>60) Glucose Level 105 MG/DL (74-106) Calcium Level 9.2 MG/DL (8.5-10.1) Total Bilirubin 0.3 MG/DL (0.2-1.0) Aspartate Amino Transf (AST/SGOT) 34 U/L (15-37) Alanine Aminotransferase (ALT/SGPT) 31 U/L (12-78) Alkaline Phosphatase 130 U/L (46-116) H Total Protein 6.3 G/DL (6.4-8.2) L Albumin 1.7 G/DL (3.4-5.0) L Globulin 4.6 g/dL Albumin/Globulin Ratio 0.4 (1.0-2.7) L Assessment Additional Comments 2.5 x 2.5 x 7.4 cm lucency within the left psoas muscle. This is nonspecific in appearance, but the possibility of psoas abscess should be considered. This would be better evaluated with a contrast study if and when such could be performed. MRI may also be useful for better characterization. There are no obvious findings of adjacent spondylitis. Anasarca, with diffuse edema of the subcutaneous, mesenteric, and retroperitoneal fat In addition to the above, there is a right pleural effusion which has enlarged significantly since a prior chest CT of 10/24/2018 Mass or consolidation of the left lower lobe, also previously described. The left lung base overall demonstrates slightly improved aeration as compared to prior chest CT, although there is still considerable consolidation present. Presumed loculated left pleural effusion is unchanged since prior chest CT Equivocal mild small bowel wall thickening, could indicate enteritis, edema from the anasarca, or be artifact of under distention Evidence of mild rectal fecal impaction. Indirect small left inguinal hernia containing a knuckle of bowel, probably the distal descending colon. This does not appear to be obstructive or strangulated Unusual right inguinal hernia containing the anterior right corner of the bladder. Torres catheter within the bladder. Retained fluid within the bladder, despite this Nodular soft tissue density in the left retroperitoneal fat, measuring approximately 1 cm diameter. 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 Note that this finding was not mentioned on the [facility] preliminary report Previously reported left ninth rib lesion is again demonstrated Gastrostomy Increased uptake in the left scapula, corresponding to osteolytic lesion reported on recent chest CT, is noted. Very questionable focal increased activity is seen corresponding to the previously reported left ninth rib costovertebral junction lesion No other evidence of osseous metastatic disease is demonstrated. Plan Problems: (1) Sacral decubitus ulcer Assessment & Plan: Patient presented on admission with full thickness Stage III sacral pressure injury. 100% yellow slough at base of wound, Edges flat and dry(L)1.1cm x (W)1.9cm. Periwound without erythema or induration. No odor noted. Non-viable tissue removed using curette by myself at bedside. Base of wound is more viable with trace slough. R heel /R achilles boggy with non-blanchable erythema. Pt moans when site is minimally palpated. L heel boggy with non-blanchable erythema. Pt did not exhibit any distress when L heel palpated. Dry brown discoloration without induration or fluctuance noted to brandon/dorsal R foot. Dry brown discoloration without fluctuance or induration noted to R lateral malleolus. Tx.Plan: Cleanse Sacral wound with Saline.Apply Therahoney. Apply Cavilon Skin Barrier periwound. Cover with Optifoam drsg Daily and prn. Apply Cavilon Skin Barrier to R lateral malleolus.Cover with Optifoam drsg.Change every 7 days and prn. Apply Cavilon Skin Barrier to both heels and R achilles. Cover with Optifoam drsg.Change Q7days and prn. APM/CHARU mattress. Reposition at least every 2hours or as tolerated. Off-load heels with pillow. (2) Seizure (3) Lung mass Assessment & Plan: CT chest w/ Evidence of disseminated neoplasm, with multiple osteolytic lesions as described, mediastinal adenopathy, and possible bilateral adrenal masses Complete atelectasis and consolidation of the left lower lobe. Complete occlusion of the proximal lobar bronchi on the left. Given the above findings, the possibility of pulmonary neoplasm with resultant endobronchial occlusion should be considered Extensive atelectasis and consolidation of the left upper lobe. This may represent acute pneumonia, but honeycomb appearance of much of this suggests a significant chronic component There are areas of confluent scarring versus consolidation versus mass as well Suspected loculated pleural effusion on the left. Note that this has enlarged rapidly over the past few days based on recent chest radiographs. There is also a small amount of what is probably increased pleural fluid on the left as well. Multiple focal parenchymal abnormalities on the right. These probably represent areas of acute infiltrate, but the appearance of some of these suggests that they could be neoplastic Ectatic main and right pulmonary artery, suggestive of but not diagnostic for pulmonary arterial hypertension Mild diffuse edema of the subcutaneous and mediastinal fat Minimal pericardial thickening and/or fluid Incidental finding 12 mm left renal cyst Right pleural effusion, also described on recent chest CT report. Trace ascites Cholelithiasis. Negative for dilated bile ducts No sonographic findings to suggest hepatic metastases Increased echogenicity of the left kidney, may indicate chronic medical renadisease. Negative for hydronephrosis. Equivocal left perinephric fluid, of uncertaisignificance of real Incidental finding of small left renal cyst Note nonvisualization of the pancreas extensive disease process noted on CT chest. primary unknown at this time. need to see if any prior records CT/Bone scan noted with lesions Pending MRI will need biopsy for cytology via radiology Labs noted RX reviewed currently stable will monitor Agree with PCP that thora medically necessary and needed for care and management of patient PazChato Oct 28, 2018 14:01
--- NOTE | 2018-10-28 14:37 | Diagnostic Imaging Report ---
Indication: Altered mental status and seizures Technique: sagittal T1 fast spin echo, axial T1 FLAIR, axial T2 FLAIR, axial T2* GRE, axial diffusion weighted images. ADC and exponential ADC maps generated. Axial T2-weighted images were not obtained, as patient unable to tolerate further imaging Comparison: Head CT dated 10/22/2018 Findings: There is an area of diffusion restriction in the left inferolateral frontal lobe, mostly within the cortex. No associated hemorrhage No other foci of restricted diffusion demonstrated. No acute hemorrhage or edema demonstrated elsewhere. No mass effect nor midline shift. There is marked age-related enlargement of the ventricles and extra axial CSF spaces. There is extensive periventricular deep white matter high T2 signal. Encephalomalacia is seen in the right occipital lobe and in the left posterior parietal lobe. Somewhat unusual bilateral symmetrical lacunar infarcts are seen within the donald. Visualized orbits and sinuses are unremarkable. Impression: Very limited exam, as described Diffusion restriction in the left inferolateral frontal lobe, consistent with nonhemorrhagic acute cortical infarct. Extensive chronic and age-related changes, as described Multiple old infarcts as described Critical value findings phoned to Dr. Duran at the time of interpretation
--- NOTE | 2018-10-28 14:44 | Pre-Procedure Note/Attestation ---
Pre-Procedure Note/Attestation Complete Prior to Procedure Planned Procedure: right Procedure Narrative: thoracentesis Indications for Procedure Pre-Operative Diagnosis: pleural effusion Attestation I attest that I discussed the nature of the procedure; its benefits; risks and complications; and alternatives (and the risks and benefits of such alternatives ), prior to the procedure, with the patient (or the patient's legal access representative). I attest that, if there was a reasonable possibility of needing a blood transfusion, the patient (or the patient's legal access representative) was given the [facility] standardized written summary, pursuant to the [place] Blood Safety Act ([place] Health and Safety Code # 1645, as amended). I attest that I re-evaluated the patient just prior to the surgery and that there has been no change in the patient's H&P, except as documented below: two physician consent obtained Ayan Thacker MD Oct 28, 2018 14:44
--- NOTE | 2018-10-28 15:58 | Pulmonolgy Critical Care Note ---
Critical Care - Asmt/Plan Problems: (1) Atrial fibrillation with rapid ventricular response (2) Diabetes mellitus (3) Seizure (4) Bilateral pneumonia (5) Altered mental status (6) Sacral decubitus ulcer (7) Lytic bone lesions on xray (8) Lung mass Assessment/Plan: CT chest reviewed - extensive R consolidations, mass like opacities, possible endobronchial lesions and osteolytic lesions concerning for met dz + loculated effusion Brain MRI with acute and chronic CVA Bone scan inc uptake L scapula and L 9th rib CT AP: L psoas lesion, abscess vs hematoma + L RP nodular lesions + omental LN + L iliac osteolytic lesions ---> Needs to determine overall GOC further before working up lung mass. Patient will likely needs VATS/bronch vs biopsy of one of the distal bone lesions. Consent is an issue at this time. Awaiting ETHICS eval. F/U pleural fluid studies, including cytology Optimize pulmonary hygiene/mobilize as tolerated PRN O2 Atrovent only HHN's Abx (Zosyn/Vanco) per ID Consider neuro eval Monitor MS Dilt and Amio per cards NPO, TF's D/C IVF FC Ethics eval pending CC 60 Critical Care - Objective Last 24 Hour Vital Signs Date Time Temp Pulse Resp B/P (MAP) Pulse Ox O2 Delivery O2 Flow Rate FiO2 10/28/18 15:00 88 24 98/52 (67) 96 10/28/18 14:00 81 26 107/65 (79) 100 10/28/18 13:40 88 27 137/82 (100) 96 10/28/18 13:19 Nasal Cannula 10/28/18 13:18 Nasal Cannula 10/28/18 12:00 Nasal Cannula 4.0 Nasal Cannula 4.0 10/28/18 12:00 97.8 82 25 149/77 (101) 93 10/28/18 12:00 70 10/28/18 11:00 75 28 103/56 (72) 97 10/28/18 10:00 82 32 143/72 (95) 91 10/28/18 09:00 74 25 111/61 (78) 100 10/28/18 08:57 69 10/28/18 08:00 Nasal Cannula 4.0 Nasal Cannula 4.0 10/28/18 08:00 97.2 69 23 99/66 (77) 99 10/28/18 07:25 82 20 95 Nasal Cannula 4.0 36 10/28/18 07:15 Nasal Cannula 2.0 28 10/28/18 07:15 100 Nasal Cannula 2.0 28 10/28/18 07:15 76 31 98 10/28/18 07:15 65 20 100 Nasal Cannula 2.0 28 10/28/18 07:00 69 26 103/60 (74) 100 10/28/18 06:07 74 127/71 10/28/18 06:00 76 27 121/71 (88) 100 10/28/18 05:30 97.5 82 28 148/83 (104) 98 10/28/18 05:00 72 25 115/68 (84) 100 10/28/18 04:00 Nasal Cannula 3.0 Nasal Cannula 3.0 10/28/18 04:00 78 10/28/18 04:00 98.0 80 31 139/70 (93) 94 10/28/18 03:30 68 23 126/65 (85) 99 10/28/18 03:00 64 23 115/66 (82) 100 10/28/18 02:30 76 30 136/72 (93) 97 10/28/18 02:00 63 23 113/62 (79) 100 10/28/18 01:00 80 26 135/71 (92) 100 10/28/18 00:30 69 26 112/57 (75) 100 10/28/18 00:00 Nasal Cannula 3.0 Nasal Cannula 3.0 10/28/18 00:00 97.8 74 33 129/66 (87) 99 10/28/18 00:00 76 10/27/18 23:57 75 32 137/76 (96) 100 10/27/18 23:00 82 27 138/73 (94) 99 10/27/18 22:41 80 142/94 10/27/18 22:00 79 27 142/94 (110) 99 10/27/18 21:00 78 28 129/66 (87) 100 10/27/18 20:00 98.0 78 28 136/68 (90) 100 10/27/18 20:00 100 Nasal Cannula 2.0 28 10/27/18 20:00 77 10/27/18 20:00 Nasal Cannula 2.0 28 10/27/18 20:00 Nasal Cannula 3.0 Nasal Cannula 3.0 10/27/18 20:00 82 20 100 Nasal Cannula 2.0 28 10/27/18 19:50 80 18 98 Nasal Cannula 2.0 28 10/27/18 19:00 84 28 161/84 (109) 100 10/27/18 18:30 78 28 138/74 (95) 100 10/27/18 18:00 67 25 119/62 (81) 100 10/27/18 17:30 69 26 117/73 (88) 100 10/27/18 17:00 68 27 110/60 (77) 100 10/27/18 16:30 75 29 139/76 (97) 100 10/27/18 16:00 Nasal Cannula 10/27/18 16:00 76 10/27/18 16:00 Nasal Cannula 2.0 Nasal Cannula 2.0 10/27/18 16:00 Nasal Cannula 10/27/18 16:00 97.5 72 30 121/73 (89) 97 Status: obtunded Condition: critical HEENT: atraumatic, normocephalic Lungs: clear Heart: HR/BP stable Abdomen: soft, non-tender, active bowel sounds, feeding tube Extremities: no C/C/E Decubiti: location - sacral, stage - 1 Accucheck: 110 Blood Sugars: BS controlled Critical Care - Subjective ROS Limited/Unobtainable: Yes ICU Day: 3 Interval Events: S/P R thora, insufficient fluid on loculated L sided effusions MRI brain, CT A/P and bone scan done Condition: critical IV Access: peripheral EKG Rhythm: Sinus Rhythm FI02: 36 Sputum Amount: None Secretions: None Fluids: D5NS@80 Tube Feeding Amount: 60 I&O: Intake and Output 10/27/18 10/28/18 19:00 07:00 Intake Total 2210.0 ml 1910.00 ml Output Total 745 ml 540 ml Balance 1465.0 ml 1370.00 ml Intake Oral 0 ml Free Water 150 ml 150 ml IV Total 1415.0 ml 1080.00 ml Tube Feeding 625 ml 660 ml Other 20 ml 20 ml Output Urine Total 745 ml 540 ml Subjective: MEGHANA Labs: Laboratory Tests Test 10/28/18 04:25 White Blood Count 9.4 K/UL (4.8-10.8) Red Blood Count 3.17 M/UL (4.70-6.10) L Hemoglobin 9.3 G/DL (14.2-18.0) L Hematocrit 27.9 % (42.0-52.0) L Mean Corpuscular Volume 88 FL (80-99) Mean Corpuscular Hemoglobin 29.3 PG (27.0-31.0) Mean Corpuscular Hemoglobin Concent 33.3 G/DL (32.0-36.0) Red Cell Distribution Width 13.0 % (11.6-14.8) Platelet Count 274 K/UL (150-450) Mean Platelet Volume 6.5 FL (6.5-10.1) Neutrophils (%) (Auto) 79.6 % (45.0-75.0) H Lymphocytes (%) (Auto) 7.7 % (20.0-45.0) L Monocytes (%) (Auto) 10.9 % (1.0-10.0) H Eosinophils (%) (Auto) 1.1 % (0.0-3.0) Basophils (%) (Auto) 0.6 % (0.0-2.0) Prothrombin Time 11.0 SEC (9.30-11.50) Prothromb Time International Ratio 1.0 (0.9-1.1) Sodium Level 136 MMOL/L (136-145) Potassium Level 3.8 MMOL/L (3.5-5.1) Chloride Level 102 MMOL/L (98-107) Carbon Dioxide Level 32 MMOL/L (21-32) Anion Gap 2 mmol/L (5-15) L Blood Urea Nitrogen 10 mg/dL (7-18) Creatinine 0.8 MG/DL (0.55-1.30) Estimat Glomerular Filtration Rate mL/min (>60) Glucose Level 105 MG/DL (74-106) Calcium Level 9.2 MG/DL (8.5-10.1) Total Bilirubin 0.3 MG/DL (0.2-1.0) Aspartate Amino Transf (AST/SGOT) 34 U/L (15-37) Alanine Aminotransferase (ALT/SGPT) 31 U/L (12-78) Alkaline Phosphatase 130 U/L (46-116) H Total Protein 6.3 G/DL (6.4-8.2) L Albumin 1.7 G/DL (3.4-5.0) L Globulin 4.6 g/dL Albumin/Globulin Ratio 0.4 (1.0-2.7) L Flex Nunn MD Oct 28, 2018 15:58
--- NOTE | 2018-10-28 16:29 | Brief Operative Note ---
Immediate Post Operative Note Operative Note Pre-op Diagnosis: pleural effusion Procedure: r thoracentesis Post-op Diagnosis: same as pre-op Surgeon: Carolyn Lopez Anesthesia: local Specimen: yes - yellow fluid sent to lab Complications: none Fluids: none Implant(s) used?: No Ayan Lopez MD Oct 28, 2018 16:29
--- NOTE | 2018-10-28 16:31 | Diagnostic Imaging Report ---
Indication: Postthoracentesis Technique: One view of the chest Comparison: 10/24/2018 Findings: No residual pleural fluid is demonstrated. No pneumothorax is demonstrated. Left superolateral loculated pleural effusion is again demonstrated. The heart remains borderline enlarged. Impression: No pneumothorax, post right thoracentesis Otherwise essentially stable findings as described
--- NOTE | 2018-10-28 16:37 | Diagnostic Imaging Report ---
Indications: Pleural effusion Technique: Originally, left chest thoracentesis requested due to evidence of loculated left pleural effusion. However, scanning by the sterile preparation technician could not demonstrate a definitive palpable fluid collection in this area. After discussion with Dr. Joel, was agreed to proceed with right thoracentesis, given evidence of pleural fluid in the right chest on recent chest CT. Two-physician consent was obtained. Procedural timeout performed. Ultrasound used to localize optimal puncture site. Sterile prepping and draping right chest. Local anesthesia with 1% lidocaine. Under real-time ultrasound guidance, puncture pleural space using thoracentesis needle. Stylet removed. Catheter placed to vacuum bottle suction. Total 300 milliliters of fluid aspirated. Patient tolerated procedure well, without immediate complication. Findings: Followup sonography demonstrates complete resolution of pleural fluid. Impression: Successful ultrasound-guided thoracentesis, yielding 300 milliliters of fluid
--- NOTE | 2018-10-28 17:50 | Infectious Diseases Prog Note ---
Assessment/Plan Problems: (1) Bilateral pneumonia Assessment & Plan: suspect aspiration and post obstruction pneumonia , due to altered mental status , continue vancomycin and zosyn empirically , since no evidence of more seizure . CT chest confirmed lung mass with mets to the bones , and effusion . aspiration precaution, keep HOB > 30 DEGREE . keep NPO for now (2) Seizure Assessment & Plan: monitor in tele,seizure precaution . consult neurology (3) Diabetes mellitus Assessment & Plan: recommend tight glycemic control to keep blood glucose between 10-140 (4) Altered mental status Assessment & Plan: due to the above, continue hydration and antibiotics, neuro check , monitor in tele, avoid sedatives (5) Lung mass Assessment & Plan: with total collapse of the left lung and mediastinal shift , and bone lytic lesions, suspect lung cancer with mets , poor prognosis, needs bronch for tissue diagnosis and oncology eval (6) CVA (cerebral vascular accident) Assessment & Plan: with acute presentation, recommend neurology eval Subjective ROS Limited/Unobtainable: Yes Allergies: Coded Allergies: No Known Allergies (Unverified , 10/22/18) Subjective he was still in ICU for new A.fib with RVR , awake but still unresponsive, uncooperative with exam , no fever, no hemoptysis , no SOB, no diarrhea as per nurse Objective Vital Signs Last 24 Hour Vital Signs Date Time Temp Pulse Resp B/P (MAP) Pulse Ox O2 Delivery O2 Flow Rate FiO2 10/28/18 15:00 88 24 98/52 (67) 96 10/28/18 14:00 81 26 107/65 (79) 100 10/28/18 13:40 88 27 137/82 (100) 96 10/28/18 13:19 Nasal Cannula 10/28/18 13:18 Nasal Cannula 10/28/18 12:00 Nasal Cannula 4.0 Nasal Cannula 4.0 10/28/18 12:00 97.8 82 25 149/77 (101) 93 10/28/18 12:00 70 10/28/18 11:00 75 28 103/56 (72) 97 10/28/18 10:00 82 32 143/72 (95) 91 10/28/18 09:00 74 25 111/61 (78) 100 10/28/18 08:57 69 10/28/18 08:00 Nasal Cannula 4.0 Nasal Cannula 4.0 10/28/18 08:00 97.2 69 23 99/66 (77) 99 10/28/18 07:25 82 20 95 Nasal Cannula 4.0 36 10/28/18 07:15 Nasal Cannula 2.0 28 10/28/18 07:15 100 Nasal Cannula 2.0 28 10/28/18 07:15 76 31 98 10/28/18 07:15 65 20 100 Nasal Cannula 2.0 28 10/28/18 07:00 69 26 103/60 (74) 100 10/28/18 06:07 74 127/71 10/28/18 06:00 76 27 121/71 (88) 100 10/28/18 05:30 97.5 82 28 148/83 (104) 98 10/28/18 05:00 72 25 115/68 (84) 100 10/28/18 04:00 Nasal Cannula 3.0 Nasal Cannula 3.0 10/28/18 04:00 78 10/28/18 04:00 98.0 80 31 139/70 (93) 94 10/28/18 03:30 68 23 126/65 (85) 99 10/28/18 03:00 64 23 115/66 (82) 100 10/28/18 02:30 76 30 136/72 (93) 97 10/28/18 02:00 63 23 113/62 (79) 100 10/28/18 01:00 80 26 135/71 (92) 100 10/28/18 00:30 69 26 112/57 (75) 100 10/28/18 00:00 Nasal Cannula 3.0 Nasal Cannula 3.0 10/28/18 00:00 97.8 74 33 129/66 (87) 99 10/28/18 00:00 76 10/27/18 23:57 75 32 137/76 (96) 100 10/27/18 23:00 82 27 138/73 (94) 99 10/27/18 22:41 80 142/94 10/27/18 22:00 79 27 142/94 (110) 99 10/27/18 21:00 78 28 129/66 (87) 100 10/27/18 20:00 98.0 78 28 136/68 (90) 100 10/27/18 20:00 100 Nasal Cannula 2.0 28 10/27/18 20:00 77 10/27/18 20:00 Nasal Cannula 2.0 28 10/27/18 20:00 Nasal Cannula 3.0 Nasal Cannula 3.0 10/27/18 20:00 82 20 100 Nasal Cannula 2.0 28 10/27/18 19:50 80 18 98 Nasal Cannula 2.0 28 10/27/18 19:00 84 28 161/84 (109) 100 10/27/18 18:30 78 28 138/74 (95) 100 10/27/18 18:00 67 25 119/62 (81) 100 Height (Feet): 6 Weight (Pounds): 139 General Appearance: no acute distress, cachetic HEENT: normocephalic, atraumatic, anicteric, PERRL, supple, no JVD Respiratory/Chest: chest wall non-tender, no respiratory distress, no accessory muscle use, decreased breath sounds, crackles/rales Cardiovascular: normal peripheral pulses, normal rate, regularly irregular, no gallop/murmur, no JVD Abdomen: normal bowel sounds, soft, non tender, no organomegaly, non distended , no mass, no scars Extremities: no cyanosis, no clubbing Skin: no rash, no lesions Neurologic/Psychiatric: alert, unresponsiveness Lymphatic: no neck adenopathy, no groin adenopathy Musculoskeletal: normal muscle bulk, no effusion Laboratory Tests Test 10/28/18 04:25 White Blood Count 9.4 K/UL (4.8-10.8) Red Blood Count 3.17 M/UL (4.70-6.10) L Hemoglobin 9.3 G/DL (14.2-18.0) L Hematocrit 27.9 % (42.0-52.0) L Mean Corpuscular Volume 88 FL (80-99) Mean Corpuscular Hemoglobin 29.3 PG (27.0-31.0) Mean Corpuscular Hemoglobin Concent 33.3 G/DL (32.0-36.0) Red Cell Distribution Width 13.0 % (11.6-14.8) Platelet Count 274 K/UL (150-450) Mean Platelet Volume 6.5 FL (6.5-10.1) Neutrophils (%) (Auto) 79.6 % (45.0-75.0) H Lymphocytes (%) (Auto) 7.7 % (20.0-45.0) L Monocytes (%) (Auto) 10.9 % (1.0-10.0) H Eosinophils (%) (Auto) 1.1 % (0.0-3.0) Basophils (%) (Auto) 0.6 % (0.0-2.0) Prothrombin Time 11.0 SEC (9.30-11.50) Prothromb Time International Ratio 1.0 (0.9-1.1) Sodium Level 136 MMOL/L (136-145) Potassium Level 3.8 MMOL/L (3.5-5.1) Chloride Level 102 MMOL/L (98-107) Carbon Dioxide Level 32 MMOL/L (21-32) Anion Gap 2 mmol/L (5-15) L Blood Urea Nitrogen 10 mg/dL (7-18) Creatinine 0.8 MG/DL (0.55-1.30) Estimat Glomerular Filtration Rate mL/min (>60) Glucose Level 105 MG/DL (74-106) Calcium Level 9.2 MG/DL (8.5-10.1) Total Bilirubin 0.3 MG/DL (0.2-1.0) Aspartate Amino Transf (AST/SGOT) 34 U/L (15-37) Alanine Aminotransferase (ALT/SGPT) 31 U/L (12-78) Alkaline Phosphatase 130 U/L (46-116) H Total Protein 6.3 G/DL (6.4-8.2) L Albumin 1.7 G/DL (3.4-5.0) L Globulin 4.6 g/dL Albumin/Globulin Ratio 0.4 (1.0-2.7) L Current Medications Medications (Trade) Dose Ordered Sig/Sofia Route PRN Reason Start Time Stop Time Status Last Admin Dose Admin Amiodarone HCl (Cordarone) 200 mg BID ORAL 10/28/18 18:00 11/22/18 20:59 Diltiazem HCl (Cardizem) 60 mg EVERY 8 HOURS ORAL 10/28/18 22:00 11/26/18 17:59 Ipratropium [place] (Atrovent) 500 mcg Q4H PRN HHN Shortness of Breath 10/27/18 14:00 11/01/18 13:59 Ipratropium [place] (Atrovent) 500 mcg TIDRT HHN 10/27/18 19:00 11/01/18 18:59 10/28/18 07:17 Levetiracetam (Keppra) 500 mg Q12HR GT 10/26/18 21:00 11/22/18 20:59 10/28/18 08:37 Pantoprazole (Protonix) 40 mg DAILY ORAL 10/27/18 09:00 11/23/18 08:59 10/28/18 08:37 Piperacillin Sod/ Tazobactam Sod 3.375 gm/Dextrose 110 ml @ 27.5 mls/hr EVERY 8 HOURS IVPB 10/26/18 22:00 10/31/18 21:59 10/28/18 15:42 Vancomycin HCl (Vanco rx to dose) 1 ea DAILY PRN MISC Per rx protocol 10/27/18 09:00 11/22/18 17:29 Vancomycin HCl/ Dextrose 275 ml @ 183.333 mls/hr Q12HR@0800,2000 IVPB 10/26/18 20:00 10/30/18 19:59 10/28/18 08:37 Susanna Morrell M.D. Oct 28, 2018 17:50
--- NOTE | 2018-10-28 17:59 | General Progress Note ---
Assessment/Plan Assessment/Plan S: not verbal O: appears comfortable, Not following commands. lethargic PHYSICAL EXAMINATION: GENERAL: An elderly male, lying in bed, altered, unresponsive, and not in acute distress. HEENT: Normocephalic and atraumatic. Pupils not reactive to light. Well pale sclera. Unable to assess oral mucosa. NECK: Seems supple. No lymphadenopathy. CARDIOVASCULAR: Regular rate and rhythm. No murmur. LUNGS: He had diminished breathing sounds at the bases with crackles. ABDOMEN: Soft, nontender, and nondistended. PEG tube in place EXTREMITY: No edema or cyanosis. GENITOURINARY: He has normal genitalia. Torres catheter in place. SKIN: Right upper buttock pressure wound. No rash. No hives. Meds: reviewed and reconciled including Aztreonam ASSESSMENT: 1. Sepsis. 2. Healthcare-associated pneumonia. 3. Diffuse Metastatic cancer: source : unknown 4. Abnormal troponin.likely troponin leak 4. Anemia. 5. Dementia/encephalopathy. 6. Code Status - Full Code. 7. GI and DVT prophylaxis. 8. Hemoptysis PLAN OF CARE: Risks of any aggressive Diagnostic procedure ( including Trach) surpasses its benefits. Will continue current sepsis treatment Will Defer oncology workup to out patient start PO ccb, will wean off Cardizem gtt Needs diagnostic Thoracentesis. no capacity to provide consent. I attest this test is medically necessary in guiding his care and justify to proceed for this test. Subjective Allergies: Coded Allergies: No Known Allergies (Unverified , 10/22/18) Objective Last 24 Hour Vital Signs Date Time Temp Pulse Resp B/P (MAP) Pulse Ox O2 Delivery O2 Flow Rate FiO2 10/28/18 15:00 88 24 98/52 (67) 96 10/28/18 14:00 81 26 107/65 (79) 100 10/28/18 13:40 88 27 137/82 (100) 96 10/28/18 13:19 Nasal Cannula 10/28/18 13:18 Nasal Cannula 10/28/18 12:00 Nasal Cannula 4.0 Nasal Cannula 4.0 10/28/18 12:00 97.8 82 25 149/77 (101) 93 10/28/18 12:00 70 10/28/18 11:00 75 28 103/56 (72) 97 10/28/18 10:00 82 32 143/72 (95) 91 10/28/18 09:00 74 25 111/61 (78) 100 10/28/18 08:57 69 10/28/18 08:00 Nasal Cannula 4.0 Nasal Cannula 4.0 10/28/18 08:00 97.2 69 23 99/66 (77) 99 10/28/18 07:25 82 20 95 Nasal Cannula 4.0 36 10/28/18 07:15 Nasal Cannula 2.0 28 10/28/18 07:15 100 Nasal Cannula 2.0 28 10/28/18 07:15 76 31 98 10/28/18 07:15 65 20 100 Nasal Cannula 2.0 28 10/28/18 07:00 69 26 103/60 (74) 100 10/28/18 06:07 74 127/71 10/28/18 06:00 76 27 121/71 (88) 100 10/28/18 05:30 97.5 82 28 148/83 (104) 98 10/28/18 05:00 72 25 115/68 (84) 100 10/28/18 04:00 Nasal Cannula 3.0 Nasal Cannula 3.0 10/28/18 04:00 78 10/28/18 04:00 98.0 80 31 139/70 (93) 94 10/28/18 03:30 68 23 126/65 (85) 99 10/28/18 03:00 64 23 115/66 (82) 100 10/28/18 02:30 76 30 136/72 (93) 97 10/28/18 02:00 63 23 113/62 (79) 100 10/28/18 01:00 80 26 135/71 (92) 100 10/28/18 00:30 69 26 112/57 (75) 100 10/28/18 00:00 Nasal Cannula 3.0 Nasal Cannula 3.0 10/28/18 00:00 97.8 74 33 129/66 (87) 99 10/28/18 00:00 76 10/27/18 23:57 75 32 137/76 (96) 100 10/27/18 23:00 82 27 138/73 (94) 99 10/27/18 22:41 80 142/94 10/27/18 22:00 79 27 142/94 (110) 99 10/27/18 21:00 78 28 129/66 (87) 100 10/27/18 20:00 98.0 78 28 136/68 (90) 100 10/27/18 20:00 100 Nasal Cannula 2.0 28 10/27/18 20:00 77 10/27/18 20:00 Nasal Cannula 2.0 28 10/27/18 20:00 Nasal Cannula 3.0 Nasal Cannula 3.0 10/27/18 20:00 82 20 100 Nasal Cannula 2.0 28 10/27/18 19:50 80 18 98 Nasal Cannula 2.0 28 10/27/18 19:00 84 28 161/84 (109) 100 10/27/18 18:30 78 28 138/74 (95) 100 10/27/18 18:00 67 25 119/62 (81) 100 Intake and Output 10/27/18 10/28/18 18:59 06:59 Intake Total 2200.0 ml 1910.00 ml Output Total 750 ml 520 ml Balance 1450.0 ml 1390.00 ml Intake Oral 0 ml Free Water 150 ml 150 ml IV Total 1425.0 ml 1080.00 ml Tube Feeding 605 ml 660 ml Other 20 ml 20 ml Output Urine Total 750 ml 520 ml Laboratory Tests 10/28/18 04:25: White Blood Count 9.4, Red Blood Count 3.17L, Hemoglobin 9.3L, Hematocrit 27.9L , Mean Corpuscular Volume 88, Mean Corpuscular Hemoglobin 29.3, Mean Corpuscular Hemoglobin Concent 33.3, Red Cell Distribution Width 13.0, Platelet Count 274, Mean Platelet Volume 6.5, Neutrophils (%) (Auto) 79.6H, Lymphocytes ( %) (Auto) 7.7L, Monocytes (%) (Auto) 10.9H, Eosinophils (%) (Auto) 1.1, Basophils (%) (Auto) 0.6, Prothrombin Time 11.0, Prothromb Time International Ratio 1.0, Sodium Level 136, Potassium Level 3.8, Chloride Level 102, Carbon Dioxide Level 32, Anion Gap 2L, Blood Urea Nitrogen 10, Creatinine 0.8, Estimat Glomerular Filtration Rate , Glucose Level 105, Calcium Level 9.2, Total Bilirubin 0.3, Aspartate Amino Transf (AST/SGOT) 34, Alanine Aminotransferase ( ALT/SGPT) 31, Alkaline Phosphatase 130H, Total Protein 6.3L, Albumin 1.7L, Globulin 4.6, Albumin/Globulin Ratio 0.4L Height (Feet): 6 Weight (Pounds): 139 Hayde Duran MD Oct 28, 2018 17:59
[2018-10-28] MEDS ORDERED: Amiodarone 200mg tab ORAL SCH (18:00)
[2018-10-28] MEDS ORDERED: dilTIAZem HCl 60mg tab ORAL SCH (22:00)
--- NOTE | 2018-10-28 23:23 | Consultation ---
History of Present Illness General Chief Complaint: Onset of AMS following seizure Referring physician: Hayde Duran MD Reason for Consultation: Acute Ischemic Stroke for Cons. Mgmt. Present Illness HPI HISTORY OF PRESENT ILLNESS: The patient is a 73-year-old gentleman with history of hypertension and paroxysmal atrial fibrillation, who was brought in from intermediate for "tonic-clonic seizure." The patient has no prior history of seizures and Accu-Chek was normal in the field. The patient was brought to the emergency room with a blood pressure of 172/95 with a heart of 72. The patient was admitted and Cardiology consultation was obtained for further evaluation. Initial CT Brain was performed at [facility] and was negative for evidence of acute/ subacute infarct on 10/22/17. Patient noted to have atrial fibrillation with RVR, and was started on IV Cardizem. Rhythm converted to normal sinus and transferred out of ICU on . Brain MRI performed on 10/28/18 demonstrating acute new left frontoparietal infarct along with several old infarcts bilaterally and extensive encephalomalacia. Neurology consulted for conservative management. Allergies: Coded Allergies: No Known Allergies (Unverified , 10/22/18) Medication History Scheduled Amiodarone Hcl* (Amiodarone Hcl*), 200 MG ORAL EVERY 12 HOURS, (Reported) Divalproex Sodium* (Depakote*), 125 MG PO DAILY, (Reported) Metformin Hcl* (Metformin Hcl*), 500 MG ORAL TID, (Reported) Metoprolol Succinate* (Metoprolol Succinate*), 25 MG ORAL BID, (Reported) Patient History Limited by: other - Non verbal patient, not following commands. History Provided By: Medical Record Healthcare decision maker none Resuscitation status Full Code Advanced Directive on File No Past Medical/Surgical History Past Medical/Surgical History: (1) Seizure (2) Diabetes mellitus (3) Atrial fibrillation with rapid ventricular response (4) CVA (cerebral vascular accident) Review of Systems ROS Narrative Unable to obtain as patient is non-verbal/ unable to follow commands. Physical Exam General Appearance: lethargic, thin Lines, tubes and drains: peripheral HEENT: normocephalic, atraumatic, mucous membranes moist, supple, no JVD Neck: normal alignment, supple, normal inspection Respiratory/Chest: lungs clear Cardiovascular/Chest: normal peripheral pulses, normal rate, regular rhythm Abdomen: non tender, soft Extremities: trace edema Skin Exam: warm/dry, other - Dry with concern for toe nails on feet - they are growing over top of toe Neurologic: responsive - Only opening eyes to noxious stimuli (pain) , motor weakness - UE contracture bilaterally with sensory deficit. RLE Triple flexion. LLE localizing to pain. , disoriented - Not verbal, not following commands. Musculoskeletal: other - Upper Extremity contracture bilaterally without response or grimace to painful stimuli. Last 24 Hour Vital Signs Date Time Temp Pulse Resp B/P (MAP) Pulse Ox O2 Delivery O2 Flow Rate FiO2 10/28/18 23:00 81 28 114/66 (82) 98 10/28/18 22:08 87 114/61 10/28/18 22:00 91 34 114/61 (78) 96 10/28/18 21:00 81 24 117/70 (86) 100 10/28/18 20:25 80 21 100 Nasal Cannula 2.0 28 10/28/18 20:15 100 Nasal Cannula 2.0 28 10/28/18 20:15 81 21 100 Nasal Cannula 2.0 28 10/28/18 20:15 Nasal Cannula 2.0 28 10/28/18 20:00 97.9 83 29 111/64 (80) 100 10/28/18 20:00 76 10/28/18 20:00 Nasal Cannula 4.0 Nasal Cannula 4.0 10/28/18 19:00 85 31 132/67 (88) 99 10/28/18 18:00 81 28 117/61 (79) 99 10/28/18 17:00 78 25 104/63 (77) 100 10/28/18 16:00 97.2 72 22 119/60 (79) 100 10/28/18 16:00 Nasal Cannula 4.0 Nasal Cannula 4.0 10/28/18 16:00 85 10/28/18 15:00 88 24 98/52 (67) 96 10/28/18 14:00 81 26 107/65 (79) 100 10/28/18 13:40 88 27 137/82 (100) 96 10/28/18 13:19 Nasal Cannula 10/28/18 13:18 Nasal Cannula 10/28/18 12:00 Nasal Cannula 4.0 Nasal Cannula 4.0 10/28/18 12:00 97.8 82 25 149/77 (101) 93 10/28/18 12:00 70 10/28/18 11:00 75 28 103/56 (72) 97 10/28/18 10:00 82 32 143/72 (95) 91 10/28/18 09:00 74 25 111/61 (78) 100 10/28/18 08:57 69 10/28/18 08:00 Nasal Cannula 4.0 Nasal Cannula 4.0 10/28/18 08:00 97.2 69 23 99/66 (77) 99 10/28/18 07:25 82 20 95 Nasal Cannula 4.0 36 10/28/18 07:15 Nasal Cannula 2.0 28 10/28/18 07:15 100 Nasal Cannula 2.0 28 10/28/18 07:15 76 31 98 10/28/18 07:15 65 20 100 Nasal Cannula 2.0 28 10/28/18 07:00 69 26 103/60 (74) 100 10/28/18 06:07 74 127/71 10/28/18 06:00 76 27 121/71 (88) 100 10/28/18 05:30 97.5 82 28 148/83 (104) 98 10/28/18 05:00 72 25 115/68 (84) 100 10/28/18 04:00 Nasal Cannula 3.0 Nasal Cannula 3.0 10/28/18 04:00 78 10/28/18 04:00 98.0 80 31 139/70 (93) 94 10/28/18 03:30 68 23 126/65 (85) 99 10/28/18 03:00 64 23 115/66 (82) 100 10/28/18 02:30 76 30 136/72 (93) 97 10/28/18 02:00 63 23 113/62 (79) 100 10/28/18 01:00 80 26 135/71 (92) 100 10/28/18 00:30 69 26 112/57 (75) 100 10/28/18 00:00 Nasal Cannula 3.0 Nasal Cannula 3.0 10/28/18 00:00 97.8 74 33 129/66 (87) 99 10/28/18 00:00 76 10/27/18 23:57 75 32 137/76 (96) 100 Intake and Output 3/14/19 3/15/19 18:59 06:59 Intake Total 2200.0 ml 1970.00 ml Output Total 750 ml 575 ml Balance 1450.0 ml 1395.00 ml Intake Oral 0 ml Free Water 150 ml 150 ml IV Total 1425.0 ml 1080.00 ml Tube Feeding 605 ml 720 ml Other 20 ml 20 ml Output Urine Total 750 ml 575 ml # Bowel Movements 1 Laboratory Tests Test 10/28/18 04:25 White Blood Count 9.4 K/UL (4.8-10.8) Red Blood Count 3.17 M/UL (4.70-6.10) L Hemoglobin 9.3 G/DL (14.2-18.0) L Hematocrit 27.9 % (42.0-52.0) L Mean Corpuscular Volume 88 FL (80-99) Mean Corpuscular Hemoglobin 29.3 PG (27.0-31.0) Mean Corpuscular Hemoglobin Concent 33.3 G/DL (32.0-36.0) Red Cell Distribution Width 13.0 % (11.6-14.8) Platelet Count 274 K/UL (150-450) Mean Platelet Volume 6.5 FL (6.5-10.1) Neutrophils (%) (Auto) 79.6 % (45.0-75.0) H Lymphocytes (%) (Auto) 7.7 % (20.0-45.0) L Monocytes (%) (Auto) 10.9 % (1.0-10.0) H Eosinophils (%) (Auto) 1.1 % (0.0-3.0) Basophils (%) (Auto) 0.6 % (0.0-2.0) Prothrombin Time 11.0 SEC (9.30-11.50) Prothromb Time International Ratio 1.0 (0.9-1.1) Sodium Level 136 MMOL/L (136-145) Potassium Level 3.8 MMOL/L (3.5-5.1) Chloride Level 102 MMOL/L (98-107) Carbon Dioxide Level 32 MMOL/L (21-32) Anion Gap 2 mmol/L (5-15) L Blood Urea Nitrogen 10 mg/dL (7-18) Creatinine 0.8 MG/DL (0.55-1.30) Estimat Glomerular Filtration Rate mL/min (>60) Glucose Level 105 MG/DL (74-106) Calcium Level 9.2 MG/DL (8.5-10.1) Total Bilirubin 0.3 MG/DL (0.2-1.0) Aspartate Amino Transf (AST/SGOT) 34 U/L (15-37) Alanine Aminotransferase (ALT/SGPT) 31 U/L (12-78) Alkaline Phosphatase 130 U/L (46-116) H Total Protein 6.3 G/DL (6.4-8.2) L Albumin 1.7 G/DL (3.4-5.0) L Globulin 4.6 g/dL Albumin/Globulin Ratio 0.4 (1.0-2.7) L Height (Feet): 6 Weight (Pounds): 139 Medications Current Medications Medications (Trade) Dose Ordered Sig/Sofia Route PRN Reason Start Time Stop Time Status Last Admin Dose Admin Amiodarone HCl (Cordarone) 200 mg BID ORAL 10/28/18 18:00 11/22/18 20:59 10/28/18 18:13 Diltiazem HCl (Cardizem) 60 mg EVERY 8 HOURS ORAL 10/28/18 22:00 11/26/18 17:59 10/28/18 22:08 Ipratropium [place] (Atrovent) 500 mcg Q4H PRN HHN Shortness of Breath 10/27/18 14:00 11/01/18 13:59 Ipratropium [place] (Atrovent) 500 mcg TIDRT HHN 10/27/18 19:00 11/01/18 18:59 10/28/18 20:15 Levetiracetam (Keppra) 500 mg Q12HR GT 10/26/18 21:00 11/22/18 20:59 10/28/18 20:53 Pantoprazole (Protonix) 40 mg DAILY ORAL 10/27/18 09:00 11/23/18 08:59 10/28/18 08:37 Piperacillin Sod/ Tazobactam Sod 3.375 gm/Dextrose 110 ml @ 27.5 mls/hr EVERY 8 HOURS IVPB 10/26/18 22:00 10/31/18 21:59 10/28/18 22:07 Vancomycin HCl (Vanco rx to dose) 1 ea DAILY PRN MISC Per rx protocol 10/27/18 09:00 11/22/18 17:29 Vancomycin HCl/ Dextrose 275 ml @ 183.333 mls/hr Q12HR@0800,2000 IVPB 10/26/18 20:00 10/30/18 19:59 10/28/18 20:53 Assessment/Plan Problem List: (1) Seizure ICD Codes: R56.9 - Unspecified convulsions SNOMED: 73003430 (2) Bilateral pneumonia ICD Codes: J18.9 - Pneumonia, unspecified organism SNOMED: 409011929 Qualifiers: Qualified Codes: J18.9 - Pneumonia, unspecified organism (3) Altered mental status ICD Codes: R41.82 - Altered mental status, unspecified SNOMED: 152311360 Qualifiers: Qualified Codes: R41.82 - Altered mental status, unspecified (4) CVA (cerebral vascular accident) ICD Codes: I63.9 - Cerebral infarction, unspecified SNOMED: 712330047 Qualifiers: Status: not improved Status Narrative Procedure: MRI Brain no Contrast Indication: Altered mental status and seizures Technique: sagittal T1 fast spin echo, axial T1 FLAIR, axial T2 FLAIR, axial T2 * GRE, axial diffusion weighted images. ADC and exponential ADC maps generated. Axial T2-weighted images were not obtained, as patient unable to tolerate further imaging Comparison: Head CT dated 10/22/2018 Findings: There is an area of diffusion restriction in the left inferolateral frontal lobe, mostly within the cortex. No associated hemorrhage No other foci of restricted diffusion demonstrated. No acute hemorrhage or edema demonstrated elsewhere. No mass effect nor midline shift. There is marked age-related enlargement of the ventricles and extra axial CSF spaces. There is extensive periventricular deep white matter high T2 signal. Encephalomalacia is seen in the right occipital lobe and in the left posterior parietal lobe. Somewhat unusual bilateral symmetrical lacunar infarcts are seen within the donald. Visualized orbits and sinuses are unremarkable. Impression: Very limited exam, as described Diffusion restriction in the left inferolateral frontal lobe, consistent with nonhemorrhagic acute cortical infarct. Extensive chronic and age-related changes, as described Multiple old infarcts as described Assessment/Plan Conservative management for Acute CVA: Check Lipid Panel Check HgBA1c Check TSH Bilateral Carotid U/S to rule out stenosis/ plaque. Discuss commencing ASA 81mg for anticoagulation if team agrees. PT/OT Eval Orthotic/ Brace fitting for hand contracture Continue Keppra 500mg BID- consider increasing to 750 mg BID if suspicion of ongoing seizure activty as evidenced by increasing drowsiness or focal neuro signs. Sherine Guy N.P. Oct 28, 2018 23:23
[2018-10-29] VITALS: BP 119/58
[2018-10-29] MEDS ORDERED: Ipratropium 0.02% Inh Soln 2.5ml UD HHN PRN (02:00)
[2018-10-29 04:00] VITALS: BP 130/72
[2018-10-29] MEDS: Piperacillin/Tazobactam 3.375 GM in D5W 110 ML IVPB SCH ×3 (05:10→21:28)
[2018-10-29] MEDS: dilTIAZem HCl 60mg tab ORAL SCH ×3 (05:10→21:29)
[2018-10-29] MEDS: Ipratropium 0.02% Inh Soln 2.5ml UD HHN SCH ×3 (06:57→18:54)
[2018-10-29 07:32] LABS: BASOPHILS % (AUTO) 0.4 % (0.0-2.0); EOSINOPHILS % (AUTO) 0.9 % (0.0-3.0); HEMATOCRIT 29.4 % (42.0-52.0); HEMOGLOBIN 9.4 G/DL (14.2-18.0); LYMPHOCYTES % (AUTO) 9.9 % (20.0-45.0); MEAN CORPUSCULAR VOLUME 90 FL (80-99); MONOCYTES % (AUTO) 5.6 % (1.0-10.0); NEUTROPHILS % (AUTO) 83.3 % (45.0-75.0); PLATELET COUNT 401 K/UL (150-450); RED BLOOD COUNT 3.28 M/UL (4.70-6.10); RED CELL DISTRIBUTION WIDTH 13.2 % (11.6-14.8); WHITE BLOOD COUNT 9.9 K/UL (4.8-10.8)
[2018-10-29 07:49] LABS: ALANINE AMINOTRANSFERASE 33 U/L (12-78); ALBUMIN 1.8 G/DL (3.4-5.0); ALBUMIN/GLOBULIN RATIO 0.4 (1.0-2.7); ALKALINE PHOSPHATASE 139 U/L (46-116); ANION GAP 4 mmol/L (5-15); ASPARTATE AMINO TRANSFERASE 27 U/L (15-37); BILIRUBIN,TOTAL 0.2 MG/DL (0.2-1.0); BLOOD UREA NITROGEN 14 mg/dL (7-18); CALCIUM 9.5 MG/DL (8.5-10.1); CARBON DIOXIDE 35 MMOL/L (21-32); CHLORIDE 101 MMOL/L (98-107); POTASSIUM 3.7 MMOL/L (3.5-5.1); SODIUM 140 MMOL/L (136-145)
[2018-10-29 08:00] VITALS: BP 128/81
[2018-10-29 08:02] LABS: CHOLESTEROL 159 MG/DL (< 200); HDL CHOLESTEROL 55 MG/DL (40-60); TRIGLYCERIDES 76 MG/DL (30-150)
--- NOTE | 2018-10-29 09:00 | General Progress Note ---
Assessment/Plan Assessment/Plan S: not verbal O: appears comfortable, Not following commands. PHYSICAL EXAMINATION: GENERAL: An elderly male, lying in bed, altered, unresponsive, and not in acute distress. HEENT: Normocephalic and atraumatic. Pupils not reactive to light. Well pale sclera. Unable to assess oral mucosa. NECK: Seems supple. No lymphadenopathy. CARDIOVASCULAR: Regular rate and rhythm. No murmur. LUNGS: He had diminished breathing sounds at the bases with crackles. ABDOMEN: Soft, nontender, and nondistended. PEG tube in place EXTREMITY: No edema or cyanosis. GENITOURINARY: He has normal genitalia. Torres catheter in place. SKIN: Right upper buttock pressure wound. No rash. No hives.Neuro: limited exam Meds: reviewed and reconciled including Aztreonam ASSESSMENT: 1. Sepsis. 2. Acute CVA 3. Sz D/o 2. Healthcare-associated pneumonia. 3. Diffuse Metastatic cancer: source : unknown 4. Abnormal troponin.likely troponin leak 4. Anemia. 5. Dementia/encephalopathy. 6. Code Status - Full Code. 7. GI and DVT prophylaxis. 8. Hemoptysis PLAN OF CARE: Risks of any aggressive Diagnostic procedure ( including Trach) surpasses its benefits. Will continue current sepsis treatment Will Defer oncology workup to out patient start PO ccb, will wean off Cardizem gtt Needs diagnostic Thoracentesis. no capacity to provide consent. I attest this test is medically necessary in guiding his care and justify to proceed for this test. Conservative management. Subjective Allergies: Coded Allergies: No Known Allergies (Unverified , 10/22/18) Objective Last 24 Hour Vital Signs Date Time Temp Pulse Resp B/P (MAP) Pulse Ox O2 Delivery O2 Flow Rate FiO2 10/29/18 07:05 Nasal Cannula 2.0 28 10/29/18 07:05 88 21 100 Nasal Cannula 2.0 28 10/29/18 07:05 96 Nasal Cannula 2.0 28 10/29/18 06:57 87 20 96 Nasal Cannula 2.0 28 10/29/18 06:57 87 20 Nasal Cannula 2.0 28 10/29/18 05:10 85 134/79 10/29/18 04:00 79 10/29/18 04:00 Nasal Cannula 4.0 Nasal Cannula 4.0 10/29/18 04:00 97.7 85 30 130/72 (91) 96 10/29/18 00:00 81 10/29/18 00:00 Nasal Cannula 4.0 Nasal Cannula 4.0 10/29/18 00:00 97.9 82 26 119/58 (78) 98 10/28/18 23:00 81 28 114/66 (82) 98 10/28/18 22:08 87 114/61 10/28/18 22:00 91 34 114/61 (78) 96 10/28/18 21:00 81 24 117/70 (86) 100 10/28/18 20:25 80 21 100 Nasal Cannula 2.0 28 10/28/18 20:15 100 Nasal Cannula 2.0 28 10/28/18 20:15 81 21 100 Nasal Cannula 2.0 28 10/28/18 20:15 Nasal Cannula 2.0 28 10/28/18 20:00 97.9 83 29 111/64 (80) 100 10/28/18 20:00 76 10/28/18 20:00 Nasal Cannula 4.0 Nasal Cannula 4.0 10/28/18 19:00 85 31 132/67 (88) 99 10/28/18 18:00 81 28 117/61 (79) 99 10/28/18 17:00 78 25 104/63 (77) 100 10/28/18 16:00 97.2 72 22 119/60 (79) 100 10/28/18 16:00 Nasal Cannula 4.0 Nasal Cannula 4.0 10/28/18 16:00 85 10/28/18 15:00 88 24 98/52 (67) 96 10/28/18 14:00 81 26 107/65 (79) 100 10/28/18 13:40 88 27 137/82 (100) 96 10/28/18 13:19 Nasal Cannula 10/28/18 13:18 Nasal Cannula 10/28/18 12:00 Nasal Cannula 4.0 Nasal Cannula 4.0 10/28/18 12:00 97.8 82 25 149/77 (101) 93 10/28/18 12:00 70 10/28/18 11:00 75 28 103/56 (72) 97 10/28/18 10:00 82 32 143/72 (95) 91 10/28/18 09:00 74 25 111/61 (78) 100 Intake and Output 10/28/18 10/29/18 19:00 07:00 Intake Total 1297.833 ml 1485.000 ml Output Total 1160 ml 725 ml Balance 137.833 ml 760.000 ml Free Water 40 ml 435 ml IV Total 677.833 ml 330.000 ml Tube Feeding 540 ml 660 ml Other 40 ml 60 ml Output Urine Total 1160 ml 725 ml Laboratory Tests 10/29/18 05:18: White Blood Count 9.9, Red Blood Count 3.28L, Hemoglobin 9.4L, Hematocrit 29.4L , Mean Corpuscular Volume 90, Mean Corpuscular Hemoglobin 28.7, Mean Corpuscular Hemoglobin Concent 32.0, Red Cell Distribution Width 13.2, Platelet Count 401, Mean Platelet Volume 6.3L, Neutrophils (%) (Auto) 83.3H, Lymphocytes (%) (Auto) 9.9L, Monocytes (%) (Auto) 5.6, Eosinophils (%) (Auto) 0.9, Basophils (%) (Auto) 0.4, Sodium Level 140, Potassium Level 3.7, Chloride Level 101, Carbon Dioxide Level 35H, Anion Gap 4L, Blood Urea Nitrogen 14, Creatinine 1.0, Estimat Glomerular Filtration Rate , Glucose Level 112H, Hemoglobin A1c 6.4H, Calcium Level 9.5, Total Bilirubin 0.2, Aspartate Amino Transf (AST/SGOT) 27, Alanine Aminotransferase (ALT/SGPT) 33, Alkaline Phosphatase 139H, Total Protein 6.6, Albumin 1.8L, Globulin 4.8, Albumin/Globulin Ratio 0.4L, Triglycerides Level 76, Cholesterol Level 159, LDL Cholesterol 80, HDL Cholesterol 55, Cholesterol/HDL Ratio 2.9L, Thyroid Stimulating Hormone (TSH) 2.932 Height (Feet): 6 Weight (Pounds): 139 Hayde Duran MD Oct 29, 2018 09:00
[2018-10-29] MEDS: Amiodarone 200mg tab ORAL SCH ×2 (09:17→17:21)
[2018-10-29] MEDS: Vancomycin 1.25gm Premix 275 ML IVPB SCH ×2 (09:18→19:43)
[2018-10-29] MEDS: levETIRAcetam 500mg/5ml Liquid GT SCH ×2 (09:18→21:29)
--- NOTE | 2018-10-29 11:30 | Surgery Progress Note ---
Surgery Progress Note Subjective Additional Comments downgraded and comfortable. no acute events. labs noted. stable/improving Objective Last 24 Hour Vital Signs Date Time Temp Pulse Resp B/P (MAP) Pulse Ox O2 Delivery O2 Flow Rate FiO2 10/29/18 08:00 98.4 88 30 128/81 (97) 92 10/29/18 08:00 88 10/29/18 07:05 Nasal Cannula 2.0 28 10/29/18 07:05 88 21 100 Nasal Cannula 2.0 28 10/29/18 07:05 96 Nasal Cannula 2.0 28 10/29/18 06:57 87 20 96 Nasal Cannula 2.0 28 10/29/18 06:57 87 20 Nasal Cannula 2.0 28 10/29/18 05:10 85 134/79 10/29/18 04:00 79 10/29/18 04:00 Nasal Cannula 4.0 Nasal Cannula 4.0 10/29/18 04:00 97.7 85 30 130/72 (91) 96 10/29/18 00:00 81 10/29/18 00:00 Nasal Cannula 4.0 Nasal Cannula 4.0 10/29/18 00:00 97.9 82 26 119/58 (78) 98 10/28/18 23:00 81 28 114/66 (82) 98 10/28/18 22:08 87 114/61 10/28/18 22:00 91 34 114/61 (78) 96 10/28/18 21:00 81 24 117/70 (86) 100 10/28/18 20:25 80 21 100 Nasal Cannula 2.0 28 10/28/18 20:15 100 Nasal Cannula 2.0 28 10/28/18 20:15 81 21 100 Nasal Cannula 2.0 28 10/28/18 20:15 Nasal Cannula 2.0 28 10/28/18 20:00 97.9 83 29 111/64 (80) 100 10/28/18 20:00 76 10/28/18 20:00 Nasal Cannula 4.0 Nasal Cannula 4.0 10/28/18 19:00 85 31 132/67 (88) 99 10/28/18 18:00 81 28 117/61 (79) 99 10/28/18 17:00 78 25 104/63 (77) 100 10/28/18 16:00 97.2 72 22 119/60 (79) 100 10/28/18 16:00 Nasal Cannula 4.0 Nasal Cannula 4.0 10/28/18 16:00 85 10/28/18 15:00 88 24 98/52 (67) 96 10/28/18 14:00 81 26 107/65 (79) 100 10/28/18 13:40 88 27 137/82 (100) 96 10/28/18 13:19 Nasal Cannula 10/28/18 13:18 Nasal Cannula 10/28/18 12:00 Nasal Cannula 4.0 Nasal Cannula 4.0 10/28/18 12:00 97.8 82 25 149/77 (101) 93 10/28/18 12:00 70 I&O Intake and Output 10/28/18 10/29/18 19:00 07:00 Intake Total 1297.833 ml 1485.000 ml Output Total 1160 ml 725 ml Balance 137.833 ml 760.000 ml Free Water 40 ml 435 ml IV Total 677.833 ml 330.000 ml Tube Feeding 540 ml 660 ml Other 40 ml 60 ml Output Urine Total 1160 ml 725 ml Dressing: other Wound: other Drains: other Cardiovascular: RSR Respiratory: clear Abdomen: soft, present bowel sounds, non-distended Extremities: other Laboratory Tests Test 10/29/18 05:18 White Blood Count 9.9 K/UL (4.8-10.8) Red Blood Count 3.28 M/UL (4.70-6.10) L Hemoglobin 9.4 G/DL (14.2-18.0) L Hematocrit 29.4 % (42.0-52.0) L Mean Corpuscular Volume 90 FL (80-99) Mean Corpuscular Hemoglobin 28.7 PG (27.0-31.0) Mean Corpuscular Hemoglobin Concent 32.0 G/DL (32.0-36.0) Red Cell Distribution Width 13.2 % (11.6-14.8) Platelet Count 401 K/UL (150-450) Mean Platelet Volume 6.3 FL (6.5-10.1) L Neutrophils (%) (Auto) 83.3 % (45.0-75.0) H Lymphocytes (%) (Auto) 9.9 % (20.0-45.0) L Monocytes (%) (Auto) 5.6 % (1.0-10.0) Eosinophils (%) (Auto) 0.9 % (0.0-3.0) Basophils (%) (Auto) 0.4 % (0.0-2.0) Sodium Level 140 MMOL/L (136-145) Potassium Level 3.7 MMOL/L (3.5-5.1) Chloride Level 101 MMOL/L (98-107) Carbon Dioxide Level 35 MMOL/L (21-32) H Anion Gap 4 mmol/L (5-15) L Blood Urea Nitrogen 14 mg/dL (7-18) Creatinine 1.0 MG/DL (0.55-1.30) Estimat Glomerular Filtration Rate mL/min (>60) Glucose Level 112 MG/DL (74-106) H Hemoglobin A1c 6.4 % (4.3-6.0) H Calcium Level 9.5 MG/DL (8.5-10.1) Total Bilirubin 0.2 MG/DL (0.2-1.0) Aspartate Amino Transf (AST/SGOT) 27 U/L (15-37) Alanine Aminotransferase (ALT/SGPT) 33 U/L (12-78) Alkaline Phosphatase 139 U/L (46-116) H Total Protein 6.6 G/DL (6.4-8.2) Albumin 1.8 G/DL (3.4-5.0) L Globulin 4.8 g/dL Albumin/Globulin Ratio 0.4 (1.0-2.7) L Triglycerides Level 76 MG/DL (30-150) Cholesterol Level 159 MG/DL (< 200) LDL Cholesterol 80 mg/dL (<100) HDL Cholesterol 55 MG/DL (40-60) Cholesterol/HDL Ratio 2.9 (3.3-4.4) L Thyroid Stimulating Hormone (TSH) 2.932 uiU/mL (0.358-3.740) Plan Problems: (1) Sacral decubitus ulcer Assessment & Plan: Patient presented on admission with full thickness Stage III sacral pressure injury. 100% yellow slough at base of wound, Edges flat and dry(L)1.1cm x (W)1.9cm. Periwound without erythema or induration. No odor noted. Non-viable tissue removed using curette by myself at bedside. Base of wound is more viable with trace slough. R heel /R achilles boggy with non-blanchable erythema. Pt moans when site is minimally palpated. L heel boggy with non-blanchable erythema. Pt did not exhibit any distress when L heel palpated. Dry brown discoloration without induration or fluctuance noted to brandon/dorsal R foot. Dry brown discoloration without fluctuance or induration noted to R lateral malleolus. Tx.Plan: Cleanse Sacral wound with Saline.Apply Therahoney. Apply Cavilon Skin Barrier periwound. Cover with Optifoam drsg Daily and prn. Apply Cavilon Skin Barrier to R lateral malleolus.Cover with Optifoam drsg.Change every 7 days and prn. Apply Cavilon Skin Barrier to both heels and R achilles. Cover with Optifoam drsg.Change Q7days and prn. APM/CHARU mattress. Reposition at least every 2hours or as tolerated. Off-load heels with pillow. (2) Seizure (3) Lung mass Assessment & Plan: CT chest w/ Evidence of disseminated neoplasm, with multiple osteolytic lesions as described, mediastinal adenopathy, and possible bilateral adrenal masses Complete atelectasis and consolidation of the left lower lobe. Complete occlusion of the proximal lobar bronchi on the left. Given the above findings, the possibility of pulmonary neoplasm with resultant endobronchial occlusion should be considered Extensive atelectasis and consolidation of the left upper lobe. This may represent acute pneumonia, but honeycomb appearance of much of this suggests a significant chronic component There are areas of confluent scarring versus consolidation versus mass as well Suspected loculated pleural effusion on the left. Note that this has enlarged rapidly over the past few days based on recent chest radiographs. There is also a small amount of what is probably increased pleural fluid on the left as well. Multiple focal parenchymal abnormalities on the right. These probably represent areas of acute infiltrate, but the appearance of some of these suggests that they could be neoplastic Ectatic main and right pulmonary artery, suggestive of but not diagnostic for pulmonary arterial hypertension Mild diffuse edema of the subcutaneous and mediastinal fat Minimal pericardial thickening and/or fluid Incidental finding 12 mm left renal cyst Right pleural effusion, also described on recent chest CT report. Trace ascites Cholelithiasis. Negative for dilated bile ducts No sonographic findings to suggest hepatic metastases Increased echogenicity of the left kidney, may indicate chronic medical renadisease. Negative for hydronephrosis. Equivocal left perinephric fluid, of uncertaisignificance of real Incidental finding of small left renal cyst Note nonvisualization of the pancreas extensive disease process noted on CT chest. primary unknown at this time. need to see if any prior records CT/Bone scan noted with lesions Pending MRI will need biopsy for cytology via radiology Labs noted RX reviewed currently stable will monitor Agree with PCP that thora medically necessary and needed for care and management of patient Chato Mullen Oct 29, 2018 11:30
[2018-10-29 12:00] VITALS: BP 143/80
--- NOTE | 2018-10-29 15:29 | Cardiac Electrophysiology PN ---
Assessment/Plan Assessment/Plan 1. Paroxysmal atrial fibrillation with RVR. Currently in sinus rhythm. On Cardizem 60 q 8 hr and amiodarone 200 mg bid Off anticoagulation for metastatic CA 2. Troponin leak due to atrial fib with RVR 3. Bilateral pneumonia. On vancomycin and aztreonam per Dr. Morrell. 4. Diabetes. 5. Dysphagia, status post PEG placement. 6. Left Lung CA. Had 300 cc Right Thoracentesis. Had Bone scan 7. Seizures and altered mental status. The patient is on Keppra 500 mg b.i.d. MRI brain new acute cortical infarcts DW RN Subjective Subjective Transferred to [facility]. Converted and remained in [facility] Objective Last 24 Hour Vital Signs Date Time Temp Pulse Resp B/P (MAP) Pulse Ox O2 Delivery O2 Flow Rate FiO2 10/29/18 14:09 89 21 100 Nasal Cannula 2.0 28 10/29/18 13:57 84 20 97 Nasal Cannula 2.0 28 10/29/18 13:33 98 10/29/18 13:33 96 131/78 10/29/18 12:00 98.4 99 31 143/80 (101) 97 10/29/18 09:00 Nasal Cannula 4.0 Nasal Cannula 4.0 10/29/18 08:00 98.4 88 30 128/81 (97) 92 10/29/18 08:00 88 10/29/18 08:00 Nasal Cannula 4.0 Nasal Cannula 4.0 10/29/18 07:05 Nasal Cannula 2.0 28 10/29/18 07:05 88 21 100 Nasal Cannula 2.0 28 10/29/18 07:05 96 Nasal Cannula 2.0 28 10/29/18 06:57 87 20 96 Nasal Cannula 2.0 28 10/29/18 06:57 87 20 Nasal Cannula 2.0 28 10/29/18 05:10 85 134/79 10/29/18 04:00 79 10/29/18 04:00 Nasal Cannula 4.0 Nasal Cannula 4.0 10/29/18 04:00 97.7 85 30 130/72 (91) 96 10/29/18 00:00 81 10/29/18 00:00 Nasal Cannula 4.0 Nasal Cannula 4.0 10/29/18 00:00 97.9 82 26 119/58 (78) 98 10/28/18 23:00 81 28 114/66 (82) 98 10/28/18 22:08 87 114/61 10/28/18 22:00 91 34 114/61 (78) 96 10/28/18 21:00 81 24 117/70 (86) 100 10/28/18 20:25 80 21 100 Nasal Cannula 2.0 28 10/28/18 20:15 100 Nasal Cannula 2.0 28 10/28/18 20:15 81 21 100 Nasal Cannula 2.0 28 10/28/18 20:15 Nasal Cannula 2.0 28 10/28/18 20:00 97.9 83 29 111/64 (80) 100 10/28/18 20:00 76 10/28/18 20:00 Nasal Cannula 4.0 Nasal Cannula 4.0 10/28/18 19:00 85 31 132/67 (88) 99 10/28/18 18:00 81 28 117/61 (79) 99 10/28/18 17:00 78 25 104/63 (77) 100 10/28/18 16:00 97.2 72 22 119/60 (79) 100 10/28/18 16:00 Nasal Cannula 4.0 Nasal Cannula 4.0 10/28/18 16:00 85 Intake and Output 10/28/18 10/29/18 19:00 07:00 Intake Total 1297.833 ml 1485.000 ml Output Total 1160 ml 725 ml Balance 137.833 ml 760.000 ml Free Water 40 ml 435 ml IV Total 677.833 ml 330.000 ml Tube Feeding 540 ml 660 ml Other 40 ml 60 ml Output Urine Total 1160 ml 725 ml Laboratory Tests Test 10/29/18 05:18 White Blood Count 9.9 K/UL (4.8-10.8) Red Blood Count 3.28 M/UL (4.70-6.10) L Hemoglobin 9.4 G/DL (14.2-18.0) L Hematocrit 29.4 % (42.0-52.0) L Mean Corpuscular Volume 90 FL (80-99) Mean Corpuscular Hemoglobin 28.7 PG (27.0-31.0) Mean Corpuscular Hemoglobin Concent 32.0 G/DL (32.0-36.0) Red Cell Distribution Width 13.2 % (11.6-14.8) Platelet Count 401 K/UL (150-450) Mean Platelet Volume 6.3 FL (6.5-10.1) L Neutrophils (%) (Auto) 83.3 % (45.0-75.0) H Lymphocytes (%) (Auto) 9.9 % (20.0-45.0) L Monocytes (%) (Auto) 5.6 % (1.0-10.0) Eosinophils (%) (Auto) 0.9 % (0.0-3.0) Basophils (%) (Auto) 0.4 % (0.0-2.0) Sodium Level 140 MMOL/L (136-145) Potassium Level 3.7 MMOL/L (3.5-5.1) Chloride Level 101 MMOL/L (98-107) Carbon Dioxide Level 35 MMOL/L (21-32) H Anion Gap 4 mmol/L (5-15) L Blood Urea Nitrogen 14 mg/dL (7-18) Creatinine 1.0 MG/DL (0.55-1.30) Estimat Glomerular Filtration Rate mL/min (>60) Glucose Level 112 MG/DL (74-106) H Hemoglobin A1c 6.4 % (4.3-6.0) H Calcium Level 9.5 MG/DL (8.5-10.1) Total Bilirubin 0.2 MG/DL (0.2-1.0) Aspartate Amino Transf (AST/SGOT) 27 U/L (15-37) Alanine Aminotransferase (ALT/SGPT) 33 U/L (12-78) Alkaline Phosphatase 139 U/L (46-116) H Total Protein 6.6 G/DL (6.4-8.2) Albumin 1.8 G/DL (3.4-5.0) L Globulin 4.8 g/dL Albumin/Globulin Ratio 0.4 (1.0-2.7) L Triglycerides Level 76 MG/DL (30-150) Cholesterol Level 159 MG/DL (< 200) LDL Cholesterol 80 mg/dL (<100) HDL Cholesterol 55 MG/DL (40-60) Cholesterol/HDL Ratio 2.9 (3.3-4.4) L Thyroid Stimulating Hormone (TSH) 2.932 uiU/mL (0.358-3.740) Microbiology Date/Time Source Procedure Growth Status 10/28/18 14:51 Body Fluid Gram Stain - Final Resulted 10/28/18 14:51 Body Fluid Body Fluid Culture - Preliminary NO GROWTH Resulted Objective HEAD AND NECK: No JVD. LUNGS: Clear.Decreased breath sounds on left CARDIOVASCULAR: Regular S1 and S2 with no gallop. ABDOMEN: Soft and status post PEG. EXTREMITIES: No pitting edema and are contracted. Saurabh Arredondo MD Oct 29, 2018 15:29
[2018-10-29] MEDS ORDERED: D5NS 1000ml IV ONE (15:51)
[2018-10-29] MEDS ORDERED: Tubing IV Secondary IV ONE (15:51)
[2018-10-29] MEDS ORDERED: NS 275ml ONE (15:51)
[2018-10-29 16:00] VITALS: BP 139/82
--- NOTE | 2018-10-29 16:47 | Infectious Diseases Prog Note ---
Assessment/Plan Problems: (1) Bilateral pneumonia Assessment & Plan: suspect aspiration and post obstruction pneumonia , due to altered mental status , continue vancomycin and zosyn empirically . CT chest confirmed lung mass with mets to the bones, and effusion . aspiration precaution, keep HOB > 30 DEGREE . keep NPO for now (2) Seizure Assessment & Plan: monitor in tele, seizure precaution . consult neurology (3) Diabetes mellitus Assessment & Plan: recommend tight glycemic control to keep blood glucose between 10-140 (4) Altered mental status Assessment & Plan: due to the above, continue hydration and antibiotics, neuro check , monitor in tele, avoid sedatives (5) Lung mass Assessment & Plan: with total collapse of the left lung and mediastinal shift , and bone lytic lesions, suspect lung cancer with mets , poor prognosis, needs bronch for tissue diagnosis and oncology eval (6) CVA (cerebral vascular accident) Assessment & Plan: with acute presentation, recommend neurology eval Subjective ROS Limited/Unobtainable: Yes Allergies: Coded Allergies: No Known Allergies (Unverified , 10/22/18) Subjective he was transferred out of ICU , awake but still unresponsive, uncooperative with exam , no fever, no hemoptysis , no SOB, no diarrhea as per nurse Objective Vital Signs Last 24 Hour Vital Signs Date Time Temp Pulse Resp B/P (MAP) Pulse Ox O2 Delivery O2 Flow Rate FiO2 10/29/18 16:00 98.5 97 34 139/82 (101) 94 10/29/18 16:00 90 10/29/18 14:09 89 21 100 Nasal Cannula 2.0 28 10/29/18 13:57 84 20 97 Nasal Cannula 2.0 28 10/29/18 13:33 98 10/29/18 13:33 96 131/78 10/29/18 12:00 98.4 99 31 143/80 (101) 97 10/29/18 09:00 Nasal Cannula 4.0 Nasal Cannula 4.0 10/29/18 08:00 98.4 88 30 128/81 (97) 92 10/29/18 08:00 88 10/29/18 08:00 Nasal Cannula 4.0 Nasal Cannula 4.0 10/29/18 07:05 Nasal Cannula 2.0 28 10/29/18 07:05 88 21 100 Nasal Cannula 2.0 28 10/29/18 07:05 96 Nasal Cannula 2.0 28 10/29/18 06:57 87 20 96 Nasal Cannula 2.0 28 10/29/18 06:57 87 20 Nasal Cannula 2.0 28 10/29/18 05:10 85 134/79 10/29/18 04:00 79 10/29/18 04:00 Nasal Cannula 4.0 Nasal Cannula 4.0 10/29/18 04:00 97.7 85 30 130/72 (91) 96 10/29/18 00:00 81 10/29/18 00:00 Nasal Cannula 4.0 Nasal Cannula 4.0 10/29/18 00:00 97.9 82 26 119/58 (78) 98 10/28/18 23:00 81 28 114/66 (82) 98 10/28/18 22:08 87 114/61 10/28/18 22:00 91 34 114/61 (78) 96 10/28/18 21:00 81 24 117/70 (86) 100 10/28/18 20:25 80 21 100 Nasal Cannula 2.0 28 10/28/18 20:15 100 Nasal Cannula 2.0 28 10/28/18 20:15 81 21 100 Nasal Cannula 2.0 28 10/28/18 20:15 Nasal Cannula 2.0 28 10/28/18 20:00 97.9 83 29 111/64 (80) 100 10/28/18 20:00 76 10/28/18 20:00 Nasal Cannula 4.0 Nasal Cannula 4.0 10/28/18 19:00 85 31 132/67 (88) 99 10/28/18 18:00 81 28 117/61 (79) 99 10/28/18 17:00 78 25 104/63 (77) 100 Height (Feet): 6 Weight (Pounds): 139 General Appearance: no acute distress, cachetic HEENT: normocephalic, atraumatic, anicteric, mucous membranes moist Respiratory/Chest: chest wall non-tender, no respiratory distress, no accessory muscle use, decreased breath sounds, crackles/rales Cardiovascular: normal peripheral pulses, normal rate, regular rhythm, no gallop/murmur, no JVD Abdomen: normal bowel sounds, soft, non tender, no organomegaly, non distended , no mass, no scars Genitourinary: normal external genitalia Extremities: no cyanosis, no clubbing Skin: no rash, no lesions, ulcers Neurologic/Psychiatric: alert, unresponsiveness Lymphatic: no neck adenopathy, no groin adenopathy Musculoskeletal: normal muscle bulk, no effusion Microbiology Date/Time Source Procedure Growth Status 10/28/18 14:51 Body Fluid Gram Stain - Final Resulted 10/28/18 14:51 Body Fluid Body Fluid Culture - Preliminary NO GROWTH Resulted Laboratory Tests Test 10/29/18 05:18 White Blood Count 9.9 K/UL (4.8-10.8) Red Blood Count 3.28 M/UL (4.70-6.10) L Hemoglobin 9.4 G/DL (14.2-18.0) L Hematocrit 29.4 % (42.0-52.0) L Mean Corpuscular Volume 90 FL (80-99) Mean Corpuscular Hemoglobin 28.7 PG (27.0-31.0) Mean Corpuscular Hemoglobin Concent 32.0 G/DL (32.0-36.0) Red Cell Distribution Width 13.2 % (11.6-14.8) Platelet Count 401 K/UL (150-450) Mean Platelet Volume 6.3 FL (6.5-10.1) L Neutrophils (%) (Auto) 83.3 % (45.0-75.0) H Lymphocytes (%) (Auto) 9.9 % (20.0-45.0) L Monocytes (%) (Auto) 5.6 % (1.0-10.0) Eosinophils (%) (Auto) 0.9 % (0.0-3.0) Basophils (%) (Auto) 0.4 % (0.0-2.0) Sodium Level 140 MMOL/L (136-145) Potassium Level 3.7 MMOL/L (3.5-5.1) Chloride Level 101 MMOL/L (98-107) Carbon Dioxide Level 35 MMOL/L (21-32) H Anion Gap 4 mmol/L (5-15) L Blood Urea Nitrogen 14 mg/dL (7-18) Creatinine 1.0 MG/DL (0.55-1.30) Estimat Glomerular Filtration Rate mL/min (>60) Glucose Level 112 MG/DL (74-106) H Hemoglobin A1c 6.4 % (4.3-6.0) H Calcium Level 9.5 MG/DL (8.5-10.1) Total Bilirubin 0.2 MG/DL (0.2-1.0) Aspartate Amino Transf (AST/SGOT) 27 U/L (15-37) Alanine Aminotransferase (ALT/SGPT) 33 U/L (12-78) Alkaline Phosphatase 139 U/L (46-116) H Total Protein 6.6 G/DL (6.4-8.2) Albumin 1.8 G/DL (3.4-5.0) L Globulin 4.8 g/dL Albumin/Globulin Ratio 0.4 (1.0-2.7) L Triglycerides Level 76 MG/DL (30-150) Cholesterol Level 159 MG/DL (< 200) LDL Cholesterol 80 mg/dL (<100) HDL Cholesterol 55 MG/DL (40-60) Cholesterol/HDL Ratio 2.9 (3.3-4.4) L Thyroid Stimulating Hormone (TSH) 2.932 uiU/mL (0.358-3.740) Current Medications Medications (Trade) Dose Ordered Sig/Sofia Route PRN Reason Start Time Stop Time Status Last Admin Dose Admin Amiodarone HCl (Cordarone) 200 mg BID ORAL 10/29/18 09:00 11/22/18 20:59 10/29/18 09:17 Diltiazem HCl (Cardizem) 60 mg EVERY 8 HOURS ORAL 10/29/18 06:00 11/26/18 17:59 10/29/18 13:33 Ipratropium [place] (Atrovent) 500 mcg Q4H PRN N Shortness of Breath 10/29/18 02:00 11/01/18 13:59 Ipratropium [place] (Atrovent) 500 mcg TIDRT HHN 10/29/18 07:00 11/01/18 18:59 10/29/18 13:57 Levetiracetam (Keppra) 500 mg Q12HR GT 10/29/18 09:00 11/22/18 20:59 10/29/18 09:18 Pantoprazole (Protonix) 40 mg DAILY ORAL 10/29/18 09:00 11/23/18 08:59 10/29/18 09:17 Piperacillin Sod/ Tazobactam Sod 3.375 gm/Dextrose 110 ml @ 27.5 mls/hr EVERY 8 HOURS IVPB 10/29/18 06:00 11/03/18 05:59 10/29/18 13:34 Vancomycin HCl (Vanco rx to dose) 1 ea DAILY PRN MISC Per rx protocol 10/29/18 09:00 11/22/18 17:29 Vancomycin HCl/ Dextrose 275 ml @ 183.333 mls/hr Q12HR@0800,2000 IVPB 10/29/18 08:00 11/03/18 07:59 10/29/18 09:18 Susanna Morrell M.D. Oct 29, 2018 16:47
--- NOTE | 2018-10-29 17:51 | Pulmonology Progress Note ---
Assessment/Plan Assessment/Plan Assessment/Plan: CT chest reviewed - extensive R consolidations, mass like opacities, possible endobronchial lesions and osteolytic lesions concerning for met dz + loculated effusion Brain MRI with acute and chronic CVA Bone scan inc uptake L scapula and L 9th rib CT AP: L psoas lesion, abscess vs hematoma + L RP nodular lesions + omental LN + L iliac osteolytic lesions ---> Needs to determine overall GOC further before working up lung mass. Patient will likely needs VATS/bronch vs biopsy of one of the distal bone lesions. Consent is an issue at this time. PLAN F/U pleural fluid studies, including cytology Optimize pulmonary hygiene/mobilize as tolerated PRN O2 Atrovent only HHN's Abx (Zosyn/Vanco) per ID Consider neuro eval Monitor MS NPO, TF's D/C IVF FC Ethics eval pending Subjective ROS Limited/Unobtainable: Yes Allergies: Coded Allergies: No Known Allergies (Unverified , 10/22/18) Subjective obtunded on o2 toelrating tf nonverbal not getting oob no events noted overnight Objective Last 24 Hour Vital Signs Date Time Temp Pulse Resp B/P (MAP) Pulse Ox O2 Delivery O2 Flow Rate FiO2 10/29/18 16:00 98.5 97 34 139/82 (101) 94 10/29/18 16:00 90 10/29/18 14:09 89 21 100 Nasal Cannula 2.0 28 10/29/18 13:57 84 20 97 Nasal Cannula 2.0 28 10/29/18 13:33 98 10/29/18 13:33 96 131/78 10/29/18 12:00 98.4 99 31 143/80 (101) 97 10/29/18 09:00 Nasal Cannula 4.0 Nasal Cannula 4.0 10/29/18 08:00 98.4 88 30 128/81 (97) 92 10/29/18 08:00 88 10/29/18 08:00 Nasal Cannula 4.0 Nasal Cannula 4.0 10/29/18 07:05 Nasal Cannula 2.0 28 10/29/18 07:05 88 21 100 Nasal Cannula 2.0 28 10/29/18 07:05 96 Nasal Cannula 2.0 28 10/29/18 06:57 87 20 96 Nasal Cannula 2.0 28 10/29/18 06:57 87 20 Nasal Cannula 2.0 28 10/29/18 05:10 85 134/79 10/29/18 04:00 79 10/29/18 04:00 Nasal Cannula 4.0 Nasal Cannula 4.0 10/29/18 04:00 97.7 85 30 130/72 (91) 96 10/29/18 00:00 81 10/29/18 00:00 Nasal Cannula 4.0 Nasal Cannula 4.0 10/29/18 00:00 97.9 82 26 119/58 (78) 98 10/28/18 23:00 81 28 114/66 (82) 98 10/28/18 22:08 87 114/61 10/28/18 22:00 91 34 114/61 (78) 96 10/28/18 21:00 81 24 117/70 (86) 100 10/28/18 20:25 80 21 100 Nasal Cannula 2.0 28 10/28/18 20:15 100 Nasal Cannula 2.0 28 10/28/18 20:15 81 21 100 Nasal Cannula 2.0 28 10/28/18 20:15 Nasal Cannula 2.0 28 10/28/18 20:00 97.9 83 29 111/64 (80) 100 10/28/18 20:00 76 10/28/18 20:00 Nasal Cannula 4.0 Nasal Cannula 4.0 10/28/18 19:00 85 31 132/67 (88) 99 10/28/18 18:00 81 28 117/61 (79) 99 Intake and Output 10/28/18 10/29/18 19:00 07:00 Intake Total 1297.833 ml 1512.500 ml Output Total 1160 ml 725 ml Balance 137.833 ml 787.500 ml Free Water 40 ml 435 ml IV Total 677.833 ml 357.500 ml Tube Feeding 540 ml 660 ml Other 40 ml 60 ml Output Urine Total 1160 ml 725 ml General Appearance: cachetic HEENT: atraumatic, anicteric Respiratory/Chest: rhonchi Cardiovascular: normal rate, regularly irregular Abdomen: soft, non tender, no organomegaly Extremities: no cyanosis Neurologic/Psychiatric: disoriented, unresponsiveness Microbiology Date/Time Source Procedure Growth Status 10/28/18 14:51 Body Fluid Gram Stain - Final Resulted 10/28/18 14:51 Body Fluid Body Fluid Culture - Preliminary NO GROWTH Resulted Laboratory Tests 10/29/18 05:18: White Blood Count 9.9, Red Blood Count 3.28L, Hemoglobin 9.4L, Hematocrit 29.4L , Mean Corpuscular Volume 90, Mean Corpuscular Hemoglobin 28.7, Mean Corpuscular Hemoglobin Concent 32.0, Red Cell Distribution Width 13.2, Platelet Count 401, Mean Platelet Volume 6.3L, Neutrophils (%) (Auto) 83.3H, Lymphocytes (%) (Auto) 9.9L, Monocytes (%) (Auto) 5.6, Eosinophils (%) (Auto) 0.9, Basophils (%) (Auto) 0.4, Sodium Level 140, Potassium Level 3.7, Chloride Level 101, Carbon Dioxide Level 35H, Anion Gap 4L, Blood Urea Nitrogen 14, Creatinine 1.0, Estimat Glomerular Filtration Rate , Glucose Level 112H, Hemoglobin A1c 6.4H, Calcium Level 9.5, Total Bilirubin 0.2, Aspartate Amino Transf (AST/SGOT) 27, Alanine Aminotransferase (ALT/SGPT) 33, Alkaline Phosphatase 139H, Total Protein 6.6, Albumin 1.8L, Globulin 4.8, Albumin/Globulin Ratio 0.4L, Triglycerides Level 76, Cholesterol Level 159, LDL Cholesterol 80, HDL Cholesterol 55, Cholesterol/HDL Ratio 2.9L, Thyroid Stimulating Hormone (TSH) 2.932 Current Medications Medications (Trade) Dose Ordered Sig/Sofia Route PRN Reason Start Time Stop Time Status Last Admin Dose Admin Amiodarone HCl (Cordarone) 200 mg BID ORAL 10/29/18 09:00 11/22/18 20:59 10/29/18 17:21 Diltiazem HCl (Cardizem) 60 mg EVERY 8 HOURS ORAL 10/29/18 06:00 11/26/18 17:59 10/29/18 13:33 Ipratropium [place] (Atrovent) 500 mcg Q4H PRN HHN Shortness of Breath 10/29/18 02:00 11/01/18 13:59 Ipratropium [place] (Atrovent) 500 mcg TIDRT HHN 10/29/18 07:00 11/01/18 18:59 10/29/18 13:57 Levetiracetam (Keppra) 500 mg Q12HR GT 10/29/18 09:00 11/22/18 20:59 10/29/18 09:18 Pantoprazole (Protonix) 40 mg DAILY ORAL 10/29/18 09:00 11/23/18 08:59 10/29/18 09:17 Piperacillin Sod/ Tazobactam Sod 3.375 gm/Dextrose 110 ml @ 27.5 mls/hr EVERY 8 HOURS IVPB 10/29/18 06:00 11/03/18 05:59 10/29/18 13:34 Vancomycin HCl (Vanco rx to dose) 1 ea DAILY PRN MISC Per rx protocol 10/29/18 09:00 11/22/18 17:29 Vancomycin HCl/ Dextrose 275 ml @ 183.333 mls/hr Q12HR@0800,2000 IVPB 10/29/18 08:00 11/03/18 07:59 10/29/18 09:18 June Monterroso 16, 2019 17:51
[2018-10-29 20:00] VITALS: BP_SYST 133; BP_SYST 139; BP_DIAS 74; BP_DIAS 82
[2018-10-30] VITALS: BP 155/86
--- NOTE | 2018-10-30 00:20 | Neurology Progress Note ---
Interim History Interim History ROS Limited/Unobtainable: Yes Complaints: Acute Ischemic Stroke Events: THIS VISIT WAS PERFORMED ON OCTOBER 29 and FILED after midnight on 10/30 Interim History No overnight events or changes in neurological status . Objective Physical Exam Last Vital Signs Date Time Temp Pulse Resp B/P (MAP) Pulse Ox O2 Delivery O2 Flow Rate FiO2 10/29/18 21:29 94 133/74 10/29/18 20:00 98.3 24 94 10/29/18 20:00 Nasal Cannula 2.0 Nasal Cannula 2.0 10/29/18 19:08 28 Laboratory Tests Test 10/29/18 05:18 White Blood Count 9.9 K/UL (4.8-10.8) Red Blood Count 3.28 M/UL (4.70-6.10) L Hemoglobin 9.4 G/DL (14.2-18.0) L Hematocrit 29.4 % (42.0-52.0) L Mean Corpuscular Volume 90 FL (80-99) Mean Corpuscular Hemoglobin 28.7 PG (27.0-31.0) Mean Corpuscular Hemoglobin Concent 32.0 G/DL (32.0-36.0) Red Cell Distribution Width 13.2 % (11.6-14.8) Platelet Count 401 K/UL (150-450) Mean Platelet Volume 6.3 FL (6.5-10.1) L Neutrophils (%) (Auto) 83.3 % (45.0-75.0) H Lymphocytes (%) (Auto) 9.9 % (20.0-45.0) L Monocytes (%) (Auto) 5.6 % (1.0-10.0) Eosinophils (%) (Auto) 0.9 % (0.0-3.0) Basophils (%) (Auto) 0.4 % (0.0-2.0) Sodium Level 140 MMOL/L (136-145) Potassium Level 3.7 MMOL/L (3.5-5.1) Chloride Level 101 MMOL/L (98-107) Carbon Dioxide Level 35 MMOL/L (21-32) H Anion Gap 4 mmol/L (5-15) L Blood Urea Nitrogen 14 mg/dL (7-18) Creatinine 1.0 MG/DL (0.55-1.30) Estimat Glomerular Filtration Rate mL/min (>60) Glucose Level 112 MG/DL (74-106) H Hemoglobin A1c 6.4 % (4.3-6.0) H Calcium Level 9.5 MG/DL (8.5-10.1) Total Bilirubin 0.2 MG/DL (0.2-1.0) Aspartate Amino Transf (AST/SGOT) 27 U/L (15-37) Alanine Aminotransferase (ALT/SGPT) 33 U/L (12-78) Alkaline Phosphatase 139 U/L (46-116) H Total Protein 6.6 G/DL (6.4-8.2) Albumin 1.8 G/DL (3.4-5.0) L Globulin 4.8 g/dL Albumin/Globulin Ratio 0.4 (1.0-2.7) L Triglycerides Level 76 MG/DL (30-150) Cholesterol Level 159 MG/DL (< 200) LDL Cholesterol 80 mg/dL (<100) HDL Cholesterol 55 MG/DL (40-60) Cholesterol/HDL Ratio 2.9 (3.3-4.4) L Thyroid Stimulating Hormone (TSH) 2.932 uiU/mL (0.358-3.740) Head: normocophalic Neck: no rigidity, other EENT: benign Neurologic Exam Mental Status: other - Unconscious but responsive to some verbal and noxious stimuli. Speech: other - non verbal Language: other Cranial Nerves III, IV, : pupils - PERRLA Motor System: other Objective Physical Exam General Appearance: lethargic, thin Lines, tubes and drains: peripheral HEENT: normocephalic, atraumatic, mucous membranes moist, supple, no JVD Neck: normal alignment, supple, normal inspection Respiratory/Chest: lungs clear Cardiovascular/Chest: normal peripheral pulses, normal rate, regular rhythm Abdomen: non tender, soft Extremities: trace edema Skin Exam: warm/dry, other - Dry with concern for toe nails on feet - they are growing over top of toe Neurologic: responsive - Only opening eyes to noxious stimuli (pain) , motor weakness - UE contracture bilaterally with sensory deficit. RLE Triple flexion. LLE localizing to pain. , disoriented - Not verbal, not following commands. Musculoskeletal: other - Upper Extremity contracture bilaterally without response or grimace to painful stimuli. Imaging General Appearance: lethargic, thin Lines, tubes and drains: peripheral HEENT: normocephalic, atraumatic, mucous membranes moist, supple, no JVD Neck: normal alignment, supple, normal inspection Respiratory/Chest: lungs clear Cardiovascular/Chest: normal peripheral pulses, normal rate, regular rhythm Abdomen: non tender, soft Extremities: trace edema Skin Exam: warm/dry, other - Dry with concern for toe nails on feet - they are growing over top of toe Neurologic: responsive - Only opening eyes to noxious stimuli (pain) , motor weakness - UE contracture bilaterally with sensory deficit. RLE Triple flexion. LLE localizing to pain. , disoriented - Not verbal, not following commands. Musculoskeletal: other - Upper Extremity contracture bilaterally without response or grimace to painful stimuli. Impression/Recommendations Problems: (1) Seizure Assessment & Plan: IV or NG Administration of AED Consider possible sources of infection causing increased ALOC LOC will require NG feeding most likely (2) Bilateral pneumonia Assessment & Plan: Antibiotic treatment as per ID (3) Altered mental status Assessment & Plan: Unknown level of baseline mentation but consider possible metabolic causes such as infection, possibly obtunding patient further. PT Eval for OOB to chair (4) CVA (cerebral vascular accident) (5) Metabolic encephalopathy Assessment & Plan: Continue querying underlying causes such as PNA/ UTI/ Malignancy. Status: not improved, unchanged Recommendations Will need NG/PEG feeding given LOC Unclear cause of current LOC, but likely increased by underlying medical cause Sherine Guy N.P. Oct 30, 2018 00:20
[2018-10-30 04:00] VITALS: BP 155/86
[2018-10-30] MEDS: dilTIAZem HCl 60mg tab ORAL SCH ×3 (05:34→21:19)
[2018-10-30] MEDS: Piperacillin/Tazobactam 3.375 GM in D5W 110 ML IVPB SCH ×3 (05:34→21:19)
[2018-10-30] MEDS: Ipratropium 0.02% Inh Soln 2.5ml UD HHN SCH ×3 (06:49→19:37)
--- NOTE | 2018-10-30 07:00 | Pulmonology Progress Note ---
Assessment/Plan Assessment/Plan Assessment/Plan: CT chest reviewed - extensive R consolidations, mass like opacities, possible endobronchial lesions and osteolytic lesions concerning for met dz + loculated effusion Brain MRI with acute and chronic CVA Bone scan inc uptake L scapula and L 9th rib CT AP: L psoas lesion, abscess vs hematoma + L RP nodular lesions + omental LN + L iliac osteolytic lesions ---> Needs to determine overall GOC further before working up lung mass. Patient will likely needs VATS/bronch vs biopsy of one of the distal bone lesions. Consent is an issue at this time. PLAN F/U pleural fluid studies, including cytology PLAN monitor respiratory status closely O2 Atrovent only HHN's Abx (Zosyn/Vanco) per ID CXR in am PRN ABG Consider neuro eval, Monitor MS NPO, TF's FC, Ethics eval pending Subjective ROS Limited/Unobtainable: Yes Allergies: Coded Allergies: No Known Allergies (Unverified , 10/22/18) Subjective obtunded on o2 tolerating tf nonverbal mild tachypnea this am not getting oob no events noted overnight Objective Last 24 Hour Vital Signs Date Time Temp Pulse Resp B/P (MAP) Pulse Ox O2 Delivery O2 Flow Rate FiO2 10/30/18 06:49 Nasal Cannula 2.0 28 10/30/18 06:49 92 Nasal Cannula 2.0 28 10/30/18 06:49 93 21 92 Nasal Cannula 2.0 28 10/30/18 05:34 104 155/86 10/30/18 04:00 98.0 104 24 155/86 (109) 95 10/30/18 04:00 Nasal Cannula 2.0 Nasal Cannula 2.0 10/30/18 03:35 104 10/30/18 00:00 98.8 92 24 155/86 (109) 95 10/30/18 00:00 Nasal Cannula 2.0 Nasal Cannula 2.0 10/29/18 23:37 85 10/29/18 21:29 94 133/74 10/29/18 20:00 98.3 94 24 133/74 (93) 94 10/29/18 20:00 Nasal Cannula 2.0 Nasal Cannula 2.0 10/29/18 19:28 90 10/29/18 19:08 84 20 96 Nasal Cannula 2.0 28 10/29/18 18:56 Nasal Cannula 2.0 28 10/29/18 18:56 94 Nasal Cannula 2.0 28 10/29/18 18:54 79 20 94 Nasal Cannula 2.0 28 10/29/18 16:00 98.5 97 34 139/82 (101) 94 10/29/18 16:00 90 10/29/18 14:09 89 21 100 Nasal Cannula 2.0 28 10/29/18 13:57 84 20 97 Nasal Cannula 2.0 28 10/29/18 13:33 98 10/29/18 13:33 96 131/78 10/29/18 12:00 98.4 99 31 143/80 (101) 97 10/29/18 09:00 Nasal Cannula 4.0 Nasal Cannula 4.0 10/29/18 08:00 98.4 88 30 128/81 (97) 92 10/29/18 08:00 88 10/29/18 08:00 Nasal Cannula 4.0 Nasal Cannula 4.0 10/29/18 07:05 Nasal Cannula 2.0 28 10/29/18 07:05 88 21 100 Nasal Cannula 2.0 28 10/29/18 07:05 96 Nasal Cannula 2.0 28 Intake and Output 10/29/18 10/30/18 19:00 07:00 Intake Total 1372.83 ml 1336.666 ml Output Total 1000 ml 1200 ml Balance 372.83 ml 136.666 ml Free Water 210 ml 200 ml IV Total 412.83 ml 476.666 ml Tube Feeding 720 ml 660 ml Other 30 ml Output Urine Total 1000 ml 1200 ml General Appearance: cachetic HEENT: normocephalic, atraumatic Respiratory/Chest: rhonchi Cardiovascular: normal rate, regular rhythm Abdomen: soft, non tender, no organomegaly Skin: no rash Neurologic/Psychiatric: disoriented Microbiology Date/Time Source Procedure Growth Status 10/28/18 14:51 Body Fluid Gram Stain - Final Resulted 10/28/18 14:51 Body Fluid Body Fluid Culture - Preliminary NO GROWTH AFTER 48 HOURS Resulted Current Medications Medications (Trade) Dose Ordered Sig/Sofia Route PRN Reason Start Time Stop Time Status Last Admin Dose Admin Amiodarone HCl (Cordarone) 200 mg BID ORAL 10/29/18 09:00 11/22/18 20:59 10/29/18 17:21 Diltiazem HCl (Cardizem) 60 mg EVERY 8 HOURS ORAL 10/29/18 06:00 11/26/18 17:59 10/30/18 05:34 Ipratropium [place] (Atrovent) 500 mcg Q4H PRN HHN Shortness of Breath 10/29/18 02:00 11/01/18 13:59 Ipratropium [place] (Atrovent) 500 mcg TIDRT HHN 10/29/18 07:00 11/01/18 18:59 10/30/18 06:49 Levetiracetam (Keppra) 500 mg Q12HR GT 10/29/18 09:00 11/22/18 20:59 10/29/18 21:29 Pantoprazole (Protonix) 40 mg DAILY ORAL 10/29/18 09:00 11/23/18 08:59 10/29/18 09:17 Piperacillin Sod/ Tazobactam Sod 3.375 gm/Dextrose 110 ml @ 27.5 mls/hr EVERY 8 HOURS IVPB 10/29/18 06:00 11/03/18 05:59 10/30/18 05:34 Vancomycin HCl (Vanco rx to dose) 1 ea DAILY PRN MISC Per rx protocol 10/29/18 09:00 11/22/18 17:29 Vancomycin HCl/ Dextrose 275 ml @ 183.333 mls/hr Q12HR@0800,2000 IVPB 10/29/18 08:00 11/03/18 07:59 10/29/18 19:43 June Monterroso DO Oct 30, 2018 07:00
[2018-10-30 07:33] LABS: BASOPHILS % (AUTO) 1.1 % (0.0-2.0); EOSINOPHILS % (AUTO) 0.4 % (0.0-3.0); HEMATOCRIT 30.1 % (42.0-52.0); LYMPHOCYTES % (AUTO) 9.1 % (20.0-45.0); MEAN CORPUSCULAR VOLUME 89 FL (80-99); MONOCYTES % (AUTO) 6.2 % (1.0-10.0); NEUTROPHILS % (AUTO) 83.2 % (45.0-75.0); PLATELET COUNT 438 K/UL (150-450); RED CELL DISTRIBUTION WIDTH 13.9 % (11.6-14.8); WHITE BLOOD COUNT 13.7 K/UL (4.8-10.8)
[2018-10-30 08:00] VITALS: BP 146/85
[2018-10-30] MEDS: Vancomycin 1.25gm Premix 275 ML IVPB SCH ×2 (08:23→19:27)
[2018-10-30] MEDS: Amiodarone 200mg tab ORAL SCH ×2 (08:24→17:46)
[2018-10-30] MEDS: levETIRAcetam 500mg/5ml Liquid GT SCH ×2 (08:24→21:19)
--- NOTE | 2018-10-30 10:46 | General Progress Note ---
Assessment/Plan Assessment/Plan S: not verbal O: appears lethargic, Not following commands. PHYSICAL EXAMINATION: GENERAL: An elderly male, lying in bed, altered, unresponsive, and not in acute distress. HEENT: Normocephalic and atraumatic. Pupils not reactive to light. Well pale sclera. Unable to assess oral mucosa. NECK: Seems supple. No lymphadenopathy. CARDIOVASCULAR: Regular rate and rhythm. No murmur. LUNGS: He had diminished breathing sounds at the bases with crackles. ABDOMEN: Soft, nontender, and nondistended. PEG tube in place EXTREMITY: No edema or cyanosis. GENITOURINARY: He has normal genitalia. Torres catheter in place. SKIN: Right upper buttock pressure wound. No rash. No hives.Neuro: limited exam, Neuro: not verbal at base line, awake, limited exam Meds: reviewed and reconciled including zosyn ASSESSMENT: 1. Sepsis. 2. Acute CVA 3. Sz D/o 2. Healthcare-associated pneumonia. 3. Diffuse Metastatic cancer: source : unknown 4. Abnormal troponin.likely troponin leak 4. Anemia. 5. Dementia/encephalopathy. 6. Code Status - Full Code. 7. GI and DVT prophylaxis. 8. Hemoptysis PLAN OF CARE: Risks of any aggressive Diagnostic procedure ( including Trach) surpasses its benefits. Will continue current sepsis treatment Will Defer oncology workup to out patient start PO ccb, will wean off Cardizem gtt Needs diagnostic Thoracentesis. no capacity to provide consent. I attest this test is medically necessary in guiding his care and justify to proceed for this test. Conservative management. Worsening wbc, will panculture today Subjective Allergies: Coded Allergies: No Known Allergies (Unverified , 10/22/18) Objective Last 24 Hour Vital Signs Date Time Temp Pulse Resp B/P (MAP) Pulse Ox O2 Delivery O2 Flow Rate FiO2 10/30/18 09:00 Nasal Cannula 2.0 Nasal Cannula 2.0 10/30/18 08:02 101 10/30/18 08:00 97.9 104 22 146/85 (105) 93 10/30/18 07:00 93 20 96 Nasal Cannula 2.0 28 10/30/18 06:49 Nasal Cannula 2.0 28 10/30/18 06:49 92 Nasal Cannula 2.0 28 10/30/18 06:49 93 21 92 Nasal Cannula 2.0 28 10/30/18 05:34 104 155/86 10/30/18 04:00 98.0 104 24 155/86 (109) 95 10/30/18 04:00 Nasal Cannula 2.0 Nasal Cannula 2.0 10/30/18 03:35 104 10/30/18 00:00 98.8 92 24 155/86 (109) 95 10/30/18 00:00 Nasal Cannula 2.0 Nasal Cannula 2.0 10/29/18 23:37 85 10/29/18 21:29 94 133/74 10/29/18 20:00 98.3 94 24 133/74 (93) 94 10/29/18 20:00 Nasal Cannula 2.0 Nasal Cannula 2.0 10/29/18 19:28 90 10/29/18 19:08 84 20 96 Nasal Cannula 2.0 28 10/29/18 18:56 Nasal Cannula 2.0 28 10/29/18 18:56 94 Nasal Cannula 2.0 28 10/29/18 18:54 79 20 94 Nasal Cannula 2.0 28 10/29/18 16:00 98.5 97 34 139/82 (101) 94 10/29/18 16:00 90 10/29/18 14:09 89 21 100 Nasal Cannula 2.0 28 10/29/18 13:57 84 20 97 Nasal Cannula 2.0 28 10/29/18 13:33 98 10/29/18 13:33 96 131/78 10/29/18 12:00 98.4 99 31 143/80 (101) 97 Intake and Output 10/29/18 10/30/18 19:00 07:00 Intake Total 1372.83 ml 1364.166 ml Output Total 1000 ml 1200 ml Balance 372.83 ml 164.166 ml Free Water 210 ml 200 ml IV Total 412.83 ml 504.166 ml Tube Feeding 720 ml 660 ml Other 30 ml Output Urine Total 1000 ml 1200 ml Laboratory Tests 10/30/18 06:24: White Blood Count 13.7H, Red Blood Count 3.40L, Hemoglobin 10.0L, Hematocrit 30.1L, Mean Corpuscular Volume 89, Mean Corpuscular Hemoglobin 29.4, Mean Corpuscular Hemoglobin Concent 33.2, Red Cell Distribution Width 13.9, Platelet Count 438, Mean Platelet Volume 6.4L, Neutrophils (%) (Auto) 83.2H, Lymphocytes (%) (Auto) 9.1L, Monocytes (%) (Auto) 6.2, Eosinophils (%) (Auto) 0.4, Basophils (%) (Auto) 1.1 Height (Feet): 6 Weight (Pounds): 139 Hayde Duran MD Oct 30, 2018 10:46
[2018-10-30 12:08] VITALS: BP 144/82
--- NOTE | 2018-10-30 14:16 | Infectious Diseases Prog Note ---
Assessment/Plan Problems: (1) Leukocytosis Assessment & Plan: rule out worsening pneumonia VS sepsis , agree on bedolla culture, continue vancomycin and zosyn for now , check CXR (2) Bilateral pneumonia Assessment & Plan: suspect aspiration and post obstruction pneumonia , due to altered mental status , continue vancomycin and to zosyn empirically , since no evidence of more seizure . CT chest confirmed lung mass with mets to the bones , and effusion . aspiration precaution, keep HOB > 30 DEGREE . keep NPO for now (3) Seizure Assessment & Plan: monitor in tele,seizure precaution . consult neurology (4) Diabetes mellitus Assessment & Plan: recommend tight glycemic control to keep blood glucose between 10-140 (5) Altered mental status Assessment & Plan: due to the above, continue hydration and antibiotics, neuro check , monitor in tele, avoid sedatives (6) Lung mass Assessment & Plan: with total collapse of the left lung and mediastinal shift , and bone lytic lesions, suspect lung cancer with mets , poor prognosis, needs bronch for tissue diagnosis and oncology eval. S/P thoracentesis by IR Subjective ROS Limited/Unobtainable: Yes Allergies: Coded Allergies: No Known Allergies (Unverified , 10/22/18) Subjective he was awake but still unresponsive, uncooperative with exam , no fever, no hemoptysis , no SOB, no cough Objective Vital Signs Last 24 Hour Vital Signs Date Time Temp Pulse Resp B/P (MAP) Pulse Ox O2 Delivery O2 Flow Rate FiO2 10/30/18 13:25 106 28 94 Nasal Cannula 3.0 32 10/30/18 13:15 102 28 92 Nasal Cannula 2.0 28 10/30/18 12:08 98.2 101 28 144/82 (102) 94 10/30/18 11:16 99 10/30/18 09:00 Nasal Cannula 2.0 Nasal Cannula 2.0 10/30/18 08:02 101 10/30/18 08:00 97.9 104 22 146/85 (105) 93 10/30/18 07:00 93 20 96 Nasal Cannula 2.0 28 10/30/18 06:49 Nasal Cannula 2.0 28 10/30/18 06:49 92 Nasal Cannula 2.0 28 10/30/18 06:49 93 21 92 Nasal Cannula 2.0 28 10/30/18 05:34 104 155/86 10/30/18 04:00 98.0 104 24 155/86 (109) 95 10/30/18 04:00 Nasal Cannula 2.0 Nasal Cannula 2.0 10/30/18 03:35 104 10/30/18 00:00 98.8 92 24 155/86 (109) 95 10/30/18 00:00 Nasal Cannula 2.0 Nasal Cannula 2.0 10/29/18 23:37 85 10/29/18 21:29 94 133/74 10/29/18 20:00 98.3 94 24 133/74 (93) 94 10/29/18 20:00 Nasal Cannula 2.0 Nasal Cannula 2.0 10/29/18 19:28 90 10/29/18 19:08 84 20 96 Nasal Cannula 2.0 28 10/29/18 18:56 Nasal Cannula 2.0 28 10/29/18 18:56 94 Nasal Cannula 2.0 28 10/29/18 18:54 79 20 94 Nasal Cannula 2.0 28 10/29/18 16:00 98.5 97 34 139/82 (101) 94 10/29/18 16:00 90 Height (Feet): 6 Weight (Pounds): 139 General Appearance: no acute distress, cachetic HEENT: normocephalic, atraumatic, anicteric, mucous membranes moist, pharynx normal, supple Respiratory/Chest: chest wall non-tender, no respiratory distress, no accessory muscle use, decreased breath sounds, crackles/rales Cardiovascular: normal peripheral pulses, normal rate, regular rhythm, no gallop/murmur, no JVD Abdomen: normal bowel sounds, soft, non tender, no organomegaly, non distended , no mass, no scars Genitourinary: normal external genitalia Extremities: no cyanosis, no clubbing Skin: no rash, no lesions, no ulcers Neurologic/Psychiatric: alert, unresponsiveness Lymphatic: no neck adenopathy, no groin adenopathy Musculoskeletal: normal muscle bulk, no effusion Microbiology Date/Time Source Procedure Growth Status 10/28/18 14:51 Body Fluid Gram Stain - Final Resulted 10/28/18 14:51 Body Fluid Body Fluid Culture - Preliminary NO GROWTH AFTER 48 HOURS Resulted Laboratory Tests Test 10/30/18 06:24 White Blood Count 13.7 K/UL (4.8-10.8) H Red Blood Count 3.40 M/UL (4.70-6.10) L Hemoglobin 10.0 G/DL (14.2-18.0) L Hematocrit 30.1 % (42.0-52.0) L Mean Corpuscular Volume 89 FL (80-99) Mean Corpuscular Hemoglobin 29.4 PG (27.0-31.0) Mean Corpuscular Hemoglobin Concent 33.2 G/DL (32.0-36.0) Red Cell Distribution Width 13.9 % (11.6-14.8) Platelet Count 438 K/UL (150-450) Mean Platelet Volume 6.4 FL (6.5-10.1) L Neutrophils (%) (Auto) 83.2 % (45.0-75.0) H Lymphocytes (%) (Auto) 9.1 % (20.0-45.0) L Monocytes (%) (Auto) 6.2 % (1.0-10.0) Eosinophils (%) (Auto) 0.4 % (0.0-3.0) Basophils (%) (Auto) 1.1 % (0.0-2.0) Current Medications Medications (Trade) Dose Ordered Sig/Sofia Route PRN Reason Start Time Stop Time Status Last Admin Dose Admin Amiodarone HCl (Cordarone) 200 mg BID ORAL 10/29/18 09:00 11/22/18 20:59 10/30/18 08:24 Diltiazem HCl (Cardizem) 60 mg EVERY 8 HOURS ORAL 10/29/18 06:00 11/26/18 17:59 10/30/18 05:34 Ipratropium [place] (Atrovent) 500 mcg Q4H PRN N Shortness of Breath 10/29/18 02:00 11/01/18 13:59 Ipratropium [place] (Atrovent) 500 mcg TIDRT HHN 10/29/18 07:00 11/01/18 18:59 10/30/18 13:15 Levetiracetam (Keppra) 500 mg Q12HR GT 10/29/18 09:00 11/22/18 20:59 10/30/18 08:24 Pantoprazole (Protonix) 40 mg DAILY ORAL 10/29/18 09:00 11/23/18 08:59 3/17/19 08:24 Piperacillin Sod/ Tazobactam Sod 3.375 gm/Dextrose 110 ml @ 27.5 mls/hr EVERY 8 HOURS IVPB 10/29/18 06:00 11/03/18 05:59 10/30/18 05:34 Vancomycin HCl (Vanco rx to dose) 1 ea DAILY PRN MISC Per rx protocol 10/29/18 09:00 11/22/18 17:29 Vancomycin HCl/ Dextrose 275 ml @ 183.333 mls/hr Q12HR@0800,2000 IVPB 10/29/18 08:00 11/03/18 07:59 10/30/18 08:23 Susanna Morrell M.D. Oct 30, 2018 14:16
[2018-10-30 15:22] LABS: APPEARANCE,URINE CLEAR; BILIRUBIN, URINE NEGATIVE (NEGATIVE); COLOR,URINE PALE YELLOW; GLUCOSE, URINE (UA) NEGATIVE (NEGATIVE); KETONES,URINE NEGATIVE (NEGATIVE); LEUKOCYTE ESTERASE ,URINE 1+ (NEGATIVE); NITRITE,URINE NEGATIVE (NEGATIVE); PH,URINE 6 (4.5-8.0); PROTEIN,URINE 1+ (NEGATIVE); UROBILINOGEN,URINE NORMAL MG/DL (0.0-1.0)
[2018-10-30 16:00] VITALS: BP 155/83
[2018-10-30] MEDS ORDERED: Tubing IV Secondary IV ONE ×2 (19:15→20:01)
[2018-10-30] MEDS ORDERED: D5NS 1000ml IV ONE (19:15)
[2018-10-30] MEDS ORDERED: NS 275ml ONE ×2 (19:15→20:01)
[2018-10-30 20:00] VITALS: BP 148/80
[2018-10-30] MEDS ORDERED: NS 500ML ONE (20:01)
[2018-10-31] VITALS: BP 155/82
[2018-10-31 04:00] VITALS: BP 151/93
[2018-10-31] MEDS: dilTIAZem HCl 60mg tab ORAL SCH (05:34)
[2018-10-31] MEDS: Piperacillin/Tazobactam 3.375 GM in D5W 110 ML IVPB SCH ×2 (05:34→13:12)
[2018-10-31] MEDS: Ipratropium 0.02% Inh Soln 2.5ml UD HHN SCH ×3 (07:26→20:12)
[2018-10-31 08:00] VITALS: BP 127/71
[2018-10-31] MEDS: Amiodarone 200mg tab ORAL SCH (08:42)
[2018-10-31] MEDS: levETIRAcetam 500mg/5ml Liquid GT SCH ×2 (08:42→21:55)
[2018-10-31] MEDS: Vancomycin 1.25gm Premix 275 ML IVPB SCH ×2 (08:43→21:50)
--- NOTE | 2018-10-31 09:01 | Neurology Progress Note ---
Interim History Interim History ROS Limited/Unobtainable: Yes Complaints: Acute Ischemic Stroke Events: THIS VISIT WAS PERFORMED ON 10/30/17 and Filed on Interim History No evidence or report of seizure activity. Additional antibiotics prescribed. Review of Systems Neuro Review of Systems No change in status as per Nursing staff. Objective Physical Exam Last Vital Signs Date Time Temp Pulse Resp B/P (MAP) Pulse Ox O2 Delivery O2 Flow Rate FiO2 10/31/18 08:00 98.1 95 29 127/71 (89) 93 10/31/18 07:33 Nasal Cannula 3.0 32 Laboratory Tests Test 10/30/18 14:45 Urine Color Pale yellow Urine Appearance Clear Urine pH 6 (4.5-8.0) Urine Specific [place] 1.005 (1.005-1.035) Urine Protein 1+ (NEGATIVE) H Urine Glucose (UA) Negative (NEGATIVE) Urine Ketones Negative (NEGATIVE) Urine Blood 4+ (NEGATIVE) H Urine Nitrite Negative (NEGATIVE) Urine Bilirubin Negative (NEGATIVE) Urine Urobilinogen Normal MG/DL (0.0-1.0) Urine Leukocyte Esterase 1+ (NEGATIVE) H Urine RBC 10-15 /HPF (0 - 0) H Urine WBC 2-4 /HPF (0 - 0) Urine Squamous Epithelial Cells None /LPF (NONE/OCC) Urine Bacteria Few /HPF (NONE) Neurologic Exam Objective Physical Exam General Appearance: lethargic, thin Lines, tubes and drains: peripheral HEENT: normocephalic, atraumatic, mucous membranes moist, supple, no JVD Neck: normal alignment, supple, normal inspection Respiratory/Chest: lungs clear Cardiovascular/Chest: normal peripheral pulses, normal rate, regular rhythm Abdomen: non tender, soft Extremities: trace edema Skin Exam: warm/dry, other - toe nails on feet - they are growing over top of toe Neurologic: responsive - Only opening eyes to noxious stimuli (pain) , motor weakness - UE contracture bilaterally with sensory deficit. RLE Triple flexion. LLE localizing to pain. , Not verbal, not following commands. Musculoskeletal: other - Upper Extremity contracture bilaterally without response or grimace to painful stimuli. Impression/Recommendations Problems: (1) Seizure Assessment & Plan: Continue current dose of Keppra (2) Bilateral pneumonia Assessment & Plan: Treat with antibiotics as per ID. (3) Altered mental status Assessment & Plan: Likely contribution by underlying process. (4) CVA (cerebral vascular accident) Assessment & Plan: Acute finding on CVA with conservative management in fhe form of secondary prevention: Lipids, Glucose, Cardiovascular risk management. (5) Metabolic encephalopathy Assessment & Plan: Continue querying underlying causes such as PNA/ UTI/ Malignancy. Status: not improved, unchanged Sherine Guy N.P. Oct 31, 2018 09:01
--- NOTE | 2018-10-31 11:42 | Diagnostic Imaging Report ---
Indication: Cough, dyspnea Technique: One view of the chest Comparison: 10/28/2018 Findings: Interim decreased aeration of the left lung, with only a sliver of aerated left lung now visible in the superomedial and inferolateral hemithorax. There is apparent increase in the size of the left upper pleural opacity. There is also shift of the mediastinum to the left again demonstrated. There is suggestion of abrupt cut off of the right mainstem bronchus. There is increased reticular interstitial opacity throughout the right lung, as well as increased patchy airspace opacities in the right perihilar region and right midlung periphery. Impression: Over 3 days, interim decreased aeration of the left lung, with only minimal residual aerated lung now visible. This appears to be due to a combination of atelectasis and increased left upper hemithorax loculated pleural effusion Abrupt cut off of the right mainstem bronchus, could indicate mucous plug Suggestion of slight worsening of interstitial and airspace opacities in the right lung Findings discussed by phone with Dr. Nunn at the time of interpretation
[2018-10-31 12:00] VITALS: BP 128/73
[2018-10-31] MEDS: dilTIAZem HCl 60mg tab GT SCH ×2 (13:11→21:54)
--- NOTE | 2018-10-31 13:40 | Cardiac Electrophysiology PN ---
Assessment/Plan Assessment/Plan 1. Paroxysmal atrial fibrillation with RVR. Currently in sinus rhythm. On Cardizem 60 q 8 hr and amiodarone 200 mg bid Off anticoagulation for metastatic CA 2. Troponin leak due to atrial fib with RVR 3. Bilateral pneumonia. On vancomycin and aztreonam per Dr. Morrell. 4. Diabetes. 5. Dysphagia, status post PEG placement. 6. Left Lung CA. Had 300 cc Right Thoracentesis. Had Bone scan 7. Seizures and altered mental status. The patient is on Keppra 500 mg b.i.d. MRI brain new acute cortical infarcts DW RN Subjective Subjective Transferred to nonmonitored bed. Objective Last 24 Hour Vital Signs Date Time Temp Pulse Resp B/P (MAP) Pulse Ox O2 Delivery O2 Flow Rate FiO2 10/31/18 13:11 92 128/73 10/31/18 13:04 Nasal Cannula 10/31/18 13:04 Nasal Cannula 10/31/18 12:00 97.7 92 30 128/73 (91) 97 10/31/18 12:00 Nasal Cannula 4.0 Nasal Cannula 4.0 10/31/18 09:00 Nasal Cannula 4.0 Nasal Cannula 4.0 10/31/18 08:00 98.1 95 29 127/71 (89) 93 10/31/18 07:40 97 10/31/18 07:33 92 22 95 Nasal Cannula 3.0 32 10/31/18 07:25 96 Nasal Cannula 3.0 32 10/31/18 07:25 90 21 96 Nasal Cannula 3.0 28 10/31/18 07:25 Nasal Cannula 3.0 32 10/31/18 05:34 92 143/86 10/31/18 04:00 Nasal Cannula 2.0 Nasal Cannula 2.0 10/31/18 04:00 98.4 94 29 151/93 (112) 94 10/31/18 03:22 96 10/31/18 00:00 98.4 89 30 155/82 (106) 93 10/31/18 00:00 Nasal Cannula 2.0 Nasal Cannula 2.0 10/30/18 23:33 86 10/30/18 21:19 92 144/80 10/30/18 21:08 94 Nasal Cannula 3.0 32 10/30/18 21:08 Nasal Cannula 3.0 32 10/30/18 21:00 Nasal Cannula 2.0 Nasal Cannula 2.0 10/30/18 20:00 98.4 95 30 148/80 (102) 92 10/30/18 19:47 98 22 94 Nasal Cannula 3.0 32 10/30/18 19:37 96 21 92 Nasal Cannula 3.0 28 10/30/18 19:27 95 10/30/18 16:00 98.9 98 24 155/83 (107) 92 10/30/18 15:20 101 10/30/18 14:13 106 144/82 Intake and Output 10/30/18 10/31/18 19:00 07:00 Intake Total 1346.666 ml 1264.166 ml Output Total 950 ml 1500 ml Balance 396.666 ml -235.834 ml Free Water 150 ml 100 ml IV Total 476.666 ml 504.166 ml Tube Feeding 720 ml 660 ml Output Urine Total 950 ml 1500 ml # Bowel Movements 1 Laboratory Tests Test 10/30/18 14:45 Urine Color Pale yellow Urine Appearance Clear Urine pH 6 (4.5-8.0) Urine Specific [place] 1.005 (1.005-1.035) Urine Protein 1+ (NEGATIVE) H Urine Glucose (UA) Negative (NEGATIVE) Urine Ketones Negative (NEGATIVE) Urine Blood 4+ (NEGATIVE) H Urine Nitrite Negative (NEGATIVE) Urine Bilirubin Negative (NEGATIVE) Urine Urobilinogen Normal MG/DL (0.0-1.0) Urine Leukocyte Esterase 1+ (NEGATIVE) H Urine RBC 10-15 /HPF (0 - 0) H Urine WBC 2-4 /HPF (0 - 0) Urine Squamous Epithelial Cells None /LPF (NONE/OCC) Urine Bacteria Few /HPF (NONE) Microbiology Date/Time Source Procedure Growth Status 10/28/18 14:51 Body Fluid Gram Stain - Final Resulted 10/28/18 14:51 Body Fluid Body Fluid Culture - Preliminary NO GROWTH AFTER 72 HOURS Resulted 10/30/18 14:45 Indwelling Cath Urine Culture - Preliminary NO GROWTH Resulted Objective HEAD AND NECK: No JVD. LUNGS: Decreased breath sounds on left CARDIOVASCULAR: Regular S1 and S2 with no gallop. ABDOMEN: Soft and status post PEG. EXTREMITIES: No pitting edema and are contracted. Saurabh Arredondo MD Oct 31, 2018 13:40
[2018-10-31] MEDS: Ipratropium 0.02% Inh Soln 2.5ml UD HHN PRN (13:54)
[2018-10-31 16:00] VITALS: BP 133/80
--- NOTE | 2018-10-31 19:12 | Neurology Progress Note ---
Interim History Interim History ROS Limited/Unobtainable: Yes Complaints: Acute Ischemic Stroke Events: Eyes opening spontaneously, moved to 4th floor Review of Systems All Systems: reviewed and negative except above Objective Physical Exam Last Vital Signs Date Time Temp Pulse Resp B/P (MAP) Pulse Ox O2 Delivery O2 Flow Rate FiO2 10/31/18 16:00 98.0 98 22 133/80 (97) 97 10/31/18 13:04 Nasal Cannula 10/31/18 12:00 4.0 4.0 10/31/18 07:33 32 Neurologic Exam Objective Physical Exam General Appearance: lethargic, thin Lines, tubes and drains: peripheral HEENT: normocephalic, atraumatic, mucous membranes moist, supple, no JVD Neck: normal alignment, supple, normal inspection Respiratory/Chest: lungs clear Cardiovascular/Chest: normal peripheral pulses, normal rate, regular rhythm Abdomen: non tender, soft Extremities: trace edema Skin Exam: warm/dry, other - Dry with concern for toe nails on feet - they are growing over top of toe Neurologic: responsive - Only opening eyes to noxious stimuli (pain) , motor weakness - UE contracture bilaterally with sensory deficit. RLE Triple flexion. LLE localizing to pain. , disoriented - Not verbal, not following commands. Musculoskeletal: other - Upper Extremity contracture bilaterally without response or grimace to painful stimuli. Imaging Procedure: MRI Brain no Contrast Indication: Altered mental status and seizures Technique: sagittal T1 fast spin echo, axial T1 FLAIR, axial T2 FLAIR, axial T2 * GRE, axial diffusion weighted images. ADC and exponential ADC maps generated. Axial T2-weighted images were not obtained, as patient unable to tolerate further imaging Comparison: Head CT dated 10/22/2018 Findings: There is an area of diffusion restriction in the left inferolateral frontal lobe, mostly within the cortex. No associated hemorrhage No other foci of restricted diffusion demonstrated. No acute hemorrhage or edema demonstrated elsewhere. No mass effect nor midline shift. There is marked age-related enlargement of the ventricles and extra axial CSF spaces. There is extensive periventricular deep white matter high T2 signal. Encephalomalacia is seen in the right occipital lobe and in the left posterior parietal lobe. Somewhat unusual bilateral symmetrical lacunar infarcts are seen within the ariadna. Visualized orbits and sinuses are unremarkable. Impression: Very limited exam, as described Diffusion restriction in the left inferolateral frontal lobe, consistent with nonhemorrhagic acute cortical infarct. Extensive chronic and age-related changes, as described Multiple old infarcts as described Impression/Recommendations Problems: (1) Seizure Assessment & Plan: Keppra 500mg BID to continue, consider decreasing to 250mg BID for improved LOC (2) Bilateral pneumonia Assessment & Plan: ABX treatment as per ID Team. (3) Altered mental status Assessment & Plan: Obtunded mental status since admission with no improvement. (4) CVA (cerebral vascular accident) Assessment & Plan: Procedure: MRI Brain no Contrast Indication: Altered mental status and seizures Technique: sagittal T1 fast spin echo, axial T1 FLAIR, axial T2 FLAIR, axial T2 * GRE, axial diffusion weighted images. ADC and exponential ADC maps generated. Axial T2-weighted images were not obtained, as patient unable to tolerate further imaging Comparison: Head CT dated 10/22/2018 Findings: There is an area of diffusion restriction in the left inferolateral frontal lobe, mostly within the cortex. No associated hemorrhage No other foci of restricted diffusion demonstrated. No acute hemorrhage or edema demonstrated elsewhere. No mass effect nor midline shift. There is marked age-related enlargement of the ventricles and extra axial CSF spaces. There is extensive periventricular deep white matter high T2 signal. Encephalomalacia is seen in the right occipital lobe and in the left posterior parietal lobe. Somewhat unusual bilateral symmetrical lacunar infarcts are seen within the ariadna. Visualized orbits and sinuses are unremarkable. Impression: Very limited exam, as described Diffusion restriction in the left inferolateral frontal lobe, consistent with nonhemorrhagic acute cortical infarct. Extensive chronic and age-related changes, as described Multiple old infarcts as described INFARCTS within the ARIADNA may be cause of decreased wakefulness and potentially affect respiratory pattern if further infarctions in this area. Status: not improved, unchanged Recommendations May be able to tolerate lower dose of Keppra but likely not going to improve wakefulness of patient given underlying bilateral strokes seen on MRI Brain on Sherine Guy N.P. Oct 31, 2018 19:12
--- NOTE | 2018-10-31 19:36 | Infectious Diseases Prog Note ---
Assessment/Plan Problems: (1) Leukocytosis Assessment & Plan: suspect due to worsening right side pneumonia and left pleural effusion , continue vancomycin and zosyn for now empiric coverage , may benefit from thoracentesis , or bronch . (2) Bilateral pneumonia Assessment & Plan: suspect aspiration and post obstruction pneumonia , due to altered mental status , continue vancomycin and to zosyn empirically , CT chest confirmed lung mass with mets to the bones, and effusion . aspiration precaution, keep HOB > 30 DEGREE . may need bronch (3) Seizure Assessment & Plan: monitor in tele,seizure precaution . consult neurology (4) Diabetes mellitus Assessment & Plan: recommend tight glycemic control to keep blood glucose between 10-140 (5) Altered mental status Assessment & Plan: due to the above, continue hydration and antibiotics, neuro check , monitor in tele, avoid sedatives (6) Lung mass Assessment & Plan: with total collapse of the left lung and mediastinal shift , and bone lytic lesions, suspect lung cancer with mets , poor prognosis, needs bronch for tissue diagnosis and oncology eval. S/P thoracentesis by IR Subjective ROS Limited/Unobtainable: Yes Allergies: Coded Allergies: No Known Allergies (Unverified , 10/22/18) Subjective he was unresponsive, open eyes spontaneously , uncooperative with exam , no fever, no hemoptysis , no SOB, no cough Objective Vital Signs Last 24 Hour Vital Signs Date Time Temp Pulse Resp B/P (MAP) Pulse Ox O2 Delivery O2 Flow Rate FiO2 10/31/18 16:00 98.0 98 22 133/80 (97) 97 10/31/18 13:11 92 128/73 10/31/18 13:04 Nasal Cannula 10/31/18 13:04 Nasal Cannula 10/31/18 12:00 97.7 92 30 128/73 (91) 97 10/31/18 12:00 Nasal Cannula 4.0 Nasal Cannula 4.0 10/31/18 11:44 93 10/31/18 09:00 Nasal Cannula 4.0 Nasal Cannula 4.0 10/31/18 08:00 98.1 95 29 127/71 (89) 93 10/31/18 07:40 97 10/31/18 07:33 92 22 95 Nasal Cannula 3.0 32 10/31/18 07:25 96 Nasal Cannula 3.0 32 10/31/18 07:25 90 21 96 Nasal Cannula 3.0 28 10/31/18 07:25 Nasal Cannula 3.0 32 10/31/18 05:34 92 143/86 10/31/18 04:00 Nasal Cannula 2.0 Nasal Cannula 2.0 10/31/18 04:00 98.4 94 29 151/93 (112) 94 10/31/18 03:22 96 10/31/18 00:00 98.4 89 30 155/82 (106) 93 10/31/18 00:00 Nasal Cannula 2.0 Nasal Cannula 2.0 10/30/18 23:33 86 10/30/18 21:19 92 144/80 10/30/18 21:08 94 Nasal Cannula 3.0 32 10/30/18 21:08 Nasal Cannula 3.0 32 10/30/18 21:00 Nasal Cannula 2.0 Nasal Cannula 2.0 10/30/18 20:00 98.4 95 30 148/80 (102) 92 10/30/18 19:47 98 22 94 Nasal Cannula 3.0 32 10/30/18 19:37 96 21 92 Nasal Cannula 3.0 28 10/30/18 19:27 95 Height (Feet): 6 Weight (Pounds): 139 General Appearance: no acute distress, cachetic HEENT: normocephalic, atraumatic, anicteric, mucous membranes moist, pharynx normal, supple, no JVD Respiratory/Chest: chest wall non-tender, no respiratory distress, no accessory muscle use, decreased breath sounds, crackles/rales Cardiovascular: normal peripheral pulses, normal rate, regular rhythm, no gallop/murmur, no JVD Abdomen: normal bowel sounds, soft, non tender, no organomegaly, non distended , no mass, no scars Genitourinary: normal external genitalia Extremities: no cyanosis, no clubbing Skin: no rash, no lesions, ulcers Neurologic/Psychiatric: alert, unresponsiveness Lymphatic: no neck adenopathy, no groin adenopathy Musculoskeletal: normal muscle bulk, no effusion Microbiology Date/Time Source Procedure Growth Status 10/30/18 14:45 [address] Cath Urine Culture - Preliminary NO GROWTH Resulted Current Medications Medications (Trade) Dose Ordered Sig/Sofia Route PRN Reason Start Time Stop Time Status Last Admin Dose Admin Amiodarone HCl (Cordarone) 200 mg Q12HR GT 10/31/18 21:00 11/30/18 20:59 Diltiazem HCl (Cardizem) 60 mg EVERY 8 HOURS GT 10/31/18 14:00 11/26/18 17:59 10/31/18 13:11 Ipratropium [place] (Atrovent) 500 mcg Q4H PRN HHN Shortness of Breath 10/31/18 13:00 11/01/18 12:59 10/31/18 13:54 Ipratropium [place] (Atrovent) 500 mcg TIDRT HHN 10/31/18 13:00 11/01/18 18:59 Lansoprazole (Prevacid) 30 mg DAILY GT 11/01/18 09:00 12/01/18 08:59 Levetiracetam (Keppra) 500 mg Q12HR GT 10/31/18 21:00 11/22/18 20:59 Piperacillin Sod/ Tazobactam Sod 3.375 gm/Dextrose 110 ml @ 27.5 mls/hr EVERY 8 HOURS IVPB 10/31/18 14:00 11/05/18 13:59 10/31/18 13:12 Vancomycin HCl (Vanco rx to dose) 1 ea DAILY PRN MISC Per rx protocol 10/31/18 09:00 11/30/18 08:59 Vancomycin HCl/ Dextrose 275 ml @ 183.333 mls/hr Q12HR@0800,2000 IVPB 10/31/18 20:00 11/03/18 07:59 Susanna Morrell M.D. Oct 31, 2018 19:36
[2018-10-31 20:00] VITALS: BP 113/69
--- NOTE | 2018-10-31 20:31 | Pulmonology Progress Note ---
Assessment/Plan Problems: (1) Altered mental status (2) Bilateral pneumonia (3) Seizure (4) Diabetes mellitus (5) Elevated brain natriuretic peptide (BNP) level (6) Lung mass (7) Sacral decubitus ulcer (8) Lytic bone lesions on xray Assessment/Plan CT chest reviewed - extensive R consolidations, mass like opacities, possible endobronchial lesions and osteolytic lesions concerning for met dz + loculated effusion ---> Needs to determine overall GOC further before working up lung mass. Patient will likely needs VATS/bronch. Consent is an issue at this time. AWAITING ETHICS eval. BONE SCAN, CT A/P (non-con as unable to consent for contrast) and MRI brain ORDERED IR to attempt THORACENTESIS of one of the loculated effusions and sent off for studies including Cx and CYTOLOGY Optimize pulmonary hygiene/mobilize as tolerated PRN O2 HHN's Abx per ID Neuro recs Monitor MS NPO, TF's IVF FC Ethics Subjective Allergies: Coded Allergies: No Known Allergies (Unverified , 10/22/18) Subjective AFVSS O2 needs stable obtunded no hemoptysis + cough no F/C no veena TF's Neuro eval noted Objective Last 24 Hour Vital Signs Date Time Temp Pulse Resp B/P (MAP) Pulse Ox O2 Delivery O2 Flow Rate FiO2 10/31/18 19:59 93 22 95 Non-Rebreather 15.0 100 10/31/18 19:50 Non-Rebreather 15.0 100 10/31/18 19:50 99 Non-Rebreather 15.0 100 10/31/18 19:50 82 25 99 Non-Rebreather 15.0 100 10/31/18 16:00 98.0 98 22 133/80 (97) 97 10/31/18 13:11 92 128/73 10/31/18 13:04 Nasal Cannula 10/31/18 13:04 Nasal Cannula 10/31/18 12:00 97.7 92 30 128/73 (91) 97 10/31/18 12:00 Nasal Cannula 4.0 Nasal Cannula 4.0 10/31/18 11:44 93 10/31/18 09:00 Nasal Cannula 4.0 Nasal Cannula 4.0 10/31/18 08:00 98.1 95 29 127/71 (89) 93 3/18/19 07:40 97 10/31/18 07:33 92 22 95 Nasal Cannula 3.0 32 10/31/18 07:25 96 Nasal Cannula 3.0 32 10/31/18 07:25 90 21 96 Nasal Cannula 3.0 28 10/31/18 07:25 Nasal Cannula 3.0 32 10/31/18 05:34 92 143/86 10/31/18 04:00 Nasal Cannula 2.0 Nasal Cannula 2.0 10/31/18 04:00 98.4 94 29 151/93 (112) 94 10/31/18 03:22 96 10/31/18 00:00 98.4 89 30 155/82 (106) 93 10/31/18 00:00 Nasal Cannula 2.0 Nasal Cannula 2.0 10/30/18 23:33 86 10/30/18 21:19 92 144/80 10/30/18 21:08 94 Nasal Cannula 3.0 32 10/30/18 21:08 Nasal Cannula 3.0 32 10/30/18 21:00 Nasal Cannula 2.0 Nasal Cannula 2.0 Intake and Output 10/30/18 10/31/18 19:00 07:00 Intake Total 1346.666 ml 1324.166 ml Output Total 950 ml 1500 ml Balance 396.666 ml -175.834 ml Free Water 150 ml 100 ml IV Total 476.666 ml 504.166 ml Tube Feeding 720 ml 720 ml Output Urine Total 950 ml 1500 ml # Bowel Movements 1 General Appearance: cachetic - obtunded HEENT: normocephalic, atraumatic, anicteric Respiratory/Chest: rhonchi Cardiovascular: normal peripheral pulses, normal rate, regular rhythm Abdomen: normal bowel sounds, soft, non tender, no organomegaly, non distended , other - GT Extremities: no cyanosis, no clubbing, no edema Microbiology Date/Time Source Procedure Growth Status 10/30/18 14:45 [address] Urine Culture - Preliminary NO GROWTH Resulted Current Medications Medications (Trade) Dose Ordered Sig/Sofia Route PRN Reason Start Time Stop Time Status Last Admin Dose Admin Amiodarone HCl (Cordarone) 200 mg Q12HR GT 10/31/18 21:00 11/30/18 20:59 Diltiazem HCl (Cardizem) 60 mg EVERY 8 HOURS GT 10/31/18 14:00 11/26/18 17:59 10/31/18 13:11 Ipratropium [place] (Atrovent) 500 mcg Q4H PRN HHN Shortness of Breath 10/31/18 13:00 11/01/18 12:59 10/31/18 13:54 Ipratropium [place] (Atrovent) 500 mcg TIDRT HHN 10/31/18 13:00 11/01/18 18:59 10/31/18 20:12 Lansoprazole (Prevacid) 30 mg DAILY GT 11/01/18 09:00 12/01/18 08:59 Levetiracetam (Keppra) 500 mg Q12HR GT 10/31/18 21:00 11/22/18 20:59 Piperacillin Sod/ Tazobactam Sod 3.375 gm/Dextrose 110 ml @ 27.5 mls/hr EVERY 8 HOURS IVPB 10/31/18 14:00 11/05/18 13:59 10/31/18 13:12 Vancomycin HCl (Vanco rx to dose) 1 ea DAILY PRN MISC Per rx protocol 10/31/18 09:00 11/30/18 08:59 Vancomycin HCl/ Dextrose 275 ml @ 183.333 mls/hr Q12HR@0800,2000 IVPB 10/31/18 20:00 11/03/18 07:59 Flex Nunn MD Oct 31, 2018 20:31
--- NOTE | 2018-10-31 21:17 | General Progress Note ---
Assessment/Plan Assessment/Plan S: not verbal O: appears lethargic, Not following commands. PHYSICAL EXAMINATION: GENERAL: An elderly male, lying in bed, altered, unresponsive, and not in acute distress. HEENT: Normocephalic and atraumatic. Pupils not reactive to light. Well pale sclera. Unable to assess oral mucosa. NECK: Seems supple. No lymphadenopathy. CARDIOVASCULAR: Regular rate and rhythm. No murmur. LUNGS: He had diminished breathing sounds at the bases with crackles. ABDOMEN: Soft, nontender, and nondistended. PEG tube in place EXTREMITY: No edema or cyanosis. GENITOURINARY: He has normal genitalia. Torres catheter in place. SKIN: Right upper buttock pressure wound. No rash. No hives.Neuro: limited exam, Neuro: not verbal at base line, awake, limited exam Meds: reviewed and reconciled including zosyn and vanco ASSESSMENT: 1. Sepsis. 2. Acute CVA 3. Sz D/o 2. Healthcare-associated pneumonia. 3. Diffuse Metastatic cancer: source : unknown 4. Abnormal troponin.likely troponin leak 4. Anemia. 5. Dementia/encephalopathy. 6. Code Status - Full Code. 7. GI and DVT prophylaxis. 8. Hemoptysis PLAN OF CARE: Risks of any aggressive Diagnostic procedure ( including Trach) surpasses its benefits. Will continue current sepsis treatment Will Defer oncology workup to out patient start PO ccb, will wean off Cardizem gtt Conservative management. Worsening wbc likely secondary to post obstructive PNA, likely due to diffuse metastasis Subjective Allergies: Coded Allergies: No Known Allergies (Unverified , 10/22/18) Objective Last 24 Hour Vital Signs Date Time Temp Pulse Resp B/P (MAP) Pulse Ox O2 Delivery O2 Flow Rate FiO2 10/31/18 19:59 93 22 95 Non-Rebreather 15.0 100 10/31/18 19:50 Non-Rebreather 15.0 100 10/31/18 19:50 99 Non-Rebreather 15.0 100 10/31/18 19:50 82 25 99 Non-Rebreather 15.0 100 10/31/18 16:00 98.0 98 22 133/80 (97) 97 10/31/18 13:11 92 128/73 10/31/18 13:04 Nasal Cannula 10/31/18 13:04 Nasal Cannula 10/31/18 12:00 97.7 92 30 128/73 (91) 97 10/31/18 12:00 Nasal Cannula 4.0 Nasal Cannula 4.0 10/31/18 11:44 93 10/31/18 09:00 Nasal Cannula 4.0 Nasal Cannula 4.0 10/31/18 08:00 98.1 95 29 127/71 (89) 93 10/31/18 07:40 97 10/31/18 07:33 92 22 95 Nasal Cannula 3.0 32 10/31/18 07:25 96 Nasal Cannula 3.0 32 10/31/18 07:25 90 21 96 Nasal Cannula 3.0 28 10/31/18 07:25 Nasal Cannula 3.0 32 10/31/18 05:34 92 143/86 10/31/18 04:00 Nasal Cannula 2.0 Nasal Cannula 2.0 10/31/18 04:00 98.4 94 29 151/93 (112) 94 10/31/18 03:22 96 10/31/18 00:00 98.4 89 30 155/82 (106) 93 10/31/18 00:00 Nasal Cannula 2.0 Nasal Cannula 2.0 10/30/18 23:33 86 10/30/18 21:19 92 144/80 Intake and Output 10/30/18 10/31/18 19:00 07:00 Intake Total 1346.666 ml 1324.166 ml Output Total 950 ml 1500 ml Balance 396.666 ml -175.834 ml Free Water 150 ml 100 ml IV Total 476.666 ml 504.166 ml Tube Feeding 720 ml 720 ml Output Urine Total 950 ml 1500 ml # Bowel Movements 1 Height (Feet): 6 Weight (Pounds): 139 Hayde Duran MD Oct 31, 2018 21:17
[2018-10-31] MEDS: Amiodarone 200mg tab GT SCH (21:54)
[2018-11-01] VITALS: BP 144/93
[2018-11-01] MEDS: Piperacillin/Tazobactam 3.375 GM in D5W 110 ML IVPB SCH ×4 (00:14→21:34)
[2018-11-01] MEDS: Ipratropium 0.02% Inh Soln 2.5ml UD HHN PRN (02:30)
[2018-11-01 04:00] VITALS: BP 116/67
[2018-11-01] MEDS: dilTIAZem HCl 60mg tab GT SCH ×3 (05:39→21:34)
[2018-11-01 05:54] LABS: HEMATOCRIT 24.4 % (42.0-52.0); HEMOGLOBIN 7.7 G/DL (14.2-18.0); MEAN CORPUSCULAR VOLUME 91 FL (80-99); PLATELET COUNT 349 K/UL (150-450); RED BLOOD COUNT 2.67 M/UL (4.70-6.10); RED CELL DISTRIBUTION WIDTH 14.3 % (11.6-14.8); WHITE BLOOD COUNT 12.8 K/UL (4.8-10.8)
[2018-11-01 05:58] LABS: ALANINE AMINOTRANSFERASE 22 U/L (12-78); ALBUMIN 1.7 G/DL (3.4-5.0); ALBUMIN/GLOBULIN RATIO 0.4 (1.0-2.7); ALKALINE PHOSPHATASE 120 U/L (46-116); ANION GAP 3 mmol/L (5-15); ASPARTATE AMINO TRANSFERASE 20 U/L (15-37); BILIRUBIN,TOTAL 0.2 MG/DL (0.2-1.0); BLOOD UREA NITROGEN 28 mg/dL (7-18); CALCIUM 9.7 MG/DL (8.5-10.1); CARBON DIOXIDE 37 MMOL/L (21-32); CHLORIDE 99 MMOL/L (98-107); CREATININE 1.3 MG/DL (0.55-1.30); POTASSIUM 4.3 MMOL/L (3.5-5.1); SODIUM 139 MMOL/L (136-145)
[2018-11-01] MEDS: Ipratropium 0.02% Inh Soln 2.5ml UD HHN SCH ×3 (06:56→19:06)
[2018-11-01 08:00] VITALS: BP 104/62
[2018-11-01] MEDS: Vancomycin 1.25gm Premix 275 ML IVPB SCH (08:42)
[2018-11-01] MEDS: Amiodarone 200mg tab GT SCH ×2 (09:08→21:34)
[2018-11-01] MEDS: levETIRAcetam 500mg/5ml Liquid GT SCH ×2 (09:08→21:35)
--- NOTE | 2018-11-01 11:59 | Surgery Progress Note ---
Surgery Progress Note Subjective Additional Comments thoracentesis path without malignant cells. leukocytosis trending down. exam unchanged. respiratory declining Objective Last 24 Hour Vital Signs Date Time Temp Pulse Resp B/P (MAP) Pulse Ox O2 Delivery O2 Flow Rate FiO2 11/01/18 10:47 71 32 100 Facial 45 11/01/18 10:11 55 11/01/18 10:11 55 11/01/18 09:00 Bi-pap Bi-pap 11/01/18 08:40 78 34 95 Facial 55 11/01/18 08:00 97.9 76 30 104/62 (76) 100 11/01/18 07:42 75 11/01/18 07:06 80 33 97 Bi-pap 55 11/01/18 06:56 79 37 93 Bi-pap 55 11/01/18 06:55 Bi-pap 55 11/01/18 06:55 79 37 93 Facial 55 11/01/18 06:55 Bi-pap 55 11/01/18 05:39 74 116/67 11/01/18 04:44 74 32 95 Facial 55 11/01/18 04:00 55 11/01/18 04:00 80 31 Bi-pap 55 11/01/18 04:00 74 26 116/67 (83) 100 11/01/18 04:00 80 31 94 Facial 55 11/01/18 02:43 84 25 94 Non-Rebreather 15.0 100 11/01/18 02:30 86 25 95 Non-Rebreather 15.0 100 11/01/18 00:00 97.0 84 26 144/93 (110) 100 10/31/18 21:54 83 113/69 10/31/18 21:00 Non-Rebreather 15.0 Non-Rebreather 15.0 10/31/18 20:00 98.1 83 24 113/69 (84) 100 10/31/18 19:59 93 22 95 Non-Rebreather 15.0 100 10/31/18 19:50 Non-Rebreather 15.0 100 10/31/18 19:50 99 Non-Rebreather 15.0 100 10/31/18 19:50 82 25 99 Non-Rebreather 15.0 100 10/31/18 16:00 98.0 98 22 133/80 (97) 97 10/31/18 13:11 92 128/73 10/31/18 13:04 Nasal Cannula 10/31/18 13:04 Nasal Cannula 10/31/18 12:00 97.7 92 30 128/73 (91) 97 10/31/18 12:00 Nasal Cannula 4.0 Nasal Cannula 4.0 I&O Intake and Output 10/31/18 11/01/18 19:00 07:00 Intake Total 908.333 ml 840 ml Output Total 1100 ml Balance 908.333 ml -260 ml Free Water 130 ml 180 ml IV Total 238.333 ml Tube Feeding 540 ml 660 ml Output Urine Total 1100 ml # Bowel Movements 1 Dressing: other Wound: other Drains: other Cardiovascular: RSR Respiratory: decreased breath sounds, other Abdomen: soft, non-tender, non-distended, decreased bowel sounds Extremities: other Laboratory Tests Test 11/01/18 03:14 11/01/18 05:00 Arterial Blood pH 7.366 (7.350-7.450) Arterial Blood Partial Pressure CO2 68.0 mmHg (35.0-45.0) *H Arterial Blood Partial Pressure O2 222.4 mmHg (75.0-100.0) H Arterial Blood HCO3 38.1 mmol/L (22.0-26.0) H Arterial Blood Oxygen Saturation 99.2 % (95-100) Arterial Blood Base Excess 11 (-2-2) *H Parveen Test Positive White Blood Count 12.8 K/UL (4.8-10.8) H Red Blood Count 2.67 M/UL (4.70-6.10) L Hemoglobin 7.7 G/DL (14.2-18.0) L Hematocrit 24.4 % (42.0-52.0) L Mean Corpuscular Volume 91 FL (80-99) Mean Corpuscular Hemoglobin 29.0 PG (27.0-31.0) Mean Corpuscular Hemoglobin Concent 31.7 G/DL (32.0-36.0) L Red Cell Distribution Width 14.3 % (11.6-14.8) Platelet Count 349 K/UL (150-450) Mean Platelet Volume 6.8 FL (6.5-10.1) Neutrophils (%) (Auto) % (45.0-75.0) Lymphocytes (%) (Auto) % (20.0-45.0) Monocytes (%) (Auto) % (1.0-10.0) Eosinophils (%) (Auto) % (0.0-3.0) Basophils (%) (Auto) % (0.0-2.0) Differential Total Cells Counted 100 Neutrophils % (Manual) 86 % (45-75) H Lymphocytes % (Manual) 8 % (20-45) L Monocytes % (Manual) 5 % (1-10) Eosinophils % (Manual) 1 % (0-3) Basophils % (Manual) 0 % (0-2) Band Neutrophils 0 % (0-8) Platelet Estimate Adequate Platelet Morphology Normal Hypochromasia 1+ Anisocytosis Sodium Level 139 MMOL/L (136-145) Potassium Level 4.3 MMOL/L (3.5-5.1) Chloride Level 99 MMOL/L (98-107) Carbon Dioxide Level 37 MMOL/L (21-32) H Anion Gap 3 mmol/L (5-15) L Blood Urea Nitrogen 28 mg/dL (7-18) H Creatinine 1.3 MG/DL (0.55-1.30) Estimat Glomerular Filtration Rate mL/min (>60) Glucose Level 111 MG/DL (74-106) H Calcium Level 9.7 MG/DL (8.5-10.1) Total Bilirubin 0.2 MG/DL (0.2-1.0) Aspartate Amino Transf (AST/SGOT) 20 U/L (15-37) Alanine Aminotransferase (ALT/SGPT) 22 U/L (12-78) Alkaline Phosphatase 120 U/L (46-116) H Total Protein 6.4 G/DL (6.4-8.2) Albumin 1.7 G/DL (3.4-5.0) L Globulin 4.7 g/dL Albumin/Globulin Ratio 0.4 (1.0-2.7) L Plan Problems: (1) Sacral decubitus ulcer Assessment & Plan: Patient presented on admission with full thickness Stage III sacral pressure injury. 100% yellow slough at base of wound, Edges flat and dry(L)1.1cm x (W)1.9cm. Periwound without erythema or induration. No odor noted. Non-viable tissue removed using curette by myself at bedside. Base of wound is more viable with trace slough. R heel /R achilles boggy with non-blanchable erythema. Pt moans when site is minimally palpated. L heel boggy with non-blanchable erythema. Pt did not exhibit any distress when L heel palpated. Dry brown discoloration without induration or fluctuance noted to brandon/dorsal R foot. Dry brown discoloration without fluctuance or induration noted to R lateral malleolus. Tx.Plan: Cleanse Sacral wound with Saline.Apply Therahoney. Apply Cavilon Skin Barrier periwound. Cover with Optifoam drsg Daily and prn. Apply Cavilon Skin Barrier to R lateral malleolus.Cover with Optifoam drsg.Change every 7 days and prn. Apply Cavilon Skin Barrier to both heels and R achilles. Cover with Optifoam drsg.Change Q7days and prn. APM/CHARU mattress. Reposition at least every 2hours or as tolerated. Off-load heels with pillow. (2) Seizure (3) Lung mass Assessment & Plan: CT chest w/ Evidence of disseminated neoplasm, with multiple osteolytic lesions as described, mediastinal adenopathy, and possible bilateral adrenal masses Complete atelectasis and consolidation of the left lower lobe. Complete occlusion of the proximal lobar bronchi on the left. Given the above findings, the possibility of pulmonary neoplasm with resultant endobronchial occlusion should be considered Extensive atelectasis and consolidation of the left upper lobe. This may represent acute pneumonia, but honeycomb appearance of much of this suggests a significant chronic component There are areas of confluent scarring versus consolidation versus mass as well Suspected loculated pleural effusion on the left. Note that this has enlarged rapidly over the past few days based on recent chest radiographs. There is also a small amount of what is probably increased pleural fluid on the left as well. Multiple focal parenchymal abnormalities on the right. These probably represent areas of acute infiltrate, but the appearance of some of these suggests that they could be neoplastic Ectatic main and right pulmonary artery, suggestive of but not diagnostic for pulmonary arterial hypertension Mild diffuse edema of the subcutaneous and mediastinal fat Minimal pericardial thickening and/or fluid Incidental finding 12 mm left renal cyst Right pleural effusion, also described on recent chest CT report. Trace ascites Cholelithiasis. Negative for dilated bile ducts No sonographic findings to suggest hepatic metastases Increased echogenicity of the left kidney, may indicate chronic medical renadisease. Negative for hydronephrosis. Equivocal left perinephric fluid, of uncertaisignificance of real Incidental finding of small left renal cyst Note nonvisualization of the pancreas extensive disease process noted on CT chest. primary unknown at this time. need to see if any prior records CT/Bone scan noted with lesions Pending MRI will need biopsy for cytology via radiology Labs noted RX reviewed currently stable will monitor thoracentesis fluid path without malignant cells. micro noted and negative. Chato Mullen Nov 01, 2018 11:59
[2018-11-01 12:00] VITALS: BP 121/80
--- NOTE | 2018-11-01 12:02 | Diagnostic Imaging Report ---
Indication: Dyspnea Comparison: 10/31/2018 A single view chest radiograph was obtained. Findings: There is near complete opacification of the left hemithorax likely due to a large effusion. There is some volume loss with shifting of the heart and mediastinum toward the left side indicating atelectasis. Interstitial edema suspected based on the appearance of the right lung. IMPRESSION: Interstitial pulmonary edema Large left pleural effusion/atelectasis.
--- NOTE | 2018-11-01 12:40 | General Progress Note ---
Assessment/Plan Assessment/Plan S: not verbal O: appears lethargic, Not following commands. PHYSICAL EXAMINATION: GENERAL: An elderly male, lying in bed, altered, unresponsive, and not in acute distress. HEENT: Normocephalic and atraumatic. Pupils not reactive to light. Well pale sclera. Unable to assess oral mucosa. NECK: Seems supple. No lymphadenopathy. CARDIOVASCULAR: Regular rate and rhythm. No murmur. LUNGS: He had diminished breathing sounds at the bases with crackles. ABDOMEN: Soft, nontender, and nondistended. PEG tube in place EXTREMITY: No edema or cyanosis. GENITOURINARY: He has normal genitalia. Torres catheter in place. SKIN: Right upper buttock pressure wound. No rash. No hives.Neuro: limited exam, Neuro: not verbal at base line, awake, limited exam Meds: reviewed and reconciled including zosyn and vanco ASSESSMENT: 1. Sepsis. 2. Acute CVA 3. Sz D/o 2. Healthcare-associated pneumonia. 3. Diffuse Metastatic cancer: source : unknown 4. Abnormal troponin.likely troponin leak 4. Anemia. 5. Dementia/encephalopathy. 6. Code Status - Full Code. 7. GI and DVT prophylaxis. 8. Hemoptysis PLAN OF CARE: Risks of any aggressive Diagnostic procedure ( including Trach) surpasses its benefits. Will continue current sepsis treatment Will Defer oncology workup to out patient start PO ccb, will wean off Cardizem gtt Conservative management. Worsening wbc likely secondary to post obstructive PNA, likely due to diffuse metastasis Bioethic committee consult is requested Subjective Allergies: Coded Allergies: No Known Allergies (Unverified , 10/22/18) Objective Last 24 Hour Vital Signs Date Time Temp Pulse Resp B/P (MAP) Pulse Ox O2 Delivery O2 Flow Rate FiO2 11/01/18 12:00 Bi-pap Bi-pap 11/01/18 12:00 97.7 86 30 121/80 (94) 96 11/01/18 10:47 71 32 100 Facial 45 11/01/18 10:11 55 11/01/18 10:11 55 11/01/18 09:00 Bi-pap Bi-pap 11/01/18 08:40 78 34 95 Facial 55 11/01/18 08:00 97.9 76 30 104/62 (76) 100 11/01/18 07:42 75 11/01/18 07:06 80 33 97 Bi-pap 55 11/01/18 06:56 79 37 93 Bi-pap 55 11/01/18 06:55 Bi-pap 55 11/01/18 06:55 79 37 93 Facial 55 11/01/18 06:55 Bi-pap 55 11/01/18 05:39 74 116/67 11/01/18 04:44 74 32 95 Facial 55 11/01/18 04:00 55 11/01/18 04:00 80 31 Bi-pap 55 11/01/18 04:00 74 26 116/67 (83) 100 11/01/18 04:00 80 31 94 Facial 55 11/01/18 02:43 84 25 94 Non-Rebreather 15.0 100 11/01/18 02:30 86 25 95 Non-Rebreather 15.0 100 11/01/18 00:00 97.0 84 26 144/93 (110) 100 10/31/18 21:54 83 113/69 10/31/18 21:00 Non-Rebreather 15.0 Non-Rebreather 15.0 10/31/18 20:00 98.1 83 24 113/69 (84) 100 10/31/18 19:59 93 22 95 Non-Rebreather 15.0 100 10/31/18 19:50 Non-Rebreather 15.0 100 10/31/18 19:50 99 Non-Rebreather 15.0 100 10/31/18 19:50 82 25 99 Non-Rebreather 15.0 100 10/31/18 16:00 98.0 98 22 133/80 (97) 97 10/31/18 13:11 92 128/73 10/31/18 13:04 Nasal Cannula 10/31/18 13:04 Nasal Cannula Intake and Output 10/31/18 11/01/18 19:00 07:00 Intake Total 908.333 ml 840 ml Output Total 1100 ml Balance 908.333 ml -260 ml Free Water 130 ml 180 ml IV Total 238.333 ml Tube Feeding 540 ml 660 ml Output Urine Total 1100 ml # Bowel Movements 1 Laboratory Tests 11/01/18 03:14: Arterial Blood pH 7.366, Arterial Blood Partial Pressure CO2 68.0*H, Arterial Blood Partial Pressure O2 222.4H, Arterial Blood HCO3 38.1H, Arterial Blood Oxygen Saturation 99.2, Arterial Blood Base Excess 11*H, Parveen Test Positive 11/01/18 05:00: White Blood Count 12.8H, Red Blood Count 2.67L, Hemoglobin 7.7L, Hematocrit 24.4L, Mean Corpuscular Volume 91, Mean Corpuscular Hemoglobin 29.0, Mean Corpuscular Hemoglobin Concent 31.7L, Red Cell Distribution Width 14.3, Platelet Count 349, Mean Platelet Volume 6.8, Neutrophils (%) (Auto) , Lymphocytes (%) (Auto) , Monocytes (%) (Auto) , Eosinophils (%) (Auto) , Basophils (%) (Auto) , Differential Total Cells Counted 100, Neutrophils % ( Manual) 86H, Lymphocytes % (Manual) 8L, Monocytes % (Manual) 5, Eosinophils % ( Manual) 1, Basophils % (Manual) 0, Band Neutrophils 0, Platelet Estimate Adequate, Platelet Morphology Normal, Hypochromasia 1+, Anisocytosis , Sodium Level 139, Potassium Level 4.3, Chloride Level 99, Carbon Dioxide Level 37H, Anion Gap 3L, Blood Urea Nitrogen 28H, Creatinine 1.3, Estimat Glomerular Filtration Rate , Glucose Level 111H, Calcium Level 9.7, Total Bilirubin 0.2, Aspartate Amino Transf (AST/SGOT) 20, Alanine Aminotransferase (ALT/SGPT) 22, Alkaline Phosphatase 120H, Total Protein 6.4, Albumin 1.7L, Globulin 4.7, Albumin/Globulin Ratio 0.4L Height (Feet): 6 Weight (Pounds): 139 Hayde Duran MD Nov 01, 2018 12:40
--- NOTE | 2018-11-01 15:33 | Cardiac Electrophysiology PN ---
Assessment/Plan Assessment/Plan 1. Paroxysmal atrial fibrillation with RVR. Currently in sinus rhythm. On Cardizem 60 q 8 hr and amiodarone 200 mg bid Off anticoagulation for metastatic CA 2. Troponin leak due to atrial fib with RVR 3. Bilateral pneumonia. On vancomycin and aztreonam per Dr. Morrell. On BIPAP 4. Diabetes. 5. Dysphagia, status post PEG placement. 6. Left Lung CA. Had 300 cc Right Thoracentesis. Had Bone scan 7. Seizures and altered mental status. The patient is on Keppra 500 mg b.i.d. MRI brain new acute cortical infarcts DW RN Subjective Subjective Developed respiratory failure and transferred to [facility] on BIPAP. Objective Last 24 Hour Vital Signs Date Time Temp Pulse Resp B/P (MAP) Pulse Ox O2 Delivery O2 Flow Rate FiO2 11/01/18 14:41 71 32 95 Facial 45 11/01/18 13:19 87 121/80 11/01/18 13:12 87 35 96 Bi-pap 45 11/01/18 13:02 89 34 94 Bi-pap 45 11/01/18 13:00 89 34 96 Facial 45 11/01/18 12:00 Bi-pap Bi-pap 11/01/18 12:00 97.7 86 30 121/80 (94) 96 11/01/18 11:49 84 11/01/18 10:47 71 32 100 Facial 45 11/01/18 10:11 55 11/01/18 10:11 55 11/01/18 09:00 Bi-pap Bi-pap 11/01/18 08:40 78 34 95 Facial 55 11/01/18 08:00 97.9 76 30 104/62 (76) 100 11/01/18 07:42 75 11/01/18 07:06 80 33 97 Bi-pap 55 11/01/18 06:56 79 37 93 Bi-pap 55 11/01/18 06:55 Bi-pap 55 11/01/18 06:55 79 37 93 Facial 55 11/01/18 06:55 Bi-pap 55 11/01/18 05:39 74 116/67 11/01/18 04:44 74 32 95 Facial 55 11/01/18 04:00 55 11/01/18 04:00 80 31 Bi-pap 55 11/01/18 04:00 74 26 116/67 (83) 100 11/01/18 04:00 80 31 94 Facial 55 11/01/18 02:43 84 25 94 Non-Rebreather 15.0 100 11/01/18 02:30 86 25 95 Non-Rebreather 15.0 100 11/01/18 00:00 97.0 84 26 144/93 (110) 100 10/31/18 21:54 83 113/69 10/31/18 21:00 Non-Rebreather 15.0 Non-Rebreather 15.0 10/31/18 20:00 98.1 83 24 113/69 (84) 100 10/31/18 19:59 93 22 95 Non-Rebreather 15.0 100 10/31/18 19:50 Non-Rebreather 15.0 100 10/31/18 19:50 99 Non-Rebreather 15.0 100 10/31/18 19:50 82 25 99 Non-Rebreather 15.0 100 10/31/18 16:00 98.0 98 22 133/80 (97) 97 Intake and Output 10/31/18 11/01/18 19:00 07:00 Intake Total 908.333 ml 900 ml Output Total 1100 ml Balance 908.333 ml -200 ml Free Water 130 ml 180 ml IV Total 238.333 ml Tube Feeding 540 ml 720 ml Output Urine Total 1100 ml # Bowel Movements 1 Laboratory Tests Test 11/01/18 03:14 11/01/18 05:00 Arterial Blood pH 7.366 (7.350-7.450) Arterial Blood Partial Pressure CO2 68.0 mmHg (35.0-45.0) *H Arterial Blood Partial Pressure O2 222.4 mmHg (75.0-100.0) H Arterial Blood HCO3 38.1 mmol/L (22.0-26.0) H Arterial Blood Oxygen Saturation 99.2 % (95-100) Arterial Blood Base Excess 11 (-2-2) *H Parveen Test Positive White Blood Count 12.8 K/UL (4.8-10.8) H Red Blood Count 2.67 M/UL (4.70-6.10) L Hemoglobin 7.7 G/DL (14.2-18.0) L Hematocrit 24.4 % (42.0-52.0) L Mean Corpuscular Volume 91 FL (80-99) Mean Corpuscular Hemoglobin 29.0 PG (27.0-31.0) Mean Corpuscular Hemoglobin Concent 31.7 G/DL (32.0-36.0) L Red Cell Distribution Width 14.3 % (11.6-14.8) Platelet Count 349 K/UL (150-450) Mean Platelet Volume 6.8 FL (6.5-10.1) Neutrophils (%) (Auto) % (45.0-75.0) Lymphocytes (%) (Auto) % (20.0-45.0) Monocytes (%) (Auto) % (1.0-10.0) Eosinophils (%) (Auto) % (0.0-3.0) Basophils (%) (Auto) % (0.0-2.0) Differential Total Cells Counted 100 Neutrophils % (Manual) 86 % (45-75) H Lymphocytes % (Manual) 8 % (20-45) L Monocytes % (Manual) 5 % (1-10) Eosinophils % (Manual) 1 % (0-3) Basophils % (Manual) 0 % (0-2) Band Neutrophils 0 % (0-8) Platelet Estimate Adequate Platelet Morphology Normal Hypochromasia 1+ Anisocytosis Sodium Level 139 MMOL/L (136-145) Potassium Level 4.3 MMOL/L (3.5-5.1) Chloride Level 99 MMOL/L (98-107) Carbon Dioxide Level 37 MMOL/L (21-32) H Anion Gap 3 mmol/L (5-15) L Blood Urea Nitrogen 28 mg/dL (7-18) H Creatinine 1.3 MG/DL (0.55-1.30) Estimat Glomerular Filtration Rate mL/min (>60) Glucose Level 111 MG/DL (74-106) H Calcium Level 9.7 MG/DL (8.5-10.1) Total Bilirubin 0.2 MG/DL (0.2-1.0) Aspartate Amino Transf (AST/SGOT) 20 U/L (15-37) Alanine Aminotransferase (ALT/SGPT) 22 U/L (12-78) Alkaline Phosphatase 120 U/L (46-116) H Total Protein 6.4 G/DL (6.4-8.2) Albumin 1.7 G/DL (3.4-5.0) L Globulin 4.7 g/dL Albumin/Globulin Ratio 0.4 (1.0-2.7) L Microbiology Date/Time Source Procedure Growth Status 10/30/18 11:30 Blood Blood Culture - Preliminary NO GROWTH AFTER 24 HOURS Resulted 10/30/18 11:22 Blood Blood Culture - Preliminary NO GROWTH AFTER 24 HOURS Resulted 10/30/18 14:45 Indwelling Cath Urine Culture - Preliminary NO GROWTH AFTER 24 HOURS Resulted Objective HEAD AND NECK: No JVD. LUNGS: Decreased breath sounds on left on BIPAP CARDIOVASCULAR: Regular S1 and S2 with no gallop. ABDOMEN: Soft and status post PEG. EXTREMITIES: No pitting edema and are contracted. Saurabh Arredondo MD Nov 01, 2018 15:33
--- NOTE | 2018-11-01 15:47 | Infectious Diseases Prog Note ---
Assessment/Plan Problems: (1) Leukocytosis Assessment & Plan: suspect due to worsening right side pneumonia and left pleural effusion , continue vancomycin and zosyn for now empiric coverage , may benefit from thoracentesis , or bronch . (2) Bilateral pneumonia Assessment & Plan: suspect aspiration and post obstruction pneumonia , due to altered mental status , continue vancomycin and to zosyn empirically , CT chest confirmed lung mass with mets to the bones, and effusion . aspiration precaution, keep HOB > 30 DEGREE . may need bronch (3) Seizure Assessment & Plan: monitor in tele,seizure precaution . consult neurology (4) Diabetes mellitus Assessment & Plan: recommend tight glycemic control to keep blood glucose between 10-140 (5) Altered mental status Assessment & Plan: due to the above, continue hydration and antibiotics, neuro check , monitor in tele, avoid sedatives (6) Lung mass Assessment & Plan: with total collapse of the left lung and mediastinal shift , and bone lytic lesions, suspect lung cancer with mets , poor prognosis, needs bronch for tissue diagnosis and oncology eval. S/P thoracentesis by IR Subjective ROS Limited/Unobtainable: Yes Allergies: Coded Allergies: No Known Allergies (Unverified , 10/22/18) Subjective he was unresponsive, open eyes spontaneously , uncooperative with exam , no fever, no hemoptysis , no SOB, no cough Objective Vital Signs Last 24 Hour Vital Signs Date Time Temp Pulse Resp B/P (MAP) Pulse Ox O2 Delivery O2 Flow Rate FiO2 11/01/18 14:41 71 32 95 Facial 45 11/01/18 13:19 87 121/80 11/01/18 13:12 87 35 96 Bi-pap 45 11/01/18 13:02 89 34 94 Bi-pap 45 11/01/18 13:00 89 34 96 Facial 45 11/01/18 12:00 Bi-pap Bi-pap 11/01/18 12:00 97.7 86 30 121/80 (94) 96 11/01/18 11:49 84 11/01/18 10:47 71 32 100 Facial 45 11/01/18 10:11 55 11/01/18 10:11 55 11/01/18 09:00 Bi-pap Bi-pap 11/01/18 08:40 78 34 95 Facial 55 11/01/18 08:00 97.9 76 30 104/62 (76) 100 11/01/18 07:42 75 11/01/18 07:06 80 33 97 Bi-pap 55 11/01/18 06:56 79 37 93 Bi-pap 55 11/01/18 06:55 Bi-pap 55 11/01/18 06:55 79 37 93 Facial 55 11/01/18 06:55 Bi-pap 55 11/01/18 05:39 74 116/67 11/01/18 04:44 74 32 95 Facial 55 11/01/18 04:00 55 11/01/18 04:00 80 31 Bi-pap 55 11/01/18 04:00 74 26 116/67 (83) 100 11/01/18 04:00 80 31 94 Facial 55 11/01/18 02:43 84 25 94 Non-Rebreather 15.0 100 11/01/18 02:30 86 25 95 Non-Rebreather 15.0 100 11/01/18 00:00 97.0 84 26 144/93 (110) 100 10/31/18 21:54 83 113/69 10/31/18 21:00 Non-Rebreather 15.0 Non-Rebreather 15.0 10/31/18 20:00 98.1 83 24 113/69 (84) 100 10/31/18 19:59 93 22 95 Non-Rebreather 15.0 100 10/31/18 19:50 Non-Rebreather 15.0 100 10/31/18 19:50 99 Non-Rebreather 15.0 100 10/31/18 19:50 82 25 99 Non-Rebreather 15.0 100 10/31/18 16:00 98.0 98 22 133/80 (97) 97 Height (Feet): 6 Weight (Pounds): 139 General Appearance: WD/WN, no acute distress HEENT: normocephalic, atraumatic, anicteric, mucous membranes moist Respiratory/Chest: chest wall non-tender, lungs clear, normal breath sounds, no respiratory distress, no accessory muscle use Cardiovascular: normal peripheral pulses, normal rate, regular rhythm, no gallop/murmur, no JVD Abdomen: normal bowel sounds, soft, non tender, no organomegaly, non distended , no mass, no scars Extremities: no cyanosis, no clubbing Skin: no rash, no lesions, no ulcers Neurologic/Psychiatric: alert, unresponsiveness Lymphatic: no neck adenopathy, no groin adenopathy Musculoskeletal: normal muscle bulk, no effusion Microbiology Date/Time Source Procedure Growth Status 10/30/18 11:30 Blood Blood Culture - Preliminary NO GROWTH AFTER 24 HOURS Resulted 10/30/18 11:22 Blood Blood Culture - Preliminary NO GROWTH AFTER 24 HOURS Resulted 10/30/18 14:45 Indwelling Cath Urine Culture - Preliminary NO GROWTH AFTER 24 HOURS Resulted Laboratory Tests Test 11/01/18 03:14 11/01/18 05:00 Arterial Blood pH 7.366 (7.350-7.450) Arterial Blood Partial Pressure CO2 68.0 mmHg (35.0-45.0) *H Arterial Blood Partial Pressure O2 222.4 mmHg (75.0-100.0) H Arterial Blood HCO3 38.1 mmol/L (22.0-26.0) H Arterial Blood Oxygen Saturation 99.2 % (95-100) Arterial Blood Base Excess 11 (-2-2) *H Parveen Test Positive White Blood Count 12.8 K/UL (4.8-10.8) H Red Blood Count 2.67 M/UL (4.70-6.10) L Hemoglobin 7.7 G/DL (14.2-18.0) L Hematocrit 24.4 % (42.0-52.0) L Mean Corpuscular Volume 91 FL (80-99) Mean Corpuscular Hemoglobin 29.0 PG (27.0-31.0) Mean Corpuscular Hemoglobin Concent 31.7 G/DL (32.0-36.0) L Red Cell Distribution Width 14.3 % (11.6-14.8) Platelet Count 349 K/UL (150-450) Mean Platelet Volume 6.8 FL (6.5-10.1) Neutrophils (%) (Auto) % (45.0-75.0) Lymphocytes (%) (Auto) % (20.0-45.0) Monocytes (%) (Auto) % (1.0-10.0) Eosinophils (%) (Auto) % (0.0-3.0) Basophils (%) (Auto) % (0.0-2.0) Differential Total Cells Counted 100 Neutrophils % (Manual) 86 % (45-75) H Lymphocytes % (Manual) 8 % (20-45) L Monocytes % (Manual) 5 % (1-10) Eosinophils % (Manual) 1 % (0-3) Basophils % (Manual) 0 % (0-2) Band Neutrophils 0 % (0-8) Platelet Estimate Adequate Platelet Morphology Normal Hypochromasia 1+ Anisocytosis Sodium Level 139 MMOL/L (136-145) Potassium Level 4.3 MMOL/L (3.5-5.1) Chloride Level 99 MMOL/L (98-107) Carbon Dioxide Level 37 MMOL/L (21-32) H Anion Gap 3 mmol/L (5-15) L Blood Urea Nitrogen 28 mg/dL (7-18) H Creatinine 1.3 MG/DL (0.55-1.30) Estimat Glomerular Filtration Rate mL/min (>60) Glucose Level 111 MG/DL (74-106) H Calcium Level 9.7 MG/DL (8.5-10.1) Total Bilirubin 0.2 MG/DL (0.2-1.0) Aspartate Amino Transf (AST/SGOT) 20 U/L (15-37) Alanine Aminotransferase (ALT/SGPT) 22 U/L (12-78) Alkaline Phosphatase 120 U/L (46-116) H Total Protein 6.4 G/DL (6.4-8.2) Albumin 1.7 G/DL (3.4-5.0) L Globulin 4.7 g/dL Albumin/Globulin Ratio 0.4 (1.0-2.7) L Current Medications Medications (Trade) Dose Ordered Sig/Sofia Route PRN Reason Start Time Stop Time Status Last Admin Dose Admin Amiodarone HCl (Cordarone) 200 mg Q12HR GT 10/31/18 21:00 11/30/18 20:59 11/01/18 09:08 Diltiazem HCl (Cardizem) 60 mg EVERY 8 HOURS GT 10/31/18 14:00 11/26/18 17:59 11/01/18 13:19 Ipratropium [place] (Atrovent) 500 mcg TIDRT HHN 10/31/18 13:00 11/01/18 18:59 11/01/18 13:02 Lansoprazole (Prevacid) 30 mg DAILY GT 11/01/18 09:00 12/01/18 08:59 11/01/18 09:08 Levetiracetam (Keppra) 500 mg Q12HR GT 10/31/18 21:00 11/22/18 20:59 11/01/18 09:08 Piperacillin Sod/ Tazobactam Sod 3.375 gm/Dextrose 110 ml @ 27.5 mls/hr EVERY 8 HOURS IVPB 10/31/18 14:00 11/05/18 13:59 11/01/18 14:26 Vancomycin HCl (Vanco rx to dose) 1 ea DAILY PRN MISC Per rx protocol 10/31/18 09:00 11/30/18 08:59 Vancomycin HCl/ Dextrose 275 ml @ 183.333 mls/hr Q12HR@0800,2000 IVPB 10/31/18 20:00 11/03/18 07:59 11/01/18 08:42 Susanna Morrell M.D. Nov 01, 2018 15:47
--- NOTE | 2018-11-01 15:50 | Pulmonology Progress Note ---
Assessment/Plan Problems: (1) Altered mental status (2) Bilateral pneumonia (3) Seizure (4) Diabetes mellitus (5) Elevated brain natriuretic peptide (BNP) level (6) Lung mass (7) Sacral decubitus ulcer (8) Lytic bone lesions on xray Assessment/Plan CT chest reviewed - extensive R consolidations, mass like opacities, possible endobronchial lesions and osteolytic lesions concerning for met dz + loculated effusion ---> Needs to determine overall GOC further before working up lung mass. Patient will likely needs VATS/bronch. Consent is an issue at this time. AWAITING ETHICS eval. BONE SCAN, CT A/P (non-con as unable to consent for contrast) and MRI brain ORDERED IR to attempt THORACENTESIS of one of the loculated effusions and sent off for studies including Cx and CYTOLOGY Optimize pulmonary hygiene/mobilize as tolerated PRN O2 Wean off BiPAP HHN's + NAC + CPT Abx per ID Neuro recs Monitor MS NPO, TF's IVF FC Ethics Subjective Allergies: Coded Allergies: No Known Allergies (Unverified , 10/22/18) Subjective Inc WOB this am, 7.36 placed on BiPAP tx'd back to PCU CXR with near complete opacification l HT + large effusion Cytology from contralteral side neg No change in MS Objective Last 24 Hour Vital Signs Date Time Temp Pulse Resp B/P (MAP) Pulse Ox O2 Delivery O2 Flow Rate FiO2 11/01/18 14:41 71 32 95 Facial 45 11/01/18 13:19 87 121/80 11/01/18 13:12 87 35 96 Bi-pap 45 11/01/18 13:02 89 34 94 Bi-pap 45 11/01/18 13:00 89 34 96 Facial 45 11/01/18 12:00 Bi-pap Bi-pap 11/01/18 12:00 97.7 86 30 121/80 (94) 96 11/01/18 11:49 84 11/01/18 10:47 71 32 100 Facial 45 11/01/18 10:11 55 11/01/18 10:11 55 11/01/18 09:00 Bi-pap Bi-pap 11/01/18 08:40 78 34 95 Facial 55 11/01/18 08:00 97.9 76 30 104/62 (76) 100 11/01/18 07:42 75 11/01/18 07:06 80 33 97 Bi-pap 55 11/01/18 06:56 79 37 93 Bi-pap 55 11/01/18 06:55 Bi-pap 55 11/01/18 06:55 79 37 93 Facial 55 11/01/18 06:55 Bi-pap 55 11/01/18 05:39 74 116/67 11/01/18 04:44 74 32 95 Facial 55 11/01/18 04:00 55 11/01/18 04:00 80 31 Bi-pap 55 11/01/18 04:00 74 26 116/67 (83) 100 11/01/18 04:00 80 31 94 Facial 55 11/01/18 02:43 84 25 94 Non-Rebreather 15.0 100 11/01/18 02:30 86 25 95 Non-Rebreather 15.0 100 11/01/18 00:00 97.0 84 26 144/93 (110) 100 10/31/18 21:54 83 113/69 10/31/18 21:00 Non-Rebreather 15.0 Non-Rebreather 15.0 10/31/18 20:00 98.1 83 24 113/69 (84) 100 10/31/18 19:59 93 22 95 Non-Rebreather 15.0 100 10/31/18 19:50 Non-Rebreather 15.0 100 10/31/18 19:50 99 Non-Rebreather 15.0 100 10/31/18 19:50 82 25 99 Non-Rebreather 15.0 100 10/31/18 16:00 98.0 98 22 133/80 (97) 97 Intake and Output 10/31/18 11/01/18 19:00 07:00 Intake Total 908.333 ml 900 ml Output Total 1100 ml Balance 908.333 ml -200 ml Free Water 130 ml 180 ml IV Total 238.333 ml Tube Feeding 540 ml 720 ml Output Urine Total 1100 ml # Bowel Movements 1 General Appearance: no acute distress, cachetic HEENT: normocephalic, atraumatic, anicteric, mucous membranes moist Respiratory/Chest: rhonchi Cardiovascular: normal peripheral pulses, normal rate, regular rhythm Abdomen: normal bowel sounds, soft, non tender, no organomegaly, non distended , no mass, other - GT Extremities: no cyanosis, no clubbing, no edema Microbiology Date/Time Source Procedure Growth Status 10/30/18 11:30 Blood Blood Culture - Preliminary NO GROWTH AFTER 24 HOURS Resulted 10/30/18 11:22 Blood Blood Culture - Preliminary NO GROWTH AFTER 24 HOURS Resulted 10/30/18 14:45 Indwelling Cath Urine Culture - Preliminary NO GROWTH AFTER 24 HOURS Resulted Laboratory Tests 11/01/18 03:14: Arterial Blood pH 7.366, Arterial Blood Partial Pressure CO2 68.0*H, Arterial Blood Partial Pressure O2 222.4H, Arterial Blood HCO3 38.1H, Arterial Blood Oxygen Saturation 99.2, Arterial Blood Base Excess 11*H, Parveen Test Positive 11/01/18 05:00: White Blood Count 12.8H, Red Blood Count 2.67L, Hemoglobin 7.7L, Hematocrit 24.4L, Mean Corpuscular Volume 91, Mean Corpuscular Hemoglobin 29.0, Mean Corpuscular Hemoglobin Concent 31.7L, Red Cell Distribution Width 14.3, Platelet Count 349, Mean Platelet Volume 6.8, Neutrophils (%) (Auto) , Lymphocytes (%) (Auto) , Monocytes (%) (Auto) , Eosinophils (%) (Auto) , Basophils (%) (Auto) , Differential Total Cells Counted 100, Neutrophils % ( Manual) 86H, Lymphocytes % (Manual) 8L, Monocytes % (Manual) 5, Eosinophils % ( Manual) 1, Basophils % (Manual) 0, Band Neutrophils 0, Platelet Estimate Adequate, Platelet Morphology Normal, Hypochromasia 1+, Anisocytosis , Sodium Level 139, Potassium Level 4.3, Chloride Level 99, Carbon Dioxide Level 37H, Anion Gap 3L, Blood Urea Nitrogen 28H, Creatinine 1.3, Estimat Glomerular Filtration Rate , Glucose Level 111H, Calcium Level 9.7, Total Bilirubin 0.2, Aspartate Amino Transf (AST/SGOT) 20, Alanine Aminotransferase (ALT/SGPT) 22, Alkaline Phosphatase 120H, Total Protein 6.4, Albumin 1.7L, Globulin 4.7, Albumin/Globulin Ratio 0.4L Current Medications Medications (Trade) Dose Ordered Sig/Sofia Route PRN Reason Start Time Stop Time Status Last Admin Dose Admin Amiodarone HCl (Cordarone) 200 mg Q12HR GT 10/31/18 21:00 11/30/18 20:59 11/01/18 09:08 Diltiazem HCl (Cardizem) 60 mg EVERY 8 HOURS GT 10/31/18 14:00 11/26/18 17:59 11/01/18 13:19 Ipratropium [place] (Atrovent) 500 mcg TIDRT HHN 10/31/18 13:00 11/01/18 18:59 11/01/18 13:02 Lansoprazole (Prevacid) 30 mg DAILY GT 11/01/18 09:00 12/01/18 08:59 11/01/18 09:08 Levetiracetam (Keppra) 500 mg Q12HR GT 10/31/18 21:00 11/22/18 20:59 11/01/18 09:08 Piperacillin Sod/ Tazobactam Sod 3.375 gm/Dextrose 110 ml @ 27.5 mls/hr EVERY 8 HOURS IVPB 10/31/18 14:00 11/05/18 13:59 11/01/18 14:26 Vancomycin HCl (Vanco rx to dose) 1 ea DAILY PRN MISC Per rx protocol 10/31/18 09:00 11/30/18 08:59 Vancomycin HCl/ Dextrose 275 ml @ 183.333 mls/hr Q12HR@0800,2000 IVPB 10/31/18 20:00 11/03/18 07:59 11/01/18 08:42 Flex Nunn MD Nov 01, 2018 15:50
[2018-11-01] MEDS ORDERED: Ipratropium 0.02% Inh Soln 2.5ml UD HHN SCH (15:55)
[2018-11-01 16:00] VITALS: BP 111/77
--- NOTE | 2018-11-01 17:12 | General Progress Note ---
Progress Note Progress Note BIOETHICS Note: Pt seen, examined; chart reviewed and discussed with social work job titles. 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 Workup this admission has shown a high likelihood of disseminated carcinoma. There is a POLST form signed by Dr. Maxim Valladares indicating full code; however, this was not signed by the patient and only dates from his return to his half-way following a recent hospitalization at [facility]. After a careful review of the records, the Committee is of the opinion that further aggressive care would be futile, as there is no reasonable expectation that he will have any meaningful recovery. We support palliative care for this patient in lieu of intubation, cardioversion or chest compressions. Thank you for asking for our input. MD Quinn Gorman Peter R. MD Nov 01, 2018 17:12
[2018-11-01] MEDS: Acetylcysteine 20% Soln 4ml HHN SCH (19:06)
--- NOTE | 2018-11-01 19:29 | Neurology Progress Note ---
Interim History Interim History ROS Limited/Unobtainable: Yes Complaints: Acute Ischemic Stroke Events: Eyes opening spontaneously, moved to 4th floor Review of Systems All Systems: reviewed and negative except above Objective Physical Exam Last Vital Signs Date Time Temp Pulse Resp B/P (MAP) Pulse Ox O2 Delivery O2 Flow Rate FiO2 11/01/18 19:13 79 24 99 Venturi Mask 10.0 45 11/01/18 16:00 97.3 111/77 (88) Laboratory Tests Test 11/01/18 03:14 11/01/18 05:00 11/01/18 15:45 11/01/18 18:50 Arterial Blood pH 7.366 (7.350-7.450) 7.432 (7.350-7.450) Arterial Blood Partial Pressure CO2 68.0 mmHg (35.0-45.0) *H 61.0 mmHg (35.0-45.0) *H Arterial Blood Partial Pressure O2 222.4 mmHg (75.0-100.0) H 58.0 mmHg (75.0-100.0) L Arterial Blood HCO3 38.1 mmol/L (22.0-26.0) H 39.8 mmol/L (22.0-26.0) H Arterial Blood Oxygen Saturation 99.2 % (95-100) 89.3 % (95-100) *L Arterial Blood Base Excess 11 (-2-2) *H 13.7 (-2-2) *H Parveen Test Positive Positive White Blood Count 12.8 K/UL (4.8-10.8) H Red Blood Count 2.67 M/UL (4.70-6.10) L Hemoglobin 7.7 G/DL (14.2-18.0) L Hematocrit 24.4 % (42.0-52.0) L Mean Corpuscular Volume 91 FL (80-99) Mean Corpuscular Hemoglobin 29.0 PG (27.0-31.0) Mean Corpuscular Hemoglobin Concent 31.7 G/DL (32.0-36.0) L Red Cell Distribution Width 14.3 % (11.6-14.8) Platelet Count 349 K/UL (150-450) Mean Platelet Volume 6.8 FL (6.5-10.1) Neutrophils (%) (Auto) % (45.0-75.0) Lymphocytes (%) (Auto) % (20.0-45.0) Monocytes (%) (Auto) % (1.0-10.0) Eosinophils (%) (Auto) % (0.0-3.0) Basophils (%) (Auto) % (0.0-2.0) Differential Total Cells Counted 100 Neutrophils % (Manual) 86 % (45-75) H Lymphocytes % (Manual) 8 % (20-45) L Monocytes % (Manual) 5 % (1-10) Eosinophils % (Manual) 1 % (0-3) Basophils % (Manual) 0 % (0-2) Band Neutrophils 0 % (0-8) Platelet Estimate Adequate Platelet Morphology Normal Hypochromasia 1+ Anisocytosis Sodium Level 139 MMOL/L (136-145) Potassium Level 4.3 MMOL/L (3.5-5.1) Chloride Level 99 MMOL/L (98-107) Carbon Dioxide Level 37 MMOL/L (21-32) H Anion Gap 3 mmol/L (5-15) L Blood Urea Nitrogen 28 mg/dL (7-18) H Creatinine 1.3 MG/DL (0.55-1.30) Estimat Glomerular Filtration Rate mL/min (>60) Glucose Level 111 MG/DL (74-106) H Calcium Level 9.7 MG/DL (8.5-10.1) Total Bilirubin 0.2 MG/DL (0.2-1.0) Aspartate Amino Transf (AST/SGOT) 20 U/L (15-37) Alanine Aminotransferase (ALT/SGPT) 22 U/L (12-78) Alkaline Phosphatase 120 U/L (46-116) H Total Protein 6.4 G/DL (6.4-8.2) Albumin 1.7 G/DL (3.4-5.0) L Globulin 4.7 g/dL Albumin/Globulin Ratio 0.4 (1.0-2.7) L Vancomycin Level Trough Pending Head: normocophalic Neck: no rigidity, other EENT: benign Neurologic Exam Mental Status: other - Unconscious but responsive to some verbal and noxious stimuli. Speech: other - non verbal Language: other Cranial Nerves III, IV, : pupils - PERRLA Motor System: other Objective Physical Exam General Appearance: lethargic, thin Lines, tubes and drains: peripheral HEENT: normocephalic, atraumatic, mucous membranes moist, supple, no JVD Neck: normal alignment, supple, normal inspection Respiratory/Chest: lungs clear Cardiovascular/Chest: normal peripheral pulses, normal rate, regular rhythm Abdomen: non tender, soft Extremities: trace edema Skin Exam: warm/dry, other - toe nails on feet - they are growing over top of toe Neurologic: responsive - Only opening eyes to noxious stimuli (pain) , motor weakness - UE contracture bilaterally with sensory deficit. RLE Triple flexion. LLE localizing to pain. , Not verbal, not following commands. Musculoskeletal: other - Upper Extremity contracture bilaterally without response or grimace to painful stimuli. Impression/Recommendations Problems: (1) Seizure Assessment & Plan: Keppra 500mg BID to continue, consider decreasing to 250mg BID for improved LOC (2) Bilateral pneumonia Assessment & Plan: ABX treatment as per ID Team. (3) Altered mental status Assessment & Plan: Obtunded mental status since admission with no improvement. (4) CVA (cerebral vascular accident) Assessment & Plan: Procedure: MRI Brain no Contrast Indication: Altered mental status and seizures Technique: sagittal T1 fast spin echo, axial T1 FLAIR, axial T2 FLAIR, axial T2 * GRE, axial diffusion weighted images. ADC and exponential ADC maps generated. Axial T2-weighted images were not obtained, as patient unable to tolerate further imaging Comparison: Head CT dated 10/22/2018 Findings: There is an area of diffusion restriction in the left inferolateral frontal lobe, mostly within the cortex. No associated hemorrhage No other foci of restricted diffusion demonstrated. No acute hemorrhage or edema demonstrated elsewhere. No mass effect nor midline shift. There is marked age-related enlargement of the ventricles and extra axial CSF spaces. There is extensive periventricular deep white matter high T2 signal. Encephalomalacia is seen in the right occipital lobe and in the left posterior parietal lobe. Somewhat unusual bilateral symmetrical lacunar infarcts are seen within the ariadna. Visualized orbits and sinuses are unremarkable. Impression: Very limited exam, as described Diffusion restriction in the left inferolateral frontal lobe, consistent with nonhemorrhagic acute cortical infarct. Extensive chronic and age-related changes, as described Multiple old infarcts as described INFARCTS within the ARIADNA may be cause of decreased wakefulness and potentially affect respiratory pattern if further infarctions in this area. Status: stable, not improved, unchanged, other Recommendations May be able to tolerate lower dose of Keppra but likely not going to improve wakefulness of patient given underlying bilateral strokes seen on MRI Brain on No changes to plan at this time from a neurological perspective. Sherine Guy N.P. Nov 01, 2018 19:29
[2018-11-01 20:00] VITALS: BP 137/57
[2018-11-02] VITALS: BP 137/74
[2018-11-02] MEDS: Acetylcysteine 20% Soln 4ml HHN SCH ×3 (00:33→12:57)
[2018-11-02] MEDS: Ipratropium 0.02% Inh Soln 2.5ml UD HHN SCH ×3 (00:33→12:57)
[2018-11-02 04:00] VITALS: BP 128/82
[2018-11-02 05:16] LABS: ALANINE AMINOTRANSFERASE 21 U/L (12-78); ALBUMIN 1.6 G/DL (3.4-5.0); ALKALINE PHOSPHATASE 132 U/L (46-116); ANION GAP 2 mmol/L (5-15); ASPARTATE AMINO TRANSFERASE 17 U/L (15-37); BILIRUBIN,TOTAL 0.2 MG/DL (0.2-1.0); BLOOD UREA NITROGEN 30 mg/dL (7-18); CALCIUM 9.5 MG/DL (8.5-10.1); CARBON DIOXIDE 38 MMOL/L (21-32); CHLORIDE 98 MMOL/L (98-107); CREATININE 1.3 MG/DL (0.55-1.30); POTASSIUM 4.5 MMOL/L (3.5-5.1); SODIUM 138 MMOL/L (136-145)
[2018-11-02] MEDS: dilTIAZem HCl 60mg tab GT SCH ×3 (05:30→21:16)
[2018-11-02] MEDS: Piperacillin/Tazobactam 3.375 GM in D5W 110 ML IVPB SCH ×3 (05:34→23:00)
[2018-11-02 08:00] VITALS: BP 128/72
[2018-11-02] MEDS: levETIRAcetam 500mg/5ml Liquid GT SCH ×2 (08:50→21:22)
[2018-11-02] MEDS: Amiodarone 200mg tab GT SCH ×2 (08:50→21:23)
--- NOTE | 2018-11-02 09:28 | Pulmonology Progress Note ---
Assessment/Plan Problems: (1) Altered mental status (2) Bilateral pneumonia (3) Seizure (4) Diabetes mellitus (5) Elevated brain natriuretic peptide (BNP) level (6) Lung mass (7) Sacral decubitus ulcer (8) Lytic bone lesions on xray Assessment/Plan Ethics eval appreciated. Agree that any further w/u of underlying malignancy would be futile. 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 Ball, ethics, eval appreciated DNAR now with no escalation or aggressive w/u No change in status otherwise Objective Last 24 Hour Vital Signs Date Time Temp Pulse Resp B/P (MAP) Pulse Ox O2 Delivery O2 Flow Rate FiO2 11/02/18 09:13 79 35 99 Facial 45 11/02/18 08:00 50 11/02/18 08:00 97.5 86 30 128/72 (90) 98 11/02/18 07:44 79 11/02/18 07:32 85 34 99 Bi-pap 45 11/02/18 07:22 85 35 99 Bi-pap 45 11/02/18 05:30 80 128/82 11/02/18 05:21 80 35 100 Facial 45 11/02/18 04:21 Venturi Mask 50.0 Bi-pap 11/02/18 04:00 50 11/02/18 04:00 98.0 89 35 128/82 (97) 98 11/02/18 03:25 80 11/02/18 02:31 74 34 100 Facial 50 11/02/18 00:41 75 32 98 Bi-pap 45 11/02/18 00:36 75 33 99 Facial 50 11/02/18 00:33 74 29 100 Bi-pap 45 11/02/18 00:00 98.0 65 29 137/74 (95) 97 11/02/18 00:00 Venturi Mask 50.0 Bi-pap 11/02/18 00:00 50 11/01/18 23:33 89 30 97 Facial 50 11/01/18 23:24 109 11/01/18 21:34 83 137/57 11/01/18 20:00 Venturi Mask 10.0 Venturi Mask 11/01/18 20:00 97.7 83 30 137/57 (83) 97 11/01/18 19:13 79 24 99 Venturi Mask 10.0 45 11/01/18 19:06 80 24 94 Venturi Mask 10.0 45 11/01/18 19:03 77 11/01/18 18:00 Venturi Mask Venturi Mask 11/01/18 18:00 10.0 45 11/01/18 16:00 97.3 70 34 111/77 (88) 97 11/01/18 16:00 Bi-pap Bi-pap 11/01/18 16:00 55 11/01/18 16:00 55 11/01/18 15:30 71 11/01/18 14:41 71 32 95 Facial 45 11/01/18 13:19 87 121/80 11/01/18 13:12 87 35 96 Bi-pap 45 11/01/18 13:02 89 34 94 Bi-pap 45 11/01/18 13:00 89 34 96 Facial 45 11/01/18 12:00 Bi-pap Bi-pap 11/01/18 12:00 97.7 86 30 121/80 (94) 96 11/01/18 11:49 84 11/01/18 10:47 71 32 100 Facial 45 11/01/18 10:11 55 11/01/18 10:11 55 Intake and Output 11/01/18 11/02/18 18:59 06:59 Intake Total 1209.166 ml 1005.0 ml Output Total 600 ml 650 ml Balance 609.166 ml 355.0 ml Free Water 100 ml 175 ml IV Total 449.166 ml 110.0 ml Tube Feeding 660 ml 720 ml Output Urine Total 600 ml 650 ml # Bowel Movements 2 2 General Appearance: cachetic - on BiPAP, barely responsive HEENT: normocephalic, atraumatic, anicteric Respiratory/Chest: rhonchi Cardiovascular: normal peripheral pulses, normal rate, regular rhythm Abdomen: normal bowel sounds, soft, non tender, no organomegaly, non distended , no mass, other - GT CDI Extremities: no cyanosis, no clubbing, no edema Microbiology Date/Time Source Procedure Growth Status 10/31/18 16:10 Blood Blood Culture - Preliminary NO GROWTH AFTER 24 HOURS Resulted 10/31/18 16:00 Blood Blood Culture - Preliminary NO GROWTH AFTER 24 HOURS Resulted 10/31/18 03:35 Blood Blood Culture - Preliminary NO GROWTH AFTER 24 HOURS Resulted 10/31/18 03:30 Blood Blood Culture - Preliminary NO GROWTH AFTER 24 HOURS Resulted 10/30/18 11:30 Blood Blood Culture - Preliminary NO GROWTH AFTER 48 HOURS Resulted 10/30/18 11:22 Blood Blood Culture - Preliminary NO GROWTH AFTER 48 HOURS Resulted 10/30/18 14:45 Indwelling Cath Urine Culture - Final NO GROWTH AFTER 48 HOURS Complete Laboratory Tests 11/01/18 15:45: Arterial Blood pH 7.432, Arterial Blood Partial Pressure CO2 61.0*H, Arterial Blood Partial Pressure O2 58.0L, Arterial Blood HCO3 39.8H, Arterial Blood Oxygen Saturation 89.3*L, Arterial Blood Base Excess 13.7*H, Parveen Test Positive 11/01/18 18:50: Vancomycin Level Trough > 50.0H 11/02/18 03:20: Sodium Level 138, Potassium Level 4.5, Chloride Level 98, Carbon Dioxide Level 38H, Anion Gap 2L, Blood Urea Nitrogen 30H, Creatinine 1.3, Estimat Glomerular Filtration Rate , Glucose Level 154H, Calcium Level 9.5, Total Bilirubin 0.2, Aspartate Amino Transf (AST/SGOT) 17, Alanine Aminotransferase (ALT/SGPT) 21, Alkaline Phosphatase 132H, Total Protein 6.4, Albumin 1.6L, Globulin 4.8, Random Vancomycin Level 39.6 Current Medications Medications (Trade) Dose Ordered Sig/Sofia Route PRN Reason Start Time Stop Time Status Last Admin Dose Admin Acetylcysteine (Mucomyst) 200 mg Q6HRT HHN 11/01/18 19:00 12/01/18 18:59 11/02/18 07:24 Amiodarone HCl (Cordarone) 200 mg Q12HR GT 10/31/18 21:00 11/30/18 20:59 11/02/18 08:50 Diltiazem HCl (Cardizem) 60 mg EVERY 8 HOURS GT 10/31/18 14:00 11/26/18 17:59 11/02/18 05:30 Ipratropium [place] (Atrovent) 500 mcg Q6HRT HHN 11/01/18 19:00 11/06/18 18:59 11/02/18 07:24 Lansoprazole (Prevacid) 30 mg DAILY GT 11/01/18 09:00 12/01/18 08:59 11/02/18 08:50 Levetiracetam (Keppra) 500 mg Q12HR GT 10/31/18 21:00 11/22/18 20:59 11/02/18 08:50 Piperacillin Sod/ Tazobactam Sod 3.375 gm/Dextrose 110 ml @ 27.5 mls/hr EVERY 8 HOURS IVPB 10/31/18 14:00 11/05/18 13:59 11/02/18 05:34 Vancomycin HCl (Vanco rx to dose) 1 ea DAILY PRN MISC Per rx protocol 10/31/18 09:00 11/30/18 08:59 Flex Nunn MD Nov 02, 2018 09:28
[2018-11-02 12:00] VITALS: BP 131/72
--- NOTE | 2018-11-02 12:37 | General Progress Note ---
Assessment/Plan Assessment/Plan S: not verbal O: appears lethargic, Not following commands. PHYSICAL EXAMINATION: GENERAL: An elderly male, lying in bed, altered, unresponsive, and not in acute distress. HEENT: Normocephalic and atraumatic. Pupils not reactive to light. Well pale sclera. Unable to assess oral mucosa. NECK: Seems supple. No lymphadenopathy. CARDIOVASCULAR: Regular rate and rhythm. No murmur. LUNGS: He had diminished breathing sounds at the bases with crackles. ABDOMEN: Soft, nontender, and nondistended. PEG tube in place EXTREMITY: No edema or cyanosis. GENITOURINARY: He has normal genitalia. Torres catheter in place. SKIN: Right upper buttock pressure wound. No rash. No hives.Neuro: limited exam, Neuro: not verbal at base line, awake, limited exam Meds: reviewed and reconciled including zosyn and vanco ASSESSMENT: 1. Sepsis. 2. Acute CVA 3. Sz D/o 2. Healthcare-associated pneumonia. 3. Diffuse Metastatic cancer: source : unknown 4. Abnormal troponin.likely troponin leak 4. Anemia. 5. Dementia/encephalopathy. 6. Code Status - Full Code. 7. GI and DVT prophylaxis. 8. Hemoptysis PLAN OF CARE: Risks of any aggressive Diagnostic procedure ( including Trach) surpasses its benefits. Will continue current sepsis treatment Will Defer oncology workup to out patient start PO ccb, will wean off Cardizem gtt Conservative management. Worsening wbc likely secondary to post obstructive PNA, likely due to diffuse metastasis Bioethic committee consult is requested Subjective Allergies: Coded Allergies: No Known Allergies (Unverified , 10/22/18) Objective Last 24 Hour Vital Signs Date Time Temp Pulse Resp B/P (MAP) Pulse Ox O2 Delivery O2 Flow Rate FiO2 11/02/18 12:00 Non-Rebreather 15.0 Non-Rebreather 15.0 11/02/18 12:00 15.0 11/02/18 09:13 79 35 99 Facial 45 11/02/18 08:00 50 11/02/18 08:00 Bi-pap Bi-pap 11/02/18 08:00 97.5 86 30 128/72 (90) 98 11/02/18 07:44 79 11/02/18 07:32 85 34 99 Bi-pap 45 11/02/18 07:22 85 35 99 Bi-pap 45 11/02/18 05:30 80 128/82 11/02/18 05:21 80 35 100 Facial 45 11/02/18 04:21 Venturi Mask 50.0 Bi-pap 11/02/18 04:00 50 11/02/18 04:00 98.0 89 35 128/82 (97) 98 11/02/18 03:25 80 11/02/18 02:31 74 34 100 Facial 50 11/02/18 00:41 75 32 98 Bi-pap 45 11/02/18 00:36 75 33 99 Facial 50 11/02/18 00:33 74 29 100 Bi-pap 45 11/02/18 00:00 98.0 65 29 137/74 (95) 97 11/02/18 00:00 Venturi Mask 50.0 Bi-pap 11/02/18 00:00 50 11/01/18 23:33 89 30 97 Facial 50 11/01/18 23:24 109 11/01/18 21:34 83 137/57 11/01/18 20:00 Venturi Mask 10.0 Venturi Mask 11/01/18 20:00 97.7 83 30 137/57 (83) 97 11/01/18 19:13 79 24 99 Venturi Mask 10.0 45 11/01/18 19:06 80 24 94 Venturi Mask 10.0 45 11/01/18 19:03 77 11/01/18 18:00 Venturi Mask Venturi Mask 11/01/18 18:00 10.0 45 11/01/18 16:00 97.3 70 34 111/77 (88) 97 11/01/18 16:00 Bi-pap Bi-pap 11/01/18 16:00 55 11/01/18 16:00 55 11/01/18 15:30 71 11/01/18 14:41 71 32 95 Facial 45 11/01/18 13:19 87 121/80 11/01/18 13:12 87 35 96 Bi-pap 45 11/01/18 13:02 89 34 94 Bi-pap 45 11/01/18 13:00 89 34 96 Facial 45 Intake and Output 11/01/18 11/02/18 18:59 06:59 Intake Total 1209.166 ml 1005.0 ml Output Total 600 ml 650 ml Balance 609.166 ml 355.0 ml Free Water 100 ml 175 ml IV Total 449.166 ml 110.0 ml Tube Feeding 660 ml 720 ml Output Urine Total 600 ml 650 ml # Bowel Movements 2 2 Laboratory Tests 11/01/18 15:45: Arterial Blood pH 7.432, Arterial Blood Partial Pressure CO2 61.0*H, Arterial Blood Partial Pressure O2 58.0L, Arterial Blood HCO3 39.8H, Arterial Blood Oxygen Saturation 89.3*L, Arterial Blood Base Excess 13.7*H, Parveen Test Positive 11/01/18 18:50: Vancomycin Level Trough > 50.0H 11/02/18 03:20: Sodium Level 138, Potassium Level 4.5, Chloride Level 98, Carbon Dioxide Level 38H, Anion Gap 2L, Blood Urea Nitrogen 30H, Creatinine 1.3, Estimat Glomerular Filtration Rate , Glucose Level 154H, Calcium Level 9.5, Total Bilirubin 0.2, Aspartate Amino Transf (AST/SGOT) 17, Alanine Aminotransferase (ALT/SGPT) 21, Alkaline Phosphatase 132H, Total Protein 6.4, Albumin 1.6L, Globulin 4.8, Random Vancomycin Level 39.6 Height (Feet): 6 Weight (Pounds): 145 Hayde Duran MD Nov 02, 2018 12:37
--- NOTE | 2018-11-02 12:43 | General Progress Note ---
Assessment/Plan Assessment/Plan S: not verbal O: Again appears lethargic, Not following commands. PHYSICAL EXAMINATION: GENERAL: An elderly male, lying in bed, altered, unresponsive, and not in acute distress. HEENT: Normocephalic and atraumatic. Pupils not reactive to light. Well pale sclera. Unable to assess oral mucosa. NECK: Seems supple. No lymphadenopathy. CARDIOVASCULAR: Regular rate and rhythm. No murmur. LUNGS: He had diminished breathing sounds at the bases with crackles. ABDOMEN: Soft, nontender, and nondistended. PEG tube in place EXTREMITY: No edema or cyanosis. GENITOURINARY: He has normal genitalia. Torres catheter in place. SKIN: Right upper buttock pressure wound. No rash. No hives.Neuro: limited exam, Neuro: not verbal at base line, awake, limited exam Meds: reviewed and reconciled including zosyn and vanco ASSESSMENT: 1. Sepsis. 2. Acute CVA 3. Sz D/o 2. Healthcare-associated pneumonia. 3. Diffuse Metastatic cancer: source : unknown 4. Abnormal troponin.likely troponin leak 4. Anemia. 5. Dementia/encephalopathy. 6. Code Status - will change from Full Code to DNR 7. GI and DVT prophylaxis. 8. one episode of Hemoptysis PLAN OF CARE: Risks of any aggressive Diagnostic procedure ( including Trach) surpasses its benefits. Notes from [employer] by Dr Ulrich reviewed. D/w Pulmonary , Dr Nunn Will change POLST to DNR/DNI start comfort care I did med rec with this new goal for comfort care Coordination of care to return to receiving facility with hospice care, per SW/ CM. Subjective Allergies: Coded Allergies: No Known Allergies (Unverified , 10/22/18) Objective Last 24 Hour Vital Signs Date Time Temp Pulse Resp B/P (MAP) Pulse Ox O2 Delivery O2 Flow Rate FiO2 11/02/18 12:00 Non-Rebreather 15.0 Non-Rebreather 15.0 11/02/18 12:00 15.0 11/02/18 09:13 79 35 99 Facial 45 11/02/18 08:00 50 11/02/18 08:00 Bi-pap Bi-pap 11/02/18 08:00 97.5 86 30 128/72 (90) 98 11/02/18 07:44 79 11/02/18 07:32 85 34 99 Bi-pap 45 11/02/18 07:22 85 35 99 Bi-pap 45 11/02/18 05:30 80 128/82 11/02/18 05:21 80 35 100 Facial 45 11/02/18 04:21 Venturi Mask 50.0 Bi-pap 11/02/18 04:00 50 11/02/18 04:00 98.0 89 35 128/82 (97) 98 11/02/18 03:25 80 11/02/18 02:31 74 34 100 Facial 50 11/02/18 00:41 75 32 98 Bi-pap 45 11/02/18 00:36 75 33 99 Facial 50 11/02/18 00:33 74 29 100 Bi-pap 45 11/02/18 00:00 98.0 65 29 137/74 (95) 97 11/02/18 00:00 Venturi Mask 50.0 Bi-pap 11/02/18 00:00 50 11/01/18 23:33 89 30 97 Facial 50 11/01/18 23:24 109 11/01/18 21:34 83 137/57 11/01/18 20:00 Venturi Mask 10.0 Venturi Mask 11/01/18 20:00 97.7 83 30 137/57 (83) 97 11/01/18 19:13 79 24 99 Venturi Mask 10.0 45 11/01/18 19:06 80 24 94 Venturi Mask 10.0 45 11/01/18 19:03 77 11/01/18 18:00 Venturi Mask Venturi Mask 11/01/18 18:00 10.0 45 11/01/18 16:00 97.3 70 34 111/77 (88) 97 11/01/18 16:00 Bi-pap Bi-pap 11/01/18 16:00 55 11/01/18 16:00 55 11/01/18 15:30 71 11/01/18 14:41 71 32 95 Facial 45 11/01/18 13:19 87 121/80 11/01/18 13:12 87 35 96 Bi-pap 45 11/01/18 13:02 89 34 94 Bi-pap 45 11/01/18 13:00 89 34 96 Facial 45 Intake and Output 11/01/18 11/02/18 18:59 06:59 Intake Total 1209.166 ml 1005.0 ml Output Total 600 ml 650 ml Balance 609.166 ml 355.0 ml Free Water 100 ml 175 ml IV Total 449.166 ml 110.0 ml Tube Feeding 660 ml 720 ml Output Urine Total 600 ml 650 ml # Bowel Movements 2 2 Laboratory Tests 11/01/18 15:45: Arterial Blood pH 7.432, Arterial Blood Partial Pressure CO2 61.0*H, Arterial Blood Partial Pressure O2 58.0L, Arterial Blood HCO3 39.8H, Arterial Blood Oxygen Saturation 89.3*L, Arterial Blood Base Excess 13.7*H, Parveen Test Positive 11/01/18 18:50: Vancomycin Level Trough > 50.0H 11/02/18 03:20: Sodium Level 138, Potassium Level 4.5, Chloride Level 98, Carbon Dioxide Level 38H, Anion Gap 2L, Blood Urea Nitrogen 30H, Creatinine 1.3, Estimat Glomerular Filtration Rate , Glucose Level 154H, Calcium Level 9.5, Total Bilirubin 0.2, Aspartate Amino Transf (AST/SGOT) 17, Alanine Aminotransferase (ALT/SGPT) 21, Alkaline Phosphatase 132H, Total Protein 6.4, Albumin 1.6L, Globulin 4.8, Random Vancomycin Level 39.6 Height (Feet): 6 Weight (Pounds): 145 Hayde Duran MD Nov 02, 2018 12:43
--- NOTE | 2018-11-02 13:31 | Cardiac Electrophysiology PN ---
Assessment/Plan Assessment/Plan 1. Paroxysmal atrial fibrillation with RVR. Currently in sinus rhythm. On Cardizem 60 q 8 hr and amiodarone 200 mg bid Off anticoagulation for metastatic CA 2. Troponin leak due to atrial fib with RVR 3. Bilateral pneumonia. On vancomycin and aztreonam per Dr. Morrell. On BIPAP 4. Diabetes. 5. Dysphagia, status post PEG placement. 6. Left Lung CA. Had 300 cc Right Thoracentesis. Had Bone scan 7. Seizures and altered mental status. The patient is on Keppra 500 mg b.i.d. MRI brain new acute cortical infarcts DW RN DC planning today Subjective Subjective Now comfort care on face Mask Objective Last 24 Hour Vital Signs Date Time Temp Pulse Resp B/P (MAP) Pulse Ox O2 Delivery O2 Flow Rate FiO2 11/02/18 13:10 90 22 99 Non-Rebreather 15.0 100 11/02/18 12:58 83 28 100 Non-Rebreather 100 11/02/18 12:00 Non-Rebreather 15.0 Non-Rebreather 15.0 11/02/18 12:00 15.0 11/02/18 12:00 97.3 89 30 131/72 (91) 100 11/02/18 09:13 79 35 99 Facial 45 11/02/18 08:00 50 11/02/18 08:00 Bi-pap Bi-pap 11/02/18 08:00 97.5 86 30 128/72 (90) 98 11/02/18 07:44 79 11/02/18 07:32 85 34 99 Bi-pap 45 11/02/18 07:22 85 35 99 Bi-pap 45 11/02/18 05:30 80 128/82 11/02/18 05:21 80 35 100 Facial 45 11/02/18 04:21 Venturi Mask 50.0 Bi-pap 11/02/18 04:00 50 11/02/18 04:00 98.0 89 35 128/82 (97) 98 11/02/18 03:25 80 11/02/18 02:31 74 34 100 Facial 50 11/02/18 00:41 75 32 98 Bi-pap 45 11/02/18 00:36 75 33 99 Facial 50 11/02/18 00:33 74 29 100 Bi-pap 45 11/02/18 00:00 98.0 65 29 137/74 (95) 97 11/02/18 00:00 Venturi Mask 50.0 Bi-pap 11/02/18 00:00 50 11/01/18 23:33 89 30 97 Facial 50 11/01/18 23:24 109 11/01/18 21:34 83 137/57 11/01/18 20:00 Venturi Mask 10.0 Venturi Mask 11/01/18 20:00 97.7 83 30 137/57 (83) 97 11/01/18 19:13 79 24 99 Venturi Mask 10.0 45 11/01/18 19:06 80 24 94 Venturi Mask 10.0 45 11/01/18 19:03 77 11/01/18 18:00 Venturi Mask Venturi Mask 11/01/18 18:00 10.0 45 11/01/18 16:00 97.3 70 34 111/77 (88) 97 11/01/18 16:00 Bi-pap Bi-pap 11/01/18 16:00 55 11/01/18 16:00 55 11/01/18 15:30 71 11/01/18 14:41 71 32 95 Facial 45 Intake and Output 11/01/18 11/02/18 18:59 06:59 Intake Total 1209.166 ml 1005.0 ml Output Total 600 ml 650 ml Balance 609.166 ml 355.0 ml Free Water 100 ml 175 ml IV Total 449.166 ml 110.0 ml Tube Feeding 660 ml 720 ml Output Urine Total 600 ml 650 ml # Bowel Movements 2 2 Laboratory Tests Test 11/01/18 15:45 11/01/18 18:50 11/02/18 03:20 Arterial Blood pH 7.432 (7.350-7.450) Arterial Blood Partial Pressure CO2 61.0 mmHg (35.0-45.0) *H Arterial Blood Partial Pressure O2 58.0 mmHg (75.0-100.0) L Arterial Blood HCO3 39.8 mmol/L (22.0-26.0) H Arterial Blood Oxygen Saturation 89.3 % (95-100) *L Arterial Blood Base Excess 13.7 (-2-2) *H Parveen Test Positive Vancomycin Level Trough > 50.0 ug/mL (5.0-12.0) H Sodium Level 138 MMOL/L (136-145) Potassium Level 4.5 MMOL/L (3.5-5.1) Chloride Level 98 MMOL/L (98-107) Carbon Dioxide Level 38 MMOL/L (21-32) H Anion Gap 2 mmol/L (5-15) L Blood Urea Nitrogen 30 mg/dL (7-18) H Creatinine 1.3 MG/DL (0.55-1.30) Estimat Glomerular Filtration Rate mL/min (>60) Glucose Level 154 MG/DL (74-106) H Calcium Level 9.5 MG/DL (8.5-10.1) Total Bilirubin 0.2 MG/DL (0.2-1.0) Aspartate Amino Transf (AST/SGOT) 17 U/L (15-37) Alanine Aminotransferase (ALT/SGPT) 21 U/L (12-78) Alkaline Phosphatase 132 U/L (46-116) H Total Protein 6.4 G/DL (6.4-8.2) Albumin 1.6 G/DL (3.4-5.0) L Globulin 4.8 g/dL Random Vancomycin Level 39.6 ug/mL Microbiology Date/Time Source Procedure Growth Status 10/31/18 16:10 Blood Blood Culture - Preliminary NO GROWTH AFTER 24 HOURS Resulted 10/31/18 16:00 Blood Blood Culture - Preliminary NO GROWTH AFTER 24 HOURS Resulted 10/31/18 03:35 Blood Blood Culture - Preliminary NO GROWTH AFTER 24 HOURS Resulted 10/31/18 03:30 Blood Blood Culture - Preliminary NO GROWTH AFTER 24 HOURS Resulted 10/30/18 14:45 Indwelling Cath Urine Culture - Final NO GROWTH AFTER 48 HOURS Complete Objective HEAD AND NECK: No JVD. LUNGS: Decreased breath sounds on left on BIPAP CARDIOVASCULAR: Regular S1 and S2 with no gallop. ABDOMEN: Soft and status post PEG. EXTREMITIES: No pitting edema and are contracted. Saurabh Arredondo MD Nov 02, 2018 13:31
--- NOTE | 2018-11-02 14:03 | Surgery Progress Note ---
Surgery Progress Note Subjective Additional Comments no acute events. exam unchanged. labs noted. micro noted. plan to transition to comfort care Objective Last 24 Hour Vital Signs Date Time Temp Pulse Resp B/P (MAP) Pulse Ox O2 Delivery O2 Flow Rate FiO2 11/02/18 13:10 90 22 99 Non-Rebreather 15.0 100 11/02/18 12:58 83 28 100 Non-Rebreather 100 11/02/18 12:00 Non-Rebreather 15.0 Non-Rebreather 15.0 11/02/18 12:00 15.0 11/02/18 12:00 97.3 89 30 131/72 (91) 100 11/02/18 09:13 79 35 99 Facial 45 11/02/18 08:00 50 11/02/18 08:00 Bi-pap Bi-pap 11/02/18 08:00 97.5 86 30 128/72 (90) 98 11/02/18 07:44 79 11/02/18 07:32 85 34 99 Bi-pap 45 11/02/18 07:22 85 35 99 Bi-pap 45 11/02/18 05:30 80 128/82 11/02/18 05:21 80 35 100 Facial 45 11/02/18 04:21 Venturi Mask 50.0 Bi-pap 11/02/18 04:00 50 11/02/18 04:00 98.0 89 35 128/82 (97) 98 11/02/18 03:25 80 11/02/18 02:31 74 34 100 Facial 50 11/02/18 00:41 75 32 98 Bi-pap 45 11/02/18 00:36 75 33 99 Facial 50 11/02/18 00:33 74 29 100 Bi-pap 45 11/02/18 00:00 98.0 65 29 137/74 (95) 97 11/02/18 00:00 Venturi Mask 50.0 Bi-pap 11/02/18 00:00 50 11/01/18 23:33 89 30 97 Facial 50 11/01/18 23:24 109 11/01/18 21:34 83 137/57 11/01/18 20:00 Venturi Mask 10.0 Venturi Mask 11/01/18 20:00 97.7 83 30 137/57 (83) 97 11/01/18 19:13 79 24 99 Venturi Mask 10.0 45 11/01/18 19:06 80 24 94 Venturi Mask 10.0 45 11/01/18 19:03 77 11/01/18 18:00 Venturi Mask Venturi Mask 11/01/18 18:00 10.0 45 11/01/18 16:00 97.3 70 34 111/77 (88) 97 11/01/18 16:00 Bi-pap Bi-pap 11/01/18 16:00 55 11/01/18 16:00 55 11/01/18 15:30 71 11/01/18 14:41 71 32 95 Facial 45 I&O Intake and Output 11/01/18 11/02/18 18:59 06:59 Intake Total 1209.166 ml 1005.0 ml Output Total 600 ml 650 ml Balance 609.166 ml 355.0 ml Free Water 100 ml 175 ml IV Total 449.166 ml 110.0 ml Tube Feeding 660 ml 720 ml Output Urine Total 600 ml 650 ml # Bowel Movements 2 2 Dressing: other Wound: other Drains: other Cardiovascular: RSR Respiratory: decreased breath sounds Abdomen: soft, non-tender, non-distended Extremities: no tenderness, no cyanosis Laboratory Tests Test 11/01/18 15:45 11/01/18 18:50 11/02/18 03:20 Arterial Blood pH 7.432 (7.350-7.450) Arterial Blood Partial Pressure CO2 61.0 mmHg (35.0-45.0) *H Arterial Blood Partial Pressure O2 58.0 mmHg (75.0-100.0) L Arterial Blood HCO3 39.8 mmol/L (22.0-26.0) H Arterial Blood Oxygen Saturation 89.3 % (95-100) *L Arterial Blood Base Excess 13.7 (-2-2) *H Parveen Test Positive Vancomycin Level Trough > 50.0 ug/mL (5.0-12.0) H Sodium Level 138 MMOL/L (136-145) Potassium Level 4.5 MMOL/L (3.5-5.1) Chloride Level 98 MMOL/L (98-107) Carbon Dioxide Level 38 MMOL/L (21-32) H Anion Gap 2 mmol/L (5-15) L Blood Urea Nitrogen 30 mg/dL (7-18) H Creatinine 1.3 MG/DL (0.55-1.30) Estimat Glomerular Filtration Rate mL/min (>60) Glucose Level 154 MG/DL (74-106) H Calcium Level 9.5 MG/DL (8.5-10.1) Total Bilirubin 0.2 MG/DL (0.2-1.0) Aspartate Amino Transf (AST/SGOT) 17 U/L (15-37) Alanine Aminotransferase (ALT/SGPT) 21 U/L (12-78) Alkaline Phosphatase 132 U/L (46-116) H Total Protein 6.4 G/DL (6.4-8.2) Albumin 1.6 G/DL (3.4-5.0) L Globulin 4.8 g/dL Random Vancomycin Level 39.6 ug/mL Plan Problems: (1) Sacral decubitus ulcer Assessment & Plan: Patient presented on admission with full thickness Stage III sacral pressure injury. 100% yellow slough at base of wound, Edges flat and dry(L)1.1cm x (W)1.9cm. Periwound without erythema or induration. No odor noted. Non-viable tissue removed using curette by myself at bedside. Base of wound is more viable with trace slough. R heel /R achilles boggy with non-blanchable erythema. Pt moans when site is minimally palpated. L heel boggy with non-blanchable erythema. Pt did not exhibit any distress when L heel palpated. Dry brown discoloration without induration or fluctuance noted to brandon/dorsal R foot. Dry brown discoloration without fluctuance or induration noted to R lateral malleolus. Tx.Plan: Cleanse Sacral wound with Saline.Apply Therahoney. Apply Cavilon Skin Barrier periwound. Cover with Optifoam drsg Daily and prn. Apply Cavilon Skin Barrier to R lateral malleolus.Cover with Optifoam drsg.Change every 7 days and prn. Apply Cavilon Skin Barrier to both heels and R achilles. Cover with Optifoam drsg.Change Q7days and prn. APM/CHARU mattress. Reposition at least every 2hours or as tolerated. Off-load heels with pillow. (2) Seizure (3) Lung mass Assessment & Plan: CT chest w/ Evidence of disseminated neoplasm, with multiple osteolytic lesions as described, mediastinal adenopathy, and possible bilateral adrenal masses Complete atelectasis and consolidation of the left lower lobe. Complete occlusion of the proximal lobar bronchi on the left. Given the above findings, the possibility of pulmonary neoplasm with resultant endobronchial occlusion should be considered Extensive atelectasis and consolidation of the left upper lobe. This may represent acute pneumonia, but honeycomb appearance of much of this suggests a significant chronic component There are areas of confluent scarring versus consolidation versus mass as well Suspected loculated pleural effusion on the left. Note that this has enlarged rapidly over the past few days based on recent chest radiographs. There is also a small amount of what is probably increased pleural fluid on the left as well. Multiple focal parenchymal abnormalities on the right. These probably represent areas of acute infiltrate, but the appearance of some of these suggests that they could be neoplastic Ectatic main and right pulmonary artery, suggestive of but not diagnostic for pulmonary arterial hypertension Mild diffuse edema of the subcutaneous and mediastinal fat Minimal pericardial thickening and/or fluid Incidental finding 12 mm left renal cyst Right pleural effusion, also described on recent chest CT report. Trace ascites Cholelithiasis. Negative for dilated bile ducts No sonographic findings to suggest hepatic metastases Increased echogenicity of the left kidney, may indicate chronic medical renadisease. Negative for hydronephrosis. Equivocal left perinephric fluid, of uncertaisignificance of real Incidental finding of small left renal cyst Note nonvisualization of the pancreas extensive disease process noted on CT chest. primary unknown at this time. need to see if any prior records CT/Bone scan noted with lesions will need biopsy for cytology via radiology Labs noted RX reviewed currently stable will monitor thoracentesis fluid path without malignant cells. micro noted and negative. plan to transition to comfort care DNR/DNI Chato Mullen Nov 02, 2018 14:03
[2018-11-02 16:00] VITALS: BP 114/71
--- NOTE | 2018-11-02 16:21 | Neurology Progress Note ---
Interim History Interim History ROS Limited/Unobtainable: Yes Complaints: Acute Ischemic Stroke Events: Eyes opening spontaneously, moved to 4th floor Objective Physical Exam Last Vital Signs Date Time Temp Pulse Resp B/P (MAP) Pulse Ox O2 Delivery O2 Flow Rate FiO2 11/02/18 16:00 Non-Rebreather 15.0 Non-Rebreather 15.0 11/02/18 16:00 55 11/02/18 14:15 90 131/72 11/02/18 13:10 22 99 11/02/18 12:00 97.3 Laboratory Tests Test 11/01/18 18:50 11/02/18 03:20 Vancomycin Level Trough > 50.0 ug/mL (5.0-12.0) H Sodium Level 138 MMOL/L (136-145) Potassium Level 4.5 MMOL/L (3.5-5.1) Chloride Level 98 MMOL/L (98-107) Carbon Dioxide Level 38 MMOL/L (21-32) H Anion Gap 2 mmol/L (5-15) L Blood Urea Nitrogen 30 mg/dL (7-18) H Creatinine 1.3 MG/DL (0.55-1.30) Estimat Glomerular Filtration Rate mL/min (>60) Glucose Level 154 MG/DL (74-106) H Calcium Level 9.5 MG/DL (8.5-10.1) Total Bilirubin 0.2 MG/DL (0.2-1.0) Aspartate Amino Transf (AST/SGOT) 17 U/L (15-37) Alanine Aminotransferase (ALT/SGPT) 21 U/L (12-78) Alkaline Phosphatase 132 U/L (46-116) H Total Protein 6.4 G/DL (6.4-8.2) Albumin 1.6 G/DL (3.4-5.0) L Globulin 4.8 g/dL Random Vancomycin Level 39.6 ug/mL Head: normocophalic Neck: no rigidity, other EENT: benign Neurologic Exam Mental Status: other - Unconscious but responsive to some verbal and noxious stimuli. Speech: other - non verbal Language: other Cranial Nerves III, IV, : pupils - PERRLA Motor System: other Objective Physical Exam General Appearance: lethargic, thin Lines, tubes and drains: peripheral HEENT: normocephalic, atraumatic, mucous membranes moist, supple, no JVD Neck: normal alignment, supple, normal inspection Respiratory/Chest: lungs clear Cardiovascular/Chest: normal peripheral pulses, normal rate, regular rhythm Abdomen: non tender, soft Extremities: trace edema Skin Exam: warm/dry, other - toe nails on feet - they are growing over top of toe Neurologic: responsive - Only opening eyes to noxious stimuli (pain) , motor weakness - UE contracture bilaterally with sensory deficit. RLE Triple flexion. LLE localizing to pain. , Not verbal, not following commands. Musculoskeletal: other - Upper Extremity contracture bilaterally without response or grimace to painful stimuli. Impression/Recommendations Problems: (1) Seizure Assessment & Plan: Keppra 500mg BID to continue, consider decreasing to 250mg BID for improved LOC (2) Bilateral pneumonia Assessment & Plan: ABX treatment as per ID Team. (3) Altered mental status Assessment & Plan: Obtunded mental status since admission with no improvement. (4) CVA (cerebral vascular accident) Assessment & Plan: Procedure: MRI Brain no Contrast Indication: Altered mental status and seizures Technique: sagittal T1 fast spin echo, axial T1 FLAIR, axial T2 FLAIR, axial T2 * GRE, axial diffusion weighted images. ADC and exponential ADC maps generated. Axial T2-weighted images were not obtained, as patient unable to tolerate further imaging Comparison: Head CT dated 10/22/2018 Findings: There is an area of diffusion restriction in the left inferolateral frontal lobe, mostly within the cortex. No associated hemorrhage No other foci of restricted diffusion demonstrated. No acute hemorrhage or edema demonstrated elsewhere. No mass effect nor midline shift. There is marked age-related enlargement of the ventricles and extra axial CSF spaces. There is extensive periventricular deep white matter high T2 signal. Encephalomalacia is seen in the right occipital lobe and in the left posterior parietal lobe. Somewhat unusual bilateral symmetrical lacunar infarcts are seen within the ariadna. Visualized orbits and sinuses are unremarkable. Impression: Very limited exam, as described Diffusion restriction in the left inferolateral frontal lobe, consistent with nonhemorrhagic acute cortical infarct. Extensive chronic and age-related changes, as described Multiple old infarcts as described INFARCTS within the ARIADNA may be cause of decreased wakefulness and potentially affect respiratory pattern if further infarctions in this area. Status: not improved, unchanged Recommendations May be able to tolerate lower dose of Keppra but likely not going to improve wakefulness of patient given underlying bilateral strokes seen on MRI Brain on Sherine Guy N.P. Nov 02, 2018 16:21
--- NOTE | 2018-11-02 17:05 | Infectious Diseases Prog Note ---
Assessment/Plan Problems: (1) Leukocytosis Assessment & Plan: suspect due to worsening right side pneumonia and left pleural effusion , continue vancomycin and zosyn for now empiric coverage , may benefit from thoracentesis , or bronch , may switch to oral Augmentin to finish his course of treatment . (2) Bilateral pneumonia Assessment & Plan: suspect aspiration and post obstruction pneumonia , due to altered mental status , continue vancomycin and to zosyn empirically , CT chest confirmed lung mass with mets to the bones, and effusion . aspiration precaution, keep HOB > 30 DEGREE . may need bronch (3) Seizure Assessment & Plan: monitor in tele,seizure precaution . consult neurology (4) Diabetes mellitus Assessment & Plan: recommend tight glycemic control to keep blood glucose between 10-140 (5) Altered mental status Assessment & Plan: due to the above, continue hydration and antibiotics, neuro check , monitor in tele, avoid sedatives (6) Lung mass Assessment & Plan: with total collapse of the left lung and mediastinal shift , and bone lytic lesions, suspect lung cancer with mets , poor prognosis, needs bronch for tissue diagnosis and oncology eval. S/P thoracentesis by IR Subjective ROS Limited/Unobtainable: Yes Allergies: Coded Allergies: No Known Allergies (Unverified , 10/22/18) Subjective he was still obtunded , and lethargic , open eyes spontaneously , uncooperative with exam , no fever, no hemoptysis , no SOB, no cough Objective Vital Signs Last 24 Hour Vital Signs Date Time Temp Pulse Resp B/P (MAP) Pulse Ox O2 Delivery O2 Flow Rate FiO2 11/02/18 16:00 Non-Rebreather 15.0 Non-Rebreather 15.0 11/02/18 16:00 97.9 79 32 114/71 (85) 96 11/02/18 16:00 14.0 55 11/02/18 14:15 90 131/72 11/02/18 13:10 90 22 99 Non-Rebreather 15.0 100 11/02/18 12:58 83 28 100 Non-Rebreather 100 11/02/18 12:00 Non-Rebreather 15.0 Non-Rebreather 15.0 11/02/18 12:00 15.0 11/02/18 12:00 97.3 89 30 131/72 (91) 100 11/02/18 12:00 87 11/02/18 09:13 79 35 99 Facial 45 11/02/18 08:00 50 11/02/18 08:00 Bi-pap Bi-pap 11/02/18 08:00 97.5 86 30 128/72 (90) 98 11/02/18 07:44 79 11/02/18 07:32 85 34 99 Bi-pap 45 11/02/18 07:22 85 35 99 Bi-pap 45 11/02/18 05:30 80 128/82 11/02/18 05:21 80 35 100 Facial 45 11/02/18 04:21 Venturi Mask 50.0 Bi-pap 11/02/18 04:00 50 11/02/18 04:00 98.0 89 35 128/82 (97) 98 11/02/18 03:25 80 11/02/18 02:31 74 34 100 Facial 50 11/02/18 00:41 75 32 98 Bi-pap 45 11/02/18 00:36 75 33 99 Facial 50 11/02/18 00:33 74 29 100 Bi-pap 45 11/02/18 00:00 98.0 65 29 137/74 (95) 97 11/02/18 00:00 Venturi Mask 50.0 Bi-pap 11/02/18 00:00 50 11/01/18 23:33 89 30 97 Facial 50 11/01/18 23:24 109 11/01/18 21:34 83 137/57 11/01/18 20:00 Venturi Mask 10.0 Venturi Mask 11/01/18 20:00 97.7 83 30 137/57 (83) 97 11/01/18 19:13 79 24 99 Venturi Mask 10.0 45 11/01/18 19:06 80 24 94 Venturi Mask 10.0 45 11/01/18 19:03 77 11/01/18 18:00 Venturi Mask Venturi Mask 11/01/18 18:00 10.0 45 Height (Feet): 6 Weight (Pounds): 145 General Appearance: no acute distress, cachetic HEENT: normocephalic, atraumatic, anicteric, mucous membranes moist, PERRL Respiratory/Chest: chest wall non-tender, no respiratory distress, no accessory muscle use, decreased breath sounds, crackles/rales Cardiovascular: normal peripheral pulses, normal rate, regular rhythm, no gallop/murmur, no JVD Abdomen: normal bowel sounds, soft, non tender, no organomegaly, non distended , no mass, no scars Genitourinary: normal external genitalia Extremities: no cyanosis, no clubbing Skin: no rash, no lesions, ulcers Neurologic/Psychiatric: alert, unresponsiveness Lymphatic: no neck adenopathy, no groin adenopathy Musculoskeletal: normal muscle bulk, no effusion Microbiology Date/Time Source Procedure Growth Status 10/31/18 16:10 Blood Blood Culture - Preliminary NO GROWTH AFTER 24 HOURS Resulted 10/31/18 16:00 Blood Blood Culture - Preliminary NO GROWTH AFTER 24 HOURS Resulted 10/31/18 03:35 Blood Blood Culture - Preliminary NO GROWTH AFTER 24 HOURS Resulted 10/31/18 03:30 Blood Blood Culture - Preliminary NO GROWTH AFTER 24 HOURS Resulted Laboratory Tests Test 11/01/18 18:50 11/02/18 03:20 Vancomycin Level Trough > 50.0 ug/mL (5.0-12.0) H Sodium Level 138 MMOL/L (136-145) Potassium Level 4.5 MMOL/L (3.5-5.1) Chloride Level 98 MMOL/L (98-107) Carbon Dioxide Level 38 MMOL/L (21-32) H Anion Gap 2 mmol/L (5-15) L Blood Urea Nitrogen 30 mg/dL (7-18) H Creatinine 1.3 MG/DL (0.55-1.30) Estimat Glomerular Filtration Rate mL/min (>60) Glucose Level 154 MG/DL (74-106) H Calcium Level 9.5 MG/DL (8.5-10.1) Total Bilirubin 0.2 MG/DL (0.2-1.0) Aspartate Amino Transf (AST/SGOT) 17 U/L (15-37) Alanine Aminotransferase (ALT/SGPT) 21 U/L (12-78) Alkaline Phosphatase 132 U/L (46-116) H Total Protein 6.4 G/DL (6.4-8.2) Albumin 1.6 G/DL (3.4-5.0) L Globulin 4.8 g/dL Random Vancomycin Level 39.6 ug/mL Current Medications Medications (Trade) Dose Ordered Sig/Sofia Route PRN Reason Start Time Stop Time Status Last Admin Dose Admin Acetylcysteine (Mucomyst) 200 mg Q6HRT HHN 11/01/18 19:00 12/01/18 18:59 11/02/18 12:57 Amiodarone HCl (Cordarone) 200 mg Q12HR GT 10/31/18 21:00 11/30/18 20:59 11/02/18 08:50 Amoxicillin/ Clavulanate Potassium (Augmentin) 875 mg EVERY 12 HOURS ORAL 11/02/18 21:00 11/12/18 09:01 Diltiazem HCl (Cardizem) 60 mg EVERY 8 HOURS GT 10/31/18 14:00 11/26/18 17:59 11/02/18 14:15 Ipratropium [place] (Atrovent) 500 mcg Q6HRT [facility] 11/01/18 19:00 11/06/18 18:59 11/02/18 12:57 Levetiracetam (Keppra) 500 mg Q12HR GT 10/31/18 21:00 11/22/18 20:59 11/02/18 08:50 Susanna Morrell M.D. Nov 02, 2018 17:05
[2018-11-02 20:00] VITALS: BP 109/66
[2018-11-02] MEDS ORDERED: Augmentin 875mg Tab ORAL SCH (21:00)
[2018-11-02] MEDS ORDERED: Piperacillin/Tazobactam 3.375 GM in D5W 110 ML IVPB SCH ×4 (22:00)
[2018-11-03] VITALS: BP 125/76
[2018-11-03] MEDS: Ipratropium 0.02% Inh Soln 2.5ml UD HHN SCH ×4 (01:04→20:00)
[2018-11-03] MEDS: Acetylcysteine 20% Soln 4ml HHN SCH ×4 (01:05→20:00)
[2018-11-03 04:00] VITALS: BP 138/78
[2018-11-03] MEDS: dilTIAZem HCl 60mg tab GT SCH ×3 (05:01→21:06)
[2018-11-03] MEDS: Piperacillin/Tazobactam 3.375 GM in D5W 110 ML IVPB SCH ×3 (05:01→21:03)
[2018-11-03 08:00] VITALS: BP 143/82
[2018-11-03] MEDS ORDERED: Vancomycin 1.25gm Premix 275 ML IVPB SCH (08:00)
[2018-11-03] MEDS: Amiodarone 200mg tab GT SCH (09:36)
[2018-11-03] MEDS: levETIRAcetam 500mg/5ml Liquid GT SCH ×2 (09:36→21:02)
[2018-11-03 12:00] VITALS: BP 132/82
--- NOTE | 2018-11-03 14:10 | Surgery Progress Note ---
Surgery Progress Note Subjective Additional Comments was declined by assisted and returns. Objective Last 24 Hour Vital Signs Date Time Temp Pulse Resp B/P (MAP) Pulse Ox O2 Delivery O2 Flow Rate FiO2 11/03/18 13:22 78 20 99 Venturi Mask 10.0 45 11/03/18 13:13 90 132/82 11/03/18 13:12 90 22 95 Venturi Mask 10.0 45 11/03/18 12:00 97.8 96 22 132/82 (99) 94 11/03/18 09:00 Venturi Mask 14.0 11/03/18 08:00 97.9 74 22 143/82 (102) 94 11/03/18 07:55 82 20 97 Venturi Mask 10.0 45 11/03/18 07:44 74 22 94 Venturi Mask 10.0 45 11/03/18 07:42 94 Venturi Mask 10.0 45 11/03/18 07:42 Venturi Mask 14.0 55 11/03/18 05:01 98 138/78 11/03/18 04:00 97.3 98 30 138/78 (98) 95 11/03/18 01:21 80 20 99 Venturi Mask 10.0 45 11/03/18 01:07 Venturi Mask 14.0 55 11/03/18 01:07 98 Venturi Mask 14.0 55 11/03/18 01:05 77 22 98 Venturi Mask 14.0 55 11/03/18 00:00 97.7 90 28 125/76 (92) 98 11/02/18 21:16 86 109/66 11/02/18 21:00 Venturi Mask 14.0 Venturi Mask 14.0 11/02/18 20:00 97.3 86 26 109/66 (80) 97 11/02/18 16:00 Non-Rebreather 15.0 Non-Rebreather 15.0 11/02/18 16:00 97.9 79 32 114/71 (85) 96 11/02/18 16:00 14.0 55 11/02/18 14:15 90 131/72 I&O Intake and Output 11/02/18 11/03/18 18:59 06:59 Intake Total 1269.0 ml 1317.5 ml Output Total 750 ml 750 ml Balance 519.0 ml 567.5 ml Free Water 490 ml 640 ml IV Total 179.0 ml 137.5 ml Tube Feeding 600 ml 540 ml Output Urine Total 750 ml 750 ml # Bowel Movements 2 1 Dressing: saturated Wound: other Drains: other Cardiovascular: RSR Respiratory: decreased breath sounds Abdomen: soft, present bowel sounds, non-distended Extremities: cyanosis Laboratory Tests Test 11/03/18 07:02 Random Vancomycin Level 29.8 ug/mL Plan Problems: (1) Sacral decubitus ulcer Assessment & Plan: Patient presented on admission with full thickness Stage III sacral pressure injury. 100% yellow slough at base of wound, Edges flat and dry(L)1.1cm x (W)1.9cm. Periwound without erythema or induration. No odor noted. Non-viable tissue removed using curette by myself at bedside. Base of wound is more viable with trace slough. R heel /R achilles boggy with non-blanchable erythema. Pt moans when site is minimally palpated. L heel boggy with non-blanchable erythema. Pt did not exhibit any distress when L heel palpated. Dry brown discoloration without induration or fluctuance noted to brandon/dorsal R foot. Dry brown discoloration without fluctuance or induration noted to R lateral malleolus. now with resolving pressure injury R sacrum. Base of wound epithelialized -pink and dry. Edges flat and adherent to base of wound (L)0.9cm x (W)1.6cm. Periwound is clean and intact. Hyperpigmentation from previous wound L buttocks and sacral region. Dry skin with dark skin tone lateral L malleolus. No erythema ,fluctuance or induration when palpated.Patch of darker skin tone without erythema or fluctuance dorso /flexor R foot. Both heels are boggy with scattered areas of hypopigmentation without erythema. Tx.Plan: Cleanse Sacral wound with Saline.Apply Therahoney. Apply Cavilon Skin Barrier periwound. Cover with Optifoam drsg Daily and prn. Apply Cavilon Skin Barrier to R lateral malleolus.Cover with Optifoam drsg.Change every 7 days and prn. Apply Cavilon Skin Barrier to both heels and R achilles. Cover with Optifoam drsg.Change Q7days and prn. APM/CHARU mattress. Reposition at least every 2hours or as tolerated. Off-load heels with pillow. (2) Seizure (3) Lung mass Assessment & Plan: CT chest w/ Evidence of disseminated neoplasm, with multiple osteolytic lesions as described, mediastinal adenopathy, and possible bilateral adrenal masses Complete atelectasis and consolidation of the left lower lobe. Complete occlusion of the proximal lobar bronchi on the left. Given the above findings, the possibility of pulmonary neoplasm with resultant endobronchial occlusion should be considered Extensive atelectasis and consolidation of the left upper lobe. This may represent acute pneumonia, but honeycomb appearance of much of this suggests a significant chronic component There are areas of confluent scarring versus consolidation versus mass as well Suspected loculated pleural effusion on the left. Note that this has enlarged rapidly over the past few days based on recent chest radiographs. There is also a small amount of what is probably increased pleural fluid on the left as well. Multiple focal parenchymal abnormalities on the right. These probably represent areas of acute infiltrate, but the appearance of some of these suggests that they could be neoplastic Ectatic main and right pulmonary artery, suggestive of but not diagnostic for pulmonary arterial hypertension Mild diffuse edema of the subcutaneous and mediastinal fat Minimal pericardial thickening and/or fluid Incidental finding 12 mm left renal cyst Right pleural effusion, also described on recent chest CT report. Trace ascites Cholelithiasis. Negative for dilated bile ducts No sonographic findings to suggest hepatic metastases Increased echogenicity of the left kidney, may indicate chronic medical renadisease. Negative for hydronephrosis. Equivocal left perinephric fluid, of uncertaisignificance of real Incidental finding of small left renal cyst Note nonvisualization of the pancreas extensive disease process noted on CT chest. primary unknown at this time. need to see if any prior records CT/Bone scan noted with lesions will need biopsy for cytology via radiology Labs noted RX reviewed currently stable will monitor thoracentesis fluid path without malignant cells. micro noted and negative. plan to transition to comfort care DNR/DNI Chato Mullen Nov 03, 2018 14:10
--- NOTE | 2018-11-03 15:28 | Infectious Diseases Prog Note ---
Assessment/Plan Problems: (1) Leukocytosis Assessment & Plan: suspect due to worsening right side pneumonia and left pleural effusion , continue zosyn for now empiric coverage , may benefit from thoracentesis , or bronch , stop vancomycin . (2) Bilateral pneumonia Assessment & Plan: suspect aspiration and post obstruction pneumonia , due to altered mental status , continue zosyn empirically , CT chest confirmed lung mass with mets to the bones, and effusion . aspiration precaution, keep HOB > 30 DEGREE . may need bronch (3) Seizure Assessment & Plan: monitor in tele,seizure precaution . consult neurology (4) Diabetes mellitus Assessment & Plan: recommend tight glycemic control to keep blood glucose between 10-140 (5) Altered mental status Assessment & Plan: due to the above, continue hydration and antibiotics, neuro check , monitor in tele, avoid sedatives (6) Lung mass Assessment & Plan: with total collapse of the left lung and mediastinal shift , and bone lytic lesions, suspect lung cancer with mets , poor prognosis, needs bronch for tissue diagnosis and oncology eval. S/P thoracentesis by IR Subjective ROS Limited/Unobtainable: Yes Allergies: Coded Allergies: No Known Allergies (Unverified , 10/22/18) Subjective he was still obtunded , and lethargic , open eyes spontaneously , uncooperative with exam , no fever, no hemoptysis , no SOB, no cough Objective Vital Signs Last 24 Hour Vital Signs Date Time Temp Pulse Resp B/P (MAP) Pulse Ox O2 Delivery O2 Flow Rate FiO2 11/03/18 13:22 78 20 99 Venturi Mask 10.0 45 11/03/18 13:13 90 132/82 11/03/18 13:12 90 22 95 Venturi Mask 10.0 45 11/03/18 12:00 97.8 96 22 132/82 (99) 94 11/03/18 09:00 Venturi Mask 14.0 11/03/18 08:00 97.9 74 22 143/82 (102) 94 11/03/18 07:55 82 20 97 Venturi Mask 10.0 45 11/03/18 07:44 74 22 94 Venturi Mask 10.0 45 11/03/18 07:42 94 Venturi Mask 10.0 45 11/03/18 07:42 Venturi Mask 14.0 55 11/03/18 05:01 98 138/78 3/21/19 04:00 97.3 98 30 138/78 (98) 95 11/03/18 01:21 80 20 99 Venturi Mask 10.0 45 11/03/18 01:07 Venturi Mask 14.0 55 11/03/18 01:07 98 Venturi Mask 14.0 55 11/03/18 01:05 77 22 98 Venturi Mask 14.0 55 11/03/18 00:00 97.7 90 28 125/76 (92) 98 11/02/18 21:16 86 109/66 11/02/18 21:00 Venturi Mask 14.0 Venturi Mask 14.0 11/02/18 20:00 97.3 86 26 109/66 (80) 97 11/02/18 16:00 Non-Rebreather 15.0 Non-Rebreather 15.0 11/02/18 16:00 97.9 79 32 114/71 (85) 96 11/02/18 16:00 14.0 55 Height (Feet): 6 Weight (Pounds): 145 General Appearance: no acute distress, cachetic HEENT: normocephalic, atraumatic, anicteric, mucous membranes moist Respiratory/Chest: chest wall non-tender, no respiratory distress, no accessory muscle use, decreased breath sounds, crackles/rales Cardiovascular: normal peripheral pulses, normal rate, regular rhythm, no gallop/murmur, no JVD Abdomen: normal bowel sounds, soft, non tender, no organomegaly, non distended , no mass, no scars Extremities: no cyanosis, no clubbing Skin: no rash, no lesions Neurologic/Psychiatric: alert, unresponsiveness Lymphatic: no neck adenopathy, no groin adenopathy Musculoskeletal: normal muscle bulk, no effusion Microbiology Date/Time Source Procedure Growth Status 11/01/18 05:10 Blood Blood Culture - Preliminary NO GROWTH AFTER 24 HOURS Resulted 11/01/18 05:00 Blood Blood Culture - Preliminary NO GROWTH AFTER 24 HOURS Resulted 10/31/18 16:10 Blood Blood Culture - Preliminary NO GROWTH AFTER 48 HOURS Resulted 10/31/18 16:00 Blood Blood Culture - Preliminary NO GROWTH AFTER 48 HOURS Resulted Laboratory Tests Test 11/03/18 07:02 Random Vancomycin Level 29.8 ug/mL Current Medications Medications (Trade) Dose Ordered Sig/Sofia Route PRN Reason Start Time Stop Time Status Last Admin Dose Admin Acetylcysteine (Mucomyst) 200 mg Q6HRT N 11/03/18 01:00 12/01/18 18:59 11/03/18 13:11 Amiodarone HCl (Cordarone) 200 mg Q12HR GT 11/02/18 21:00 11/30/18 20:59 11/03/18 09:36 Diltiazem HCl (Cardizem) 60 mg EVERY 8 HOURS GT 11/02/18 22:00 11/26/18 17:59 11/03/18 13:13 Ipratropium [place] (Atrovent) 500 mcg Q4H PRN N Shortness of Breath 11/02/18 20:45 11/07/18 20:44 Ipratropium [place] (Atrovent) 500 mcg Q6HRT N 11/03/18 01:00 11/06/18 18:59 11/03/18 13:11 Levetiracetam (Keppra) 500 mg Q12HR GT 11/02/18 21:00 11/22/18 20:59 11/03/18 09:36 Piperacillin Sod/ Tazobactam Sod 3.375 gm/Dextrose 110 ml @ 27.5 mls/hr EVERY 8 HOURS IVPB 11/02/18 22:00 11/07/18 21:59 11/03/18 13:13 Vancomycin HCl (Vanco rx to dose) 1 ea DAILY PRN MISC Per rx protocol 11/02/18 20:45 12/02/18 20:44 Susanna Morrell M.D. Nov 03, 2018 15:28
[2018-11-03 16:00] VITALS: BP 126/90
--- NOTE | 2018-11-03 16:14 | General Progress Note ---
Assessment/Plan Assessment/Plan S: not verbal O: Again appears lethargic, Not following commands. PHYSICAL EXAMINATION: GENERAL: An elderly male, lying in bed, altered, unresponsive, and not in acute distress. HEENT: Normocephalic and atraumatic. Pupils not reactive to light. Well pale sclera. Unable to assess oral mucosa. NECK: Seems supple. No lymphadenopathy. CARDIOVASCULAR: Regular rate and rhythm. No murmur. LUNGS: He had diminished breathing sounds at the bases with crackles. ABDOMEN: Soft, nontender, and nondistended. PEG tube in place EXTREMITY: No edema or cyanosis. GENITOURINARY: He has normal genitalia. Torres catheter in place. SKIN: Right upper buttock pressure wound. No rash. No hives.Neuro: limited exam, Neuro: not verbal at base line, awake, limited exam Meds: reviewed and reconciled including zosyn and vanco ASSESSMENT: 1. Sepsis. 2. Acute CVA 3. Sz D/o 2. Healthcare-associated pneumonia. 3. Diffuse Metastatic cancer: source : unknown 4. Abnormal troponin.likely troponin leak 4. Anemia. 5. Dementia/encephalopathy. 6. Code Status - will change from Full Code to DNR 7. GI and DVT prophylaxis. 8. one episode of Hemoptysis PLAN OF CARE: Risks of any aggressive Diagnostic procedure ( including Trach) surpasses its benefits. Notes from [employer] by Dr Ulrich reviewed. D/w Pulmonary , Dr Nunn Will change POLST to DNR/DNI start comfort care I did med rec with this new goal for comfort care Coordination of care to return to receiving facility with hospice care, per SW/ CM. comment: patient left the hospital , then returned back from facility last night. again, no interval change in patient's plan of care. the same as stated above Subjective Allergies: Coded Allergies: No Known Allergies (Unverified , 10/22/18) Objective Last 24 Hour Vital Signs Date Time Temp Pulse Resp B/P (MAP) Pulse Ox O2 Delivery O2 Flow Rate FiO2 11/03/18 13:22 78 20 99 Venturi Mask 10.0 45 11/03/18 13:13 90 132/82 11/03/18 13:12 90 22 95 Venturi Mask 10.0 45 11/03/18 12:00 97.8 96 22 132/82 (99) 94 11/03/18 09:00 Venturi Mask 14.0 11/03/18 08:00 97.9 74 22 143/82 (102) 94 11/03/18 07:55 82 20 97 Venturi Mask 10.0 45 11/03/18 07:44 74 22 94 Venturi Mask 10.0 45 11/03/18 07:42 94 Venturi Mask 10.0 45 11/03/18 07:42 Venturi Mask 14.0 55 11/03/18 05:01 98 138/78 11/03/18 04:00 97.3 98 30 138/78 (98) 95 11/03/18 01:21 80 20 99 Venturi Mask 10.0 45 11/03/18 01:07 Venturi Mask 14.0 55 11/03/18 01:07 98 Venturi Mask 14.0 55 11/03/18 01:05 77 22 98 Venturi Mask 14.0 55 11/03/18 00:00 97.7 90 28 125/76 (92) 98 11/02/18 21:16 86 109/66 11/02/18 21:00 Venturi Mask 14.0 Venturi Mask 14.0 11/02/18 20:00 97.3 86 26 109/66 (80) 97 Intake and Output 11/02/18 11/03/18 18:59 06:59 Intake Total 1269.0 ml 1317.5 ml Output Total 750 ml 750 ml Balance 519.0 ml 567.5 ml Free Water 490 ml 640 ml IV Total 179.0 ml 137.5 ml Tube Feeding 600 ml 540 ml Output Urine Total 750 ml 750 ml # Bowel Movements 2 1 Laboratory Tests 11/03/18 07:02: Random Vancomycin Level 29.8 Height (Feet): 6 Weight (Pounds): 145 Hayde Duran MD Nov 03, 2018 16:14
--- NOTE | 2018-11-03 17:25 | Cardiac Electrophysiology PN ---
Assessment/Plan Assessment/Plan 1. Paroxysmal atrial fibrillation with RVR. was in sinus rhythm hwen was on tele. On Cardizem 60 q 8 hr and amiodarone 200 mg bid( decrease to 200 daily Off anticoagulation for metastatic CA 2. Troponin leak due to atrial fib with RVR 3. Bilateral pneumonia. On vancomycin and aztreonam per Dr. Morrell. On BIPAP 4. Diabetes. 5. Dysphagia, status post PEG placement. 6. Left Lung CA. Had 300 cc Right Thoracentesis. Had Bone scan 7. Seizures and altered mental status. The patient is on Keppra 500 mg b.i.d. MRI brain new acute cortical infarcts DW RN DC planning Subjective Subjective No events Objective Last 24 Hour Vital Signs Date Time Temp Pulse Resp B/P (MAP) Pulse Ox O2 Delivery O2 Flow Rate FiO2 11/03/18 13:22 78 20 99 Venturi Mask 10.0 45 11/03/18 13:13 90 132/82 11/03/18 13:12 90 22 95 Venturi Mask 10.0 45 11/03/18 12:00 97.8 96 22 132/82 (99) 94 11/03/18 09:00 Venturi Mask 14.0 11/03/18 08:00 97.9 74 22 143/82 (102) 94 11/03/18 07:55 82 20 97 Venturi Mask 10.0 45 11/03/18 07:44 74 22 94 Venturi Mask 10.0 45 11/03/18 07:42 94 Venturi Mask 10.0 45 11/03/18 07:42 Venturi Mask 14.0 55 11/03/18 05:01 98 138/78 11/03/18 04:00 97.3 98 30 138/78 (98) 95 11/03/18 01:21 80 20 99 Venturi Mask 10.0 45 11/03/18 01:07 Venturi Mask 14.0 55 11/03/18 01:07 98 Venturi Mask 14.0 55 11/03/18 01:05 77 22 98 Venturi Mask 14.0 55 11/03/18 00:00 97.7 90 28 125/76 (92) 98 11/02/18 21:16 86 109/66 11/02/18 21:00 Venturi Mask 14.0 Venturi Mask 14.0 11/02/18 20:00 97.3 86 26 109/66 (80) 97 Intake and Output 11/02/18 11/03/18 18:59 06:59 Intake Total 1269.0 ml 1317.5 ml Output Total 750 ml 750 ml Balance 519.0 ml 567.5 ml Free Water 490 ml 640 ml IV Total 179.0 ml 137.5 ml Tube Feeding 600 ml 540 ml Output Urine Total 750 ml 750 ml # Bowel Movements 2 1 Laboratory Tests Test 11/03/18 07:02 Random Vancomycin Level 29.8 ug/mL Microbiology Date/Time Source Procedure Growth Status 11/01/18 05:10 Blood Blood Culture - Preliminary NO GROWTH AFTER 24 HOURS Resulted 11/01/18 05:00 Blood Blood Culture - Preliminary NO GROWTH AFTER 24 HOURS Resulted Objective HEAD AND NECK: No JVD. LUNGS: Decreased breath sounds on left CARDIOVASCULAR: Regular S1 and S2 with no gallop. ABDOMEN: Soft and status post PEG. EXTREMITIES: No pitting edema and are contracted. Saurabh Arredondo MD Nov 03, 2018 17:25
[2018-11-03 20:00] VITALS: BP 144/76
[2018-11-04] VITALS: BP 133/77
[2018-11-04] MEDS: Ipratropium 0.02% Inh Soln 2.5ml UD HHN SCH ×4 (01:20→20:23)
[2018-11-04] MEDS: Acetylcysteine 20% Soln 4ml HHN SCH ×4 (01:20→20:24)
[2018-11-04 04:00] VITALS: BP 136/79
[2018-11-04] MEDS: dilTIAZem HCl 60mg tab GT SCH ×3 (06:01→21:07)
[2018-11-04] MEDS: Piperacillin/Tazobactam 3.375 GM in D5W 110 ML IVPB SCH ×2 (06:02→14:41)
--- NOTE | 2018-11-04 07:32 | Neurology Progress Note ---
Interim History Interim History ROS Limited/Unobtainable: Yes Complaints: Acute Ischemic Stroke Events: Being given antibiotic treatment for PNA Interim History No additional neuro changes or changes in LOC reported by staff. Changed to comfort care- DNR/ DNI. Review of Systems Neuro Review of Systems Eyes opening spontaneously but no tracking or following commands. Objective Physical Exam Last Vital Signs Date Time Temp Pulse Resp B/P (MAP) Pulse Ox O2 Delivery O2 Flow Rate FiO2 11/04/18 06:01 96 136/79 11/04/18 04:00 97.8 33 95 11/03/18 21:00 Venturi Mask 15.0 11/03/18 20:15 55 Head: normocophalic Neck: no rigidity, other EENT: benign Neurologic Exam Mental Status: awake, other - Eyes opening spontaneously without tracking and somewhat resistant to pupillary inspection with light. Speech: other - non verbal Language: other Cranial Nerves III, IV, : pupils - PERRLA Cranial Nerve VII: no facial asymmetry Motor System: no involuntary movement - No spontaneous movement at this time and upper limbs remain contracted but able to extend each with gentle effort without evidence of spasticity, other Gait: other - Unable to ambulate due to LOC Objective Physical Exam General Appearance: lethargic, thin Lines, tubes and drains: peripheral HEENT: normocephalic, atraumatic, mucous membranes moist, supple, no JVD Neck: normal alignment, supple, normal inspection Respiratory/Chest: lungs clear Cardiovascular/Chest: normal peripheral pulses, normal rate, regular rhythm Abdomen: non tender, soft, PEG feeding Extremities: stable trace edema Skin Exam: warm/dry, other - toe nails on feet - they are growing over top of toe Neurologic: responsive - Eyes open spontaneously R>L but closing to exam , motor weakness - UE contracture bilaterally with sensory deficit. RLE Triple flexion. LLE localizing to pain. , Not verbal, not following commands. Musculoskeletal: other - Upper Extremity contracture bilaterally no with grimace and groan to gentle extension of each arm- no evidence of hypotonia/ spasticity- . Impression/Recommendations Problems: (1) Seizure Assessment & Plan: No changes to Keppra dose at this time. (2) Bilateral pneumonia Assessment & Plan: ABX treatment as per ID Team. (3) Altered mental status Assessment & Plan: Comatose/ Possibly locked in (Bilateral ARIADNA lesions) mental status since admission with no improvement- unlikely to improve given brainstem lesions (prior infarcts) (4) CVA (cerebral vascular accident) Assessment & Plan: Procedure: MRI Brain no Contrast Indication: Altered mental status and seizures Technique: sagittal T1 fast spin echo, axial T1 FLAIR, axial T2 FLAIR, axial T2 * GRE, axial diffusion weighted images. ADC and exponential ADC maps generated. Axial T2-weighted images were not obtained, as patient unable to tolerate further imaging Comparison: Head CT dated 10/22/2018 Findings: There is an area of diffusion restriction in the left inferolateral frontal lobe, mostly within the cortex. No associated hemorrhage No other foci of restricted diffusion demonstrated. No acute hemorrhage or edema demonstrated elsewhere. No mass effect nor midline shift. There is marked age-related enlargement of the ventricles and extra axial CSF spaces. There is extensive periventricular deep white matter high T2 signal. Encephalomalacia is seen in the right occipital lobe and in the left posterior parietal lobe. Somewhat unusual bilateral symmetrical lacunar infarcts are seen within the ariadna. Visualized orbits and sinuses are unremarkable. Impression: Very limited exam, as described Diffusion restriction in the left inferolateral frontal lobe, consistent with nonhemorrhagic acute cortical infarct. Extensive chronic and age-related changes, as described Multiple old infarcts as described INFARCTS within the ARIADNA may be cause of decreased wakefulness and potentially affect respiratory pattern if further infarctions in this area. Status: stable, unchanged Recommendations Not likely to improve wakefulness of patient given underlying bilateral strokes seen on MRI Brain on 10/28/18 No sign of seizure activity or change in LOC - neurologically stable Sherine Guy N.P. Nov 04, 2018 07:32
[2018-11-04 07:35] VITALS: BP 159/82
[2018-11-04] MEDS: levETIRAcetam 500mg/5ml Liquid GT SCH ×2 (08:10→21:06)
[2018-11-04] MEDS: Amiodarone 200mg tab GT SCH (08:10)
[2018-11-04 12:00] VITALS: BP 130/81
--- NOTE | 2018-11-04 14:02 | Cardiac Electrophysiology PN ---
Assessment/Plan Assessment/Plan 1. Paroxysmal atrial fibrillation with RVR. was in sinus rhythm when was on tele. On Cardizem 60 q 8 hr and amiodarone 200 mg 200 daily Off anticoagulation for metastatic CA 2. Troponin leak due to atrial fib with RVR 3. Bilateral pneumonia. On vancomycin and aztreonam per Dr. Morrell. On BIPAP 4. Diabetes. 5. Dysphagia, status post PEG placement. 6. Left Lung CA. Had 300 cc Right Thoracentesis. Had Bone scan 7. Seizures and altered mental status. The patient is on Keppra 500 mg b.i.d. MRI brain new acute cortical infarcts DW RN Subjective Subjective No events in NAD Objective Last 24 Hour Vital Signs Date Time Temp Pulse Resp B/P (MAP) Pulse Ox O2 Delivery O2 Flow Rate FiO2 11/04/18 12:00 97.8 86 33 130/81 (97) 95 11/04/18 08:25 94 24 97 Venturi Mask 14.0 55 11/04/18 08:15 91 Venturi Mask 14.0 55 11/04/18 08:15 97 24 94 Venturi Mask 14.0 55 11/04/18 08:15 Venturi Mask 14.0 55 11/04/18 07:46 Venturi Mask 15.0 11/04/18 07:35 97.8 105 33 159/82 (107) 95 11/04/18 06:01 96 136/79 11/04/18 04:00 97.8 96 33 136/79 (98) 95 11/04/18 00:00 97.7 95 34 133/77 (95) 95 11/03/18 21:06 93 144/76 11/03/18 21:00 Venturi Mask 15.0 11/03/18 20:15 89 20 94 Venturi Mask 14.0 55 11/03/18 20:00 Venturi Mask 10.0 45 11/03/18 20:00 97.8 93 36 144/76 (98) 96 11/03/18 20:00 93 22 91 Venturi Mask 10.0 45 11/03/18 20:00 91 Venturi Mask 10.0 45 11/03/18 16:00 97.0 86 22 126/90 (102) 95 Intake and Output 11/03/18 11/04/18 18:59 06:59 Intake Total 1470.0 ml 1430.0 ml Output Total 800 ml 900 ml Balance 670.0 ml 530.0 ml Free Water 640 ml 600 ml IV Total 110.0 ml 110.0 ml Tube Feeding 720 ml 720 ml Output Urine Total 800 ml 900 ml # Bowel Movements 5 Objective HEAD AND NECK: No JVD. LUNGS: Decreased breath sounds on left CARDIOVASCULAR: Regular S1 and S2 with no gallop. ABDOMEN: Soft and status post PEG. EXTREMITIES: No pitting edema and are contracted. Saurabh Arredondo MD Nov 04, 2018 14:02
--- NOTE | 2018-11-04 15:16 | Surgery Progress Note ---
Surgery Progress Note Subjective Additional Comments awaiting placement. wants to leave. Objective Last 24 Hour Vital Signs Date Time Temp Pulse Resp B/P (MAP) Pulse Ox O2 Delivery O2 Flow Rate FiO2 11/04/18 14:41 86 128/81 11/04/18 12:00 97.8 86 33 130/81 (97) 95 11/04/18 08:25 94 24 97 Venturi Mask 14.0 55 11/04/18 08:15 91 Venturi Mask 14.0 55 11/04/18 08:15 97 24 94 Venturi Mask 14.0 55 11/04/18 08:15 Venturi Mask 14.0 55 11/04/18 07:46 Venturi Mask 15.0 11/04/18 07:35 97.8 105 33 159/82 (107) 95 11/04/18 06:01 96 136/79 11/04/18 04:00 97.8 96 33 136/79 (98) 95 11/04/18 00:00 97.7 95 34 133/77 (95) 95 11/03/18 21:06 93 144/76 11/03/18 21:00 Venturi Mask 15.0 11/03/18 20:15 89 20 94 Venturi Mask 14.0 55 11/03/18 20:00 Venturi Mask 10.0 45 11/03/18 20:00 97.8 93 36 144/76 (98) 96 11/03/18 20:00 93 22 91 Venturi Mask 10.0 45 11/03/18 20:00 91 Venturi Mask 10.0 45 11/03/18 16:00 97.0 86 22 126/90 (102) 95 I&O Intake and Output 11/03/18 11/04/18 18:59 06:59 Intake Total 1470.0 ml 1430.0 ml Output Total 800 ml 900 ml Balance 670.0 ml 530.0 ml Free Water 640 ml 600 ml IV Total 110.0 ml 110.0 ml Tube Feeding 720 ml 720 ml Output Urine Total 800 ml 900 ml # Bowel Movements 5 Dressing: saturated Wound: other Drains: other Cardiovascular: RSR Respiratory: decreased breath sounds Abdomen: soft, present bowel sounds, non-distended Extremities: no cyanosis, other Plan Problems: (1) Sacral decubitus ulcer Assessment & Plan: Patient presented on admission with full thickness Stage III sacral pressure injury. 100% yellow slough at base of wound, Edges flat and dry(L)1.1cm x (W)1.9cm. Periwound without erythema or induration. No odor noted. Non-viable tissue removed using curette by myself at bedside. Base of wound is more viable with trace slough. R heel /R achilles boggy with non-blanchable erythema. Pt moans when site is minimally palpated. L heel boggy with non-blanchable erythema. Pt did not exhibit any distress when L heel palpated. Dry brown discoloration without induration or fluctuance noted to brandon/dorsal R foot. Dry brown discoloration without fluctuance or induration noted to R lateral malleolus. now with resolving pressure injury R sacrum. Base of wound epithelialized -pink and dry. Edges flat and adherent to base of wound (L)0.9cm x (W)1.6cm. Periwound is clean and intact. Hyperpigmentation from previous wound L buttocks and sacral region. Dry skin with dark skin tone lateral L malleolus. No erythema ,fluctuance or induration when palpated.Patch of darker skin tone without erythema or fluctuance dorso /flexor R foot. Both heels are boggy with scattered areas of hypopigmentation without erythema. Tx.Plan: Cleanse Sacral wound with Saline.Apply Therahoney. Apply Cavilon Skin Barrier periwound. Cover with Optifoam drsg Daily and prn. Apply Cavilon Skin Barrier to R lateral malleolus.Cover with Optifoam drsg.Change every 7 days and prn. Apply Cavilon Skin Barrier to both heels and R achilles. Cover with Optifoam drsg.Change Q7days and prn. APM/CHARU mattress. Reposition at least every 2hours or as tolerated. Off-load heels with pillow. (2) Seizure (3) Lung mass Assessment & Plan: CT chest w/ Evidence of disseminated neoplasm, with multiple osteolytic lesions as described, mediastinal adenopathy, and possible bilateral adrenal masses Complete atelectasis and consolidation of the left lower lobe. Complete occlusion of the proximal lobar bronchi on the left. Given the above findings, the possibility of pulmonary neoplasm with resultant endobronchial occlusion should be considered Extensive atelectasis and consolidation of the left upper lobe. This may represent acute pneumonia, but honeycomb appearance of much of this suggests a significant chronic component There are areas of confluent scarring versus consolidation versus mass as well Suspected loculated pleural effusion on the left. Note that this has enlarged rapidly over the past few days based on recent chest radiographs. There is also a small amount of what is probably increased pleural fluid on the left as well. Multiple focal parenchymal abnormalities on the right. These probably represent areas of acute infiltrate, but the appearance of some of these suggests that they could be neoplastic Ectatic main and right pulmonary artery, suggestive of but not diagnostic for pulmonary arterial hypertension Mild diffuse edema of the subcutaneous and mediastinal fat Minimal pericardial thickening and/or fluid Incidental finding 12 mm left renal cyst Right pleural effusion, also described on recent chest CT report. Trace ascites Cholelithiasis. Negative for dilated bile ducts No sonographic findings to suggest hepatic metastases Increased echogenicity of the left kidney, may indicate chronic medical renadisease. Negative for hydronephrosis. Equivocal left perinephric fluid, of uncertaisignificance of real Incidental finding of small left renal cyst Note nonvisualization of the pancreas extensive disease process noted on CT chest. primary unknown at this time. need to see if any prior records CT/Bone scan noted with lesions will need biopsy for cytology via radiology Labs noted RX reviewed currently stable will monitor thoracentesis fluid path without malignant cells. micro noted and negative. plan to transition to comfort care DNR/DNI Chato Mullen Nov 04, 2018 15:16
[2018-11-04 16:50] VITALS: BP 126/79
--- NOTE | 2018-11-04 16:57 | General Progress Note ---
Assessment/Plan Assessment/Plan S: not verbal O: Again appears lethargic, Not following commands. PHYSICAL EXAMINATION: GENERAL: An elderly male, lying in bed, altered, unresponsive, and not in acute distress. HEENT: Normocephalic and atraumatic. Pupils not reactive to light. Well pale sclera. Unable to assess oral mucosa. NECK: Seems supple. No lymphadenopathy. CARDIOVASCULAR: Regular rate and rhythm. No murmur. LUNGS: He had diminished breathing sounds at the bases with crackles. ABDOMEN: Soft, nontender, and nondistended. PEG tube in place EXTREMITY: No edema or cyanosis. GENITOURINARY: He has normal genitalia. Torres catheter in place. SKIN: Right upper buttock pressure wound. No rash. No hives.Neuro: limited exam, Neuro: not verbal at base line, awake, limited exam Meds: reviewed and reconciled including zosyn and vanco ASSESSMENT: 1. Sepsis. 2. Acute CVA 3. Sz D/o 2. Healthcare-associated pneumonia. 3. Diffuse Metastatic cancer: source : unknown 4. Abnormal troponin.likely troponin leak 4. Anemia. 5. Dementia/encephalopathy. 6. Code Status - will change from Full Code to DNR 7. GI and DVT prophylaxis. 8. one episode of Hemoptysis PLAN OF CARE: Risks of any aggressive Diagnostic procedure ( including Trach) surpasses its benefits. Notes from Bioethic committee by Dr Ulrich reviewed. D/w Pulmonary , Dr Nunn Will change POLST to DNR/DNI start comfort care I did med rec with this new goal for comfort care Coordination of care to return to receiving facility with hospice care, per SW/ CM. Subjective Allergies: Coded Allergies: No Known Allergies (Unverified , 10/22/18) Objective Last 24 Hour Vital Signs Date Time Temp Pulse Resp B/P (MAP) Pulse Ox O2 Delivery O2 Flow Rate FiO2 11/04/18 16:50 97.8 80 33 126/79 (95) 95 11/04/18 14:41 86 128/81 11/04/18 14:20 92 20 97 Venturi Mask 14.0 55 11/04/18 14:09 94 22 95 Venturi Mask 14.0 55 11/04/18 12:00 97.8 86 33 130/81 (97) 95 11/04/18 08:25 94 24 97 Venturi Mask 14.0 55 11/04/18 08:15 91 Venturi Mask 14.0 55 11/04/18 08:15 97 24 94 Venturi Mask 14.0 55 11/04/18 08:15 Venturi Mask 14.0 55 11/04/18 07:46 Venturi Mask 15.0 11/04/18 07:35 97.8 105 33 159/82 (107) 95 11/04/18 06:01 96 136/79 11/04/18 04:00 97.8 96 33 136/79 (98) 95 11/04/18 00:00 97.7 95 34 133/77 (95) 95 11/03/18 21:06 93 144/76 11/03/18 21:00 Venturi Mask 15.0 11/03/18 20:15 89 20 94 Venturi Mask 14.0 55 11/03/18 20:00 Venturi Mask 10.0 45 11/03/18 20:00 97.8 93 36 144/76 (98) 96 11/03/18 20:00 93 22 91 Venturi Mask 10.0 45 11/03/18 20:00 91 Venturi Mask 10.0 45 Intake and Output 11/03/18 11/04/18 18:59 06:59 Intake Total 1470.0 ml 1430.0 ml Output Total 800 ml 900 ml Balance 670.0 ml 530.0 ml Free Water 640 ml 600 ml IV Total 110.0 ml 110.0 ml Tube Feeding 720 ml 720 ml Output Urine Total 800 ml 900 ml # Bowel Movements 5 Height (Feet): 6 Weight (Pounds): 145 Hayde Duran MD Nov 04, 2018 16:57
[2018-11-04] MEDS ORDERED: LORazepam Inj 2mg/ml 1ml IV PRN (17:45)
[2018-11-04 20:00] VITALS: BP 119/72
[2018-11-05] VITALS (7 sets, daily range): BP systolic 104–127; BP diastolic 53–69
[2018-11-05] MEDS: Acetylcysteine 20% Soln 4ml HHN SCH ×4 (01:43→20:11)
[2018-11-05] MEDS: Ipratropium 0.02% Inh Soln 2.5ml UD HHN SCH ×4 (01:43→20:11)
[2018-11-05] MEDS: dilTIAZem HCl 60mg tab GT SCH ×3 (05:38→21:04)
[2018-11-05] MEDS: Amiodarone 200mg tab GT SCH (09:39)
[2018-11-05] MEDS: levETIRAcetam 500mg/5ml Liquid GT SCH ×2 (09:40→21:04)
[2018-11-05] MEDS ORDERED: NS 275ml ONE (15:12)
--- NOTE | 2018-11-05 17:51 | Cardiac Electrophysiology PN ---
Assessment/Plan Assessment/Plan 1. Paroxysmal atrial fibrillation with RVR was in sinus rhythm when was on tele. On Cardizem 60 q 8 hr and amiodarone 200 mg 200 daily Off anticoagulation for metastatic CA 2. Troponin leak due to atrial fib with RVR 3. Bilateral pneumonia. On vancomycin and aztreonam per Dr. Morrell. On BIPAP 4. Diabetes. 5. Dysphagia, status post PEG placement. 6. Left Lung CA. Had 300 cc Right Thoracentesis. Had Bone scan 7. Seizures and altered mental status. The patient is on Keppra 500 mg b.i.d. 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 Placement pending Objective Last 24 Hour Vital Signs Date Time Temp Pulse Resp B/P (MAP) Pulse Ox O2 Delivery O2 Flow Rate FiO2 11/05/18 16:36 98.5 94 30 116/66 (83) 96 11/05/18 14:32 82 18 97 Venturi Mask 14.0 55 11/05/18 14:21 82 20 97 Venturi Mask 14.0 55 11/05/18 13:47 92 104/53 11/05/18 13:47 92 104/53 (70) 11/05/18 12:03 98.5 83 33 110/64 (79) 98 11/05/18 09:57 Venturi Mask 15.0 Venturi Mask 15.0 Venturi Mask 15.0 11/05/18 09:42 79 11/05/18 08:00 98.1 76 33 108/55 (72) 97 11/05/18 07:45 84 18 98 Venturi Mask 14.0 55 11/05/18 07:35 98 Venturi Mask 14.0 55 11/05/18 07:35 Venturi Mask 14.0 55 11/05/18 07:35 79 20 98 Venturi Mask 14.0 55 11/05/18 05:38 85 124/61 11/05/18 04:00 97.7 85 34 124/61 (82) 100 11/05/18 01:56 86 20 97 Venturi Mask 14.0 55 11/05/18 01:43 81 20 96 Venturi Mask 14.0 55 11/05/18 00:00 98.6 79 33 127/69 (88) 97 11/04/18 21:07 91 119/72 11/04/18 21:00 Venturi Mask 15.0 Venturi Mask 15.0 Venturi Mask 15.0 11/04/18 20:35 85 20 98 Venturi Mask 14.0 55 11/04/18 20:23 83 20 98 Venturi Mask 14.0 55 11/04/18 20:22 Venturi Mask 14.0 55 11/04/18 20:22 98 Venturi Mask 14.0 55 11/04/18 20:00 98.0 91 34 119/72 (88) 96 Intake and Output 11/04/18 11/05/18 18:59 06:59 Intake Total 1320 ml Output Total 600 ml Balance 720 ml Free Water 600 ml Tube Feeding 720 ml Output Urine Total 600 ml Objective HEAD AND NECK: No JVD. LUNGS: Decreased breath sounds on left CARDIOVASCULAR: Regular S1 and S2 with no gallop. ABDOMEN: Soft and status post PEG. EXTREMITIES: No pitting edema and are contracted. Saurabh Arredondo MD Nov 05, 2018 17:51
--- NOTE | 2018-11-05 18:59 | Surgery Progress Note ---
Surgery Progress Note Subjective Additional Comments no acute events. planning for comfort care. Objective Last 24 Hour Vital Signs Date Time Temp Pulse Resp B/P (MAP) Pulse Ox O2 Delivery O2 Flow Rate FiO2 11/05/18 16:36 98.5 94 30 116/66 (83) 96 11/05/18 14:32 82 18 97 Venturi Mask 14.0 55 11/05/18 14:21 82 20 97 Venturi Mask 14.0 55 11/05/18 13:47 92 104/53 11/05/18 13:47 92 104/53 (70) 11/05/18 12:03 98.5 83 33 110/64 (79) 98 11/05/18 09:57 Venturi Mask 15.0 Venturi Mask 15.0 Venturi Mask 15.0 11/05/18 09:42 79 11/05/18 08:00 98.1 76 33 108/55 (72) 97 11/05/18 07:45 84 18 98 Venturi Mask 14.0 55 11/05/18 07:35 98 Venturi Mask 14.0 55 11/05/18 07:35 Venturi Mask 14.0 55 11/05/18 07:35 79 20 98 Venturi Mask 14.0 55 11/05/18 05:38 85 124/61 11/05/18 04:00 97.7 85 34 124/61 (82) 100 11/05/18 01:56 86 20 97 Venturi Mask 14.0 55 11/05/18 01:43 81 20 96 Venturi Mask 14.0 55 11/05/18 00:00 98.6 79 33 127/69 (88) 97 11/04/18 21:07 91 119/72 11/04/18 21:00 Venturi Mask 15.0 Venturi Mask 15.0 Venturi Mask 15.0 11/04/18 20:35 85 20 98 Venturi Mask 14.0 55 11/04/18 20:23 83 20 98 Venturi Mask 14.0 55 11/04/18 20:22 Venturi Mask 14.0 55 11/04/18 20:22 98 Venturi Mask 14.0 55 11/04/18 20:00 98.0 91 34 119/72 (88) 96 I&O Intake and Output 11/04/18 11/05/18 18:59 06:59 Intake Total 1320 ml Output Total 600 ml Balance 720 ml Free Water 600 ml Tube Feeding 720 ml Output Urine Total 600 ml Dressing: saturated Wound: other Drains: other Cardiovascular: RSR Respiratory: decreased breath sounds Abdomen: soft, non-distended Extremities: other Plan Problems: (1) Sacral decubitus ulcer Assessment & Plan: Patient presented on admission with full thickness Stage III sacral pressure injury. 100% yellow slough at base of wound, Edges flat and dry(L)1.1cm x (W)1.9cm. Periwound without erythema or induration. No odor noted. Non-viable tissue removed using curette by myself at bedside. Base of wound is more viable with trace slough. R heel /R achilles boggy with non-blanchable erythema. Pt moans when site is minimally palpated. L heel boggy with non-blanchable erythema. Pt did not exhibit any distress when L heel palpated. Dry brown discoloration without induration or fluctuance noted to brandon/dorsal R foot. Dry brown discoloration without fluctuance or induration noted to R lateral malleolus. now with resolving pressure injury R sacrum. Base of wound epithelialized -pink and dry. Edges flat and adherent to base of wound (L)0.9cm x (W)1.6cm. Periwound is clean and intact. Hyperpigmentation from previous wound L buttocks and sacral region. Dry skin with dark skin tone lateral L malleolus. No erythema ,fluctuance or induration when palpated.Patch of darker skin tone without erythema or fluctuance dorso /flexor R foot. Both heels are boggy with scattered areas of hypopigmentation without erythema. Tx.Plan: Cleanse Sacral wound with Saline.Apply Therahoney. Apply Cavilon Skin Barrier periwound. Cover with Optifoam drsg Daily and prn. Apply Cavilon Skin Barrier to R lateral malleolus.Cover with Optifoam drsg.Change every 7 days and prn. Apply Cavilon Skin Barrier to both heels and R achilles. Cover with Optifoam drsg.Change Q7days and prn. APM/CHARU mattress. Reposition at least every 2hours or as tolerated. Off-load heels with pillow. (2) Seizure (3) Lung mass Assessment & Plan: CT chest w/ Evidence of disseminated neoplasm, with multiple osteolytic lesions as described, mediastinal adenopathy, and possible bilateral adrenal masses Complete atelectasis and consolidation of the left lower lobe. Complete occlusion of the proximal lobar bronchi on the left. Given the above findings, the possibility of pulmonary neoplasm with resultant endobronchial occlusion should be considered Extensive atelectasis and consolidation of the left upper lobe. This may represent acute pneumonia, but honeycomb appearance of much of this suggests a significant chronic component There are areas of confluent scarring versus consolidation versus mass as well Suspected loculated pleural effusion on the left. Note that this has enlarged rapidly over the past few days based on recent chest radiographs. There is also a small amount of what is probably increased pleural fluid on the left as well. Multiple focal parenchymal abnormalities on the right. These probably represent areas of acute infiltrate, but the appearance of some of these suggests that they could be neoplastic Ectatic main and right pulmonary artery, suggestive of but not diagnostic for pulmonary arterial hypertension Mild diffuse edema of the subcutaneous and mediastinal fat Minimal pericardial thickening and/or fluid Incidental finding 12 mm left renal cyst Right pleural effusion, also described on recent chest CT report. Trace ascites Cholelithiasis. Negative for dilated bile ducts No sonographic findings to suggest hepatic metastases Increased echogenicity of the left kidney, may indicate chronic medical renadisease. Negative for hydronephrosis. Equivocal left perinephric fluid, of uncertaisignificance of real Incidental finding of small left renal cyst Note nonvisualization of the pancreas extensive disease process noted on CT chest. primary unknown at this time. need to see if any prior records CT/Bone scan noted with lesions will need biopsy for cytology via radiology Labs noted RX reviewed currently stable will monitor thoracentesis fluid path without malignant cells. micro noted and negative. plan to transition to comfort care DNR/DNI Chato Mullen Nov 05, 2018 18:59
--- NOTE | 2018-11-05 20:52 | Pulmonology Progress Note ---
Assessment/Plan Assessment/Plan Pulmonary Consultation HPI Patient readmitted from SNF, worsening SOB PMH: Lung Mass, Seizures, Diabetes, Hypertension, Atrial Fibrillation, Previous CVA, Depression, GERD Allergies: No Known Allergies ROS: limited Assessment/Plan Problems: (1) Altered mental status (2) Bilateral pneumonia (3) Seizure (4) Diabetes mellitus (5) Elevated brain natriuretic peptide (BNP) level (6) Lung mass (7) Sacral decubitus ulcer (8) Lytic bone lesions on xray Assessment/Plan Agree that any further w/u of underlying malignancy would be futile. Patient now DNAR/DNI, now on full comfort measures Optimize pulmonary hygiene/mobilize as tolerated PRN O2 Attempt to wean off BiPAP HHN's FM O2 NPO IVF Subjective Allergies: Coded Allergies: No Known Allergies (Unverified , 10/22/18) Subjective Stable on FM O2 On Comfort Measures DNAR now with no escalation or aggressive w/u No change in status otherwise Objective Vital Signs Noted General Appearance: cachetic - on FM O2 barely responsive HEENT: normocephalic, atraumatic, anicteric Respiratory/Chest: rhonchi Cardiovascular: normal peripheral pulses, normal rate, regular rhythm Abdomen: normal bowel sounds, soft, non tender, no organomegaly, non distended , no mass, other - GT CDI Extremities: no cyanosis, no clubbing, no edema Microbiology Date/Time Source Procedure Growth Status 10/31/18 16:10 Blood Blood Culture - Preliminary NO GROWTH AFTER 24 HOURS Resulted 10/31/18 16:00 Blood Blood Culture - Preliminary NO GROWTH AFTER 24 HOURS Resulted 10/31/18 03:35 Blood Blood Culture - Preliminary NO GROWTH AFTER 24 HOURS Resulted 10/31/18 03:30 Blood Blood Culture - Preliminary NO GROWTH AFTER 24 HOURS Resulted 10/30/18 11:30 Blood Blood Culture - Preliminary NO GROWTH AFTER 48 HOURS Resulted 10/30/18 11:22 Blood Blood Culture - Preliminary NO GROWTH AFTER 48 HOURS Resulted 10/30/18 14:45 Indwelling Cath Urine Culture - Final NO GROWTH AFTER 48 HOURS Complete Laboratory Tests 11/01/18 15:45: Arterial Blood pH 7.432, Arterial Blood Partial Pressure CO2 61.0*H, Arterial Blood Partial Pressure O2 58.0L, Arterial Blood HCO3 39.8H, Arterial Blood Oxygen Saturation 89.3*L, Arterial Blood Base Excess 13.7*H, Parveen Test Positive 11/01/18 18:50: Vancomycin Level Trough > 50.0H 11/02/18 03:20: Sodium Level 138, Potassium Level 4.5, Chloride Level 98, Carbon Dioxide Level 38H, Anion Gap 2L, Blood Urea Nitrogen 30H, Creatinine 1.3, Estimat Glomerular Filtration Rate , Glucose Level 154H, Calcium Level 9.5, Total Bilirubin 0.2, Aspartate Amino Transf (AST/SGOT) 17, Alanine Aminotransferase (ALT/SGPT) 21, Alkaline Phosphatase 132H, Total Protein 6.4, Albumin 1.6L, Globulin 4.8, Random Vancomycin Level 39.6 Current Medications Medications (Trade) Dose Ordered Sig/Sofia Route PRN Reason Start Time Stop Time Status Last Admin Dose Admin Acetylcysteine (Mucomyst) 200 mg Q6HRT N 11/01/18 19:00 12/01/18 18:59 11/02/18 07:24 Amiodarone HCl (Cordarone) 200 mg Q12HR GT 10/31/18 21:00 11/30/18 20:59 11/02/18 08:50 Diltiazem HCl (Cardizem) 60 mg EVERY 8 HOURS GT 10/31/18 14:00 11/26/18 17:59 11/02/18 05:30 Ipratropium [place] (Atrovent) 500 mcg Q6HRT N 11/01/18 19:00 11/06/18 18:59 11/02/18 07:24 Lansoprazole (Prevacid) 30 mg DAILY GT 11/01/18 09:00 12/01/18 08:59 11/02/18 08:50 Levetiracetam (Keppra) 500 mg Q12HR GT 10/31/18 21:00 11/22/18 20:59 11/02/18 08:50 Piperacillin Sod/ Tazobactam Sod 3.375 gm/Dextrose 110 ml @ 27.5 mls/hr EVERY 8 HOURS IVPB 10/31/18 14:00 11/05/18 13:59 11/02/18 05:34 Vancomycin HCl (Vanco rx to dose) 1 ea DAILY PRN MISC Per rx protocol 10/31/18 09:00 11/30/18 08:59 Subjective ROS Limited/Unobtainable: No Constitutional: Reports: fatigue Respiratory: Reports: shortness of breath Allergies: Coded Allergies: No Known Allergies (Unverified , 10/22/18) Objective Last 24 Hour Vital Signs Date Time Temp Pulse Resp B/P (MAP) Pulse Ox O2 Delivery O2 Flow Rate FiO2 11/05/18 20:46 Venturi Mask 14.0 55 11/05/18 20:46 100 18 99 Venturi Mask 14.0 55 11/05/18 20:46 97 Venturi Mask 14.0 55 11/05/18 20:11 100 18 97 Venturi Mask 14.0 55 11/05/18 16:36 98.5 94 30 116/66 (83) 96 11/05/18 14:32 82 18 97 Venturi Mask 14.0 55 11/05/18 14:21 82 20 97 Venturi Mask 14.0 55 11/05/18 13:47 92 104/53 11/05/18 13:47 92 104/53 (70) 11/05/18 12:03 98.5 83 33 110/64 (79) 98 11/05/18 09:57 Venturi Mask 15.0 Venturi Mask 15.0 Venturi Mask 15.0 11/05/18 09:42 79 11/05/18 08:00 98.1 76 33 108/55 (72) 97 11/05/18 07:45 84 18 98 Venturi Mask 14.0 55 11/05/18 07:35 98 Venturi Mask 14.0 55 11/05/18 07:35 Venturi Mask 14.0 55 11/05/18 07:35 79 20 98 Venturi Mask 14.0 55 11/05/18 05:38 85 124/61 11/05/18 04:00 97.7 85 34 124/61 (82) 100 11/05/18 01:56 86 20 97 Venturi Mask 14.0 55 11/05/18 01:43 81 20 96 Venturi Mask 14.0 55 11/05/18 00:00 98.6 79 33 127/69 (88) 97 11/04/18 21:07 91 119/72 11/04/18 21:00 Venturi Mask 15.0 Venturi Mask 15.0 Venturi Mask 15.0 Intake and Output 11/04/18 11/05/18 18:59 06:59 Intake Total 1320 ml Output Total 600 ml Balance 720 ml Free Water 600 ml Tube Feeding 720 ml Output Urine Total 600 ml Current Medications Medications (Trade) Dose Ordered Sig/Sofia Route PRN Reason Start Time Stop Time Status Last Admin Dose Admin Acetylcysteine (Mucomyst) [address] [facility] 11/03/18 01:00 12/01/18 18:59 11/05/18 20:11 Amiodarone HCl (Cordarone) 200 mg DAILY GT 11/04/18 09:00 11/30/18 20:59 11/05/18 09:39 Diltiazem HCl (Cardizem) 60 mg EVERY 8 HOURS GT 11/02/18 22:00 11/26/18 17:59 11/05/18 05:38 Ipratropium [place] (Atrovent) 500 mcg Q4H PRN N Shortness of Breath 11/02/18 20:45 11/07/18 20:44 Ipratropium [place] (Atrovent) [address] [facility] 11/03/18 01:00 11/06/18 18:59 11/05/18 20:11 Levetiracetam (Keppra) 500 mg Q12HR GT 11/02/18 21:00 11/22/18 20:59 11/05/18 09:40 Lorazepam (Ativan 2mg/ml 1ml) 1 mg Q2H PRN IV For Anxiety 11/04/18 17:45 11/11/18 17:44 Morphine Sulfate (Morphine Sulfate) 1 mg Q2H PRN IVP For Pain 11/04/18 17:45 11/11/18 17:44 Haile Malhotra MD Nov 05, 2018 20:52
[2018-11-06] VITALS (7 sets, daily range): BP systolic 90–165; BP diastolic 57–97
[2018-11-06] MEDS: Ipratropium 0.02% Inh Soln 2.5ml UD HHN SCH ×3 (00:11→13:00)
[2018-11-06] MEDS: Acetylcysteine 20% Soln 4ml HHN SCH ×5 (00:11→23:45)
[2018-11-06] MEDS: dilTIAZem HCl 60mg tab GT SCH ×3 (05:07→21:04)
[2018-11-06] MEDS: levETIRAcetam 500mg/5ml Liquid GT SCH ×2 (10:17→21:04)
[2018-11-06] MEDS: Amiodarone 200mg tab GT SCH (10:17)
--- NOTE | 2018-11-06 18:12 | Pulmonology Progress Note ---
Assessment/Plan Assessment/Plan Pulmonary Progress Note HPI Patient readmitted from SNF, worsening SOB, currently on comfort measures, comfortable PMH: Lung Mass, Seizures, Diabetes, Hypertension, Atrial Fibrillation, Previous CVA, Depression, GERD Allergies: No Known Allergies ROS: limited Assessment/Plan Problems: (1) Altered mental status (2) Bilateral pneumonia (3) Seizure (4) Diabetes mellitus (5) Elevated brain natriuretic peptide (BNP) level (6) Lung mass (7) Sacral decubitus ulcer (8) Lytic bone lesions on xray Assessment/Plan Agree that any further w/u of underlying malignancy would be futile. Patient now DNAR/DNI, now on full comfort measures Comfort measures PRN O2 HHN's FM O2 NPO IVF PRN Subjective Allergies: Coded Allergies: No Known Allergies (Unverified , 10/22/18) Subjective Stable on FM O2 On Comfort Measures DNAR now with no escalation or aggressive w/u No change in status otherwise Objective Vital Signs Noted General Appearance: cachetic - on FM O2 barely responsive HEENT: normocephalic, atraumatic, anicteric Respiratory/Chest: rhonchi Cardiovascular: normal peripheral pulses, normal rate, regular rhythm Abdomen: normal bowel sounds, soft, non tender, no organomegaly, non distended , no mass, other - GT CDI Extremities: no cyanosis, no clubbing, no edema Microbiology Date/Time Source Procedure Growth Status 10/31/18 16:10 Blood Blood Culture - Preliminary NO GROWTH AFTER 24 HOURS Resulted 10/31/18 16:00 Blood Blood Culture - Preliminary NO GROWTH AFTER 24 HOURS Resulted 10/31/18 03:35 Blood Blood Culture - Preliminary NO GROWTH AFTER 24 HOURS Resulted 10/31/18 03:30 Blood Blood Culture - Preliminary NO GROWTH AFTER 24 HOURS Resulted 10/30/18 11:30 Blood Blood Culture - Preliminary NO GROWTH AFTER 48 HOURS Resulted 10/30/18 11:22 Blood Blood Culture - Preliminary NO GROWTH AFTER 48 HOURS Resulted 10/30/18 14:45 Indwelling Cath Urine Culture - Final NO GROWTH AFTER 48 HOURS Complete Laboratory Tests 11/01/18 15:45: Arterial Blood pH 7.432, Arterial Blood Partial Pressure CO2 61.0*H, Arterial Blood Partial Pressure O2 58.0L, Arterial Blood HCO3 39.8H, Arterial Blood Oxygen Saturation 89.3*L, Arterial Blood Base Excess 13.7*H, Parveen Test Positive 11/01/18 18:50: Vancomycin Level Trough > 50.0H 11/02/18 03:20: Sodium Level 138, Potassium Level 4.5, Chloride Level 98, Carbon Dioxide Level 38H, Anion Gap 2L, Blood Urea Nitrogen 30H, Creatinine 1.3, Estimat Glomerular Filtration Rate , Glucose Level 154H, Calcium Level 9.5, Total Bilirubin 0.2, Aspartate Amino Transf (AST/SGOT) 17, Alanine Aminotransferase (ALT/SGPT) 21, Alkaline Phosphatase 132H, Total Protein 6.4, Albumin 1.6L, Globulin 4.8, Random Vancomycin Level 39.6 Current Medications Medications (Trade) Dose Ordered Sig/Sofia Route PRN Reason Start Time Stop Time Status Last Admin Dose Admin Acetylcysteine (Mucomyst) 200 mg Q6HRT [facility] 11/01/18 19:00 12/01/18 18:59 11/02/18 07:24 Amiodarone HCl (Cordarone) 200 mg Q12HR GT 10/31/18 21:00 11/30/18 20:59 11/02/18 08:50 Diltiazem HCl (Cardizem) 60 mg EVERY 8 HOURS GT 10/31/18 14:00 11/26/18 17:59 11/02/18 05:30 Ipratropium [place] (Atrovent) 500 mcg Q6HRT [facility] 11/01/18 19:00 11/06/18 18:59 11/02/18 07:24 Lansoprazole (Prevacid) 30 mg DAILY GT 11/01/18 09:00 12/01/18 08:59 11/02/18 08:50 Levetiracetam (Keppra) 500 mg Q12HR GT 10/31/18 21:00 11/22/18 20:59 11/02/18 08:50 Piperacillin Sod/ Tazobactam Sod 3.375 gm/Dextrose 110 ml @ 27.5 mls/hr EVERY 8 HOURS IVPB 10/31/18 14:00 11/05/18 13:59 11/02/18 05:34 Vancomycin HCl (Vanco rx to dose) 1 ea DAILY PRN MISC Per rx protocol 10/31/18 09:00 11/30/18 08:59 Subjective ROS Limited/Unobtainable: No Allergies: Coded Allergies: No Known Allergies (Unverified , 3/9/19) Objective Last 24 Hour Vital Signs Date Time Temp Pulse Resp B/P (MAP) Pulse Ox O2 Delivery O2 Flow Rate FiO2 11/06/18 16:00 98.5 99 35 123/63 (83) 99 11/06/18 13:58 94 105/57 11/06/18 13:53 94 105/57 (73) 11/06/18 13:00 Non-Rebreather 11/06/18 13:00 Non-Rebreather 11/06/18 11:59 97.5 106 34 129/85 (100) 100 11/06/18 10:41 Venturi Mask 12.0 Venturi Mask 12.0 Venturi Mask 12.0 11/06/18 08:14 97.9 101 28 153/71 (98) 100 11/06/18 08:09 104 25 99 Venturi Mask 12.0 50 11/06/18 08:01 97 Venturi Mask 12.0 50 11/06/18 08:01 82 20 97 Venturi Mask 12.0 50 11/06/18 08:01 Venturi Mask 12.0 50 11/06/18 05:40 110 30 94 11/06/18 05:30 Venturi Mask 12.0 11/06/18 05:07 120 165/97 11/06/18 04:00 97.1 120 30 165/97 (119) 92 11/06/18 00:27 104 26 99 Venturi Mask 12.0 50 11/06/18 00:11 102 26 98 Venturi Mask 12.0 50 11/06/18 00:00 98.9 102 23 102/60 (74) 98 11/05/18 21:04 100 104/69 11/05/18 21:00 Venturi Mask 12.0 11/05/18 20:46 Venturi Mask 12.0 50 11/05/18 20:46 100 18 99 Venturi Mask 12.0 50 11/05/18 20:46 97 Venturi Mask 12.0 50 11/05/18 20:11 100 18 97 Venturi Mask 14.0 55 11/05/18 20:00 99.3 103 26 104/69 (81) 97 Intake and Output 11/05/18 11/06/18 19:00 07:00 Intake Total 900 ml 1310 ml Output Total 875 ml 950 ml Balance 25 ml 360 ml Free Water 240 ml 590 ml Tube Feeding 660 ml 720 ml Output Urine Total 875 ml 950 ml Current Medications Medications (Trade) Dose Ordered Sig/Sofia Route PRN Reason Start Time Stop Time Status Last Admin Dose Admin Acetylcysteine (Mucomyst) 200 mg Q6HRT [facility] 11/03/18 01:00 12/01/18 18:59 11/06/18 08:01 Amiodarone HCl (Cordarone) 200 mg DAILY GT 11/04/18 09:00 11/30/18 20:59 11/06/18 10:17 Diltiazem HCl (Cardizem) 60 mg EVERY 8 HOURS GT 11/02/18 22:00 11/26/18 17:59 11/06/18 05:07 Ipratropium [place] (Atrovent) 500 mcg Q4H PRN N Shortness of Breath 11/02/18 20:45 11/07/18 20:44 Ipratropium [place] (Atrovent) 500 mcg Q6HRT [facility] 11/03/18 01:00 11/06/18 18:59 11/06/18 08:01 Levetiracetam (Keppra) 500 mg Q12HR GT 11/02/18 21:00 11/22/18 20:59 11/06/18 10:17 Lorazepam (Ativan 2mg/ml 1ml) 1 mg Q2H PRN IV For Anxiety 11/04/18 17:45 11/11/18 17:44 Morphine Sulfate (Morphine Sulfate) 1 mg Q2H PRN IVP For Pain 11/04/18 17:45 11/11/18 17:44 Haile Malhotra MD Nov 06, 2018 18:12
[2018-11-06] MEDS: Ipratropium 0.02% Inh Soln 2.5ml UD HHN PRN (21:37)
--- NOTE | 2018-11-06 23:54 | Neurology Progress Note ---
Interim History Interim History ROS Limited/Unobtainable: Yes Complaints: Acute Ischemic Stroke Events: None Interim History No change in neurological status or report of seizure. Objective Physical Exam Last Vital Signs Date Time Temp Pulse Resp B/P (MAP) Pulse Ox O2 Delivery O2 Flow Rate FiO2 11/06/18 21:43 91 25 96 Non-Rebreather 15.0 100 11/06/18 21:04 90/58 11/06/18 20:00 98.8 Head: normocophalic Neck: no rigidity, other EENT: benign Neurologic Exam Mental Status: awake, other - Eyes opening spontaneously without tracking and somewhat resistant to pupillary inspection with light. Speech: other - non verbal Language: other Cranial Nerves III, IV, : pupils - PERRLA Cranial Nerve VII: no facial asymmetry Motor System: no involuntary movement - No spontaneous movement at this time and upper limbs remain contracted but able to extend each with gentle effort without evidence of spasticity, other Gait: other - Unable to ambulate due to LOC Objective Physical Exam General Appearance: lethargic, thin Lines, tubes and drains: peripheral HEENT: normocephalic, atraumatic, mucous membranes moist, supple, no JVD Neck: normal alignment, supple, normal inspection Respiratory/Chest: lungs clear Cardiovascular/Chest: normal peripheral pulses, normal rate, regular rhythm Abdomen: non tender, soft, PEG feeding Extremities: stable trace edema Skin Exam: warm/dry, other - toe nails on feet - they are growing over top of toe Neurologic: responsive - Eyes open spontaneously R>L but closing to exam , motor weakness - UE contracture bilaterally with sensory deficit. RLE Triple flexion. LLE localizing to pain. , Not verbal, not following commands. Musculoskeletal: other - Upper Extremity contracture bilaterally no with grimace and groan to gentle extension of each arm- no evidence of hypotonia/ spasticity- . Impression/Recommendations Problems: (1) Seizure Assessment & Plan: Keppra 500mg BID to continue, consider decreasing to 250mg BID for improved LOC (2) Bilateral pneumonia Assessment & Plan: ABX treatment as per ID Team. (3) Altered mental status Assessment & Plan: Obtunded mental status since admission with no improvement. (4) CVA (cerebral vascular accident) Assessment & Plan: Procedure: MRI Brain no Contrast Indication: Altered mental status and seizures Technique: sagittal T1 fast spin echo, axial T1 FLAIR, axial T2 FLAIR, axial T2 * GRE, axial diffusion weighted images. ADC and exponential ADC maps generated. Axial T2-weighted images were not obtained, as patient unable to tolerate further imaging Comparison: Head CT dated 10/22/2018 Findings: There is an area of diffusion restriction in the left inferolateral frontal lobe, mostly within the cortex. No associated hemorrhage No other foci of restricted diffusion demonstrated. No acute hemorrhage or edema demonstrated elsewhere. No mass effect nor midline shift. There is marked age-related enlargement of the ventricles and extra axial CSF spaces. There is extensive periventricular deep white matter high T2 signal. Encephalomalacia is seen in the right occipital lobe and in the left posterior parietal lobe. Somewhat unusual bilateral symmetrical lacunar infarcts are seen within the ariadna. Visualized orbits and sinuses are unremarkable. Impression: Very limited exam, as described Diffusion restriction in the left inferolateral frontal lobe, consistent with nonhemorrhagic acute cortical infarct. Extensive chronic and age-related changes, as described Multiple old infarcts as described INFARCTS within the ARIADNA may be cause of decreased wakefulness and potentially affect respiratory pattern if further infarctions in this area. Status: stable, unchanged, other Recommendations As patient is stable, with no evidence of seizure or neurological changes- and now on comfort care- will sign off from neurological perspective unless requested for this patient. Continue with Q shift neuro checks Maintain sleep/ wake hygiene routines for patient Continue AED medications Follow up with Neurology as outpatient for any queries regarding AED management if PMD is unable. Sherine Guy N.P. Nov 06, 2018 23:54
[2018-11-07] VITALS: BP 98/52
[2018-11-07] MEDS: Acetylcysteine 20% Soln 4ml HHN SCH ×3 (04:00→13:08)
[2018-11-07 05:00] VITALS: BP 92/56
[2018-11-07] MEDS: dilTIAZem HCl 60mg tab GT SCH ×3 (06:00→21:06)
[2018-11-07] MEDS: Ipratropium 0.02% Inh Soln 2.5ml UD HHN PRN ×2 (07:54→13:07)
[2018-11-07 08:00] VITALS: BP 95/63
[2018-11-07] MEDS: levETIRAcetam 500mg/5ml Liquid GT SCH ×2 (08:30→21:06)
[2018-11-07] MEDS: Amiodarone 200mg tab GT SCH (08:30)
[2018-11-07 12:00] VITALS: BP 96/60
--- NOTE | 2018-11-07 14:03 | General Progress Note ---
Assessment/Plan Assessment/Plan S: not verbal O: Again appears lethargic, Not following commands. PHYSICAL EXAMINATION: GENERAL: An elderly male, lying in bed, altered, unresponsive, and not in acute distress. HEENT: Normocephalic and atraumatic. Pupils not reactive to light. Well pale sclera. Unable to assess oral mucosa. NECK: Seems supple. No lymphadenopathy. CARDIOVASCULAR: Regular rate and rhythm. No murmur. LUNGS: He had diminished breathing sounds at the bases with crackles. ABDOMEN: Soft, nontender, and nondistended. PEG tube in place EXTREMITY: No edema or cyanosis. GENITOURINARY: He has normal genitalia. Torres catheter in place. SKIN: Right upper buttock pressure wound. No rash. No hives.Neuro: limited exam, Neuro: not verbal at base line, awake, limited exam Meds: reviewed and reconciled including zosyn and vanco ASSESSMENT: 1. Sepsis. 2. Acute CVA 3. Sz D/o 2. Healthcare-associated pneumonia. 3. Diffuse Metastatic cancer: source : unknown 4. Abnormal troponin.likely troponin leak 4. Anemia. 5. Dementia/encephalopathy. 6. Code Status - will change from Full Code to DNR 7. GI and DVT prophylaxis. 8. one episode of Hemoptysis PLAN OF CARE: Risks of any aggressive Diagnostic procedure ( including Trach) surpasses its benefits. Notes from Bioethic committee by Dr Ulrich reviewed. D/w Pulmonary , Dr Nunn Will change POLST to DNR/DNI start comfort care I did med rec with this new goal for comfort care Coordination of care to return to receiving facility with hospice care, per SW/ CM. Subjective Allergies: Coded Allergies: No Known Allergies (Unverified , 10/22/18) Objective Last 24 Hour Vital Signs Date Time Temp Pulse Resp B/P (MAP) Pulse Ox O2 Delivery O2 Flow Rate FiO2 11/07/18 13:30 97 96/60 11/07/18 13:18 95 24 99 Non-Rebreather 15.0 100 11/07/18 13:08 97 24 99 Non-Rebreather 15.0 100 11/07/18 12:00 99.4 100 23 96/60 (72) 100 11/07/18 08:06 100 25 99 Non-Rebreather 15.0 100 11/07/18 08:00 Non-Rebreather 15.0 Non-Rebreather 15.0 Non-Rebreather 15.0 11/07/18 08:00 98.8 97 21 95/63 (74) 99 11/07/18 07:56 102 25 Non-Rebreather 15.0 100 11/07/18 07:56 102 25 97 Non-Rebreather 15.0 100 11/07/18 07:54 Non-Rebreather 15.0 100 11/07/18 07:54 97 Non-Rebreather 15.0 100 11/07/18 06:00 99 92/56 11/07/18 05:00 98.9 99 32 92/56 (68) 99 11/07/18 04:00 Non-Rebreather 15.0 100 11/07/18 04:00 Non-Rebreather 15.0 100 11/07/18 00:00 97.5 94 30 98/52 (67) 100 11/06/18 21:43 91 25 96 Non-Rebreather 15.0 100 11/06/18 21:34 90 25 Non-Rebreather 15.0 100 11/06/18 21:34 90 25 99 Non-Rebreather 15.0 100 11/06/18 21:34 Non-Rebreather 15.0 100 11/06/18 21:34 99 Non-Rebreather 15.0 100 11/06/18 21:04 95 90/58 11/06/18 21:00 Non-Rebreather 15.0 Non-Rebreather 15.0 Non-Rebreather 15.0 11/06/18 20:00 98.8 95 34 90/58 (69) 100 11/06/18 16:00 98.5 99 35 123/63 (83) 99 Intake and Output 11/06/18 11/07/18 19:00 07:00 Intake Total 1240 ml 1350 ml Output Total 1250 ml 950 ml Balance -10 ml 400 ml Free Water 580 ml 630 ml Tube Feeding 660 ml 720 ml Output Urine Total 1250 ml 950 ml # Bowel Movements 1 Height (Feet): 6 Weight (Pounds): 145 Hayde Duran MD Nov 07, 2018 14:02
--- NOTE | 2018-11-07 15:20 | Cardiac Electrophysiology PN ---
Assessment/Plan Assessment/Plan 1. Paroxysmal atrial fibrillation with RVR In SR on Cardizem 60 q 8 hr and amiodarone 200 mg 200 daily Off anticoagulation for metastatic CA 2. Troponin leak due to atrial fib with RVR 3. Bilateral pneumonia. On vancomycin and aztreonam per Dr. Morrell. On BIPAP 4. Diabetes. 5. Dysphagia, status post PEG placement. 6. Left Lung CA. Had 300 cc Right Thoracentesis. S/P Bone scan 7. Seizures and altered mental status. The patient is on Keppra 500 mg b.i.d. MRI brain new acute cortical infarcts DW RN Subjective Subjective No events . Placement pending Objective Last 24 Hour Vital Signs Date Time Temp Pulse Resp B/P (MAP) Pulse Ox O2 Delivery O2 Flow Rate FiO2 11/07/18 13:30 97 96/60 11/07/18 13:18 95 24 99 Non-Rebreather 15.0 100 11/07/18 13:08 97 24 99 Non-Rebreather 15.0 100 11/07/18 12:00 99.4 100 23 96/60 (72) 100 11/07/18 08:06 100 25 99 Non-Rebreather 15.0 100 11/07/18 08:00 Non-Rebreather 15.0 Non-Rebreather 15.0 Non-Rebreather 15.0 11/07/18 08:00 98.8 97 21 95/63 (74) 99 11/07/18 07:56 102 25 Non-Rebreather 15.0 100 11/07/18 07:56 102 25 97 Non-Rebreather 15.0 100 11/07/18 07:54 Non-Rebreather 15.0 100 11/07/18 07:54 97 Non-Rebreather 15.0 100 11/07/18 06:00 99 92/56 11/07/18 05:00 98.9 99 32 92/56 (68) 99 11/07/18 04:00 Non-Rebreather 15.0 100 11/07/18 04:00 Non-Rebreather 15.0 100 11/07/18 00:00 97.5 94 30 98/52 (67) 100 11/06/18 21:43 91 25 96 Non-Rebreather 15.0 100 11/06/18 21:34 90 25 Non-Rebreather 15.0 100 11/06/18 21:34 90 25 99 Non-Rebreather 15.0 100 11/06/18 21:34 Non-Rebreather 15.0 100 11/06/18 21:34 99 Non-Rebreather 15.0 100 11/06/18 21:04 95 90/58 11/06/18 21:00 Non-Rebreather 15.0 Non-Rebreather 15.0 Non-Rebreather 15.0 11/06/18 20:00 98.8 95 34 90/58 (69) 100 11/06/18 16:00 98.5 99 35 123/63 (83) 99 Intake and Output 11/06/18 11/07/18 19:00 07:00 Intake Total 1240 ml 1350 ml Output Total 1250 ml 950 ml Balance -10 ml 400 ml Free Water 580 ml 630 ml Tube Feeding 660 ml 720 ml Output Urine Total 1250 ml 950 ml # Bowel Movements 1 Objective HEAD AND NECK: No JVD. LUNGS: Decreased breath sounds on left CARDIOVASCULAR: Regular S1 and S2 with no gallop. ABDOMEN: Soft and status post PEG. EXTREMITIES: No pitting edema and are contracted. Saurabh Arredondo MD Nov 07, 2018 15:20
--- NOTE | 2018-11-07 15:43 | Pulmonology Progress Note ---
Assessment/Plan Assessment/Plan Pulmonary Progress Note HPI Patient readmitted from SNF, worsening SOB, currently on comfort measures, comfortable PMH: Lung Mass, Seizures, Diabetes, Hypertension, Atrial Fibrillation, Previous CVA, Depression, GERD Allergies: No Known Allergies ROS: limited Assessment/Plan Problems: (1) Altered mental status (2) Bilateral pneumonia (3) Seizure (4) Diabetes mellitus (5) Elevated brain natriuretic peptide (BNP) level (6) Lung mass (7) Sacral decubitus ulcer (8) Lytic bone lesions on xray Assessment/Plan Agree that any further w/u of underlying malignancy would be futile. Patient now DNAR/DNI, now on full comfort measures Comfort measures PRN O2 HHN's FM O2 NPO IVF PRN Subjective Allergies: Coded Allergies: No Known Allergies (Unverified , 10/22/18) Subjective Stable on FM O2 On Comfort Measures DNAR now with no escalation or aggressive w/u No change in status otherwise Objective Vital Signs Noted General Appearance: cachetic - on FM O2 barely responsive HEENT: normocephalic, atraumatic, anicteric Respiratory/Chest: rhonchi Cardiovascular: normal peripheral pulses, normal rate, regular rhythm Abdomen: normal bowel sounds, soft, non tender, no organomegaly, non distended , no mass, other - GT CDI Extremities: no cyanosis, no clubbing, no edema Microbiology Date/Time Source Procedure Growth Status 10/31/18 16:10 Blood Blood Culture - Preliminary NO GROWTH AFTER 24 HOURS Resulted 10/31/18 16:00 Blood Blood Culture - Preliminary NO GROWTH AFTER 24 HOURS Resulted 10/31/18 03:35 Blood Blood Culture - Preliminary NO GROWTH AFTER 24 HOURS Resulted 10/31/18 03:30 Blood Blood Culture - Preliminary NO GROWTH AFTER 24 HOURS Resulted 10/30/18 11:30 Blood Blood Culture - Preliminary NO GROWTH AFTER 48 HOURS Resulted 10/30/18 11:22 Blood Blood Culture - Preliminary NO GROWTH AFTER 48 HOURS Resulted 10/30/18 14:45 Indwelling Cath Urine Culture - Final NO GROWTH AFTER 48 HOURS Complete Laboratory Tests 11/01/18 15:45: Arterial Blood pH 7.432, Arterial Blood Partial Pressure CO2 61.0*H, Arterial Blood Partial Pressure O2 58.0L, Arterial Blood HCO3 39.8H, Arterial Blood Oxygen Saturation 89.3*L, Arterial Blood Base Excess 13.7*H, Parveen Test Positive 11/01/18 18:50: Vancomycin Level Trough > 50.0H 11/02/18 03:20: Sodium Level 138, Potassium Level 4.5, Chloride Level 98, Carbon Dioxide Level 38H, Anion Gap 2L, Blood Urea Nitrogen 30H, Creatinine 1.3, Estimat Glomerular Filtration Rate , Glucose Level 154H, Calcium Level 9.5, Total Bilirubin 0.2, Aspartate Amino Transf (AST/SGOT) 17, Alanine Aminotransferase (ALT/SGPT) 21, Alkaline Phosphatase 132H, Total Protein 6.4, Albumin 1.6L, Globulin 4.8, Random Vancomycin Level 39.6 Current Medications Medications (Trade) Dose Ordered Sig/Sofia Route PRN Reason Start Time Stop Time Status Last Admin Dose Admin Acetylcysteine (Mucomyst) 200 mg Q6HRT [facility] 11/01/18 19:00 12/01/18 18:59 11/02/18 07:24 Amiodarone HCl (Cordarone) 200 mg Q12HR GT 10/31/18 21:00 11/30/18 20:59 11/02/18 08:50 Diltiazem HCl (Cardizem) 60 mg EVERY 8 HOURS GT 10/31/18 14:00 11/26/18 17:59 11/02/18 05:30 Ipratropium [place] (Atrovent) 500 mcg Q6HRT [facility] 11/01/18 19:00 11/06/18 18:59 11/02/18 07:24 Lansoprazole (Prevacid) 30 mg DAILY GT 11/01/18 09:00 12/01/18 08:59 11/02/18 08:50 Levetiracetam (Keppra) 500 mg Q12HR GT 10/31/18 21:00 11/22/18 20:59 11/02/18 08:50 Piperacillin Sod/ Tazobactam Sod 3.375 gm/Dextrose 110 ml @ 27.5 mls/hr EVERY 8 HOURS IVPB 10/31/18 14:00 11/05/18 13:59 11/02/18 05:34 Vancomycin HCl (Vanco rx to dose) 1 ea DAILY PRN MISC Per rx protocol 10/31/18 09:00 11/30/18 08:59 Subjective ROS Limited/Unobtainable: No Allergies: Coded Allergies: No Known Allergies (Unverified , 3/9/19) Objective Last 24 Hour Vital Signs Date Time Temp Pulse Resp B/P (MAP) Pulse Ox O2 Delivery O2 Flow Rate FiO2 11/07/18 13:30 97 96/60 11/07/18 13:18 95 24 99 Non-Rebreather 15.0 100 11/07/18 13:08 97 24 99 Non-Rebreather 15.0 100 11/07/18 12:00 99.4 100 23 96/60 (72) 100 11/07/18 08:06 100 25 99 Non-Rebreather 15.0 100 11/07/18 08:00 Non-Rebreather 15.0 Non-Rebreather 15.0 Non-Rebreather 15.0 11/07/18 08:00 98.8 97 21 95/63 (74) 99 11/07/18 07:56 102 25 Non-Rebreather 15.0 100 11/07/18 07:56 102 25 97 Non-Rebreather 15.0 100 11/07/18 07:54 Non-Rebreather 15.0 100 11/07/18 07:54 97 Non-Rebreather 15.0 100 11/07/18 06:00 99 92/56 11/07/18 05:00 98.9 99 32 92/56 (68) 99 11/07/18 04:00 Non-Rebreather 15.0 100 11/07/18 04:00 Non-Rebreather 15.0 100 11/07/18 00:00 97.5 94 30 98/52 (67) 100 11/06/18 21:43 91 25 96 Non-Rebreather 15.0 100 11/06/18 21:34 90 25 Non-Rebreather 15.0 100 11/06/18 21:34 90 25 99 Non-Rebreather 15.0 100 11/06/18 21:34 Non-Rebreather 15.0 100 11/06/18 21:34 99 Non-Rebreather 15.0 100 11/06/18 21:04 95 90/58 11/06/18 21:00 Non-Rebreather 15.0 Non-Rebreather 15.0 Non-Rebreather 15.0 11/06/18 20:00 98.8 95 34 90/58 (69) 100 11/06/18 16:00 98.5 99 35 123/63 (83) 99 Intake and Output 11/06/18 11/07/18 19:00 07:00 Intake Total 1240 ml 1350 ml Output Total 1250 ml 950 ml Balance -10 ml 400 ml Free Water 580 ml 630 ml Tube Feeding 660 ml 720 ml Output Urine Total 1250 ml 950 ml # Bowel Movements 1 Current Medications Medications (Trade) Dose Ordered Sig/Sofia Route PRN Reason Start Time Stop Time Status Last Admin Dose Admin Acetylcysteine (Mucomyst) 200 mg Q6HRT [facility] 11/03/18 01:00 12/01/18 18:59 11/07/18 13:08 Amiodarone HCl (Cordarone) 200 mg DAILY GT 11/04/18 09:00 11/30/18 20:59 11/07/18 08:30 Diltiazem HCl (Cardizem) 60 mg EVERY 8 HOURS GT 11/02/18 22:00 11/26/18 17:59 11/06/18 05:07 Ipratropium [place] (Atrovent) 500 mcg Q4H PRN HHN Shortness of Breath 11/02/18 20:45 11/07/18 20:44 11/07/18 13:07 Levetiracetam (Keppra) 500 mg Q12HR GT 11/02/18 21:00 11/22/18 20:59 11/07/18 08:30 Lorazepam (Ativan 2mg/ml 1ml) 1 mg Q2H PRN IV For Anxiety 11/04/18 17:45 11/11/18 17:44 Morphine Sulfate (Morphine Sulfate) 1 mg Q2H PRN IVP For Pain 11/04/18 17:45 11/11/18 17:44 Haile Malhotra MD Nov 07, 2018 15:43
[2018-11-07 16:00] VITALS: BP 93/55
[2018-11-07 20:00] VITALS: BP 101/59
[2018-11-07] MEDS: Morphine Sulfate 2mg/ml Inj(IV/IM USE ONLY) IVP PRN (23:35)
[2018-11-08] VITALS: BP 118/65
[2018-11-08] MEDS: Ipratropium 0.02% Inh Soln 2.5ml UD HHN PRN ×3 (00:53→12:50)
[2018-11-08] MEDS: Acetylcysteine 20% Soln 4ml HHN SCH ×3 (00:53→12:50)
[2018-11-08] MEDS: Morphine Sulfate 2mg/ml Inj(IV/IM USE ONLY) IVP PRN ×3 (02:15→13:04)
[2018-11-08 04:00] VITALS: BP 113/70
[2018-11-08] MEDS: dilTIAZem HCl 60mg tab GT SCH (05:13)
[2018-11-08 08:00] VITALS: BP 109/65
[2018-11-08] MEDS: Amiodarone 200mg tab GT SCH (08:30)
[2018-11-08] MEDS: levETIRAcetam 500mg/5ml Liquid GT SCH (08:31)
[2018-11-08 12:00] VITALS: BP 128/76
[2018-11-08] MEDS ORDERED: PCA Morphine 1mg/ml 30 ML IV PRN (13:28)
[2018-11-08] MEDS ORDERED: Rate Change PCA 1 Each MISC PRN (13:30)
[2018-11-08] MEDS ORDERED: PCA Education Pamphlet MISC ONE (13:30)
[2018-11-08] MEDS ORDERED: Rate Change Narcotic Drip MISC PRN (13:30)
--- NOTE | 2018-11-08 14:17 | Pulmonology Progress Note ---
Assessment/Plan Assessment/Plan Pulmonary Progress Note HPI Patient readmitted from SNF, worsening SOB, currently on comfort measures, comfortable PMH: Lung Mass, Seizures, Diabetes, Hypertension, Atrial Fibrillation, Previous CVA, Depression, GERD Allergies: No Known Allergies ROS: limited Assessment/Plan Problems: (1) Altered mental status (2) Bilateral pneumonia (3) Seizure (4) Diabetes mellitus (5) Elevated brain natriuretic peptide (BNP) level (6) Lung mass (7) Sacral decubitus ulcer (8) Lytic bone lesions on xray Assessment/Plan Agree that any further w/u of underlying malignancy would be futile. Patient now DNAR/DNI, now on full comfort measures Comfort measures - PRN Morphine PRN O2 HHN's FM O2 NPO IVF PRN Subjective Allergies: Coded Allergies: No Known Allergies (Unverified , 10/22/18) Subjective Stable on FM O2 On Comfort Measures DNAR now with no escalation or aggressive w/u No change in status otherwise Objective Vital Signs Noted General Appearance: cachetic - on FM O2 barely responsive HEENT: normocephalic, atraumatic, anicteric Respiratory/Chest: rhonchi Cardiovascular: normal peripheral pulses, normal rate, regular rhythm Abdomen: normal bowel sounds, soft, non tender, no organomegaly, non distended , no mass, other - GT CDI Extremities: no cyanosis, no clubbing, no edema Microbiology Date/Time Source Procedure Growth Status 10/31/18 16:10 Blood Blood Culture - Preliminary NO GROWTH AFTER 24 HOURS Resulted 10/31/18 16:00 Blood Blood Culture - Preliminary NO GROWTH AFTER 24 HOURS Resulted 10/31/18 03:35 Blood Blood Culture - Preliminary NO GROWTH AFTER 24 HOURS Resulted 10/31/18 03:30 Blood Blood Culture - Preliminary NO GROWTH AFTER 24 HOURS Resulted 10/30/18 11:30 Blood Blood Culture - Preliminary NO GROWTH AFTER 48 HOURS Resulted 10/30/18 11:22 Blood Blood Culture - Preliminary NO GROWTH AFTER 48 HOURS Resulted 10/30/18 14:45 Indwelling Cath Urine Culture - Final NO GROWTH AFTER 48 HOURS Complete Laboratory Tests 11/01/18 15:45: Arterial Blood pH 7.432, Arterial Blood Partial Pressure CO2 61.0*H, Arterial Blood Partial Pressure O2 58.0L, Arterial Blood HCO3 39.8H, Arterial Blood Oxygen Saturation 89.3*L, Arterial Blood Base Excess 13.7*H, Parveen Test Positive 11/01/18 18:50: Vancomycin Level Trough > 50.0H 11/02/18 03:20: Sodium Level 138, Potassium Level 4.5, Chloride Level 98, Carbon Dioxide Level 38H, Anion Gap 2L, Blood Urea Nitrogen 30H, Creatinine 1.3, Estimat Glomerular Filtration Rate , Glucose Level 154H, Calcium Level 9.5, Total Bilirubin 0.2, Aspartate Amino Transf (AST/SGOT) 17, Alanine Aminotransferase (ALT/SGPT) 21, Alkaline Phosphatase 132H, Total Protein 6.4, Albumin 1.6L, Globulin 4.8, Random Vancomycin Level 39.6 Current Medications Medications (Trade) Dose Ordered Sig/Sofia Route PRN Reason Start Time Stop Time Status Last Admin Dose Admin Acetylcysteine (Mucomyst) 200 mg Q6HRT N 11/01/18 19:00 12/01/18 18:59 11/02/18 07:24 Amiodarone HCl (Cordarone) 200 mg Q12HR GT 10/31/18 21:00 11/30/18 20:59 11/02/18 08:50 Diltiazem HCl (Cardizem) 60 mg EVERY 8 HOURS GT 10/31/18 14:00 11/26/18 17:59 11/02/18 05:30 Ipratropium [place] (Atrovent) 500 mcg Q6HRT N 11/01/18 19:00 11/06/18 18:59 11/02/18 07:24 Lansoprazole (Prevacid) 30 mg DAILY GT 11/01/18 09:00 12/01/18 08:59 11/02/18 08:50 Levetiracetam (Keppra) 500 mg Q12HR GT 10/31/18 21:00 11/22/18 20:59 11/02/18 08:50 Piperacillin Sod/ Tazobactam Sod 3.375 gm/Dextrose 110 ml @ 27.5 mls/hr EVERY 8 HOURS IVPB 10/31/18 14:00 11/05/18 13:59 11/02/18 05:34 Vancomycin HCl (Vanco rx to dose) 1 ea DAILY PRN MISC Per rx protocol 10/31/18 09:00 11/30/18 08:59 Subjective ROS Limited/Unobtainable: Yes Constitutional: Reports: no symptoms Allergies: Coded Allergies: No Known Allergies (Unverified , 10/22/18) Objective Last 24 Hour Vital Signs Date Time Temp Pulse Resp B/P (MAP) Pulse Ox O2 Delivery O2 Flow Rate FiO2 11/08/18 13:03 112 24 84 Nasal Cannula 2.0 28 11/08/18 12:51 106 20 96 Non-Rebreather 15.0 100 11/08/18 12:00 98.2 110 26 128/76 (93) 91 11/08/18 08:42 110 25 97 Non-Rebreather 15.0 100 11/08/18 08:24 101 22 11/08/18 08:24 Non-Rebreather 15.0 100 11/08/18 08:24 98 Non-Rebreather 15.0 100 11/08/18 08:24 101 22 98 Non-Rebreather 15.0 100 11/08/18 08:00 Non-Rebreather 15.0 Non-Rebreather 15.0 Non-Rebreather 15.0 11/08/18 08:00 98.2 105 30 109/65 (80) 92 11/08/18 05:13 107 113/70 11/08/18 04:00 98.5 107 20 113/70 (84) 100 11/08/18 01:03 107 25 95 Non-Rebreather 15.0 100 11/08/18 00:53 102 25 99 Non-Rebreather 15.0 100 11/08/18 00:00 99.1 102 19 118/65 (82) 100 11/07/18 23:45 99 Non-Rebreather 15.0 100 11/07/18 23:45 99 25 Non-Rebreather 15.0 100 11/07/18 23:45 Non-Rebreather 15.0 100 11/07/18 23:45 Non-Rebreather 15.0 100 11/07/18 23:45 Non-Rebreather 15.0 100 11/07/18 23:09 Non-Rebreather 15.0 Non-Rebreather 15.0 Non-Rebreather 15.0 11/07/18 21:06 100 101/59 11/07/18 20:00 99.1 100 22 101/59 (73) 100 11/07/18 16:00 99.0 98 23 93/55 (68) 100 Intake and Output 11/07/18 11/08/18 19:00 07:00 Intake Total 1010 ml 900 ml Output Total 850 ml Balance 160 ml 900 ml Free Water 290 ml 180 ml Tube Feeding 720 ml 720 ml Output Urine Total 850 ml Current Medications Medications (Trade) Dose Ordered Sig/Sofia Route PRN Reason Start Time Stop Time Status Last Admin Dose Admin Acetylcysteine (Mucomyst) 200 mg Q6HRT HHN 11/03/18 01:00 12/01/18 18:59 11/08/18 12:50 Diltiazem HCl (Cardizem) 60 mg EVERY 8 HOURS GT 11/02/18 22:00 11/26/18 17:59 11/08/18 05:13 Ipratropium [place] (Atrovent) 500 mcg Q4H PRN N Shortness of Breath 11/08/18 00:30 11/13/18 00:29 11/08/18 12:50 Levetiracetam (Keppra) 500 mg Q12HR GT 11/02/18 21:00 11/22/18 20:59 11/08/18 08:31 Lorazepam (Ativan 2mg/ml 1ml) 1 mg Q2H PRN IV For Anxiety 11/04/18 17:45 11/11/18 17:44 Miscellaneous Medication (Narcotic Drip Rate Change) 1 ea DAILY PRN MISC COMFORT CARE 11/08/18 13:30 12/08/18 13:29 Miscellaneous Medication (Narcotic Shift Volume) 1 ea Q8HR@07,15,23 MISC 11/08/18 15:00 12/08/18 14:59 Morphine Sulfate 30 ml @ 1 mls/hr Q24H PRN IV For Pain 11/08/18 13:28 11/10/18 13:27 11/08/18 13:35 Haile Malhotra MD Nov 08, 2018 14:17
[2018-11-08] MEDS ORDERED: D5W 275ml ONE (14:59)
[2018-11-08] MEDS ORDERED: Narcotic Shift Volume MISC SCH (15:00)
--- NOTE | 2018-11-08 15:44 | Cardiac Electrophysiology PN ---
Assessment/Plan Assessment/Plan 1. Paroxysmal atrial fibrillation with RVR Was in SR on Cardizem 60 q 8 hr and amiodarone 2. Troponin leak due to atrial fib with RVR 3. Bilateral pneumonia. Was on Abx per Dr. Morrell. 4. Diabetes. 5. Dysphagia, status post PEG placement. 6. Left Lung CA. S/P 300 cc Right Thoracentesis. 7. Seizures and altered mental status. MRI brain new acute cortical infarcts 8. DNR/DNI/Comfort care on morphine drip. Now no spontaneous respiration or heart rate. DW nurse discharge regarding patient demise. DC oxygen and morphine drip DW RN Subjective Subjective On morphine drip and Oxygen via mask.Unresponsive with no spontaneous respiration. Objective Last 24 Hour Vital Signs Date Time Temp Pulse Resp B/P (MAP) Pulse Ox O2 Delivery O2 Flow Rate FiO2 11/08/18 13:03 112 24 84 Nasal Cannula 2.0 28 11/08/18 12:51 106 20 96 Non-Rebreather 15.0 100 11/08/18 12:00 98.2 110 26 128/76 (93) 91 11/08/18 08:42 110 25 97 Non-Rebreather 15.0 100 11/08/18 08:24 101 22 11/08/18 08:24 Non-Rebreather 15.0 100 11/08/18 08:24 98 Non-Rebreather 15.0 100 11/08/18 08:24 101 22 98 Non-Rebreather 15.0 100 11/08/18 08:00 Non-Rebreather 15.0 Non-Rebreather 15.0 Non-Rebreather 15.0 11/08/18 08:00 98.2 105 30 109/65 (80) 92 11/08/18 05:13 107 113/70 11/08/18 04:00 98.5 107 20 113/70 (84) 100 11/08/18 01:03 107 25 95 Non-Rebreather 15.0 100 11/08/18 00:53 102 25 99 Non-Rebreather 15.0 100 11/08/18 00:00 99.1 102 19 118/65 (82) 100 11/07/18 23:45 99 Non-Rebreather 15.0 100 11/07/18 23:45 99 25 Non-Rebreather 15.0 100 11/07/18 23:45 Non-Rebreather 15.0 100 11/07/18 23:45 Non-Rebreather 15.0 100 11/07/18 23:45 Non-Rebreather 15.0 100 11/07/18 23:09 Non-Rebreather 15.0 Non-Rebreather 15.0 Non-Rebreather 15.0 11/07/18 21:06 100 101/59 11/07/18 20:00 99.1 100 22 101/59 (73) 100 11/07/18 16:00 99.0 98 23 93/55 (68) 100 Intake and Output 11/07/18 11/08/18 19:00 07:00 Intake Total 1010 ml 900 ml Output Total 850 ml Balance 160 ml 900 ml Free Water 290 ml 180 ml Tube Feeding 720 ml 720 ml Output Urine Total 850 ml Objective HEAD AND NECK: positive JVD. LUNGS: No breath sounds on left CARDIOVASCULAR: no heart sounds ABDOMEN: status post PEG. EXTREMITIES: No pitting edema and are contracted. Saurabh Arredondo MD Nov 08, 2018 15:44
--- NOTE | 2018-11-08 16:19 | General Progress Note ---
Assessment/Plan Assessment/Plan S: not verbal O: Again appears lethargic, Not following commands. PHYSICAL EXAMINATION: GENERAL: An elderly male, lying in bed, altered, unresponsive, and not in acute distress. HEENT: Normocephalic and atraumatic. Pupils not reactive to light. Well pale sclera. Unable to assess oral mucosa. NECK: Seems supple. No lymphadenopathy. CARDIOVASCULAR: Regular rate and rhythm. No murmur. LUNGS: He had diminished breathing sounds at the bases with crackles. ABDOMEN: Soft, nontender, and nondistended. PEG tube in place EXTREMITY: No edema or cyanosis. GENITOURINARY: He has normal genitalia. Torres catheter in place. SKIN: Right upper buttock pressure wound. No rash. No hives.Neuro: limited exam, Neuro: not verbal at base line, awake, limited exam Meds: reviewed and reconciled including zosyn and vanco ASSESSMENT: 1. Sepsis. 2. Acute CVA 3. Sz D/o 2. Healthcare-associated pneumonia. 3. Diffuse Metastatic cancer: source : unknown 4. Abnormal troponin.likely troponin leak 4. Anemia. 5. Dementia/encephalopathy. 6. Code Status - will change from Full Code to DNR 7. GI and DVT prophylaxis. 8. one episode of Hemoptysis PLAN OF CARE: Risks of any aggressive Diagnostic procedure ( including Trach) surpasses its benefits. Notes from Bioethic committee by Dr Ulrich reviewed. D/w Pulmonary , Dr Nunn Will change POLST to DNR/DNI start comfort care I did med rec with this new goal for comfort care Coordination of care to return to receiving facility with hospice care, per SW/ CM. Subjective Allergies: Coded Allergies: No Known Allergies (Unverified , 10/22/18) Objective Last 24 Hour Vital Signs Date Time Temp Pulse Resp B/P (MAP) Pulse Ox O2 Delivery O2 Flow Rate FiO2 11/08/18 13:03 112 24 84 Nasal Cannula 2.0 28 11/08/18 12:51 106 20 96 Non-Rebreather 15.0 100 11/08/18 12:00 98.2 110 26 128/76 (93) 91 11/08/18 08:42 110 25 97 Non-Rebreather 15.0 100 11/08/18 08:24 101 22 11/08/18 08:24 Non-Rebreather 15.0 100 11/08/18 08:24 98 Non-Rebreather 15.0 100 11/08/18 08:24 101 22 98 Non-Rebreather 15.0 100 11/08/18 08:00 Non-Rebreather 15.0 Non-Rebreather 15.0 Non-Rebreather 15.0 11/08/18 08:00 98.2 105 30 109/65 (80) 92 11/08/18 05:13 107 113/70 11/08/18 04:00 98.5 107 20 113/70 (84) 100 11/08/18 01:03 107 25 95 Non-Rebreather 15.0 100 11/08/18 00:53 102 25 99 Non-Rebreather 15.0 100 11/08/18 00:00 99.1 102 19 118/65 (82) 100 11/07/18 23:45 99 Non-Rebreather 15.0 100 11/07/18 23:45 99 25 Non-Rebreather 15.0 100 11/07/18 23:45 Non-Rebreather 15.0 100 11/07/18 23:45 Non-Rebreather 15.0 100 11/07/18 23:45 Non-Rebreather 15.0 100 11/07/18 23:09 Non-Rebreather 15.0 Non-Rebreather 15.0 Non-Rebreather 15.0 11/07/18 21:06 100 101/59 11/07/18 20:00 99.1 100 22 101/59 (73) 100 Intake and Output 11/07/18 11/08/18 19:00 07:00 Intake Total 1010 ml 900 ml Output Total 850 ml Balance 160 ml 900 ml Free Water 290 ml 180 ml Tube Feeding 720 ml 720 ml Output Urine Total 850 ml Height (Feet): 6 Weight (Pounds): 145 Hayde Duran MD Nov 08, 2018 16:19
[2018-11-08] MEDS ORDERED: PCA shift volume MISC SCH (19:00)
--- NOTE | 2018-11-08 19:16 | Diagnostic Imaging Report ---
APPROVED REPORT CPT Code: 47772 Vascular Symptoms Comments: Seizures Technically difficult study due to breathing equipment Doppler Spectral Velocity Analysis RightLeft BIATERAL CAROTID: CCA - Imaging reveals no significant plaque in the common carotid the external carotid arteries. The Doppler signal indicates the degree of stenosis is mild (30%) in the internal and external carotid arteries. VERTEBRAL/SUBCLAVIAN- The left vertebral and right and left subclavian arteries are within normal limits. The right vertebral artery was not well visualized.
--- NOTE | 2018-11-09 09:33 | Discharge Summary ---
Discharge Summary Discharge Summary _ SUMMARY DATE OF ADMISSION: 10/22/2018 DATE OF EXPIRATION: 11/08/2018 REASON FOR ADMISSION: 73 years old male with past medical history of diabetes mellitus, atrial fibrillation, hypertension, CVA with right-sided weakness, depression, anxiety, GERD, presented from the longterm facility for evaluation due to alleged tonic-clonic seizure. Patient had no prior history of seizure. Accu-Chek was stable in the field. No further treatment provided. Upon evaluation vital signs revealed elevated blood pressure 173/95. Pulse oximetry was stable on room air. Troponin negative. EKG revealed normal sinus rhythm , possible left ventricular hypertrophy and nonspecific ST -T wave changes. Chest x-ray revealed marked increased opacification of the left hemithorax with minimal residual aerated lung. Shift of mediastinum to the left suggested that it was most likely due to atelectasis, but significant component of accumulating pleural fluid was possible. Increasing right midlung infiltrate likely pneumonia. CT scan of the head revealed no definite evidence of acute intracranial abnormality. Cerebral atrophy and prominent chronic white matter ischemic changes. Multifocal encephalomalacia, involving right occipital, left frontal and left parieto-occipital region . Mild left inferior cerebellar encephalomalacia. Laboratory workup revealed no leukocytosis, hemoglobin 11.8, hematocrit 36.6. Sodium 134, potassium 5.0. BUN 21 , creatinine 0.8 . Glucose 100. Pro BNP 1179. Stable LFT. Patient was on Depakote , but for the behavioral reasons, according to nursing staff. Depakote level was subtherapeutic. Patient received Keppra and Ativan in the emergency department. Patient started on broad spectrum antibiotic for pneumonia and was admitted for further management CONSULTANTS: manager outreach Dr. Thomas neurologist Dr. Morgan pulmonary Dr. Nunn ID specialist Dr. [facility] COURSE: Patient was admitted and started on IV fluids and broad-spectrum antibiotics. Patient was kept n.p.o. due to altered mental status. Neurology, ID specialist and pulmonology consults were requested. Seizure precautions maintained. Patient was continued on Keppra. Ativan was on standby as needed for breakthrough seizures. MRI of the brain revealed diffusion restriction in the left inferior lateral frontal lobe consistent with nonhemorrhagic acute cortical infarct. Extensive chronic and age-related changes. Multiple old infarcts. Neurologist recommended conservative management for acute CVA . Carotid duplex revealed mild degree of stenosis 30% in internal and external carotid arteries. Lipid panel was stable. TSH within normal limits. Hemoglobin A1c 6.4. Blood sugar was managed with sliding scale of insulin as needed. Bin Worker followed. CT of the chest revealed evidence of disseminated neoplasm with multiply osteolytic lesions, mediastinal adenopathy, and possible bilateral adrenal masses. Complete atelectasis and consolidation of the left lower lobe. Complete occlusion of the proximal lobar bronchi on the left. Given the above findings, the possibility of pulmonary neoplasm with resultant endobronchial occlusion should be considered. Extensive atelectasis and consolidation of the left upper lobe, possibly representing active pneumonia , but with suggested significant chronic component. Suspected loculated pleural effusion on the left. Supplemental oxygen titrated to keep pulse oximetry above 92%. Pulmonary toilet was provided [id number] as needed and as needed. Venous duplex bilateral lower extremity revealed no evidence of acute DVT. Initially was ordered thoracentesis of left pleural effusion, but ultrasound of the chest revealed no sufficient pleural fluid to be safely aspirated, since left pleural effusion was loculated. Patient undergone thoracentesis of the right pleural effusion which yielded 300 mL of pleural fluid. Chest x-ray post thoracentesis revealed complete resolution of pleural fluid. No evidence of pneumothorax. Pleural fluid analysis was negative. Pathology of pleural fluid revealed no evidence of malignant cells. Scattered reactive mesothelial cells in a background of blot blot elements and histiocytes. Patient was on antibiotic as per ID specialist recommendation. Blood cultures were negative. Sputum culture was negative. Pleural fluid culture, as mentioned above, was negative. Repeated blood culture on 10/30 , 10/31 and were all negative. Urine culture was negative. Antibiotic provided empirically for bilateral pneumonia , suspecting aspiration and post obstruction pneumonia. Due to total collapse of the left lung and mediastinal shift along with bone lytic lesions suspected lung cancer with metastasis. Patient subsequently undergone nuclear medicine bone scan , which revealed a osteolytic lesion in the left scapula , reported on recent chest CT. Very questionable focal increased activity was seen corresponding to the previously reported left ninth rib costovertebral junction lesion. No other evidence of osseous metastatic disease was demonstrated. Patient also undergone CT of the abdomen and pelvis , which revealed mass versus consolidation in the left lower lobe. The left lung base overall demonstrated slightly improved aeration, as compared to prior chest CT, although there was still considerable consolidation present. Presumed loculated left pleural effusion was unchanged. Anasarca with diffuse edema. Lucency within the left psoas muscle nonspecific , but possible abscess should be considered. Osteolytic lesion on the of the right iliac bone, likely representing metastasis given other findings. Bilateral adrenal hypertrophy versus masses ,not well demonstrated . Left upper quadrant omental prominent lymph nodes . Previously reported left ninth rib lesion was again demonstrated. Cardiology consult was requested due to elevated troponin and atrial fibrillation with rhythm. Heart rate was controlled with Cardizem and amiodarone. Patient spontaneously converted to sinus rhythm. Second troponin was minimally elevated- 0.083 , and the third troponin returned to normal . EKG revealed sinus rhythm, no acute ischemic changes. Echocardiogram revealed preserved ejection fraction of 60-65% with mild left ventricular hypertrophy. No evidence of pericardial effusion. No evidence of wall motion abnormality. Right ventricular systolic pressure of 59 consistent with moderate pulmonary hypertension. According to manager outreach, minimally elevated troponin was due to troponin leak secondary to atrial fibrillation with rapid ventricular response, resolved. General surgeon followed. Wound care for sacral decubitus ulcer stage III, present on admission, provided as per surgeon recommendation Patient had no family. Bioethics discussion was held on 11/01 regarding further plan of care, given no family and poor prognosis. Patient with dementia, long-term resident of longterm facility with progressive respiratory insufficiency, pneumonia. Workup on this admission showed high likelihood of disseminated carcinoma. After careful review of the record, the ethics committee concluded that further aggressive care would be futile. There was no reasonable expectation that patient will have any meaningful recovery. Further workup of underlying malignancy would be futile. Bioethics supported palliative care not intubation, cardioversion, or chest compression. Code status was subsequently changed to DNR/ DNI on 11/01. Patient started on comfort measures. Supplemental l oxygen titrated as needed to keep pulse oximetry above 92%. Patient was attempted to be weaned from the BiPAP. Pulmonary toilet with nebulizing treatment and chest physiotherapy provided. Patient suctioned as needed. Antibiotic continued. maintained. and Comfort care continued. Unfortunately patient condition was progressively deteriorated. Patient was pronounced at 15:03 on 11/08/18 Cause of : Cardiopulmonary arrest. FINAL DIAGNOSES: . Sepsis Encephalopathy Acute cortical CVA Bilateral pneumonia/suspecting aspiration and postobstructive pneumonia Left lung cancer with metastasis( lytic bone lesions on imaging) Seizures Paroxysmal atrial fibrillation with rapid ventricular response Troponin leak Diabetes mellitus Dysphagia status post PEG Sacral decubitus ulcer, stage 3, present on admission Left large pleural effusion Status post thoracentesis right pleural effusion Comfort measures I have been assigned to dictate discharge summary for this account. I was not involved in the patient's management. Julita Marion NP Nov 09, 2018 09:33
== END 2018-11-08 15:00 | disposition expired | DRG 720 ==
LOC: EDBD 20:12 → EMR 20:20 → 2W 22:05 → EDBEDREQDT 10-23 10:15 → EDBEDREQSVC 10-23 10:15 → EDBEDREQ 10-23 10:15 → EDBEDREQTM 10-23 10:15 → EDBEDREQ 10-23 12:54 → ICU 10-26 12:59 → 2W 10-28 23:26 → 4E 10-31 12:15 → 2W 11-01 04:02 → 4E 11-02 19:20
PROC: 0W993ZX Drainage of Right Pleural Cavity, Percutaneous Approach, Diagnostic (ICD-10-PCS; principal; 2018-10-28)
DX: A41.9 Sepsis, unspecified organism (principal); I63.9 Cerebral infarction, unspecified; G93.40 Encephalopathy, unspecified; J90 Pleural effusion, not elsewhere classified; L89.153 Pressure ulcer of sacral region, stage 3; J18.9 Pneumonia, unspecified organism; I48.0 Paroxysmal atrial fibrillation; C79.51 Secondary malignant neoplasm of bone; R13.10 Dysphagia, unspecified; R04.2 Hemoptysis; R56.9 Unspecified convulsions; D64.9 Anemia, unspecified; E11.9 Type 2 diabetes mellitus without complications; F03.90 Unspecified dementia, unspecified severity, without behavioral disturbance, psychotic disturbance, mood disturbance, and anxiety; Y95 Nosocomial condition; F32.9 Major depressive disorder, single episode, unspecified; F41.9 Anxiety disorder, unspecified; F39 Unspecified mood [affective] disorder; I10 Essential (primary) hypertension; Z93.1 Gastrostomy status; C34.92 Malignant neoplasm of unspecified part of left bronchus or lung; Z66 Do not resuscitate
CPT/HCPCS: 36415; 36600; 70450; 70551; 71045; 71250; 74176; 76700; 76942; 78306; 80053; 80061; 80164; 80202; 80299; 81001; 82550; 82803; 82962; 83036; 83880; 84443; 84484; 85007; 85025; 85610; 85730; 87040; 87070; 87081; 87086; 87205; 93005; 93306; 93880; 93970; 94640; 94660; 94664; 94760; 96365; 96367; 96375; 99285; J7620